=== PATIENT | male | born 1950 | race Caucasian/White ===

== ENCOUNTER 2020-06-05 14:48 | Outpatient (RCR) | payer MEDICARE, OTHER ==
[2020-06-05 15:19] LABS: BASOPHILS # (AUTO) 0.1 10^3/uL (0.0-0.1); BASOPHILS % (AUTO) 1 % (0-10); EOSINOPHILS # (AUTO) 0.2 10^3/uL (0.0-0.3); EOSINOPHILS % (AUTO) 4 % (0-10); HEMATOCRIT 46 % (40-54); HEMOGLOBIN 14.9 G/DL (13.3-17.7); LYMPHOCYTES # (AUTO) 1.1 X 10^3 (1.0-4.0); LYMPHOCYTES % (AUTO) 22 % (12-44); MEAN CORPUSCULAR HEMOGLOBIN 30 PG (25-34); MEAN CORPUSCULAR HGB CONC 33 G/DL (32-36); MEAN CORPUSCULAR VOLUME 91 FL (80-99); MEAN PLATELET VOLUME 10.6 FL (7.4-10.4); MONOCYTES # (AUTO) 0.5 X 10^3 (0.0-1.0); MONOCYTES % (AUTO) 9 % (0-12); NEUTROPHILS # (AUTO) 3.1 X 10^3 (1.8-7.8); NEUTROPHILS % (AUTO) 63 % (42-75); PLATELET COUNT 146 10^3/uL (130-400); WHITE BLOOD COUNT 4.8 10^3/uL (4.3-11.0)
[2020-06-05 15:36] LABS: ALBUMIN 4.1 GM/DL (3.2-4.5); CHLORIDE 107 MMOL/L (98-107); POTASSIUM 4.1 MMOL/L (3.6-5.0); SODIUM 142 MMOL/L (135-145)
[2020-06-05 15:37] LABS: CALCIUM 9.6 MG/DL (8.5-10.1)
[2020-06-05 15:38] LABS: GLUCOSE 104 MG/DL (70-105); TOTAL PROTEIN 7.3 GM/DL (6.4-8.2)
[2020-06-05 15:39] LABS: CARBON DIOXIDE 24 MMOL/L (21-32)
[2020-06-05 15:40] LABS: BILIRUBIN,TOTAL 0.5 MG/DL (0.1-1.0)
[2020-06-05 15:42] LABS: ALKALINE PHOSPHATASE 81 U/L (40-136); CREATININE SERUM 1.17 MG/DL (0.60-1.30); GFR ESTIMATED > 60
[2020-06-05 15:43] LABS: BUN/CREATININE RATIO 15
[2020-06-05 15:45] LABS: ALANINE AMINOTRANSFERASE 27 U/L (0-55)
[2020-06-05 15:57] LABS: PROTHROMBIN TIME PATIENT 13.4 SEC (12.2-14.7)
[2020-06-20] MEDS ORDERED: LOSA100T57 PO (14:49)
[2020-06-20] MEDS ORDERED: POTA10TA36 PO (14:49)
[2020-06-20] MEDS ORDERED: QUET50TA22 PO (14:49)
[2020-06-20] MEDS ORDERED: AMLO-251 PO (14:49)
[2020-06-23] MEDS ORDERED: ACET325T49 PO (13:00)
== END 2020-09-03 | disposition home or self-care (01) ==
LOC: LAB 14:48 → EDSTATUS 14:50
PROVIDERS: ATTEND Internal Medicine
DX: C22.0 Liver cell carcinoma (principal)
CPT/HCPCS: 36415; 80053; 82105; 85025; 85610

== ENCOUNTER 2020-06-16 19:52 | Emergency (ER) | payer MEDICARE, OTHER ==
[~2020-06-16] VITALS: Ht 182.9 cm; Wt 79.4 kg
--- NOTE | 2020-06-16 20:30 | ED Abdominal Pain ---
General Stated Complaint: ABD PAIN Source of Information: Patient Exam Limitations: No Limitations History of Present Illness Date Seen by Provider: Jun 16, 2020 Time Seen by Provider: 20:14 Initial Comments This is a chronically ill 69-year-old male who presents to the ER with complaints of constipation and abdominal pain. Reports he has been having issues with constipation since a recent surgery at on 06/11 for embolization therapy of his liver. States he has not been taking anything at home for constipation, and tonight he could not tolerate it anymore and had his son help him with a fleets enema. States he had small amount of stool but still feels very constipated. Son states he is concerned because his father has been having increasing weakness since procedure. No fever, chills, cough, shortness of breath, chest pain, nausea/vomiting. Allergies and Home Medications Allergies Coded Allergies: codeine (Verified Allergy, Unknown, ITCHING, 06/16/20) Patient Home Medication List Home Medication List Reviewed: Yes Review of Systems Review of Systems Constitutional: see HPI EENTM: No Symptoms Reported Respiratory: No Symptoms Reported Cardiovascular: No Symptoms Reported Gastrointestinal: See HPI Genitourinary: Denies Frequency, Denies Flank Pain, Denies Hematuria; Incontinence; Denies Pain Musculoskeletal: no symptoms reported Skin: no symptoms reported Psychiatric/Neurological: No Symptoms Reported Endocrine: No Symptoms Reported Hematologic/Lymphatic: No Symptoms Reported Physical Exam Vital Signs Vital Signs - First Documented 06/16/20 20:31 Temp 36.5 Pulse 75 Resp 14 B/P (MAP) 148/93 (111) Pulse Ox 99 O2 Delivery Nasal Cannula O2 Flow Rate 4.00 Capillary Refill : Height/Weight/BMI Height: '" Weight: lbs. oz. kg; BMI Method: General Appearance: WD/WN, no apparent distress HEENT: PERRL/EOMI, normal ENT inspection, pharynx normal; No scleral icterus (R), No scleral icterus (L) Neck: full range of motion, normal inspection Respiratory: lungs clear, normal breath sounds, no respiratory distress Cardiovascular: normal peripheral pulses, regular rate, rhythm, no edema Gastrointestinal: normal bowel sounds, soft, tenderness (LLQ); No mass Extremities: normal range of motion, non-tender, normal inspection, no pedal edema, normal capillary refill Back: normal inspection Neurologic/Psychiatric: no motor/sensory deficits, alert, normal mood/affect, oriented x 3 Skin: normal color, warm/dry Progress/Results/Core Measures Results/Orders Lab Results Laboratory Tests Test 06/16/20 20:00 06/16/20 20:20 Range/Units Urine Color ORANGE Urine Clarity CLEAR Urine pH 6.0 5-9 Urine Specific [place] 1.010 L 1.016-1.022 Urine Protein NEGATIVE NEGATIVE Urine Glucose (UA) NEGATIVE NEGATIVE Urine Ketones NEGATIVE NEGATIVE Urine Nitrite NEGATIVE NEGATIVE Urine Bilirubin NEGATIVE NEGATIVE Urine Urobilinogen 0.2 < = 1.0 MG/DL Urine Leukocyte Esterase NEGATIVE NEGATIVE Urine RBC (Auto) TRACE-I NEGATIVE Urine RBC 0-2 /HPF Urine WBC 0-2 /HPF Urine Squamous Epithelial Cells RARE /HPF Urine Crystals NONE /LPF Urine Bacteria NEGATIVE /HPF Urine Casts NONE /LPF Urine Mucus NEGATIVE /LPF Urine Culture Indicated NO White Blood Count 8.3 4.3-11.0 10^3/uL Red Blood Count 4.72 4.30-5.52 10^6/uL Hemoglobin 14.1 13.3-17.7 g/dL Hematocrit 42 40-54 % Mean Corpuscular Volume 89 80-99 fL Mean Corpuscular Hemoglobin 30 25-34 pg Mean Corpuscular Hemoglobin Concent 33 32-36 g/dL Red Cell Distribution Width 13.0 10.0-14.5 % Platelet Count 173 130-400 10^3/uL Mean Platelet Volume 10.8 9.0-12.2 fL Immature Granulocyte % (Auto) 1 % Neutrophils (%) (Auto) 82 H 42-75 % Lymphocytes (%) (Auto) 9 L 12-44 % Monocytes (%) (Auto) 8 0-12 % Eosinophils (%) (Auto) 1 0-10 % Basophils (%) (Auto) 0 0-10 % Neutrophils # (Auto) 6.8 1.8-7.8 10^3/uL Lymphocytes # (Auto) 0.7 L 1.0-4.0 10^3/uL Monocytes # (Auto) 0.7 0.0-1.0 10^3/uL Eosinophils # (Auto) 0.1 0.0-0.3 10^3/uL Basophils # (Auto) 0.0 0.0-0.1 10^3/uL Immature Granulocyte # (Auto) 0.1 0.0-0.1 10^3/uL Sodium Level 136 135-145 MMOL/L Potassium Level 3.6 3.6-5.0 MMOL/L Chloride Level 99 98-107 MMOL/L Carbon Dioxide Level 25 21-32 MMOL/L Anion Gap 12 5-14 MMOL/L Blood Urea Nitrogen 24 H 7-18 MG/DL Creatinine 1.03 0.60-1.30 MG/DL Estimat Glomerular Filtration Rate > 60 BUN/Creatinine Ratio 23 Glucose Level 125 H 70-105 MG/DL Calcium Level 9.3 8.5-10.1 MG/DL Corrected Calcium 9.5 8.5-10.1 MG/DL Total Bilirubin 1.2 H 0.1-1.0 MG/DL Aspartate Amino Transf (AST/SGOT) 30 5-34 U/L Alanine Aminotransferase (ALT/SGPT) 69 H 0-55 U/L Alkaline Phosphatase 102 40-136 U/L Total Protein 6.6 6.4-8.2 GM/DL Albumin 3.7 3.2-4.5 GM/DL My Orders Orders - FATMATA CORONADO LUNCH COOK Ua Culture If Indicated (06/16/20 19:55) Comprehensive Metabolic Panel (06/16/20 20:27) Ed Iv/Invasive Line Start (06/16/20 20:27) Cbc With Automated Diff (06/16/20 20:27) Ct Abdomen/Pelvis W (06/16/20 20:27) Chest 1 View, Ap/Pa Only (06/16/20 20:27) Iohexol Injection (Omnipaque 350 Mg/Ml 1 (06/16/20 20:45) Received Contrast (Hold Metformin- Contr (06/16/20 20:45) Ns (Ivpb) (Sodium Chloride 0.9% Ivpb Bag (06/16/20 20:45) Soap Suds Enema (06/16/20 21:25) Medications Given in ED Vital Signs/I&O 06/16/20 06/16/20 20:31 22:45 Temp 36.5 36.0 Pulse 75 99 Resp 14 18 B/P (MAP) 148/93 (111) 119/80 Pulse Ox 99 93 O2 Delivery Nasal Cannula Nasal Cannula O2 Flow Rate 4.00 2.00 Progress Progress Note : Progress Note Pt. examined and in no acute distress. Orders placed for basic labs, UA to check for urinary tract infection, CT abdomen pelvis due to recent embolization and complains of weakness. Patient resting comfortably in bed, denies need at this time. Labs reviewed and are unremarkable. Chest x-ray shows possible atelectasis, encouraged IS use at home. No elevation in white count. UA is negative for UTI. CT abdomen pelvis shows large amount of stool at rectum with constipation/impaction, with no other acute diagnoses. Orders placed for soapsuds enema. Was able to remove a small amount of stool after soapsuds enema, reports feeling improved. Reviewed discharge plan with patient and son and they are agreeable with plan. All questions and concerns addressed. Diagnostic Imaging Diagonstic Imaging: Xray Plain Films/CT/US/NM/MRI: chest Comments NAME: SUNITA [facility] REC#: [id number] PT STATUS: REG ER : 1950 PHYSICIAN: FATMATA CORONADO LUNCH COOK ADMIT DATE: 06/16/20/ER Draft Date of Exam:06/16/20 CHEST 1 VIEW, AP/PA ONLY HISTORY: Abdominal pain COMPARISON: None TECHNIQUE: Frontal view the chest FINDINGS: Lung volumes are low. There are left basilar airspace opacities. There is no pleural effusion or pneumothorax. The cardiac silhouette is normal in size. There is an old left clavicle deformity. IMPRESSION: 1. Low lung volumes with left basilar airspace opacities, may represent atelectasis or infection. Dictated on workstation # [id number] Dict: 06/16/202056 Trans: 06/16/202104 [facility] [phone] Interpreted by: ADEN BROTHERS MD Electronically signed by: Departure Impression Primary Impression: Constipation Disposition: HOME, SELF-CARE Condition: Improved Departure-Patient Inst. Decision time for Depature: 21:27 Referrals: NO,LOCAL PHYSICIAN (PCP/Family) Primary Care Physician Patient Instructions: Constipation in Adults Add. Discharge Instructions: Plan: 1. Drink plenty of fluids to stay hydrated. 2. Use Miralax twice a day until you have desired consistency of stools, then decrease to daily to keep stools soft. If you develop diarrhea, take every other day. 3. Follow up with your primary care provider for persistent complaints. 4. Return to ER for any new or concerning symptoms. FATMATA CORONADO LUNCH COOK Jun 16, 2020 20:30
[2020-06-16 20:44] LABS: BASOPHILS % (AUTO) 0 % (0-10); EOSINOPHILS # (AUTO) 0.1 10^3/uL (0.0-0.3); EOSINOPHILS % (AUTO) 1 % (0-10); HEMATOCRIT 42 % (40-54); HEMOGLOBIN 14.1 g/dL (13.3-17.7); LYMPHOCYTES # (AUTO) 0.7 10^3/uL (1.0-4.0); LYMPHOCYTES % (AUTO) 9 % (12-44); MEAN CORPUSCULAR HEMOGLOBIN 30 pg (25-34); MEAN CORPUSCULAR HGB CONC 33 g/dL (32-36); MEAN CORPUSCULAR VOLUME 89 fL (80-99); MEAN PLATELET VOLUME 10.8 fL (9.0-12.2); MONOCYTES # (AUTO) 0.7 10^3/uL (0.0-1.0); MONOCYTES % (AUTO) 8 % (0-12); NEUTROPHILS # (AUTO) 6.8 10^3/uL (1.8-7.8); NEUTROPHILS % (AUTO) 82 % (42-75); PLATELET COUNT 173 10^3/uL (130-400); WHITE BLOOD COUNT 8.3 10^3/uL (4.3-11.0)
[2020-06-16] MEDS ORDERED: IOHEXOL 350 MG/ML 100 ML (OMNIPAQUE 350) VIAL IV ONE (20:45)
[2020-06-16] MEDS ORDERED: HOLD METFORMIN - RECEIVED CONTRAST 20 ML VIAL IV SCH (20:45)
[2020-06-16] MEDS ORDERED: NS 100 ML (IVPB) BAG IV ONE (20:45)
[2020-06-16 21:01] LABS: ALANINE AMINOTRANSFERASE 69 U/L (0-55); ALBUMIN 3.7 GM/DL (3.2-4.5); ALKALINE PHOSPHATASE 102 U/L (40-136); BILIRUBIN,TOTAL 1.2 MG/DL (0.1-1.0); BUN/CREATININE RATIO 23; CALCIUM 9.3 MG/DL (8.5-10.1); CARBON DIOXIDE 25 MMOL/L (21-32); CHLORIDE 99 MMOL/L (98-107); CREATININE SERUM 1.03 MG/DL (0.60-1.30); GFR ESTIMATED > 60; GLUCOSE 125 MG/DL (70-105); POTASSIUM 3.6 MMOL/L (3.6-5.0); SODIUM 136 MMOL/L (135-145); TOTAL PROTEIN 6.6 GM/DL (6.4-8.2)
--- NOTE | 2020-06-16 21:05 | Diagnostic Imaging Report ---
HISTORY: Abdominal pain COMPARISON: None TECHNIQUE: Frontal view the chest FINDINGS: Lung volumes are low. There are left basilar airspace opacities. There is no pleural effusion or pneumothorax. The cardiac silhouette is normal in size. There is an old left clavicle deformity. IMPRESSION: 1. Low lung volumes with left basilar airspace opacities, may represent atelectasis or infection. Dictated by: Dictated on workstation # [id number]
--- NOTE | 2020-06-16 21:14 | Diagnostic Imaging Report ---
PROCEDURE: CT abdomen and pelvis with contrast. TECHNIQUE: Multiple contiguous axial images were obtained through the abdomen and pelvis after administration of intravenous contrast. Auto Exposure Controls were utilized during the CT exam to meet ALARA standards for radiation dose reduction. All CT scans use one or more of the following dose optimizing techniques: automated exposure control, MA and/or KvP adjustment based on patient size and exam type or iterative reconstruction. INDICATION: Embolization therapy for liver on 06/11/2020. Abdominal pain and constipation. COMPARISON: None FINDINGS: Lung bases demonstrate dependent atelectasis. There is moderate cardiomegaly. There is no pericardial effusion. There is hyperdense material seen throughout the liver, consistent with the known history of embolization. There are 2 hypodense lesions in the anterior right liver, the larger measuring up to 5 cm in diameter. No comparison exam is available. The spleen is upper normal in size. There is a nonspecific hypodensity at the anterior spleen which may be due to perfusion artifact. The pancreas demonstrates no acute abnormality. There is are hyperdensities at the head of the pancreas which may represent calcifications, and maybe from chronic pancreatitis. The adrenal glands appear normal. The kidneys demonstrate mild cortical atrophy with no hydronephrosis and no enhancing masses seen. There is moderate to marked stool in the colon, particularly at the rectum. No free fluid or free air is seen. No distended loops of small bowel are seen to indicate obstruction. The appendix is normal. There are advanced degenerative changes in the spine with no acute osseous abnormality seen. IMPRESSION: 1. Post embolization findings in the right liver, with hypodense lesions noted. No comparison is available. 2. Moderate to marked stool in the colon, particularly at the rectum, concerning for constipation/impaction. 3. Calcifications in the region of the pancreatic head, may be due to chronic pancreatitis. No findings of acute pancreatitis are seen. 4. Cardiomegaly. Dependent pulmonary opacities which likely represent atelectasis. Dictated by: Dictated on workstation # [id number]
[2020-06-16 21:23] LABS: BILIRUBIN,URINE NEGATIVE (NEGATIVE); CLARITY,URINE CLEAR; COLOR,URINE ORANGE; GLUCOSE, URINE (UA) NEGATIVE (NEGATIVE); KETONES,URINE NEGATIVE (NEGATIVE); LEUKOCYTE ESTERASE ,URINE NEGATIVE (NEGATIVE); NITRITE,URINE NEGATIVE (NEGATIVE); PROTEIN,URINE NEGATIVE (NEGATIVE)
[2020-06-16 21:32] LABS: BACTERIA,URINE NEGATIVE /HPF; RBC,URINE 0-2 /HPF; SQUAMOUS EPITHELIAL CELL,UR RARE /HPF; WBC,URINE 0-2 /HPF
[2020-06-16 22:45] VITALS: BP 119/80
== END 2020-06-16 22:45 | disposition home or self-care (01) ==
LOC: EDUNIT# 19:52 → ER 19:56
DX: K59.00 Constipation, unspecified (principal); Z88.5 Allergy status to narcotic agent
CPT/HCPCS: 36415; 71045; 74177; 80053; 81000; 85025

== ENCOUNTER 2020-06-19 22:55 | Inpatient (IN) | payer MEDICARE, OTHER ==
[~2020-06-19] VITALS: Ht 182 cm; Wt 76.4 kg
--- NOTE | 2020-06-19 23:36 | ED Trauma-Multisystem ---
General Chief Complaint: Trauma-Non Activation Stated Complaint: FALL / R ARM PAIN Nursing Triage Note: TO ED VIA [facility] FROM HOME AFTER REPORTED FALL X2 TODAY. FOUND ON FLOOR ON RIGHT SIDE WITH PROBABLE DISLOCATION PER EMS. PT ROLLED TO BACK AND POSSIBLY WENT BACK IN PLACE PER EMS. PT C/O LEFT SIDE ARM/SHOULDER PAIN ON ARRIVAL. LAC TO LEFT TAOIST. Source of Information: Patient, EMS Exam Limitations: No Limitations History of Present Illness Date Seen by Provider: Jun 19, 2020 Time Seen by Provider: 23:00 Initial Comments Patient is a 69-year-old male who presents to the emergency department by EMS this evening with a chief complaint of fall. Patient states that his walker "got away from me" and he fell onto the floor. Patient reportedly had a right shoulder dislocation on EMS arrival and when they rolled him onto his back onto the stretcher it spontaneously reduced. Patient presents to me this evening laying on his left side but when rolled over onto his back appears to have a left shoulder dislocation. Patient is complaining of pain to the left side of his face and his left shoulder. He denies chest pain, abdominal pain, nausea, vomiting. He is a poor historian and appears chronically ill. Patient suffered a laceration to the most lateral aspect of his left eyebrow with his fall this evening. He has contusion to the top of his scalp and the side of his face. He seems to be very hard of hearing. He tells me that he lives with his son and [id number] and grandchildren at home. None of these people are present on arrival for further history. Further history from son at 0016 Son states that he was present when the dad had a mechanical trip and fall while using his walker and trying to get to the bathroom. He has a history of "cerebellar ataxia". states that he did not have a loss of consciousness with his fall today.. He states that within the last week the patient has been at [facility] and had embolization and ablation of a liver tumor/liver cancer. [facility] [place] [facility] [place] [facility]. Patient had an oncology visit earlier today. He supposed to [facility] tomorrow. Past medical history includes hypertension and depression. He has had sig nificantly decreased appetite in recent days. Just seems to have declined fairly steadily. He was moved down here from [place] to live with his son after the patient's passed last year from cancer. Patient is very hard of hearing. No recent illnesses (fever, cough, congestion, nausea, vomiting or diarrhea or genitourinary complaints) that the son is aware of. He did have a visit here on 16 June with complaints of constipation. All other review of systems reviewed and negative except as stated above Occurred: Just Prior to Arrival Severity: Moderate Pain/Injury Location: Face, Head Method of Injury: Fall Modifying Factors: Movement Loss of Consciousness: Unsure Allergies and Home Medications Allergies Coded Allergies: codeine (Verified Allergy, Unknown, ITCHING, 06/16/20) Home Medications Amlodipine Besylate 10 Mg Tablet, 10 MG PO DAILY, (Reported) Losartan Potassium 100 Mg Tablet, 100 MG PO DAILY, (Reported) Potassium Chloride 10 Meq Tab.er.prt, 20 MEQ PO DAILY, (Reported) TAKES 2 (10NEQ) TABS Quetiapine Fumarate 50 Mg Tablet, 50 MG PO BID PRN for AGITATION, (Reported) Patient Home Medication List Home Medication List Reviewed: Yes Review of Systems Review of Systems Constitutional: see HPI Eyes: No Symptoms Reported Ears: No Symptoms Reported Nose: No Symptoms Reported Mouth: No Symptoms Reported Throat: No Symptoms to Report Respiratory: no symptoms reported Cardiovascular: No Symptoms Reported Gastrointestinal: no symptoms reported Musculoskeletal: joint pain (left shoulder), joint swelling, muscle pain Skin: other (abrasion/ laceration left side of face) All Other Systems Reviewed Negative Unless Noted: Yes Past Tdeohzc-Unwwgn-Vrlpbs Hx Patient Social History Alcohol Use: Denies Use 2nd Hand Smoke Exposure: No Recent Infectious Disease Expo: No Recent Hopitalizations: Yes (Surgery on 06/11) Seasonal Allergies Seasonal Allergies: No Past Medical History Surgeries: Yes ([facility] ablation/exploratory 06/11) Respiratory: No Cardiac: Yes Hypertension Neurological: Yes (cerebral ataxia) Gastrointestinal: No Musculoskeletal: No Endocrine: No HEENT: No Cancer: No Psychosocial: Yes PTSD, Depression Blood Disorders: No Physical Exam Vital Signs Vital Signs - First Documented 06/19/20 06/19/20 23:01 23:04 Temp 36.9 Pulse 104 Resp 16 B/P (MAP) 129/77 (94) O2 Delivery Nasal Cannula O2 Flow Rate 2.00 Height, Weight, BMI Height: '" Weight: lbs. oz. kg; 23.00 BMI Method: General Appearance: No Apparent Distress, Chronically ill Head: Ecchymosis, Lacerations (left lateral eye brow), Other (abrasion to top of forehead); No Omalley's Sign, No Raccoon Eyes Eyes: Bilateral Eye Normal Inspection, Bilateral Eye PERRL, Bilateral Eye EOMI Ears, Nose, Throat: No Evidence of ENT Injury, No Dental Injury, Decreased Hearing Neck: Full Range of Motion, Non Tender, Tender Lateral, Tender Midline (C5, 6, 7) Cardiovascular: Regular Rate, Rhythm Respiratory: Lungs Clear, Normal Breath Sounds Gastrointestinal: Normal Bowel Sounds, Non Tender, Soft Back: Normal Inspection Extremity: Normal Capillary Refill, Other (Left shoulder with palpable deformity/dislocation; distal neurovascularly intact) Neurologic/Psychiatric: Alert, Oriented x3, No Motor/Sensory Deficits, Normal Mood/Affect, driver guard II-XII Norm as Tested Skin: Normal Color, Warm/Dry, Other (Abrasion/ecchymosis noted to left zygoma spiritism and top of forehead on the left) [place] Coma Score Best Eye Response (Cheryl): (4) Open Spontaneously Best Verbal Response (Cheryl): (5) Oriented Best Motor Response (Cheryl): (6) Obeys Commands Cheryl Total: 15 Progress/Results/Core Measures Results/Orders Lab Results Laboratory Tests Test 06/19/20 23:00 06/20/20 00:50 Range/Units White Blood Count 14.5 H 4.3-11.0 10^3/uL Red Blood Count 4.08 L 4.30-5.52 10^6/uL Hemoglobin 12.4 L 13.3-17.7 g/dL Hematocrit 37 L 40-54 % Mean Corpuscular Volume 91 80-99 fL Mean Corpuscular Hemoglobin 30 25-34 pg Mean Corpuscular Hemoglobin Concent 33 32-36 g/dL Red Cell Distribution Width 13.2 10.0-14.5 % Platelet Count 220 130-400 10^3/uL Mean Platelet Volume 11.7 9.0-12.2 fL Immature Granulocyte % (Auto) 1 % Neutrophils (%) (Auto) 80 H 42-75 % Lymphocytes (%) (Auto) 8 L 12-44 % Monocytes (%) (Auto) 11 0-12 % Eosinophils (%) (Auto) 0 0-10 % Basophils (%) (Auto) 0 0-10 % Neutrophils # (Auto) 11.6 H 1.8-7.8 10^3/uL Lymphocytes # (Auto) 1.1 1.0-4.0 10^3/uL Monocytes # (Auto) 1.6 H 0.0-1.0 10^3/uL Eosinophils # (Auto) 0.0 0.0-0.3 10^3/uL Basophils # (Auto) 0.0 0.0-0.1 10^3/uL Immature Granulocyte # (Auto) 0.2 H 0.0-0.1 10^3/uL Sodium Level 131 L 135-145 MMOL/L Potassium Level 4.0 3.6-5.0 MMOL/L Chloride Level 96 L 98-107 MMOL/L Carbon Dioxide Level 24 21-32 MMOL/L Anion Gap 11 5-14 MMOL/L Blood Urea Nitrogen 23 H 7-18 MG/DL Creatinine 1.20 0.60-1.30 MG/DL Estimat Glomerular Filtration Rate 60 BUN/Creatinine Ratio 19 Glucose Level 137 H 70-105 MG/DL Calcium Level 9.5 8.5-10.1 MG/DL Corrected Calcium 9.9 8.5-10.1 MG/DL Total Bilirubin 1.7 H 0.1-1.0 MG/DL Aspartate Amino Transf (AST/SGOT) 148 H 5-34 U/L Alanine Aminotransferase (ALT/SGPT) 234 H 0-55 U/L Alkaline Phosphatase 144 H 40-136 U/L Total Protein 6.4 6.4-8.2 GM/DL Albumin 3.5 3.2-4.5 GM/DL Urine Color ORANGE Urine Clarity SL CLOUDY Urine pH 6.0 5-9 Urine Specific [place] 1.025 H 1.016-1.022 Urine Protein TRACE H NEGATIVE Urine Glucose (UA) NEGATIVE NEGATIVE Urine Ketones NEGATIVE NEGATIVE Urine Nitrite NEGATIVE NEGATIVE Urine Bilirubin NEGATIVE NEGATIVE Urine Urobilinogen 2.0 < = 1.0 MG/DL Urine Leukocyte Esterase NEGATIVE NEGATIVE Urine RBC (Auto) TRACE-I NEGATIVE Urine RBC RARE /HPF Urine WBC NONE /HPF Urine Squamous Epithelial Cells 2-5 /HPF Urine Crystals NONE /LPF Urine Bacteria NEGATIVE /HPF Urine Casts PRESENT /LPF Urine Hyaline Casts 5-10 H /LPF Urine Mucus LARGE H /LPF Urine Culture Indicated NO My Orders Orders - GHULAM COHEN MD O2 (06/19/20 23:02) Ct Head/Neck Wo (06/19/20 23:10) Shoulder, Left, 3 Views (06/19/20 23:10) Fentanyl Injection (Sublimaze Injection (06/20/20 00:00) Cbc With Automated Diff (06/20/20 00:15) Comprehensive Metabolic Panel (06/20/20 00:15) Ns Iv 1000 Ml (Sodium Chloride 0.9%) (06/20/20 00:19) Fentanyl Injection (Sublimaze Injection (06/20/20 00:45) Ketamine Injection (Ketalar Injection) (06/20/20 00:45) Garcia Cath (06/20/20 00:46) Ua Culture If Indicated (06/20/20 00:55) Medications Given in ED Vital Signs/I&O 06/19/20 06/19/20 06/20/20 23:01 23:04 00:40 Temp 36.9 Pulse 104 Resp 16 B/P (MAP) 129/77 (94) O2 Delivery Nasal Cannula Room Air Nasal Cannula O2 Flow Rate 2.00 2.00 2.00 Blood Pressure Mean: 94 Progress Progress Note : Time: 00:58 Progress Note Discussed with Dr. Unger, accepts the patient for admission. Will provide IV fluids pain medications ice pack to left shoulder. Will consult Dr. MORALEZ regarding shoulder dislocation for consultation. Diagnostic Imaging Diagonstic Imaging: Xray Comments Left shoulder series shows a fracture dislocation of the left shoulder Stat rad read CT brain as no acute intracranial finding and CT cervical spine no evidence of acute fracture or malalignment Departure Communication (Admissions) Time/Spoke to Admitting Phy: 00:[address] Unger, pain management and IV fluids Impression Primary Impression: Generalized weakness Additional Impressions: Fracture dislocation of left shoulder joint Qualified Codes: S42.92XA - Fracture of left shoulder girdle, part unspecified, initial encounter for closed fracture Elevated liver function tests Disposition: ADMITTED INPATIENT Condition: Stable Admissions Decision to Admit Reason: Admit from ER (General) Decision to Admit/Date: Jun 20, 2020 Time/Decision to Admit Time: 00:59 Departure-Patient Inst. Referrals: NO,LOCAL PHYSICIAN (PCP/Family) Primary Care Physician GHULAM COHEN MD Jun 19, 2020 23:36
[2020-06-20] VITALS (15 sets, daily range): BP systolic 93–146; BP diastolic 56–77
[2020-06-20] MEDS ORDERED: KETAMINE HCL 100 MG/ML 5 ML VIAL IM ONE
[2020-06-20] MEDS ORDERED: NS IV 1000 ML 1,000 ML ONE (00:19)
[2020-06-20 00:28] LABS: BASOPHILS % (AUTO) 0 % (0-10); EOSINOPHILS % (AUTO) 0 % (0-10); HEMATOCRIT 37 % (40-54); HEMOGLOBIN 12.4 g/dL (13.3-17.7); LYMPHOCYTES # (AUTO) 1.1 10^3/uL (1.0-4.0); LYMPHOCYTES % (AUTO) 8 % (12-44); MEAN CORPUSCULAR HEMOGLOBIN 30 pg (25-34); MEAN CORPUSCULAR HGB CONC 33 g/dL (32-36); MEAN CORPUSCULAR VOLUME 91 fL (80-99); MEAN PLATELET VOLUME 11.7 fL (9.0-12.2); MONOCYTES # (AUTO) 1.6 10^3/uL (0.0-1.0); MONOCYTES % (AUTO) 11 % (0-12); NEUTROPHILS # (AUTO) 11.6 10^3/uL (1.8-7.8); NEUTROPHILS % (AUTO) 80 % (42-75); PLATELET COUNT 220 10^3/uL (130-400); WHITE BLOOD COUNT 14.5 10^3/uL (4.3-11.0)
[2020-06-20 00:31] LABS: ALBUMIN 3.5 GM/DL (3.2-4.5)
[2020-06-20 00:33] LABS: CALCIUM 9.5 MG/DL (8.5-10.1)
[2020-06-20 00:36] LABS: BILIRUBIN,TOTAL 1.7 MG/DL (0.1-1.0)
[2020-06-20 00:38] LABS: CREATININE SERUM 1.2 MG/DL (0.60-1.30)
[2020-06-20] MEDS ORDERED: KETAMINE HCL 100 MG/ML 5 ML VIAL IV ONE (00:45)
[2020-06-20] MEDS ORDERED: fentaNYL INJECTION 100 MCG/2 ML AMP IVP ONE ×2 (00:45)
[2020-06-20 00:49] LABS: TOTAL PROTEIN 6.4 GM/DL (6.4-8.2)
[2020-06-20 01:03] LABS: BILIRUBIN,URINE NEGATIVE (NEGATIVE); CLARITY,URINE SL CLOUDY; COLOR,URINE ORANGE; GLUCOSE, URINE (UA) NEGATIVE (NEGATIVE); KETONES,URINE NEGATIVE (NEGATIVE); LEUKOCYTE ESTERASE ,URINE NEGATIVE (NEGATIVE); NITRITE,URINE NEGATIVE (NEGATIVE); PROTEIN,URINE TRACE (NEGATIVE)
[2020-06-20 01:19] LABS: BACTERIA,URINE NEGATIVE /HPF; RBC,URINE RARE /HPF
[2020-06-20] MEDS ORDERED: ONDANSETRON 4 MG/2 ML (SDV) Z0FRAN IV PRN ×2 (02:45→11:15)
[2020-06-20] MEDS: NS IV 1000 ML 1,000 ML IV SCH ×3 (02:58→14:53)
[2020-06-20] MEDS ORDERED: RT-ALBUTEROL SULF 2.5 MG/3 ML PRE-MIX VIAL INH PRN (03:15)
[2020-06-20] MEDS: fentaNYL INJECTION 100 MCG/2 ML AMP IV PRN ×3 (05:24→12:36)
--- NOTE | 2020-06-20 06:21 | Diagnostic Imaging Report ---
INDICATION: Shoulder injury COMPARISON: None FINDINGS: 3 views of the left shoulder demonstrate anterior inferior dislocation with humeral head fracture. The AC joint appears intact. IMPRESSION: Shoulder dislocation fracture. Dictated by: Dictated on workstation # [id number]
--- NOTE | 2020-06-20 06:39 | Diagnostic Imaging Report ---
PROCEDURE: CT head and neck without contrast. TECHNIQUE: Contiguous axial images were obtained from the skull base through the vertex. Noncontrast axial images were then obtained of the soft tissue of the neck. Auto Exposure Controls were utilized during the CT exam to meet ALARA standards for radiation dose reduction. INDICATION: Head injury COMPARISON: None. FINDINGS: CT head: Ventricles normal in size, shape and position. There is age-related cerebral volume loss and chronic microvascular changes. No focus of acute ischemia or hemorrhage is seen. There is no skull fracture. Paranasal sinuses and mastoids are clear. IMPRESSION: No acute intracranial abnormalities. CT cervical spine: Alignment is normal. There is no subluxation or fracture. Multilevel degenerative disc disease and facet joint arthropathy is seen. Soft tissues appear grossly unremarkable. IMPRESSION: No traumatic malalignment or fracture. Agree with preliminary report Dictated by: Dictated on workstation # [id number]
--- NOTE | 2020-06-20 06:58 | Progress Note ---
Standard Progress Note Progress Notes/Assess & Plan Date Seen by a Provider: Jun 20, 2020 Time Seen by a Provider: 06:57 Progress/Assessment & Plan plan to OR today for closed reduction of left shoulder dislocation SUNITA MORALEZ MD Jun 20, 2020 06:58
[2020-06-20] MEDS ORDERED: CATHETER FLUSH 10 ML SYR IV PRN (07:00)
--- NOTE | 2020-06-20 07:39 | CONSULTATION REPORT ---
DATE OF SERVICE: 06/20/2020 REASON FOR CONSULTATION: Left shoulder dislocation with greater tuberosity fracture. HISTORY OF PRESENT ILLNESS: The patient is a 69-year-old gentleman who is extremely debilitated with multiple medical problems who presented to the ER following two falls by the ER physician's report. He was found to have an anterior shoulder dislocation, which she tried to reduce this, but due to his debility, she was concerned about over sedating him. He was admitted for stability and for placement. The patient is unable to give any history. PHYSICAL EXAMINATION: He is tender over his left proximal humerus. He has pain with rotation. Radiographs reveal an anterior inferior shoulder dislocation. PLAN: Closed reduction of left shoulder dislocation. Risks, benefits, options, ramifications and recovery were discussed with the patient and son. They understand and wished to proceed. Job ID: [id number] DocumentID: [id number] Dictated Date: 06/20/2020 07:00:11 [employer] Date: 06/20/2020 07:38:42 Dictated By: SUNITA MORALEZ MD
[2020-06-20] MEDS ORDERED: MIDAZOLAM 2 MG/2 ML (VERSED) VIAL ONE (10:47)
[2020-06-20] MEDS ORDERED: fentaNYL INJECTION 100 MCG/2 ML AMP ONE (10:47)
[2020-06-20] MEDS ORDERED: SEVOFLURANE (ULTANE) 15 ML INHAL SOLN ONE (10:48)
[2020-06-20] MEDS ORDERED: PROPOFOL INJECTION 50 ML IV ONE (11:02)
--- NOTE | 2020-06-20 11:03 | History & Physical-Hospitalist ---
History of Present Illness HPI/Chief Complaint Chad Kim is a 69-year-old male with past medical history of cerebellar ataxia, liver cancer undergoing chemoembolization, hypertension, who presented to after having a fall at home. Obtaining history is difficult due to his pain. He reports left shoulder pain. He reports that he fell while using his walker at home. He says he has had several falls recently. He says he was diagnosed with cerebellar ataxia at the [place]. He also says he broke his left collarbone almost a year ago. He says this was never repaired. He denies any fevers or chills. He denies any shortness of breath or cough. He denies any palpitations or chest pain. He denies any abdominal pain, nausea, vomiting, or diarrhea. Source: patient, RN/MD Exam Limitations: clinical condition Date Seen 06/20/20 Time Seen by a Provider: 09:20 Attending Physician Annamaria Unger DO PCP No,Local Physician Referring Physician Date of Admission Jun 20, 2020 at 00:56 Home Medications & Allergies Home Medications Reviewed patient Home Medication Reconciliation performed by pharmacy medication reconciliations urgent care technician and/or nursing. Patients Allergies have been reviewed. Allergies Allergies Coded Allergies codeine (Verified Allergy, Unknown, ITCHING, 06/16/20) Past Zziobxa-Dhsztz-Ezkrup Hx Past Med/Social Hx: Reviewed Nursing Past Med/Soc Hx Patient Social History Alcohol Use: Denies Use Recreational Drug Use: No 2nd Hand Smoke Exposure: No Recent Foreign Travel: No Contact w/other who traveled: No Recent Hopitalizations: Yes (Surgery on 06/11) Recent Infectious Disease Expo: No Immunizations Up To Date Date of Influenza Vaccine: Feb 16, 2021 Seasonal Allergies Seasonal Allergies: No Past Medical History Cardiac: Hypertension Psychosocial: PTSD, Depression History of Blood Disorders: No Review of Systems Constitutional: no symptoms reported, see HPI Physical Exam Physical Exam Vital Signs Vital Signs - First Documented 06/19/20 06/19/20 06/20/20 23:01 23:04 02:13 Temp 36.9 Pulse 104 Resp 16 B/P (MAP) 129/77 (94) Pulse Ox 94 O2 Delivery Nasal Cannula O2 Flow Rate 2.00 Capillary Refill : Less Than 3 Seconds Height, Weight, BMI Height: '" Weight: lbs. oz. kg; 23.06 BMI Method: General Appearance: Chronically ill, Moderate Distress, Other (uncomfortable) HEENT: PERRL/EOMI, Pharynx Normal Neck: Normal Inspection, Supple Respiratory: Lungs Clear, Normal Breath Sounds, No Respiratory Distress Cardiovascular: Regular Rate, Rhythm, No Edema, No Murmur Gastrointestinal: Normal Bowel Sounds, Non Tender, Soft Extremity: No Pedal Edema, Other (left upper extremity immobilized) Neurologic/Psychiatric: Alert, Oriented x3, No Motor/Sensory Deficits, Normal Mood/Affect Skin: Normal Color, Warm/Dry Results Results/Procedures Labs Laboratory Tests 06/19/20 23:00 Patient resulted labs reviewed. Imaging: Reviewed Imaging Report Assessment/Plan Admission Diagnosis left humerus fracture and shoulder dislocation Admission Status: Inpatient Order (span 2 midnights) Reason for Inpatient Admission: fracture and dislocation requiring surgical repair Assessment and Plan Left humerus fracture Left shoulder dislocation Fall at ground level Cerebellar ataxia XR showed humerus dislocation and fracture Orthopedic surgery consulted Planning for surgery today Pain regimen ordered Add bowel regimen PT/OT Consult SW, will likely need placement on discharge Liver cancer Undergoing chemoembolization as outpatient Clinically significant, no acute management needs HTN Resume home meds after med rec done DVT prophylaxis: Lovenox Diagnosis/Problems Diagnosis/Problems (1) Dislocation of left shoulder joint Status: Acute (2) Fracture of head of left humerus Status: Acute (3) Liver cancer Status: Chronic (4) Cerebellar ataxia Status: Chronic (5) HTN (hypertension) Status: Chronic LUZ ELENA PORTILLO MD Jun 20, 2020 11:03
[2020-06-20] MEDS ORDERED: ANTACID SUSP 30 ML UDC (MYLANTA) PO PRN (11:15)
[2020-06-20] MEDS ORDERED: MELATONIN 3 MG TABLET PO PRN (11:15)
[2020-06-20] MEDS ORDERED: ACETAMINOPHEN 325 MG TABLET PO PRN ×2 (11:15→14:00)
[2020-06-20] MEDS ORDERED: polyethylene glycoL POWDER 17 GM (MIRALAX) PACK PO PRN (11:15)
[2020-06-20] MEDS ORDERED: ONDANSETRON 4 MG (ZOFRAN) ORAL DISSOLVE TAB PO PRN (11:15)
[2020-06-20] MEDS ORDERED: BISACODYL 10 MG SUPP (DULCOLAX) PR PRN (11:15)
--- NOTE | 2020-06-20 13:10 | Progress Note-Pre Operative ---
Pre-Operative Progress Note H&P Reviewed The H&P was reviewed, patient examined and no changes noted. Date Seen by Provider: Jun 20, 2020 Time Seen by Provider: 10:40 Date H&P Reviewed: Jun 20, 2020 Time H&P Reviewed: 06:50 Pre-Operative Diagnosis: left shoulder dislocation and greater tuberosity fracture SUNITA MORALEZ MD Jun 20, 2020 13:10
--- NOTE | 2020-06-20 13:11 | Progress Note-Post Operative ---
Post-Operative Progess Note Surgeon (s)/Exhaust And Muffler Fitter (s) Surgeon SUNITA MORALEZ MD Exhaust And Muffler Fitter: Amador Nieto Pre-Operative Diagnosis left shoulder dislocation and greater tuberosity fracture Post-Operative Diagnosis left shoulder dislocation and greater tuberosity fracture Procedure & Operative Findings Date of Procedure 06/20/20 Procedure Performed/Findings closed reduction of left shoulder Anesthesia Type GETA Estimated Blood Loss Estimated blood loss (mL): none Specimens/Packing Specimens Removed none Packing: none SUNITA MORALEZ MD Jun 20, 2020 13:11
[2020-06-20] MEDS ORDERED: LACTATED RINGERS 1,000 ML IV PRN (13:30)
[2020-06-20] MEDS ORDERED: morphine INJ 4 MG/ML 1 ML (VIAL/SYRINGE) IVP PRN (14:00)
[2020-06-20] MEDS ORDERED: ONDANSETRON 4 MG/2 ML (SDV) Z0FRAN IVP PRN (14:00)
[2020-06-20] MEDS ORDERED: POTA10TA36 PO (14:49)
[2020-06-20] MEDS ORDERED: QUET50TA22 PO (14:49)
[2020-06-20] MEDS ORDERED: LOSA100T57 PO (14:49)
[2020-06-20] MEDS ORDERED: AMLO-251 PO (14:49)
--- NOTE | 2020-06-20 15:20 | Physical Therapy Evaluation ---
PT Evaluation-General Medical Diagnosis Admission Date Jun 20, 2020 at 00:56 Medical Diagnosis: left shoulder dislocation and fracture Onset Date: Jun 19, 2020 Therapy Diagnosis Therapy Diagnosis: generalized weakness Precautions Precautions/Isolations: Fall Prevention, Standard Precautions Referral Physician: Angelica Reason for Referral: Evaluation/Treatment Medical History Pertinent Medical History: HTN Additional Medical History PTSD; cerebellar ataxia Current History EMS secondary to fall x 2 at home "walker got away from him" Reviewed History: Yes Social History Home: Single Level Current Living Status: Other Family Prior Prior Level of Function SCALE: Activities may be completed with or without assistive devices. 3-Rzuqlppnem-yfzawyq completes the activity by him/herself with no assistance from a helper. 5-Set-up or Clean-up Assistance-helper sets up or cleans up; patient completes activity. [place] assists only prior to or following the activity. 4-Supervision or Touching Assistance-helper provides verbal cues and/or touching/steadying and/or contact guard assistance as patient completes activity. Assistance may be provided throughout the activity or intermittently. 3-Partial/Moderate Assistance-helper does LESS THAN HALF the effort. [place] lifts, holds or supports trunk or limbs, but provides less than half the effort. 2-Substantial/Maximal Assistance-helper does MORE THAN HALF the effort. [place] lifts or holds trunk or limbs and provides more than half the effort. 0-Csjlmdgrf-nmtgwp does ALL the effort. Patient does none of the effort to complete the activity. Or, the assistance of 2 or more helpers is required for the patient to complete the activity. If activity was not attempted, code reason: 7-Patient Refused. 9-Not Applicable-not attempted and the patient did not perform the activity before the current illness, exacerbation or injury. 10-Not Attempted due to Environmental Limitations-(lack of equipment, weather restraints, etc.). 88-Not Attempted due to Medical Conditions or Safety Concerns. Bed Mobility: 5 Transfers (B,C,W/C): 5 Gait: 5 Indoor Mobility (Ambulation): Independent Prior Devices Use: Walker PT Evaluation-Current Subjective Patient agrees to PT. Objective Patient Orientation: Person, Time, Situation Attachments: Oxygen, Garcia Catheter, IV left UE sling ROM/Strength ROM Lower Extremities bilateral LE WFL Strength Lower Extremities 3+/5 grossly bilateral LE Integumentary/Posture Integumentary refer to nursing notes Bladder Incontinence: Garcia Cath Posture slightly kyphotic Neuromuscular (Tone, Coordination, Reflexes) diminished coordination/slight ataxia Sensory Vision: Functional Hearing: Impaired Transfers Roll Left to Right (QC): 2 Sit to Lying (QC): 2 Lying to Sitting/Side of Bed(Q: 2 Sit to Stand (QC): 2 Gait Does the Patient Walk?: No and Walking Goal IS indicated Mode of Locomotion: Walk Anticipated Mode of Locomotion: Walk Distance: 5 sidesteps Gait Assistive Device: Walker [place] Comments/Gait Description max assist with side stepping right with hemiwalker Balance Sitting Static: Fair Sitting Dynamic: Fair Standing Static: Fair Standing Dynamic: Fair Assessment/Needs 69 y.o. male, will benefit from skilled PT to address functional strength and mobility to improve current LOF. Son reports, patient will require NH placement due to inability to care for patient 08/11. Rehab Potential: Fair PT Shelter Goals Putty Mixer And Applier Goals PT Putty Mixer And Applier Goals Time Frame: Jun 28, 2020 Roll Left & Right (QC): 3 Sit to Lying (QC): 3 Lying-Sitting on Side/Bed(QC): 3 Sit to Stand (QC): 3 Chair/Awx-sy-Jpwvf Xfer(QC): 3 Toilet Transfer (QC): 3 Does the Patient Walk: Yes Walk 10 feet (QC): 3 PT Plan Problem List Problem List: Activity Tolerance, Functional Strength, Safety, Balance, Gait, Transfer, Bed Mobility Treatment/Plan Treatment Plan: Continue Plan of Care Treatment Plan: Bed Mobility, Education, Functional Activity Cain, Functional Strength, Gait, Safety, Therapeutic Exercise, Transfers Treatment Duration: Jun 28, 2020 Frequency: 6 times per week Estimated Hrs Per Day: .25 hour per day Patient and/or Family Agrees t: Yes Discharge Recommendations Therapy Discharge Recommendati: Other, See Comments (skilled nursinig facility) Time/GCodes Time In: 1445 Time Out: 1503 Total Billed Treatment Time: 18 Total Billed [facility] DAE GOMEZ PT Jun 20, 2020 15:20
--- NOTE | 2020-06-20 16:27 | Diagnostic Imaging Report ---
EXAM: FLUOROSCOPY UP TO 1 HOUR INDICATION: Left shoulder reduction. COMPARISON: Left shoulder radiographs 06/19/2020. FINDINGS/ IMPRESSION: 3 fluoroscopic images obtained during reduction of the left shoulder dislocation. Please see procedure report for further details. Fluoroscopy time 11.6 seconds. Dictated by: Dictated on workstation # [id number]
[2020-06-20] MEDS: DOCUSATE SODIUM 100 MG (COLACE) CAP PO SCH (19:53)
[2020-06-20] MEDS: SENNOSIDES 8.6 MG (SENOKOT) TAB PO SCH (19:53)
--- NOTE | 2020-06-20 20:24 | OPERATIVE REPORT ---
DATE OF SERVICE: 06/20/2020 PREOPERATIVE DIAGNOSES: 1. Left glenohumeral dislocation. 2. Displaced left greater tuberosity fracture. POSTOPERATIVE DIAGNOSES: 1. Left glenohumeral dislocation. 2. Displaced left greater tuberosity fracture. PROCEDURES: Closed reduction of the left glenohumeral joint and greater tuberosity. SURGEON: Chad Moralez MD PRINTING TABLE HAND: Amador Nieto, who assisted throughout the procedure. ANESTHESIA: Monitored anesthesia care by Ross Green. ESTIMATED BLOOD LOSS: Not applicable. DRAINS: None. COMPLICATIONS: None. POSTOPERATIVE PLAN: Sling wear for 2 weeks with a platform walker for ambulation. The patient was transferred to the recovery room awake and in stable condition. STATEMENT OF MEDICAL NECESSITY: The patient is a 69-year-old debilitated gentleman who had a fall yesterday and was presented to the emergency room late last night where he was found to have a closed neurovascularly intact glenohumeral dislocation with a displaced greater tuberosity fracture. The closed reduction was attempted by the ER physician and this was unsuccessful due to his debility and other medical problems. She elected to admit the patient with planned closed reduction today. DESCRIPTION OF PROCEDURE: After risks and benefits of procedure were discussed and questions were answered, informed consent was signed and placed on chart, the operative site was confirmed in the preoperative holding area initialed by the surgeon. The patient was then transferred to the operating room. After adequate levels of monitored anesthesia care were obtained, a timeout was called, confirming the operative site with countertraction the glenohumeral joint was reduced with gentle longitudinal traction and then external rotation. Visible reduction was noted. Fluoroscopy and hard copy x-rays were obtained, which revealed anatomic reduction of the glenohumeral joint with a well-aligned greater tuberosity fracture. The shoulder was taken through range of motion and found to be stable in all planes and a sling was applied. The patient was transferred to the recovery room awake and in stable condition. Job ID: [id number] DocumentID: [id number] Dictated Date: 06/20/2020 14:00:18 Carpet Sewing Machine Operator Date: 06/20/2020 20:23:54 Dictated By: CHAD MORALEZ MD
[2020-06-21 03:50] VITALS: BP 118/65
[2020-06-21] MEDS: NS IV 1000 ML 1,000 ML IV SCH (03:55)
[2020-06-21] MEDS ORDERED: QUEtiapine 25 MG (SEROquel) TAB IMMEDIATE RELEASE PO PRN (08:00)
[2020-06-21 08:04] LABS: BASOPHILS % (AUTO) 0 % (0-10); EOSINOPHILS # (AUTO) 0.1 10^3/uL (0.0-0.3); EOSINOPHILS % (AUTO) 1 % (0-10); HEMATOCRIT 31 % (40-54); HEMOGLOBIN 10.1 g/dL (13.3-17.7); LYMPHOCYTES # (AUTO) 0.7 10^3/uL (1.0-4.0); LYMPHOCYTES % (AUTO) 10 % (12-44); MEAN CORPUSCULAR HEMOGLOBIN 31 pg (25-34); MEAN CORPUSCULAR HGB CONC 33 g/dL (32-36); MEAN CORPUSCULAR VOLUME 92 fL (80-99); MEAN PLATELET VOLUME 10.9 fL (9.0-12.2); MONOCYTES # (AUTO) 0.8 10^3/uL (0.0-1.0); MONOCYTES % (AUTO) 10 % (0-12); NEUTROPHILS # (AUTO) 5.8 10^3/uL (1.8-7.8); NEUTROPHILS % (AUTO) 78 % (42-75); PLATELET COUNT 161 10^3/uL (130-400); WHITE BLOOD COUNT 7.4 10^3/uL (4.3-11.0)
[2020-06-21 08:08] VITALS: BP 133/62
[2020-06-21] MEDS: LOSARTAN 100 MG (COZAAR) TABLET PO SCH (08:11)
[2020-06-21] MEDS: SENNOSIDES 8.6 MG (SENOKOT) TAB PO SCH ×2 (08:12→19:21)
[2020-06-21] MEDS: HYDROcodone/APAP 5 MG/325 MG (LORTAB) TAB PO PRN ×2 (08:12→11:49)
[2020-06-21] MEDS: DOCUSATE SODIUM 100 MG (COLACE) CAP PO SCH ×2 (08:12→19:21)
[2020-06-21] MEDS: amLODIPine 10 MG (NORVASC) TAB PO SCH (08:12)
[2020-06-21 08:25] LABS: ALANINE AMINOTRANSFERASE 121 U/L (0-55); ALBUMIN 2.6 GM/DL (3.2-4.5); ALKALINE PHOSPHATASE 124 U/L (40-136); BILIRUBIN,TOTAL 0.9 MG/DL (0.1-1.0); BUN/CREATININE RATIO 16; CALCIUM 8.2 MG/DL (8.5-10.1); CARBON DIOXIDE 24 MMOL/L (21-32); CHLORIDE 104 MMOL/L (98-107); CREATININE SERUM 0.79 MG/DL (0.60-1.30); GFR ESTIMATED > 60; GLUCOSE 111 MG/DL (70-105); POTASSIUM 3.5 MMOL/L (3.6-5.0); SODIUM 135 MMOL/L (135-145); TOTAL PROTEIN 4.8 GM/DL (6.4-8.2)
--- NOTE | 2020-06-21 10:58 | Progress Note - Hospitalist ---
Subjective HPI/CC On Admission Date Seen by Provider: Jun 21, 2020 Time Seen by Provider: 09:30 Chad Kim is a 69-year-old male with past medical history of cerebellar ataxia, liver cancer undergoing chemoembolization, hypertension, who presented to after having a fall at home. Obtaining history is difficult due to his pain. He reports left shoulder pain. He reports that he fell while using his walker at home. He says he has had several falls recently. He says he was diagnosed with cerebellar ataxia at the [place]. He also says he broke his left collarbone almost a year ago. He says this was never repaired. He denies any fevers or chills. He denies any shortness of breath or cough. He denies any palpitations or chest pain. He denies any abdominal pain, nausea, vomiting, or diarrhea. Subjective/Events-last exam He is up in his bedside chair. He reports constipation. He denies any fevers. He denies any chest pain. He denies shortness of breath or cough. He denies abdominal pain, nausea, vomiting, or diarrhea. Objective Exam Vital Signs Vital Signs Date Time Temp Pulse Resp B/P (MAP) Pulse Ox O2 Delivery O2 Flow Rate FiO2 06/21/20 08:08 36.5 72 18 133/62 (85) 93 Nasal Cannula 2.00 Capillary Refill : Less Than 3 SecondsLess Than 3 Seconds General Appearance: No Apparent Distress, Chronically ill Respiratory: Lungs Clear, Normal Breath Sounds, No Respiratory Distress Cardiovascular: Regular Rate, Rhythm, No Edema, No Murmur Gastrointestinal: Normal Bowel Sounds, Non Tender, Soft Extremity: No Pedal Edema, Other (left arm in sling) Neurologic/Psychiatric: Alert, Oriented x3, Normal Mood/Affect Skin: Normal Color, Warm/Dry Results/Procedures Lab Laboratory Tests 06/21/20 07:57 Patient resulted labs reviewed. Imaging: Reviewed Imaging Report Assessment/Plan Assessment and Plan Assess & Plan/Chief Complaint Left humerus fracture Left shoulder dislocation Fall at ground level Cerebellar ataxia XR showed humerus dislocation and fracture Orthopedic surgery consulted, appreciate assistance Underwent ORIF 06/20 Continue pain regimen Continue bowel regimen Incentive spirometer PT/OT SW sent referral to [facility] for skilled placement likely Tuesday Liver cancer Elevated LFTs LFTs trending down, due to recent chemoembolization Clinically significant, no acute management needs HTN Continue home meds DVT prophylaxis: Lovenox Diagnosis/Problems Diagnosis/Problems (1) Dislocation of left shoulder joint Status: Acute (2) Fracture of head of left humerus Status: Acute (3) Liver cancer Status: Chronic (4) Cerebellar ataxia Status: Chronic (5) HTN (hypertension) Status: Chronic LUZ ELENA PORTILLO MD Jun 21, 2020 10:58
[2020-06-21] MEDS ORDERED: KCL 20 MEQ TAB (K-DUR) PO ONE (11:00)
[2020-06-21] MEDS: ENOXAPARIN 40 MG/0.4 ML (LOVENOX) SYR SC SCH (11:49)
--- NOTE | 2020-06-21 11:53 | Physical Therapy Daily Note ---
PT Daily Note-Current Subjective Pt up in chair with (L) UE in sling. Pt agreeable. Pain rated 8/10 (L) UE. Pt motivated to walk during ambulation pt states "I will make it to the door.". Mental Status Patient Orientation: Person Attachments: Oxygen, Garcia Catheter, IV O2 2L/min Transfers SCALE: Activities may be completed with or without assistive devices. 2-Srtwudmmmr-zinxowl completes the activity by him/herself with no assistance from a helper. 5-Set-up or Clean-up Assistance-helper sets up or cleans up; patient completes activity. [place] assists only prior to or following the activity. 4-Supervision or Touching Assistance-helper provides verbal cues and/or touching/steadying and/or contact guard assistance as patient completes activity. Assistance may be provided throughout the activity or intermittently. 3-Partial/Moderate Assistance-helper does LESS THAN HALF the effort. [place] lifts, holds or supports trunk or limbs, but provides less than half the effort. 2-Substantial/Maximal Assistance-helper does MORE THAN HALF the effort. [place] lifts or holds trunk or limbs and provides more than half the effort. 5-Dxcgeylqu-hxkasu does ALL the effort. Patient does none of the effort to complete the activity. Or, the assistance of 2 or more helpers is required for the patient to complete the activity. If activity was not attempted, code reason: 7-Patient Refused. 9-Not Applicable-not attempted and the patient did not perform the activity before the current illness, exacerbation or injury. 10-Not Attempted due to Environmental Limitations-(lack of equipment, weather restraints, etc.). 88-Not Attempted due to Medical Conditions or Safety Concerns. Treatments Pt required many attempts to get pt to understand. Pt slow to respond at times. Pt is also very [place]. Pt stood with mod A. Pt amb with lauren walker and min A for balance due to retropulsive at times. Pt amb x 20ft. Pt balance improved over the course of the treatment. Pt amb with slow step to and short stride gait pattern. Pt back to chair with legs elevated and positioned with pillows under (L) UE, under legs. Call light in reach. Assessment Current Status: Fair Progress Pt kaiden fait-well. Pt requires min-mod A functional mobility due to retropulsive. Pt mobility and response time slow. Pt resting with call light and all needs met. O2 insitu. PT Umbrella Cutter Goals Skilled Nursing Goals PT Umbrella Cutter Goals Time Frame: Jun 28, 2020 Roll Left & Right (QC): 3 Sit to Lying (QC): 3 Lying-Sitting on Side/Bed(QC): 3 Sit to Stand (QC): 3 Chair/Hnt-xr-Jcmys Xfer(QC): 3 Toilet Transfer (QC): 3 Does the Patient Walk: Yes Walk 10 feet (QC): 3 PT Plan Treatment/Plan Treatment Plan: Continue Plan of Care Treatment Plan: Bed Mobility, Education, Functional Activity Cain, Functional Strength, Gait, Safety, Therapeutic Exercise, Transfers Treatment Duration: Jun 28, 2020 Frequency: 6 times per week Estimated Hrs Per Day: .25 hour per day Patient and/or Family Agrees t: Yes Time/GCodes Time In: 1025 Time Out: 1045 Total Billed Treatment Time: 20 Total Billed Treatment 1, gait x 20min ARTI PEPPER CPTA Jun 21, 2020 11:53
[2020-06-21 12:02] VITALS: BP 96/54
[2020-06-21 15:58] VITALS: BP 113/58
--- NOTE | 2020-06-21 16:43 | Anesthesia-General Post-Op ---
General Patient Condition Mental Status/LOC: Same as Preop Cardiovascular: Satisfactory Nausea/Vomiting: Absent Respiratory: Satisfactory Pain: Controlled Complications: Absent Post Op Complications Complications None Follow Up Care/Instructions Patient Instructions None needed. Anesthesia/Patient Condition Patient Condition Patient is doing well, no complaints, stable vital signs, no apparent adverse anesthesia problems. No complications reported per nursing. HAYDEN GERMAN CRNA Jun 21, 2020 16:43
[2020-06-21 20:27] VITALS: BP 109/64
[2020-06-21 23:37] VITALS: BP 121/61
[2020-06-22 05:01] LABS: HEMOGLOBIN 9.9 g/dL (13.3-17.7)
[2020-06-22 05:12] LABS: CHLORIDE 105 MMOL/L (98-107); POTASSIUM 3.8 MMOL/L (3.6-5.0); SODIUM 137 MMOL/L (135-145)
[2020-06-22 05:13] LABS: CALCIUM 8.1 MG/DL (8.5-10.1); GLUCOSE 103 MG/DL (70-105)
[2020-06-22 05:15] LABS: CARBON DIOXIDE 26 MMOL/L (21-32)
[2020-06-22 05:17] LABS: CREATININE SERUM 0.73 MG/DL (0.60-1.30); GFR ESTIMATED > 60
[2020-06-22 05:18] LABS: BUN/CREATININE RATIO 16
[2020-06-22] MEDS: HYDROcodone/APAP 5 MG/325 MG (LORTAB) TAB PO PRN (07:53)
[2020-06-22] MEDS: amLODIPine 10 MG (NORVASC) TAB PO SCH (07:54)
[2020-06-22] MEDS: LOSARTAN 100 MG (COZAAR) TABLET PO SCH (07:54)
[2020-06-22] MEDS: SENNOSIDES 8.6 MG (SENOKOT) TAB PO SCH ×2 (07:54→19:43)
[2020-06-22] MEDS: DOCUSATE SODIUM 100 MG (COLACE) CAP PO SCH ×2 (07:54→19:42)
[2020-06-22 07:59] VITALS: BP 133/76
[2020-06-22] MEDS ORDERED: PSYLLIUM POWDER (METAMUCIL) 5.8 GM PACKET PO ONE (11:00)
--- NOTE | 2020-06-22 11:00 | Progress Note - Hospitalist ---
Subjective HPI/CC On Admission Date Seen by Provider: Jun 22, 2020 Time Seen by Provider: 09:25 Chad Kim is a 69-year-old male with past medical history of cerebellar ataxia, liver cancer undergoing chemoembolization, hypertension, who presented to after having a fall at home. Obtaining history is difficult due to his pain. He reports left shoulder pain. He reports that he fell while using his walker at home. He says he has had several falls recently. He says he was diagnosed with cerebellar ataxia at the [place]. He also says he broke his left collarbone almost a year ago. He says this was never repaired. He denies any fevers or chills. He denies any shortness of breath or cough. He denies any palpitations or chest pain. He denies any abdominal pain, nausea, vomiting, or diarrhea. Subjective/Events-last exam He reports constipation. He did have a bowel movement. He requests Metamucil. He has no other complaints or concerns. Objective Exam Vital Signs Vital Signs Date Time Temp Pulse Resp B/P (MAP) Pulse Ox O2 Delivery O2 Flow Rate FiO2 06/22/20 08:23 Nasal Cannula 2.00 06/22/20 07:59 36.5 71 22 133/76 (95) 93 Capillary Refill : Less Than 3 SecondsLess Than 3 Seconds General Appearance: No Apparent Distress, Chronically ill Respiratory: Lungs Clear, Normal Breath Sounds, No Respiratory Distress Cardiovascular: Regular Rate, Rhythm, No Edema, No Murmur Gastrointestinal: Normal Bowel Sounds, Non Tender, Soft Extremity: No Pedal Edema, Other (left arm in sling) Neurologic/Psychiatric: Alert, Oriented x3, Normal Mood/Affect Skin: Normal Color, Warm/Dry Results/Procedures Lab Laboratory Tests 06/22/20 04:45 Patient resulted labs reviewed. Imaging: Reviewed Imaging Report Assessment/Plan Assessment and Plan Assess & Plan/Chief Complaint Left humerus fracture Left shoulder dislocation Fall at ground level Cerebellar ataxia XR showed humerus dislocation and fracture Orthopedic surgery consulted, appreciate assistance Underwent ORIF 06/20 Continue pain regimen Continue bowel regimen Incentive spirometer PT/OT SW sent referral to [facility] for skilled placement likely Tuesday Liver cancer Elevated LFTs LFTs trending down, due to recent chemoembolization Clinically significant, no acute management needs HTN Continue home meds DVT prophylaxis: Lovenox Diagnosis/Problems Diagnosis/Problems (1) Dislocation of left shoulder joint Status: Acute (2) Fracture of head of left humerus Status: Acute (3) Liver cancer Status: Chronic (4) Cerebellar ataxia Status: Chronic (5) HTN (hypertension) Status: Chronic LUZ ELENA PORTILLO MD Jun 22, 2020 10:59
[2020-06-22] MEDS: ENOXAPARIN 40 MG/0.4 ML (LOVENOX) SYR SC SCH (11:24)
[2020-06-22 16:00] VITALS: BP 136/66
[2020-06-23] VITALS: BP 142/69
[2020-06-23] MEDS: HYDROcodone/APAP 5 MG/325 MG (LORTAB) TAB PO PRN ×2 (00:51→09:19)
[2020-06-23 08:29] VITALS: BP 126/87
[2020-06-23] MEDS: LOSARTAN 100 MG (COZAAR) TABLET PO SCH (09:18)
[2020-06-23] MEDS: amLODIPine 10 MG (NORVASC) TAB PO SCH (09:18)
[2020-06-23] MEDS: DOCUSATE SODIUM 100 MG (COLACE) CAP PO SCH (09:18)
[2020-06-23] MEDS: SENNOSIDES 8.6 MG (SENOKOT) TAB PO SCH (09:18)
[2020-06-23] MEDS: PSYLLIUM POWDER (METAMUCIL) 5.8 GM PACKET PO SCH (09:37)
--- NOTE | 2020-06-23 10:58 | Physical Therapy Daily Note ---
PT Daily Note-Current Subjective Patient agrees to PT. Mental Status Attachments: Oxygen Transfers SCALE: Activities may be completed with or without assistive devices. 1-Hxyjtqfvne-mcokohl completes the activity by him/herself with no assistance from a helper. 5-Set-up or Clean-up Assistance-helper sets up or cleans up; patient completes activity. [place] assists only prior to or following the activity. 4-Supervision or Touching Assistance-helper provides verbal cues and/or touching/steadying and/or contact guard assistance as patient completes activity. Assistance may be provided throughout the activity or intermittently. 3-Partial/Moderate Assistance-helper does LESS THAN HALF the effort. [place] lifts, holds or supports trunk or limbs, but provides less than half the effort. 2-Substantial/Maximal Assistance-helper does MORE THAN HALF the effort. [place] lifts or holds trunk or limbs and provides more than half the effort. 5-Ahuuvlmcj-lbsmjc does ALL the effort. Patient does none of the effort to complete the activity. Or, the assistance of 2 or more helpers is required for the patient to complete the activity. If activity was not attempted, code reason: 7-Patient Refused. 9-Not Applicable-not attempted and the patient did not perform the activity before the current illness, exacerbation or injury. 10-Not Attempted due to Environmental Limitations-(lack of equipment, weather restraints, etc.). 88-Not Attempted due to Medical Conditions or Safety Concerns. Sit to Stand (QC): 2 (retropulsive with sit to stand from recliner with PT correct) Gait Training Does the Patient Walk?: Yes Distance: 50' Walk 10 feet (QC): 3 Walk 50 ft with 2 Turns(QC): 3 Gait Assistive Device: Walker [place] very slow, step to gait sequence Exercises Seated Therapy Exercises: Long arc quads Seated Reps: 15 Assessment Patient tolerated minimal activity and remains up in recliner with needs met. PT Renderer Goals Longterm Goals PT Renderer Goals Time Frame: Jun 28, 2020 Roll Left & Right (QC): 3 Sit to Lying (QC): 3 Lying-Sitting on Side/Bed(QC): 3 Sit to Stand (QC): 3 Chair/Rbd-on-Fnxlk Xfer(QC): 3 Toilet Transfer (QC): 3 Does the Patient Walk: Yes Walk 10 feet (QC): 3 PT Plan Treatment/Plan Treatment Plan: Continue Plan of Care Treatment Plan: Bed Mobility, Education, Functional Activity Cain, Functional Strength, Gait, Safety, Therapeutic Exercise, Transfers Treatment Duration: Jun 28, 2020 Frequency: 6 times per week Estimated Hrs Per Day: .25 hour per day Patient and/or Family Agrees t: Yes Time/GCodes Time In: 1015 Time Out: 1032 Total Billed Treatment Time: 17 Total Billed Treatment 1 visit GT 17 min DAE GOMEZ PT Jun 23, 2020 10:58
[2020-06-23] MEDS: ENOXAPARIN 40 MG/0.4 ML (LOVENOX) SYR SC SCH (11:30)
--- NOTE | 2020-06-23 12:56 | Discharge Inst-Skilled Nursing ---
Discharge Inst-Skilled NF Chief Complaint Chad Kim is a 69-year-old male with past medical history of cerebellar ataxia, liver cancer undergoing chemoembolization, hypertension, who presented to after having a fall at home. Obtaining history is difficult due to his pain. He reports left shoulder pain. He reports that he fell while using his walker at home. He says he has had several falls recently. He says he was diagnosed with cerebellar ataxia at the [facility]. He also says he broke his left collarbone almost a year ago. He says this was never repaired. He denies any fevers or chills. He denies any shortness of breath or cough. He denies any palpitations or chest pain. He denies any abdominal pain, nausea, vomiting, or diarrhea. Consult/Follow Up/Orders Skilled NF Admit to: [facility] Certification ([facility]) I certify that SNF services are required to be given on an inpatient basis because of the above named patient's need for [facility] care on a continuing basis for the conditions(s) for which he/she was receiving inpatient hospital services prior to his/her transfer to the SNF. Senior Living Facility Order: Nursing Services, Saw Maker-Evaluate & Treat, Physical Therapy-Evaluate & Treat Oxygen Delivery Method: Nasal Cannula (3lpm) Oxygen Flow Rate L/min (Range): 3lpm Discharge Diet: No Restrictions Daily Activity as Tolerated: Yes Resuscitation Status: Do Not Resuscitate New & Resume Previous Orders Livia Yan Jun 23, 2020 12:55 LIVIA YAN MD Jun 23, 2020 12:56
[2020-06-23] MEDS ORDERED: ACET325T49 PO (13:00)
--- NOTE | 2020-06-23 13:01 | Discharge Summary ---
Diagnosis/Chief Complaint Date of Admission Jun 20, 2020 at 00:56 Date of Discharge Discharge Date: Jun 23, 2020 Admission Diagnosis left humerus fracture and shoulder dislocation Primary Care No,Local Physician Discharge Diagnosis (1) Dislocation of left shoulder joint Status: Acute (2) Fracture of head of left humerus Status: Acute (3) Liver cancer Status: Chronic (4) Cerebellar ataxia Status: Chronic (5) HTN (hypertension) Status: Chronic Discharge Summary Discharge Physical Exam Allergies: Coded Allergies: codeine (Verified Allergy, Unknown, ITCHING, 06/16/20) Vitals & I&Os Vital Signs Date Time Temp Pulse Resp B/P (MAP) Pulse Ox O2 Delivery O2 Flow Rate FiO2 06/23/20 12:56 Nasal Cannula 06/23/20 11:04 96 1.00 06/23/20 08:29 36.8 61 16 126/87 (100) Hospital Course Labs (last 24 hrs) Microbiology 06/20/20 MRSA Screen - Final, Complete MRSA not isolated Patient resulted labs reviewed. Imaging: Reviewed Imaging Report Discharge Home Medications: Active Scripts Active Acetaminophen 325 Mg Tablet 650 Mg PO Q4H PRN 30 Days Reported Quetiapine Fumarate 50 Mg Tablet 50 Mg PO BID PRN Potassium Chloride 10 Meq Tab.er.prt 20 Meq PO DAILY TAKES 2 (10NEQ) TABS Losartan Potassium 100 Mg Tablet 100 Mg PO DAILY Amlodipine Besylate 10 Mg Tablet 10 Mg PO DAILY Instructions to patient/family Please see electronic discharge instructions given to patient. Problem Qualifiers (1) HTN (hypertension): Qualified Codes: I10 - Essential (primary) hypertension LIVIA NAIR MD Jun 23, 2020 13:00
== END 2020-06-23 15:15 | DRG 493 ==
LOC: EDUNIT# 22:55 → ER 22:57 → 4TH 06-20 00:56
PROVIDERS: ADMIT Internal Medicine; ATTEND Internal Medicine
PROC: 0PSD0ZZ Reposition Left Humeral Head, Open Approach (ICD-10-PCS; principal; 2020-06-20 13:11)
DX: S42.252A Displaced fracture of greater tuberosity of left humerus, initial encounter for closed fracture (principal); G11.9 Hereditary ataxia, unspecified; C22.9 Malignant neoplasm of liver, not specified as primary or secondary; S01.81XA Laceration without foreign body of other part of head, initial encounter; I10 Essential (primary) hypertension; F32.9 Major depressive disorder, single episode, unspecified; Z20.822 Contact with and (suspected) exposure to COVID-19; K59.00 Constipation, unspecified; F43.10 Post-traumatic stress disorder, unspecified; W19.XXXA Unspecified fall, initial encounter; Y92.009 Unspecified place in unspecified non-institutional (private) residence as the place of occurrence of the external cause; Z88.6 Allergy status to analgesic agent
CPT/HCPCS: 36415; 51702; 70450; 70490; 73030; 76000; 80048; 80053; 81000; 85014; 85018; 85025; 87081; 87635; 93041; 94664; 94760

== ENCOUNTER → 2020-07-16 | Outpatient (CLI) | payer MEDICARE, OTHER ==
[~2020-07-16] MED LIST: ACET325T49 PO; AMLO-251 PO; CATHETER FLUSH 10 ML SYR IV PRN; HOLD METFORMIN - RECEIVED CONTRAST 20 ML VIAL IV SCH; IOHEXOL 350 MG/ML 100 ML (OMNIPAQUE 350) VIAL IV ONE; LOSA100T57 PO; NS 100 ML (IVPB) BAG IV ONE; POTA10TA36 PO; QUET50TA22 PO
[2020-07-16 10:56] LABS: BASOPHILS % (AUTO) 1 % (0-10); EOSINOPHILS # (AUTO) 0.1 10^3/uL (0.0-0.3); EOSINOPHILS % (AUTO) 2 % (0-10); HEMATOCRIT 46 % (40-54); HEMOGLOBIN 14.7 g/dL (13.3-17.7); LYMPHOCYTES # (AUTO) 1.3 10^3/uL (1.0-4.0); LYMPHOCYTES % (AUTO) 23 % (12-44); MEAN CORPUSCULAR HEMOGLOBIN 30 pg (25-34); MEAN CORPUSCULAR HGB CONC 32 g/dL (32-36); MEAN CORPUSCULAR VOLUME 95 fL (80-99); MEAN PLATELET VOLUME 10.8 fL (9.0-12.2); MONOCYTES # (AUTO) 0.6 10^3/uL (0.0-1.0); MONOCYTES % (AUTO) 11 % (0-12); NEUTROPHILS # (AUTO) 3.7 10^3/uL (1.8-7.8); NEUTROPHILS % (AUTO) 64 % (42-75); PLATELET COUNT 232 10^3/uL (130-400); WHITE BLOOD COUNT 5.8 10^3/uL (4.3-11.0)
[2020-07-16 11:10] LABS: PROTHROMBIN TIME PATIENT 13.8 SEC (12.2-14.7)
[2020-07-16 11:18] LABS: ALANINE AMINOTRANSFERASE 41 U/L (0-55); ALBUMIN 3.8 GM/DL (3.2-4.5); ALKALINE PHOSPHATASE 197 U/L (40-136); BILIRUBIN,TOTAL 0.7 MG/DL (0.1-1.0); BUN/CREATININE RATIO 12; CARBON DIOXIDE 24 MMOL/L (21-32); CHLORIDE 103 MMOL/L (98-107); CREATININE SERUM 1.17 MG/DL (0.60-1.30); GFR ESTIMATED > 60; GLUCOSE 94 MG/DL (70-105); SODIUM 140 MMOL/L (135-145); TOTAL PROTEIN 7.3 GM/DL (6.4-8.2)
--- NOTE | 2020-07-16 13:24 | Diagnostic Imaging Report ---
PROCEDURE: CT abdomen with and without contrast. TECHNIQUE: Multiple contiguous axial CT images of the abdomen were obtained prior to and after intravenous administration of iodinated contrast. Auto Exposure Controls were utilized during the CT exam to meet ALARA standards for radiation dose reduction. Date: July 16, 2020. Indication: 69-year-old male, history of hepatocellular carcinoma. History of embolization therapy on June 11, 2020. Comparison: CT abdomen pelvis June 16, 2020. Findings: There are mild linear opacities in the left lower lobe and minimal linear opacities in the right lower lobe consistent with mild scarring. The outer liver contours are not grossly nodular. There is branching intrinsic high attenuation in the liver in the right lobe of the liver most likely correlating with provided history of embolization procedure. There is some mild irregular appearance of the vessels in the more medial aspect of the right lobe of the liver where there is a round area of low attenuation with the round area of low-attenuation measuring currently 4.9 x 4.1 cm in axial extent compared to 5.4 x 4.5 cm in June 16, 2020. There is a wedge-shaped area of low-attenuation in this region extending to the peripheral liver margin as well. There is also a low-attenuation focus in the right lobe of the liver on axial image 18 measuring 2.1 x 1.5 cm in axial extent as well as a peripheral wedge-shaped area of low-attenuation in the right lobe of the liver on axial image 16. These areas are not seen on June 16, 2020. There is no identified lesion in the left lobe of the liver. The main, right, and left portal veins appear patent. The superior mesenteric vein is patent. The splenic vein is patent. Gallbladder is unremarkable. There is no identified intrahepatic or extrahepatic bile duct dilation. The main pancreatic duct is not abnormally dilated. There are pancreatic calcifications in the pancreatic head suggesting chronic pancreatitis. There is no evidence of acute pancreatitis. The spleen is not enlarged. There is a nonspecific low-attenuation lesion in the spleen on axial image 19 which measures 8 mm in size. The adrenal glands or unremarkable. There is a low-attenuation left renal lesion on axial image 33 which measures 10 mm in size which most likely relates to a cyst but is not able to be definitively classified. The urinary collecting systems are not distended. The imaged portions of the intestinal tract are not distended. There are atherosclerotic calcifications. There is no identified abnormally enlarged lymph node in the abdomen or pelvis meeting CT size criteria for adenopathy. There are multilevel degenerative changes of the spine. There is no identified acute bony abnormality. Impression: 1. High attenuation branching material in the right lobe of the liver consistent with history of embolization therapy. There is irregularity of the hepatic vessels at site of an abnormal round low-attenuation masslike area which currently measures smaller in size since June 16, 2020. This currently measures 4.9 x 4.1 cm in axial extent compared to 5.4 x 4.5 cm in size on June 16, 2020. This likely relates to interval at least partial response. There are additional wedge-shaped areas of low-attenuation extending to the peripheral liver margin which could relate to areas of infarct. One area is new since the comparison exam. There is also an adjacent low-attenuation area in the right lobe of the liver more posteriorly located in the above-mentioned lesion which is also new and may not necessarily relate to an infarct although this is still considered. Dictated by: Dictated on workstation # [id number]
== END ==
LOC: RAD 12:15
PROVIDERS: ATTEND Internal Medicine
DX: C22.0 Liver cell carcinoma (principal); K76.9 Liver disease, unspecified
CPT/HCPCS: 36415; 74170; 80053; 82105; 85025; 85610

== ENCOUNTER → 2020-09-18 | Outpatient (CLI) | payer MEDICARE ==
[2020-09-18 15:52] LABS: BASOPHILS % (AUTO) 1 % (0-10); EOSINOPHILS # (AUTO) 0.2 10^3/uL (0.0-0.3); EOSINOPHILS % (AUTO) 3 % (0-10); HEMATOCRIT 48 % (40-54); LYMPHOCYTES # (AUTO) 1.2 10^3/uL (1.0-4.0); LYMPHOCYTES % (AUTO) 17 % (12-44); MEAN CORPUSCULAR HEMOGLOBIN 30 pg (25-34); MEAN CORPUSCULAR HGB CONC 33 g/dL (32-36); MEAN CORPUSCULAR VOLUME 89 fL (80-99); MONOCYTES % (AUTO) 15 % (0-12); NEUTROPHILS # (AUTO) 4.5 10^3/uL (1.8-7.8); NEUTROPHILS % (AUTO) 65 % (42-75); PLATELET COUNT 166 10^3/uL (130-400); WHITE BLOOD COUNT 6.9 10^3/uL (4.3-11.0)
[2020-09-18 16:05] LABS: ALBUMIN 3.9 GM/DL (3.2-4.5); CHLORIDE 103 MMOL/L (98-107); POTASSIUM 4.1 MMOL/L (3.6-5.0); SODIUM 138 MMOL/L (135-145)
[2020-09-18 16:06] LABS: CALCIUM 10.2 MG/DL (8.5-10.1)
[2020-09-18 16:07] LABS: GLUCOSE 97 MG/DL (70-105)
[2020-09-18 16:08] LABS: CARBON DIOXIDE 23 MMOL/L (21-32)
[2020-09-18 16:09] LABS: BILIRUBIN,TOTAL 0.7 MG/DL (0.1-1.0)
[2020-09-18 16:11] LABS: ALKALINE PHOSPHATASE 251 U/L (40-136); CREATININE SERUM 1.05 MG/DL (0.60-1.30); GFR ESTIMATED > 60
[2020-09-18 16:12] LABS: BUN/CREATININE RATIO 15
[2020-09-18 16:14] LABS: ALANINE AMINOTRANSFERASE 56 U/L (0-55)
[2020-09-18 16:28] LABS: PROTHROMBIN TIME PATIENT 13.3 SEC (12.2-14.7)
--- NOTE | 2020-09-18 18:23 | Diagnostic Imaging Report ---
PROCEDURE: CT abdomen with and without contrast. TECHNIQUE: Multiple contiguous axial CT images of the abdomen were obtained prior to and after intravenous administration of iodinated contrast. Auto Exposure Controls were utilized during the CT exam to meet ALARA standards for radiation dose reduction. INDICATION: Hepatocellular carcinoma. COMPARISON: 07/16/2020 FINDINGS: The heart size is normal. There is some scarring in the left lung base. Note is again made of some hyperdense branch material within the liver compatible with previous embolization. The previously seen masslike area of decreased attenuation in the right lobe of the liver now measures 5.5 x 3.3 cm compared to previous measurement of 4.9 x 4 cm. There is no biliary ductal dilatation. Gallbladder is unremarkable. There is unchanged mild splenomegaly. There are some coarse calcifications in the pancreatic head likely reflecting chronic calcific pancreatitis. The adrenal glands are unremarkable. Aorta is nonaneurysmal. The bowel gas pattern is nonspecific. There is no free air. No ascites. There are no focal inflammatory changes. IMPRESSION: Previous hepatic embolization with relatively stable low-density mass along the medial aspect of the right lobe of the liver. Findings suspect for a chronic calcific pancreatitis. Mild splenomegaly. No other acute abnormality. Dictated by: Dictated on workstation # [id number]
== END ==
LOC: RAD 16:15
PROVIDERS: ATTEND Internal Medicine
DX: C22.0 Liver cell carcinoma (principal); R16.1 Splenomegaly, not elsewhere classified
CPT/HCPCS: 36415; 74170; 80053; 82105; 85025; 85610

== ENCOUNTER → 2020-12-29 | Outpatient (CLI) | payer MEDICARE ==
[~2020-12-29] MED LIST changes: -CATHETER FLUSH 10 ML SYR IV PRN; -HOLD METFORMIN - RECEIVED CONTRAST 20 ML VIAL IV SCH; -IOHEXOL 350 MG/ML 100 ML (OMNIPAQUE 350) VIAL IV ONE; -NS 100 ML (IVPB) BAG IV ONE
--- NOTE | 2020-12-29 15:36 | Diagnostic Imaging Report ---
MRI LT UPPER EXT JOINT W/O Technique: Multiplanar, multisequence MR imaging of the left shoulder was performed without contrast. Comparison: Left shoulder radiographs from 06/19/2020. Indication: Left shoulder pain. Findings: Rotator cuff: Mild atrophy with intramuscular edema involving the infraspinatus. The infraspinatus is intact on the fractured portion of the greater tuberosity. Supraspinatus also remains intact on the fractured fragment of the greater tuberosity. Teres minor and subscapularis are intact. Glenoid labrum: No para-labral cyst or chondral labral separation. Long head of biceps: Long head of biceps is absent and likely torn. Bones and cartilage: Avulsion fracture of the greater tuberosity has approximately 1 cm of inferior displacement from its original location. There appears to be some partial healing across the fracture with apparent humerus. Old fracture of the distal clavicle appears nonunited. The AC joint alignment is normal. No hypertrophic arthritis of the AC joint. Soft tissues: No glenohumeral joint effusion. No MRI findings to suggest adhesive capsulitis. No fluid or inflammatory like signal within the subacromial/subdeltoid space to indicate bursitis. IMPRESSION: 1. The greater tuberosity avulsion fracture has 1 cm of inferior displacement but appears partially fused with the humerus. If further assessment of the degree of healing is desired, then CT of the shoulder without contrast could be performed. 2. The supraspinatus and infraspinatus appear to remain intact but the majority of their insertional fibers are on the inferiorly displaced greater tuberosity, giving a stretched configuration of these rotator cuff insertions. 3. Mild edema and atrophy associated with the infraspinatus to suggest subacute denervation injury. However, there is no ganglion cyst or mass in the suprascapular notch. Therefore, this could be posttraumatic in nature. 4. Complete tear of the long head of the biceps. Dictated by: Dictated on workstation # [id number]
== END ==
LOC: RAD 13:02
PROVIDERS: ATTEND Family Medicine
DX: S46.112A Strain of muscle, fascia and tendon of long head of biceps, left arm, initial encounter (principal); X58.XXXA Exposure to other specified factors, initial encounter
CPT/HCPCS: 73221

== ENCOUNTER → 2020-12-29 | Outpatient (CLI) | payer MEDICARE ==
[~2020-12-29] MED LIST changes: +CATHETER FLUSH 10 ML SYR IV PRN; +HOLD METFORMIN - RECEIVED CONTRAST 20 ML VIAL IV SCH; +IOHEXOL 350 MG/ML 100 ML (OMNIPAQUE 350) VIAL IV ONE; +NS 100 ML (IVPB) BAG IV ONE
[2020-12-29 13:27] LABS: BASOPHILS % (AUTO) 1 % (0-10); EOSINOPHILS # (AUTO) 0.1 10^3/uL (0.0-0.3); EOSINOPHILS % (AUTO) 3 % (0-10); HEMATOCRIT 47 % (40-54); HEMOGLOBIN 15.6 g/dL (13.3-17.7); LYMPHOCYTES # (AUTO) 1.2 10^3/uL (1.0-4.0); LYMPHOCYTES % (AUTO) 23 % (12-44); MEAN CORPUSCULAR HEMOGLOBIN 30 pg (25-34); MEAN CORPUSCULAR HGB CONC 33 g/dL (32-36); MEAN CORPUSCULAR VOLUME 92 fL (80-99); MEAN PLATELET VOLUME 10.2 fL (9.0-12.2); MONOCYTES # (AUTO) 0.5 10^3/uL (0.0-1.0); MONOCYTES % (AUTO) 10 % (0-12); NEUTROPHILS # (AUTO) 3.3 10^3/uL (1.8-7.8); NEUTROPHILS % (AUTO) 63 % (42-75); PLATELET COUNT 155 10^3/uL (130-400); WHITE BLOOD COUNT 5.3 10^3/uL (4.3-11.0)
[2020-12-29 13:51] LABS: ALBUMIN 3.9 GM/DL (3.2-4.5); BILIRUBIN,TOTAL 0.7 MG/DL (0.1-1.0); CALCIUM 10.3 MG/DL (8.5-10.1); CREATININE SERUM 1.16 MG/DL (0.60-1.30); POTASSIUM 4.3 MMOL/L (3.6-5.0); TOTAL PROTEIN 6.9 GM/DL (6.4-8.2)
[2020-12-29 13:59] LABS: PROTHROMBIN TIME PATIENT 13.4 SEC (12.2-14.7)
--- NOTE | 2020-12-29 18:22 | Diagnostic Imaging Report ---
INDICATION: Hepatocellular carcinoma. TECHNIQUE: Precontrast acquisitions were acquired through the abdomen. Multiple contiguous axial images were obtained through the chest and abdomen after administration of intravenous contrast. Auto Exposure Controls were utilized during the CT exam to meet ALARA standards for radiation dose reduction. COMPARISON: Comparison made to prior CT abdomen of 09/18/2020. There is no previous chest CT for comparison. CT CHEST FINDINGS: There are no enlarged mediastinal or hilar nodes. There are coronary artery calcifications. There is no pleural or pericardial fluid. There are no chest wall lesions. Bony windows in the chest were unremarkable. Lung parenchymal windows demonstrate some linear scarring in the left upper lobe versus atelectasis. There is some dependent atelectatic change in the lung bases. There is no discrete consolidation or pulmonary parenchymal mass. CT ABDOMEN FINDINGS: There is a hypodense mass in the anterior portion of the right lobe of the liver measuring about 5.5 x 2.3 cm. This appears slightly smaller than the previous study of 09/18/2020. Hyperdense material is seen in a vascular distribution in the right lobe of the liver, presumably from previous embolic treatment. There are no new lesions in the hepatic parenchyma. The spleen is mildly enlarged. Adrenals and kidneys appear unremarkable except for a small benign-appearing cyst in the left kidney. The pancreas shows calcifications in the pancreatic head compatible with chronic pancreatitis. The appearance of the pancreas has not changed compared to the prior study. There is no ascites or abnormal fluid collection. IMPRESSION: CT chest shows areas of scarring or atelectasis in both lungs but no evidence of mass lesion or adenopathy or pleural fluid. CT abdomen demonstrates evidence of previous embolic treatment in the right lobe of the liver. The mass in the anteromedial portion of the right lobe of the liver, which was present on 09/18/2020, appears slightly smaller with measurements given as above. There is no new hepatic lesion. There is unchanged splenomegaly. There are unchanged calcifications in the pancreatic head compatible with chronic pancreatitis. Dictated by: Dictated on workstation # [id number]
== END ==
LOC: RAD 13:15
PROVIDERS: ATTEND Internal Medicine
DX: C22.0 Liver cell carcinoma (principal); J98.11 Atelectasis; R16.1 Splenomegaly, not elsewhere classified; K86.9 Disease of pancreas, unspecified
CPT/HCPCS: 36415; 71260; 74170; 80053; 82105; 85025; 85610

== ENCOUNTER → 2021-04-27 | Outpatient (CLI) | payer MEDICARE ==
[~2021-04-27] MED LIST changes: -POTA10TA36 PO; +POTA10TA37 PO; -QUET50TA22 PO; +QUET50TA23 PO
[2021-04-27 14:22] LABS: ALBUMIN 3.8 GM/DL (3.2-4.5); POTASSIUM 4.1 MMOL/L (3.6-5.0)
[2021-04-27 14:23] LABS: CALCIUM 9.6 MG/DL (8.5-10.1)
[2021-04-27 14:24] LABS: TOTAL PROTEIN 7.4 GM/DL (6.4-8.2)
[2021-04-27 14:26] LABS: BILIRUBIN,TOTAL 0.4 MG/DL (0.1-1.0)
[2021-04-27 14:28] LABS: CREATININE SERUM 0.97 MG/DL (0.60-1.30)
--- NOTE | 2021-04-27 16:56 | Diagnostic Imaging Report ---
PROCEDURE: CT chest and abdomen with and without contrast TECHNIQUE: Multiple axial CT images through the thorax and abdomen were obtained with and without intravenous contrast. Auto Exposure Controls were utilized during the CT exam to meet ALARA standards for radiation dose reduction. INDICATION: Hepatocellular carcinoma COMPARED: 12/29/2020 CHEST: Mild zones of bibasilar partial atelectasis and pleural-parenchymal scarring present. No features of daniel pneumonia and no lung mass or suspect pulmonary nodule. There is no thoracic adenopathy. There is no effusion or pneumothorax. ABDOMEN: Hyperdense embolic opacity in the right hepatic lobe redemonstrated. Along the anterior margin of the embolic opacity there is a vague hypodense lesion measuring 4.9 x 2.5 cm, previously 5.5 x 2.3 cm, perhaps slightly smaller. No new liver lesion. The left hepatic lobe nonfocal. No bile duct dilatation. The gallbladder contracted. Calcifications associated with the pancreas, most notably involving its head with atrophy and ductal dilatation to its body and tail, unchanged. Unobstructed kidneys nonacute. There is splenomegaly, unchanged in magnitude with unchanged hypodense lesion in the spleen anteriorly measuring 1.1 cm. There is no abdominal ascites. No omental infiltration. No abdominal lymphadenopathy. Kidneys unobstructed and stable. No acute bony abnormality. IMPRESSION: CHEST: 1. Stable chest, no findings of thoracic metastasis. ABDOMEN: 1. Embolic opacities in the right hepatic lobe redemonstrated. Intraparenchymal low-density mass effect, right lobe liver measures slightly smaller than on prior but no new liver pathology. 2. Stable splenomegaly with stable 1 cm low-density nodule of the spleen anteriorly. Dictated by: Dictated on workstation # [id number]
== END ==
LOC: RAD 14:45
PROVIDERS: ATTEND Internal Medicine
DX: C22.0 Liver cell carcinoma (principal); D73.89 Other diseases of spleen
CPT/HCPCS: 36415; 71270; 74170; 80053

== ENCOUNTER → 2021-07-27 | Outpatient (CLI) | payer MEDICARE ==
[2021-07-27 09:57] LABS: BASOPHILS % (AUTO) 1 % (0-10); EOSINOPHILS # (AUTO) 0.1 10^3/uL (0.0-0.3); EOSINOPHILS % (AUTO) 2 % (0-10); HEMATOCRIT 41 % (40-54); HEMOGLOBIN 13.8 g/dL (13.3-17.7); LYMPHOCYTES # (AUTO) 1.4 10^3/uL (1.0-4.0); LYMPHOCYTES % (AUTO) 27 % (12-44); MEAN CORPUSCULAR HEMOGLOBIN 31 pg (25-34); MEAN CORPUSCULAR HGB CONC 34 g/dL (32-36); MEAN CORPUSCULAR VOLUME 91 fL (80-99); MEAN PLATELET VOLUME 10.9 fL (9.0-12.2); MONOCYTES # (AUTO) 0.5 10^3/uL (0.0-1.0); MONOCYTES % (AUTO) 11 % (0-12); NEUTROPHILS % (AUTO) 60 % (42-75); PLATELET COUNT 148 10^3/uL (130-400)
[2021-07-27 10:11] LABS: PROTHROMBIN TIME PATIENT 13.5 SEC (12.2-14.7)
[2021-07-27 10:17] LABS: ALBUMIN 3.7 GM/DL (3.2-4.5); BILIRUBIN,TOTAL 0.6 MG/DL (0.1-1.0); CALCIUM 9.4 MG/DL (8.5-10.1); CREATININE SERUM 1.13 MG/DL (0.60-1.30); POTASSIUM 3.9 MMOL/L (3.6-5.0); TOTAL PROTEIN 6.6 GM/DL (6.4-8.2)
--- NOTE | 2021-07-27 11:05 | Diagnostic Imaging Report ---
EXAMINATION: CT chest with intravenous contrast, CT abdomen and pelvis without and with intravenous contrast. TECHNIQUE: Pre and post intravenous contrast axial imaging of the abdomen and pelvis and post contrast axial imaging of the chest were performed. All CT scans use one or more of the following dose optimizing techniques: Automated exposure control, MA and/or KvP adjustment based on patient size and exam type or iterative reconstruction. HISTORY: Hepatocellular carcinoma. COMPARISON: 04/27/2021. FINDINGS: Thyroid: The thyroid is normal. Mediastinum: Heart size is normal without significant pericardial effusion. The aorta is normal in caliber. No suspicious lymphadenopathy. Lungs and airways: Atelectasis or scarring is present within the lung bases. No consolidation, pleural effusion, or pneumothorax. There is a new right upper lobe pulmonary nodule measuring up to 0.4 cm (series 4, image 43). New 0.3 cm right middle lobe pulmonary nodule (series 4, image 81). The airways are normal. Solid organs: Post-treatment changes of the right hepatic lobe. Nodular morphology of the liver is seen. There is a 4.9 x 2.6 cm area of hypoattenuation with central hyperdensity seen within hepatic segment V is unchanged from 04/27/2021. No new suspicious hepatic lesion is seen. The gallbladder is normal. There is no biliary ductal dilation. There is atrophy of the pancreas with pancreatic ductal dilatation or irregularity. There are scattered calcifications seen throughout the pancreas. There is 1.0 cm lesion within the spleen, which is unchanged. The spleen is mildly enlarged measuring up to 14 cm. Adrenal glands are normal. The kidneys are normal without hydronephrosis. Bowel: The stomach and small bowel are normal without obstruction. There is scattered colonic diverticulosis. The appendix is normal. Peritoneum: There is no intraperitoneal free fluid or free air. No suspicious lymphadenopathy. Vasculature: Calcification of the aorta without aneurysm. Musculoskeletal: Degenerative changes of the spine without suspicious osseous lesion or compression fracture. Pelvis: The prostate gland is normal. The urinary bladder is normal. IMPRESSION: 1. Stable post-treatment changes of the right hepatic lobe without obvious findings of recurrent or new disease. 2. Cirrhosis. 3. Findings of chronic pancreatitis. Dictated by: Dictated on workstation # [id number]
== END ==
LOC: RAD 10:15
PROVIDERS: ATTEND Internal Medicine
DX: C22.0 Liver cell carcinoma (principal); K74.60 Unspecified cirrhosis of liver
CPT/HCPCS: 36415; 71260; 74178; 80053; 82105; 85025; 85610

== ENCOUNTER 2021-08-20 06:34 | Outpatient (CLI) | payer MEDICARE ==
[~2021-08-20] VITALS: Ht 183 cm; Wt 72.7 kg
[~2021-08-20 06:34] MED LIST changes: -CATHETER FLUSH 10 ML SYR IV PRN; -HOLD METFORMIN - RECEIVED CONTRAST 20 ML VIAL IV SCH; -IOHEXOL 350 MG/ML 100 ML (OMNIPAQUE 350) VIAL IV ONE; -NS 100 ML (IVPB) BAG IV ONE
[2021-08-20] MEDS ORDERED: [UNRECOGNIZED DRUG - CODE] MC (13:34)
== END 2021-08-20 14:02 | disposition home or self-care (01) ==
LOC: PREOP 06:34
PROVIDERS: ATTEND Surgery
DX: Z01.818 Encounter for other preprocedural examination (principal)

== ENCOUNTER 2021-09-01 08:46 | Day surgery (SDC) | payer BC, MEDICARE, OTHER ==
[~2021-09-01] VITALS: Ht 183 cm; Wt 72.7 kg
[~2021-09-01 08:46] MED LIST changes: +[UNRECOGNIZED DRUG - CODE] MC
[2021-09-01] MEDS ORDERED: LACTATED RINGERS 1,000 ML IV STA (09:25)
[2021-09-01 10:08] VITALS: BP 148/80
--- NOTE | 2021-09-01 10:28 | Progress Note-Pre Operative ---
Pre-Operative Progress Note H&P Reviewed The H&P was reviewed, patient examined and no changes noted. Date Seen by Provider: September 01, 2021 Time Seen by Provider: 10: Date H&P Reviewed: September 01, 2021 Time H&P Reviewed: : Pre-Operative Diagnosis: hx polyps ASTRID PADRON DO September 01, 2021 10:28
[2021-09-01] MEDS ORDERED: PROPOFOL INJECTION 50 ML IV ONE (11:28)
[2021-09-01 12:15] VITALS: BP 104/55
--- NOTE | 2021-09-01 12:19 | Progress Note-Post Operative ---
Post-Operative Progess Note Surgeon (s)/[place] Brushing Machine Operator (s) Surgeon ASTRID PADRON DO [place] Brushing Machine Operator: na Pre-Operative Diagnosis hx polyps Post-Operative Diagnosis colon polyps Procedure & Operative Findings Date of Procedure 09/01/21 Procedure Performed/Findings colonoscopy c snare polypectomy x 6 and hot bx polypectomy x 1 Anesthesia Type per [employer] Estimated Blood Loss Estimated blood loss (mL): none Specimens/Packing Specimens Removed colon polyps ASTRID PADRON DO September 01, 2021 12:18
[2021-09-01 12:20] VITALS: BP 117/58
--- NOTE | 2021-09-01 12:22 | Discharge Inst-Simple/Standard ---
Discharge Inst-Standard Patient Instructions/Follow Up Plan of Care/Instructions/FU: 2 weeks renetta Activity as Tolerated: Yes Discharge Diet: Regular Diet ASTRID PADRON DO September 01, 2021 12:22
--- NOTE | 2021-09-01 12:22 | Anesthesia-General Post-Op ---
MAC Patient Condition Mental Status/LOC: Same as Preop Cardiovascular: Satisfactory Nausea/Vomiting: Absent Respiratory: Satisfactory Pain: Controlled Complications: Absent Post Op Complications Complications None Follow Up Care/Instructions Patient Instructions None needed. Anesthesiology Discharge Order Discharge Order Patient is doing well, no complaints, stable vital signs, no apparent adverse anesthesia problems. No complications reported per nursing. VIOLETA RAMIRES CRNA September 01, 2021 12:22
[2021-09-01 12:25] VITALS: BP 121/62
[2021-09-01 12:30] VITALS: BP 121/62
[2021-09-01 12:55] VITALS: BP 120/63
--- NOTE | 2021-09-01 15:56 | OPERATIVE REPORT ---
DATE OF SERVICE: 09/01/2021 PREOPERATIVE DIAGNOSIS: History of colon polyps. POSTOPERATIVE DIAGNOSIS: Colon polyps. PROCEDURE: Colonoscopy with snare polypectomy x6 and hot biopsy polypectomy x1. SURGEON: Wei Saucedo DO ANESTHESIA: Per RHEUMATOLOGIST. ESTIMATED BLOOD LOSS: None. COMPLICATIONS: None. INDICATIONS: The patient is a 70-year-old male needing colonoscopy for history of colon polyps. He understands risks and benefits of procedure and wishes to proceed. Consent was signed in the chart. DESCRIPTION OF PROCEDURE: The patient was taken to the endoscopy suite, placed in left lateral recumbent position. Timeout was performed. Digital rectal exam was performed noting some internal hemorrhoids. No palpable polyps, masses or ulcerations. Scope was inserted in the rectum and advanced all the way to cecum with minimal difficulty. Prep was adequate with irrigation and suction. Scope was slowly retracted back in the cecum, a larger polyp was actually the appendiceal opening, which a snare polypectomy was performed. The specimen was obtained. Scope was then continuously retracted back in the ascending colon where three polyps were present, which snare polypectomies were performed. Scope was then continuously retracted back into the transverse colon where two more polyps were present, which snare polypectomies were performed. Scope was then continuously retracted back to the descending and sigmoid colon without any polyps, masses or ulcerations. In the rectum, scope was retroflexed noting no other pathology except for a very small polyp, which hot biopsy polypectomy was performed. Scope was returned to its normal position, slowly withdrawn until completely removed. In the ascending colon of note, there was 1 polyp that had to be removed in piecemeal due to the size. The patient was taken to recovery room in stable condition. RECOMMENDATIONS: The patient will need repeat colonoscopy in one year if benefits outweigh the risk. The patient will follow up in the office to discuss pathology results. If he has any issues before, next repeat colonoscopy planned, he should be seen at that time and repeat considered. I would also consider 2-day prep. CC: Karri Lopez - requested, unable to deliver. CC: Dr. Unger - tori, unable to deliver. Job ID: [id number] DocumentID: [id number] Dictated Date: 09/01/2021 12:21:20 Call Out Clerk Date: 09/01/2021 15:56:05 Dictated By: WEI SAUCEDO DO [facility]
== END 2021-09-01 13:25 | disposition home or self-care (01) ==
LOC: ENDO 08:46
PROVIDERS: ATTEND Surgery
DX: Z12.11 Encounter for screening for malignant neoplasm of colon (principal); D12.0 Benign neoplasm of cecum; D12.2 Benign neoplasm of ascending colon; D12.3 Benign neoplasm of transverse colon; K62.1 Rectal polyp; Z85.05 Personal history of malignant neoplasm of liver

== ENCOUNTER 2021-12-02 10:37 | Outpatient (RCR) | payer OTHER ==
[~2021-12-02 10:37] MED LIST changes: +POTA-177 PO; -POTA10TA37 PO
[2021-12-02 12:02] LABS: LYMPHOCYTES # (AUTO) 0.9 10^3/uL (1.0-4.0); MEAN CORPUSCULAR VOLUME 89 fL (80-99)
[2021-12-02 12:04] LABS: BASOPHILS % (AUTO) 1 % (0-10); EOSINOPHILS # (AUTO) 0.1 10^3/uL (0.0-0.3); EOSINOPHILS % (AUTO) 2 % (0-10); HEMATOCRIT 40 % (40-54); HEMOGLOBIN 13.7 g/dL (13.3-17.7); LYMPHOCYTES % (AUTO) 24 % (12-44); MEAN CORPUSCULAR HEMOGLOBIN 30 pg (25-34); MEAN CORPUSCULAR HGB CONC 34 g/dL (32-36); MEAN PLATELET VOLUME 11.7 fL (9.0-12.2); MONOCYTES # (AUTO) 0.4 10^3/uL (0.0-1.0); MONOCYTES % (AUTO) 9 % (0-12); NEUTROPHILS # (AUTO) 2.5 10^3/uL (1.8-7.8); NEUTROPHILS % (AUTO) 64 % (42-75); PLATELET COUNT 116 10^3/uL (130-400); WHITE BLOOD COUNT 3.9 10^3/uL (4.3-11.0)
[2021-12-02 12:17] LABS: ALBUMIN 3.8 GM/DL (3.2-4.5); BILIRUBIN,TOTAL 0.5 MG/DL (0.1-1.0); CALCIUM 9.3 MG/DL (8.5-10.1); CREATININE SERUM 1.16 MG/DL (0.60-1.30); POTASSIUM 3.7 MMOL/L (3.6-5.0); TOTAL PROTEIN 6.7 GM/DL (6.4-8.2)
== END 2021-12-16 | disposition home or self-care (01) ==
LOC: ONC 10:37
PROVIDERS: ATTEND Internal Medicine Hematology & Oncology
DX: C22.0 Liver cell carcinoma (principal)
CPT/HCPCS: 80053; 85025; 99204

== ENCOUNTER → 2021-12-16 | Outpatient (CLI) | payer OTHER ==
[~2021-12-16] MED LIST changes: +CATHETER FLUSH 10 ML SYR IV PRN; +HOLD METFORMIN - RECEIVED CONTRAST 20 ML VIAL IV SCH; +IOHEXOL 350 MG/ML 100 ML (OMNIPAQUE 350) VIAL IV ONE; +NS 100 ML (IVPB) BAG IV ONE; -POTA-177 PO; +POTA10TA37 PO
--- NOTE | 2021-12-16 14:22 | Diagnostic Imaging Report ---
EXAMINATION: CT chest, abdomen and pelvis with intravenous contrast. TECHNIQUE: Multiple contiguous axial images were obtained through the chest, abdomen and pelvis after the uneventful administration of intravenous contrast. All CT scans use one or more of the following dose optimizing techniques: Automated exposure control, MA and/or KvP adjustment based on patient size and exam type or iterative reconstruction. HISTORY: Hepatocellular carcinoma. COMPARISON: 07/27/2021. FINDINGS: Thyroid: The visualized thyroid gland is normal. Mediastinum: Heart size is normal without significant pericardial effusion. Calcifications of the aorta and coronary vessels. Thoracic aorta is normal in caliber. No suspicious lymphadenopathy. Lungs and airways: The lungs are clear without consolidation, pleural effusion, or pneumothorax. There is scarring within the dependent lungs. No new suspicious pulmonary lesion. The airways are normal. Solid organs: Stable post-treatment changes of the right hepatic lobe. Nodular morphology of the liver. No new suspicious hepatic lesion. There continues to be a focal hypoattenuating treatment site within hepatic segment Michele/VIII measuring up to 4.7 cm x 2.3 cm. The gallbladder is normal. There is no biliary ductal dilation. There are diffuse pancreatic calcifications with pancreatic ductal dilatation and irregularity, likely sequelae of chronic pancreatitis. Spleen is normal. Adrenal glands are normal. The kidneys are normal without hydronephrosis. Bowel: The stomach and small bowel are normal without obstruction. There is a moderate amount of stool seen throughout the colon. The appendix is normal. Peritoneum: There is no intraperitoneal free fluid or free air. No suspicious lymphadenopathy. Vasculature: Calcification of the aorta without aneurysm. Musculoskeletal: Degenerative changes of the spine without suspicious osseous lesion or compression fracture. Pelvis: The prostate gland is normal. Mild bladder wall thickening. IMPRESSION: 1. Stable post-treatment changes of the right hepatic lobe without findings of residual, recurrent, or metastatic disease. 2. Cirrhosis. 3. Stable sequelae of chronic pancreatitis. Dictated by: Dictated on workstation # [id number]
== END ==
LOC: RAD 11:11
PROVIDERS: ATTEND Internal Medicine Hematology & Oncology
DX: K74.60 Unspecified cirrhosis of liver (principal); C22.0 Liver cell carcinoma; K86.1 Other chronic pancreatitis; Z98.890 Other specified postprocedural states
CPT/HCPCS: 71260; 74177

== ENCOUNTER 2022-02-22 13:04 | Emergency (ER) | payer OTHER ==
[~2022-02-22] VITALS: Ht 182.8 cm; Wt 68.4 kg
[~2022-02-22 13:04] MED LIST changes: -CATHETER FLUSH 10 ML SYR IV PRN; -HOLD METFORMIN - RECEIVED CONTRAST 20 ML VIAL IV SCH; -IOHEXOL 350 MG/ML 100 ML (OMNIPAQUE 350) VIAL IV ONE; -NS 100 ML (IVPB) BAG IV ONE; +POTA-177 PO; -POTA10TA37 PO
--- NOTE | 2022-02-22 13:40 | ED GI ---
General Chief Complaint: Abdominal/GI Problems Stated Complaint: ABD PAIN|DIARRHEA Nursing Triage Note: pt arrived pov with son. pt stated that he has had diarrhea for 4-5 months. Source of Information: Patient, Family Exam Limitations: No Limitations (NEL PLUNKETT APRN) History of Present Illness Date Seen by Provider: Feb 22, 2022 Time Seen by Provider: 13:15 Initial Comments Patient is a 71-year-old gentleman who presents to the emergency department for evaluation of several months of diarrhea. Patient states he has seen his PCP as well as several other providers for the issues. Patient has had a colonoscopy recently which he reports was grossly normal. He denies any new symptoms but states he is just "sick of being sick". Patient is accompanied by his son who states that he is concerned the patient is at increased risk of falls as he is getting increasingly weaker. Patient denies any other complaints outside of the diarrhea. (NEL PLUNKETT APRN) Allergies and Home Medications Allergies Coded Allergies: codeine (Verified Allergy, Unknown, ITCHING, 06/16/20) Patient Home Medication List Home Medication List Reviewed: Yes (NEL PLUNKETT APRN) Amlodipine Besylate (Amlodipine Besylate) 10 Mg Tablet, 10 MG PO DAILY, (Reported) Entered as Reported by: HIPOLITO WARREN on 06/20/20 1449 Losartan Potassium (Losartan Potassium) 100 Mg Tablet, 100 MG PO DAILY, (Reported) Entered as Reported by: HIPOLITO WARREN on 06/20/20 1449 Potassium Chloride (Potassium Chloride) 10 Meq Tab.er.prt, 20 MEQ PO DAILY, (Reported) Entered as Reported by: HIPOLITO WARREN on 06/20/20 1449 Serotonin HCl (Serotonin HCl) 97 % Powder, 100 GM MC DAILY, (Reported) Entered as Reported by: ESPINOZA MO on 08/20/21 4114 Review of Systems Review of Systems Constitutional: no symptoms reported EENTM: No Symptoms Reported Respiratory: No Symptoms Reported Cardiovascular: No Symptoms Reported Gastrointestinal: See HPI Genitourinary: No Symptoms Reported (NEL PLUNKETT APRN) Past Pnhcdon-Ilwqsy-Zardft Hx Patient Social History Tobacco Use?: Yes Substance use?: No Alcohol Use?: No (NEL PLUNKETT APRN) Immunizations Up To Date Influenza Vaccine Up-to-Date: No; Not Current First/Initial COVID19 Vaccinat: 4-28-21 Second COVID19 Vaccination Marcos: 09-16-20 Third COVID19 Vaccination Date: 07-09-21 (NEL PLUNKETT APRN) Seasonal Allergies Seasonal Allergies: No (NEL PLUNKETT APRN) Past Medical History Surgeries: Yes ([facility] ablation/exploratory 06/11) Orthopedic Respiratory: No Currently Using CPAP: No Currently Using BIPAP: No Cardiac: Yes Hypertension Neurological: Yes (CEREBRAL ATAXIA) Genitourinary: No Gastrointestinal: Yes (BOWEL CHANGES) Polyps Musculoskeletal: No Endocrine: No HEENT: No Cancer: Yes Liver Did You Recieve Any Treatments: Yes What Type of Treatment Did You: Radiation Psychosocial: Yes PTSD Integumentary: No Blood Disorders: No Adverse Reaction/Blood Tranf: No (NEL PLUNKETT APRN) Physical Exam Vital Signs Vital Signs - First Documented 02/22/22 13:15 Pulse 67 B/P (MAP) 135/81 (99) Pulse Ox 97 O2 Delivery Room Air (AMBIKA EL MD) Vital Signs Capillary Refill : (NEL PLUNKETT APRN) Height/Weight/BMI Height: '" Weight: lbs. oz. kg; 20.00 BMI Method: General Appearance: WD/WN, no apparent distress Neck: non-tender, full range of motion, supple, normal inspection Respiratory: chest non-tender, lungs clear, normal breath sounds, no respiratory distress Cardiovascular: regular rate, rhythm Gastrointestinal: normal bowel sounds, non tender, soft Extremities: normal range of motion, non-tender, normal inspection Neurologic/Psychiatric: no motor/sensory deficits, alert, normal mood/affect, oriented x 3 Skin: normal color, warm/dry (NEL PLUNKETT APRN) Progress/Results/Core Measures Results/Orders Lab Results Laboratory Tests Test 02/22/22 13:30 Range/Units White Blood Count 3.6 L 4.3-11.0 10^3/uL Red Blood Count 4.44 4.30-5.52 10^6/uL Hemoglobin 13.6 13.3-17.7 g/dL Hematocrit 41 40-54 % Mean Corpuscular Volume 91 80-99 fL Mean Corpuscular Hemoglobin 31 25-34 pg Mean Corpuscular Hemoglobin Concent 34 32-36 g/dL Red Cell Distribution Width 13.7 10.0-14.5 % Platelet Count 144 130-400 10^3/uL Mean Platelet Volume 11.9 9.0-12.2 fL Immature Granulocyte % (Auto) 0 % Neutrophils (%) (Auto) 56 42-75 % Lymphocytes (%) (Auto) 29 12-44 % Monocytes (%) (Auto) 12 0-12 % Eosinophils (%) (Auto) 3 0-10 % Basophils (%) (Auto) 1 0-10 % Neutrophils # (Auto) 2.0 1.8-7.8 10^3/uL Lymphocytes # (Auto) 1.0 1.0-4.0 10^3/uL Monocytes # (Auto) 0.4 0.0-1.0 10^3/uL Eosinophils # (Auto) 0.1 0.0-0.3 10^3/uL Basophils # (Auto) 0.0 0.0-0.1 10^3/uL Immature Granulocyte # (Auto) 0.0 0.0-0.1 10^3/uL Sodium Level 144 135-145 MMOL/L Potassium Level 3.7 3.6-5.0 MMOL/L Chloride Level 108 H 98-107 MMOL/L Carbon Dioxide Level 25 21-32 MMOL/L Anion Gap 11 5-14 MMOL/L Blood Urea Nitrogen 17 7-18 MG/DL Creatinine 1.27 0.60-1.30 MG/DL Estimat Glomerular Filtration Rate 60 BUN/Creatinine Ratio 13 Glucose Level 130 H 70-105 MG/DL Calcium Level 9.5 8.5-10.1 MG/DL Corrected Calcium 9.7 8.5-10.1 MG/DL Total Bilirubin 0.6 0.1-1.0 MG/DL Aspartate Amino Transf (AST/SGOT) 32 5-34 U/L Alanine Aminotransferase (ALT/SGPT) 31 0-55 U/L Alkaline Phosphatase 182 H 40-136 U/L Total Protein 6.7 6.4-8.2 GM/DL Albumin 3.8 3.2-4.5 GM/DL (AMBIKA EL MD) Vital Signs/I&O 02/22/22 02/22/22 13:15 16:20 Pulse 67 59 B/P (MAP) 135/81 (99) 137/80 Pulse Ox 97 94 O2 Delivery Room Air Room Air (AMBIKA EL MD) Blood Pressure Mean: 99 Progress Progress Note : Progress Note Patient is nontoxic and well-hydrated on exam. Abdominal exam is benign. Vital signs are reassuring. Laboratory evaluation is unremarkable. I had a lengthy conversation with his primary care physician, Dr. Huynh, who agrees that patient does not meet criteria for inpatient admission at this time. She states she has done multiple work-ups on the patient without finding any obvious etiology of the symptoms. Patient has been referred to a top lift trimmer for further evaluation. Patient states he feels safe at home and does not want to be placed in any type of [place] health care facility at this time. Will discharge home with recommendations for supportive care and close follow-up with PCP. Return precautions for urgent symptomology discussed. Patient verbalized understanding. (NEL PLUNKETT APRN) Departure Impression Primary Impression: Chronic diarrhea Disposition: 01 HOME, SELF-CARE Condition: Stable Departure-Patient Inst. Decision time for Depature: 16:00 (NEL PLUNKETT APRN) Referrals: ROBBIE HUYNH DO (PCP/Family) Primary Care Physician Patient Instructions: Diarrhea, Adult ED ATTENDING PHYSICIAN NOTE: I was physically present as attending physician in the emergency department during the care of this patient, but I was not directly involved in the decision making or delivery of care for this patient. (AMBIKA EL MD) NEL PLUNKETT APRN Feb 22, 2022 13:40 AMBIKA EL MD Feb 22, 2022 20:21
[2022-02-22 14:40] LABS: BASOPHILS % (AUTO) 1 % (0-10); EOSINOPHILS # (AUTO) 0.1 10^3/uL (0.0-0.3); EOSINOPHILS % (AUTO) 3 % (0-10); HEMATOCRIT 41 % (40-54); HEMOGLOBIN 13.6 g/dL (13.3-17.7); LYMPHOCYTES % (AUTO) 29 % (12-44); MEAN CORPUSCULAR HEMOGLOBIN 31 pg (25-34); MEAN CORPUSCULAR HGB CONC 34 g/dL (32-36); MEAN CORPUSCULAR VOLUME 91 fL (80-99); MEAN PLATELET VOLUME 11.9 fL (9.0-12.2); MONOCYTES # (AUTO) 0.4 10^3/uL (0.0-1.0); MONOCYTES % (AUTO) 12 % (0-12); NEUTROPHILS % (AUTO) 56 % (42-75); PLATELET COUNT 144 10^3/uL (130-400); WHITE BLOOD COUNT 3.6 10^3/uL (4.3-11.0)
[2022-02-22 14:43] LABS: ALBUMIN 3.8 GM/DL (3.2-4.5); POTASSIUM 3.7 MMOL/L (3.6-5.0)
[2022-02-22 14:45] LABS: CALCIUM 9.5 MG/DL (8.5-10.1)
[2022-02-22 14:46] LABS: TOTAL PROTEIN 6.7 GM/DL (6.4-8.2)
[2022-02-22 14:48] LABS: BILIRUBIN,TOTAL 0.6 MG/DL (0.1-1.0)
[2022-02-22 14:49] LABS: CREATININE SERUM 1.27 MG/DL (0.60-1.30)
[2022-02-22 16:20] VITALS: BP 137/80
== END 2022-02-22 16:20 | disposition home or self-care (01) ==
LOC: EDUNIT# 13:04 → ER 13:06
DX: K52.9 Noninfective gastroenteritis and colitis, unspecified (principal)
CPT/HCPCS: 36415; 80053; 85025; 99281

== ENCOUNTER → 2022-04-22 | Outpatient (CLI) | payer OTHER ==
[~2022-04-22] MED LIST changes: +HOLD METFORMIN - RECEIVED CONTRAST 20 ML VIAL IV SCH; +IOHEXOL 350 MG/ML 100 ML (OMNIPAQUE 350) VIAL IV ONE; +NS 100 ML (IVPB) BAG IV ONE
--- NOTE | 2022-04-22 14:24 | Diagnostic Imaging Report ---
PROCEDURE: CT chest, abdomen, and pelvis with contrast. TECHNIQUE: Multiple contiguous axial images were obtained through the chest, abdomen, and pelvis after the administration of intravenous contrast. Auto Exposure Controls were utilized during the CT exam to meet ALARA standards for radiation dose reduction. INDICATION: Hepatocellular carcinoma, follow-up. COMPARISON: Correlation is made with prior CT from 12/16/2021. FINDINGS: CT CHEST: No axillary lymphadenopathy is detected. No mediastinal or hilar lymphadenopathy is detected. No pericardial or pleural fluid is identified. No pulmonary infiltrate, nodule, or mass is detected. There is some linear scarring or atelectasis in the left lower lobe. CT ABDOMEN AND PELVIS: A nodular contour to the liver is again noted. Post-therapeutic changes in the right lobe are again noted. The area of low attenuation in the right lobe appears to be fairly stable at 4.6 x 2.0 cm compared with 4.7 x 2.3 cm. No new liver mass is identified. Pancreatic atrophy with multiple pancreatic calcifications are again noted consistent with chronic pancreatitis. A low-density lesion in the spleen is again noted and stable. No adrenal mass is detected. Right kidney is unremarkable. Nonobstructing calculus in the upper pole of the left kidney measures 7 mm. Aorta is nonaneurysmal. No central retroperitoneal or mesenteric lymphadenopathy is seen. The bowel loops are normal in caliber. There is a moderate stool volume within the colon, particularly the descending and sigmoid colon. There is no ascites in the abdomen or pelvis. No pelvic lymphadenopathy is seen. Bladder does show some generalized wall thickening. Prostate is unremarkable. Bony structures are nonacute. IMPRESSION: 1. Overall stable CT of the chest, abdomen, and pelvis when compared with prior study from 12/16/2021. Post-therapeutic changes in the right lobe of the liver appear stable. No new or enlarging liver mass is detected. 2. No evidence of abdominal or pelvic lymphadenopathy. Dictated by: Dictated on workstation # [id number]
== END ==
LOC: RAD 12:42
PROVIDERS: ATTEND Internal Medicine Hematology & Oncology
DX: C22.0 Liver cell carcinoma (principal)
CPT/HCPCS: 71260; 74177

== ENCOUNTER 2022-04-27 14:22 | Outpatient (RCR) | payer OTHER ==
[~2022-04-27 14:22] MED LIST changes: -HOLD METFORMIN - RECEIVED CONTRAST 20 ML VIAL IV SCH; -IOHEXOL 350 MG/ML 100 ML (OMNIPAQUE 350) VIAL IV ONE; -NS 100 ML (IVPB) BAG IV ONE
[2022-04-27 14:50] LABS: BASOPHILS % (AUTO) 1 % (0-10); EOSINOPHILS # (AUTO) 0.1 10^3/uL (0.0-0.3); EOSINOPHILS % (AUTO) 2 % (0-10); HEMATOCRIT 41 % (40-54); HEMOGLOBIN 13.7 g/dL (13.3-17.7); LYMPHOCYTES # (AUTO) 1.2 X 10^3 (1.0-4.0); LYMPHOCYTES % (AUTO) 27 % (12-44); MEAN CORPUSCULAR HEMOGLOBIN 31 pg (25-34); MEAN CORPUSCULAR HGB CONC 34 g/dL (32-36); MEAN CORPUSCULAR VOLUME 90 fL (80-99); MONOCYTES # (AUTO) 0.4 X 10^3 (0.0-1.0); MONOCYTES % (AUTO) 9 % (0-12); NEUTROPHILS # (AUTO) 2.8 X 10^3 (1.8-7.8); NEUTROPHILS % (AUTO) 62 % (42-75); PLATELET COUNT 173 10^3/uL (130-400); WHITE BLOOD COUNT 4.6 10^3/uL (4.3-11.0)
[2022-04-27 15:09] LABS: ALBUMIN 3.8 GM/DL (3.2-4.5); BILIRUBIN,TOTAL 0.5 MG/DL (0.1-1.0); CALCIUM 9.4 MG/DL (8.5-10.1); CREATININE SERUM 1.21 MG/DL (0.60-1.30); POTASSIUM 4.1 MMOL/L (3.6-5.0); TOTAL PROTEIN 7.1 GM/DL (6.4-8.2)
[2022-05-08] MEDS ORDERED: SERT-414 PO (03:07)
[2022-05-08] MEDS ORDERED: QUET100T33 PO (03:07)
[2022-05-08] MEDS ORDERED: DIPH1TAB PO (03:07)
[2022-05-08] MEDS ORDERED: CHOL200074 PO (03:07)
[2022-05-08] MEDS ORDERED: ACAM333T8 PO (03:07)
[2022-05-08] MEDS ORDERED: COLE1TAB PO (03:07)
[2022-05-08] MEDS ORDERED: PANT20TA18 PO (03:07)
[2022-05-08] MEDS ORDERED: LEVO50CA4 PO (03:07)
[2022-05-10] MEDS ORDERED: LEVO50TA6 PO (14:20)
[2022-05-10] MEDS ORDERED: QUET100T33 PO (14:28)
== END 2022-05-18 | disposition home or self-care (01) ==
LOC: ONC 14:22
PROVIDERS: ATTEND Internal Medicine Hematology & Oncology
DX: C22.0 Liver cell carcinoma (principal)
CPT/HCPCS: 36415; 80053; 85025; 99213

== ENCOUNTER 2022-05-07 15:11 | Inpatient (IN) | payer OTHER, MEDICARE ==
[~2022-05-07] VITALS: Ht 183 cm; Wt 69.2 kg
[2022-05-07] MEDS ORDERED: morphine INJ 10 MG/ML 1ML (SYR OR VIAL) IVP STA ×2 (15:47→16:46)
--- NOTE | 2022-05-07 15:54 | ED Hip Pain/Injury ---
General Chief Complaint: Hip/Pelvic Problems Stated Complaint: FALL Nursing Triage Note: PT TO ROOM 02 VIA [facility] WITH C/O LEFT HIP PAIN AFTER FALLING. PT STATES HE LOST HIS BALANCE AND FELL. PT DENIES LOC. PT DENIES HEAD/NECK/BACK PAIN. Source: patient, family, EMS Exam Limitations: no limitations History of Present Illness Date Seen by Provider: May 07, 2022 Time Seen by Provider: 15:33 Initial Comments This 71-year-old gentleman presents to the emergency room via EMS after having a fall backward in his home. 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 He generally falls over backwards when he has falls. He denies any acute change in his general health status today. He has otherwise felt well. Today he fell backward onto his left hip. He denies striking his head or neck or injuring any other part of his body. He has significant pain in the left hip. Distal exam past the midline is unremarkable. He is accompanied by his plhdwyme-my-gmm who assists with history. Allergies and Home Medications Allergies Coded Allergies: codeine (Verified Allergy, Unknown, ITCHING, 06/16/20) Patient Home Medication List Amlodipine Besylate (Amlodipine Besylate) 10 Mg Tablet, 10 MG PO DAILY, (Reported) Entered as Reported by: HIPOLITO WARREN on 06/20/20 1449 Losartan Potassium (Losartan Potassium) 100 Mg Tablet, 100 MG PO DAILY, (Reported) Entered as Reported by: HIPOLITO WARREN on 06/20/20 1449 Potassium Chloride (Potassium Chloride) 10 Meq Tab.er.prt, 20 MEQ PO DAILY, (Reported) Entered as Reported by: HIPOLITO WARREN on 06/20/20 1449 Serotonin HCl (Serotonin HCl) 97 % Powder, 100 GM MC DAILY, (Reported) Entered as Reported by: ESPINOZA MO on 08/20/21 1334 Past Jetojjf-Lzrhnk-Msvrjp Hx Patient Social History Tobacco Use?: No Smoking Status: Never a Smoker Smokeless Tobacco Frequency: Never a User Use of E-Cig and/or Vaping dev: No Use of E-Cig and/or Vaping Pacheco: Never a User Substance use?: No Alcohol Use?: No Immunizations Up To Date First/Initial COVID19 Vaccinat: 08-13-20 Second COVID19 Vaccination Marcos: 09-16-20 Third COVID19 Vaccination Date: 07-09-21 Seasonal Allergies Seasonal Allergies: No Past Medical History Surgeries: Yes ([facility] ablation/exploratory 06/11) Orthopedic Respiratory: No Currently Using CPAP: No Currently Using BIPAP: No Cardiac: Yes Hypertension Neurological: Yes (CEREBRAL ATAXIA) Genitourinary: No Gastrointestinal: Yes (BOWEL CHANGES) Polyps Musculoskeletal: No Endocrine: No HEENT: No Cancer: Yes Liver Did You Recieve Any Treatments: Yes What Type of Treatment Did You: Radiation Psychosocial: Yes PTSD Integumentary: No Blood Disorders: No Adverse Reaction/Blood Tranf: No Physical Exam Vital Signs Vital Signs - First Documented Capillary Refill : Less Than 3 Seconds Height, Weight, BMI Height: '" Weight: lbs. oz. kg; 21.00 BMI Method: Progress/Results/Core Measures Results/Orders Lab Results Laboratory Tests Test 05/07/22 15:20 Range/Units White Blood Count 4.3 4.3-11.0 10^3/uL Red Blood Count 4.50 4.30-5.52 10^6/uL Hemoglobin 13.7 13.3-17.7 g/dL Hematocrit 40 40-54 % Mean Corpuscular Volume 90 80-99 fL Mean Corpuscular Hemoglobin 30 25-34 pg Mean Corpuscular Hemoglobin Concent 34 32-36 g/dL Red Cell Distribution Width 13.8 10.0-14.5 % Platelet Count 123 L 130-400 10^3/uL Mean Platelet Volume 12.2 9.0-12.2 fL Immature Granulocyte % (Auto) 1 % Neutrophils (%) (Auto) 61 42-75 % Lymphocytes (%) (Auto) 29 12-44 % Monocytes (%) (Auto) 8 0-12 % Eosinophils (%) (Auto) 1 0-10 % Basophils (%) (Auto) 1 0-10 % Neutrophils # (Auto) 2.6 1.8-7.8 10^3/uL Lymphocytes # (Auto) 1.2 1.0-4.0 10^3/uL Monocytes # (Auto) 0.4 0.0-1.0 10^3/uL Eosinophils # (Auto) 0.1 0.0-0.3 10^3/uL Basophils # (Auto) 0.0 0.0-0.1 10^3/uL Immature Granulocyte # (Auto) 0.0 0.0-0.1 10^3/uL Percent Immature Platelet Fraction 5.6 0.0-7.6 % Prothrombin Time 14.2 12.2-14.7 SEC INR Comment 1.1 0.8-1.4 Activated Partial Thromboplast Time 31 24-35 SEC Sodium Level 138 135-145 MMOL/L Potassium Level 4.1 3.6-5.0 MMOL/L Chloride Level 107 98-107 MMOL/L Carbon Dioxide Level 20 L 21-32 MMOL/L Anion Gap 11 5-14 MMOL/L Blood Urea Nitrogen 19 H 7-18 MG/DL Creatinine 1.23 0.60-1.30 MG/DL Estimat Glomerular Filtration Rate 62 BUN/Creatinine Ratio 15 Glucose Level 103 70-105 MG/DL Calcium Level 9.4 8.5-10.1 MG/DL My Orders Orders - AMBIKA EL MD Basic Metabolic Panel (05/07/22 15:47) Cbc With Automated Diff (05/07/22 15:47) Protime With Inr (05/07/22 15:47) Partial Thromboplastin Time (05/07/22 15:47) Ua Culture If Indicated (05/07/22 15:47) Morphine Injection (Morphine Injection (05/07/22 15:47) Pelvis With Left Hip 2-3 Views (05/07/22 15:47) Morphine Injection (Morphine Injection (05/07/22 16:46) Vital Signs/I&O 05/07/22 05/07/22 05/07/22 15:14 15:14 16:33 Temp 36.8 36.8 Pulse 70 70 68 Resp 16 16 20 B/P (MAP) 139/68 (91) 139/68 (91) 155/84 (107) Pulse Ox 96 91 96 O2 Delivery Nasal Cannula Room Air Nasal Cannula O2 Flow Rate 2.00 2.00 Blood Pressure Mean: 91 Progress Progress Note : Time: 15:50 Progress Note Patient was interviewed and examined. He was found to have left hip pain and proximal thigh pain. He denied any other injuries. Labs and x-ray imaging are pending. He will receive morphine 4 mg IV prior to his x-rays. Departure Communication (Admissions) Time/Spoke to Admitting Phy: 17:13 Dr. Huynh Time/Spoke to Consulting Phy: 16:42 Dr. Silver Impression Primary Impression: Closed left hip fracture Qualified Codes: S72.002A - Fracture of unspecified part of neck of left femur, initial encounter for closed fracture Additional Impression: Cerebellar ataxia Disposition: ADMITTED INPATIENT Condition: Stable Admissions Decision to Admit Reason: Admit from ER (General) Decision to Admit/Date: May 07, 2022 Time/Decision to Admit Time: 16:42 Departure-Patient Inst. Referrals: ROBBIE HUYNH DO (PCP/Family) Primary Care Physician AMBIKA EL MD May 07, 2022 15:54
[2022-05-07 15:56] LABS: HEMOGLOBIN 13.7 g/dL (13.3-17.7); MONOCYTES # (AUTO) 0.4 10^3/uL (0.0-1.0); NEUTROPHILS % (AUTO) 61 % (42-75)
[2022-05-07 15:58] LABS: BASOPHILS % (AUTO) 1 % (0-10); EOSINOPHILS # (AUTO) 0.1 10^3/uL (0.0-0.3); EOSINOPHILS % (AUTO) 1 % (0-10); HEMATOCRIT 40 % (40-54); LYMPHOCYTES # (AUTO) 1.2 10^3/uL (1.0-4.0); LYMPHOCYTES % (AUTO) 29 % (12-44); MEAN CORPUSCULAR HEMOGLOBIN 30 pg (25-34); MEAN CORPUSCULAR HGB CONC 34 g/dL (32-36); MEAN CORPUSCULAR VOLUME 90 fL (80-99); MEAN PLATELET VOLUME 12.2 fL (9.0-12.2); MONOCYTES % (AUTO) 8 % (0-12); NEUTROPHILS # (AUTO) 2.6 10^3/uL (1.8-7.8); PLATELET COUNT 123 10^3/uL (130-400); WHITE BLOOD COUNT 4.3 10^3/uL (4.3-11.0)
[2022-05-07 16:00] LABS: POTASSIUM 4.1 MMOL/L (3.6-5.0)
[2022-05-07 16:01] LABS: CALCIUM 9.4 MG/DL (8.5-10.1)
[2022-05-07 16:06] LABS: CREATININE SERUM 1.23 MG/DL (0.60-1.30); INR 1.1 (0.8-1.4); PROTHROMBIN TIME PATIENT 14.2 SEC (12.2-14.7)
--- NOTE | 2022-05-07 16:38 | Diagnostic Imaging Report ---
EXAMINATION: Pelvis and left hip radiograph EXAM DATE: 05/07/2022 4:21 PM COMPARISON: None available. HISTORY: pelvic, hip pain TECHNIQUE: Three views FINDINGS: There is an acute displaced fracture of the left femoral head at the level of the neck. There is superior and medial displacement. There is bilateral joint space narrowing. The soft tissues are normal. IMPRESSION: 1. Acute displaced fracture of the left femoral head and neck. Dictated by: Dictated on workstation # [id number]
[2022-05-07] MEDS ORDERED: BISACODYL 10 MG SUPP (DULCOLAX) PR PRN (17:45)
[2022-05-07] MEDS ORDERED: diphenhydrAMINE 50 MG/ML INJ (BENADRYL) IVP PRN (17:45)
[2022-05-07] MEDS ORDERED: diphenhydrAMINE 25 MG TAB (BENADRYL) PO PRN (17:45)
[2022-05-07] MEDS ORDERED: CALCIUM CARBONATE 500 MG (TUMS) TAB.CHEW PO PRN (17:45)
[2022-05-07] MEDS ORDERED: ANTACID SUSP 30 ML UDC (MYLANTA) PO PRN (17:45)
[2022-05-07] MEDS ORDERED: polyethylene glycoL POWDER 17 GM (MIRALAX) PACK PO PRN (17:45)
[2022-05-07] MEDS ORDERED: LACTULOSE SYRUP 10GM/15ML (ENULOSE) 30ML UDC PO PRN (17:45)
[2022-05-07] MEDS ORDERED: LIDOCAINE UROJET 2% GEL 10 ML PKG TOP ONE (17:45)
[2022-05-07] MEDS ORDERED: ALPRAZolam 0.25 MG (XANAX) TAB PO PRN (17:45)
[2022-05-07] MEDS ORDERED: MELATONIN 3 MG TABLET PO PRN (17:45)
[2022-05-07] MEDS ORDERED: ONDANSETRON 4 MG (ZOFRAN) ORAL DISSOLVE TAB PO PRN (17:45)
[2022-05-07] MEDS ORDERED: ACETAMINOPHEN 325 MG TABLET PO PRN (17:45)
[2022-05-07] MEDS ORDERED: ONDANSETRON 4 MG/2 ML (SDV) Z0FRAN IV PRN (17:45)
[2022-05-07] MEDS ORDERED: MILK OF MAGNESIA 400 MG/5 ML 30 ML UDC PO PRN (17:45)
[2022-05-07 18:12] VITALS: BP 139/68
[2022-05-07] MEDS ORDERED: RT-ALBUTEROL/IPRATROPIUM 3 ML (DUONEB) VIAL INH PRN (18:15)
[2022-05-07] MEDS: NS IV 1000 ML 1,000 ML IV SCH (18:17)
[2022-05-07] MEDS: HYDROmorphone 2 MG/ML VIAL (DILAUDID) IV PRN (18:17)
[2022-05-07 18:35] LABS: BILIRUBIN,URINE NEGATIVE (NEGATIVE); CLARITY,URINE CLEAR; COLOR,URINE YELLOW; GLUCOSE, URINE (UA) NEGATIVE (NEGATIVE); KETONES,URINE NEGATIVE (NEGATIVE); LEUKOCYTE ESTERASE ,URINE 1+ (NEGATIVE); NITRITE,URINE NEGATIVE (NEGATIVE); PROTEIN,URINE NEGATIVE (NEGATIVE)
[2022-05-07 18:45] LABS: BACTERIA,URINE TRACE /HPF; CALCIUM OXALATE CRYSTALS,UR MODERATE /LPF
[2022-05-07 18:51] VITALS: BP 169/88
[2022-05-07 19:55] VITALS: BP 139/83
[2022-05-07] MEDS ORDERED: morphine PCA 100 MG/100 ML BAG IV PRN (20:15)
--- NOTE | 2022-05-07 20:20 | History & Physical ---
History of Present Illness HPI/Chief Complaint Chief complaint: Left hip fracture HPI: This is a 71-year-old male clinic patient of mine with a past medical history of liver cancer status post cryotherapy at [facility] now in remission who sees Dr. Collier in the cancer center and chronic diarrhea status post gastroenterology consult with Dr. Velasquez with placement of Colestid 1 g twice daily with good results who presented to the ER after a fall at home with left hip pain found to have left hip fracture. He is requiring a great deal of pain medication no evidence of any respiratory depression so we will start a BOAT ENGINE MECHANIC. Dr. Silver will see him in consultation. Source: patient, family Exam Limitations: no limitations Date Seen 05/07/22 Time Seen by a Provider: 18:00 Attending Physician Annamaria Huynh DO PCP Admitting Physician: Annamaria Huynh DO Attending Physician: Annamaria Huynh DO Referring Physician Date of Admission May 07, 2022 at 17:16 Home Medications & Allergies Home Medications Reviewed patient Home Medication Reconciliation performed by pharmacy medication reconciliations restaurant maintenance technician and/or nursing. Patients Allergies have been reviewed. Allergies Allergies Coded Allergies codeine (Verified Allergy, Unknown, ITCHING, 06/16/20) Past Mkysdec-Gzxsqx-Dfjkne Hx Past Med/Social Hx: Reviewed Nursing Past Med/Soc Hx, Reviewed and Corrections made Patient Social History Marrital Status: Employed/Student: retired Alcohol Use: Denies Use Smoking Status: Never a Smoker Type Used: Smokeless Tobacco 2nd Hand Smoke Exposure: No Recent Hopitalizations: No Recent Infectious Disease Expo: No Immunizations Up To Date Date of Influenza Vaccine: May 07, 2022 Seasonal Allergies Seasonal Allergies: No Past Medical History Surgeries: Orthopedic Currently Using CPAP: No Currently Using BIPAP: No Cardiac: Hypertension Neurological: Parkinson's 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) Gastrointestinal: Polyps Cancer: Liver Did You Recieve Any Treatments: Yes What Type of Treatment Did You: Radiation Psychosocial: PTSD History of Blood Disorders: No Adverse Reaction to Blood Ibarra: No Review of Systems Constitutional: see HPI EENTM: no symptoms reported Respiratory: no symptoms reported Cardiovascular: no symptoms reported Gastrointestinal: no symptoms reported Genitourinary: no symptoms reported Musculoskeletal: joint pain (Left hip) Psychiatric/Neurological: No Symptoms Reported All Other Systems Reviewed Negative Unless Noted: Yes Physical Exam Physical Exam Vital Signs Vital Signs - First Documented 05/07/22 18:12 FiO2 28 Capillary Refill : Less Than 3 Seconds Height, Weight, BMI Height: '" Weight: lbs. oz. kg; 20.66 BMI Method: General Appearance: WD/WN, Anxious, Chronically ill, Moderate Distress, Thin Eyes: Bilateral Eye Normal Inspection, Bilateral Eye PERRL HEENT: PERRL/EOMI, Normal ENT Inspection, Pharynx Normal Neck: Full Range of Motion, Normal Inspection, Non Tender, Supple, Carotid Bruit Respiratory: Chest Non Tender, Lungs Clear, Normal Breath Sounds, No Accessory Muscle Use, No Respiratory Distress Cardiovascular: Regular Rate, Rhythm, No Edema, No Gallop, No JVD, No Murmur, Normal Peripheral Pulses Gastrointestinal: Normal Bowel Sounds, No Organomegaly, No Pulsatile Mass, Non Tender, Soft Back: Normal Inspection, No CVA Tenderness, No Vertebral Tenderness Extremity: Normal Capillary Refill, Normal Inspection, Normal Range of Motion (Except left leg), Non Tender, No Calf Tenderness, No Pedal Edema Neurologic/Psychiatric: Alert, Oriented x3, No Motor/Sensory Deficits, Normal Mood/Affect Skin: Normal Color, Warm/Dry Lymphatic: No Adenopathy Results Results/Procedures Labs Laboratory Tests 05/07/22 15:20 05/08/22 05:01 Patient resulted labs reviewed. Assessment/Plan Admission Diagnosis Assessment: Left hip fracture Fall History of humerus fracture Hypertension PTSD 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 Velasquez gastroenterology Depression Hypothyroidism Plan: Dr. Silver consult Pain control Supportive care Admission Status: Inpatient Order (span 2 midnights) Reason for Inpatient Admission: Hip fracture Clinical Quality Measures DVT/VTE Risk/Contraindication: Contraindications-Pharm: Other *list below* Other: surg ANNAMARIA HUYNH DO May 07, 2022 20:20
[2022-05-07] MEDS ORDERED: morphine PCA 100 MG/100 ML BAG IV ONE (20:24)
[2022-05-07] MEDS: DOCUSATE SODIUM 100 MG (COLACE) CAP PO SCH (21:04)
[2022-05-07] MEDS: SENNOSIDES 8.6 MG (SENOKOT) TAB PO SCH (21:05)
[2022-05-07 23:33] VITALS: BP 133/71
[2022-05-08] VITALS (12 sets, daily range): BP systolic 99–118; BP diastolic 51–76
[2022-05-08] MEDS ORDERED: LEVO50CA4 PO (03:07)
[2022-05-08] MEDS ORDERED: SERT-414 PO (03:07)
[2022-05-08] MEDS ORDERED: ACAM333T8 PO (03:07)
[2022-05-08] MEDS ORDERED: PANT20TA18 PO (03:07)
[2022-05-08] MEDS ORDERED: QUET100T33 PO (03:07)
[2022-05-08] MEDS ORDERED: CHOL200074 PO (03:07)
[2022-05-08] MEDS ORDERED: COLE1TAB PO (03:07)
[2022-05-08] MEDS ORDERED: DIPH1TAB PO (03:07)
[2022-05-08 05:40] LABS: BASOPHILS % (AUTO) 1 % (0-10); EOSINOPHILS # (AUTO) 0.1 10^3/uL (0.0-0.3); EOSINOPHILS % (AUTO) 2 % (0-10); MEAN PLATELET VOLUME 11.7 fL (9.0-12.2)
[2022-05-08 05:42] LABS: HEMATOCRIT 38 % (40-54); HEMOGLOBIN 12.8 g/dL (13.3-17.7); LYMPHOCYTES # (AUTO) 0.9 10^3/uL (1.0-4.0); LYMPHOCYTES % (AUTO) 13 % (12-44); MEAN CORPUSCULAR HEMOGLOBIN 31 pg (25-34); MEAN CORPUSCULAR HGB CONC 33 g/dL (32-36); MEAN CORPUSCULAR VOLUME 91 fL (80-99); MONOCYTES # (AUTO) 0.6 10^3/uL (0.0-1.0); MONOCYTES % (AUTO) 9 % (0-12); NEUTROPHILS # (AUTO) 5.5 10^3/uL (1.8-7.8); NEUTROPHILS % (AUTO) 76 % (42-75); PLATELET COUNT 105 10^3/uL (130-400); WHITE BLOOD COUNT 7.2 10^3/uL (4.3-11.0)
[2022-05-08 06:08] LABS: ALBUMIN 3.4 GM/DL (3.2-4.5); BILIRUBIN,TOTAL 0.7 MG/DL (0.1-1.0); CREATININE SERUM 1.19 MG/DL (0.60-1.30); TOTAL PROTEIN 6.2 GM/DL (6.4-8.2)
--- NOTE | 2022-05-08 06:43 | Progress Note ---
Subjective Date Seen by a Provider: May 08, 2022 Time Seen by a Provider: 11:00 Subjective/Events-last exam Patient underwent uncomplicated hip fracture repair Required morphine LOOP CUTTER last night Son at bedside Labs revealed stability Review of Systems General: Fatigue, Malaise Objective Exam Last Set of Vital Signs Vital Signs Date Time Temp Pulse Resp B/P (MAP) Pulse Ox O2 Delivery O2 Flow Rate FiO2 05/08/22 06:14 18 05/08/22 04:12 36.5 85 109/63 (78) 94 Nasal Cannula 3.00 05/07/22 18:12 28 Capillary Refill : Less Than 3 Seconds I&O Intake and Output 05/08/22 00:00 Intake Total 400 ml Output Total 150 ml Balance 250 ml Intake Oral 400 ml Output Urine Total 150 ml Daily Weight Change No General: Other (Sedated from anesthesia) Lungs: Clear to Auscultation Heart: Regular Rate Results Lab Laboratory Tests 05/07/22 15:20: White Blood Count 4.3, Red Blood Count 4.50, Hemoglobin 13.7, Hematocrit 40, Mean Corpuscular Volume 90, Mean Corpuscular Hemoglobin 30, Mean Corpuscular Hemoglobin Concent 34, Red Cell Distribution Width 13.8, Platelet Count 123L, Mean Platelet Volume 12.2, Immature Granulocyte % (Auto) 1, Neutrophils (%) (Auto) 61, Lymphocytes (%) (Auto) 29, Monocytes (%) (Auto) 8, Eosinophils (%) (Auto) 1, Basophils (%) (Auto) 1, Neutrophils # (Auto) 2.6, Lymphocytes # (Auto) 1.2, Monocytes # (Auto) 0.4, Eosinophils # (Auto) 0.1, Basophils # (Auto) 0.0, Immature Granulocyte # (Auto) 0.0, Percent Immature Platelet Fraction 5.6, Prothrombin Time 14.2, INR Comment 1.1, Activated Partial Thromboplast Time 31, Sodium Level 138, Potassium Level 4.1, Chloride Level 107, Carbon Dioxide Level 20L, Anion Gap 11, Blood Urea Nitrogen 19H, Creatinine 1.23, Estimat Glomerular Filtration Rate 62, BUN/Creatinine Ratio 15, Glucose Level 103, Calcium Level 9.4 05/07/22 18:25: Urine Color YELLOW, Urine Clarity CLEAR, Urine pH 6.0, Urine Specific [place] 1.025H, Urine Protein NEGATIVE, Urine Glucose (UA) NEGATIVE, Urine Ketones NEGATIVE, Urine Nitrite NEGATIVE, Urine Bilirubin NEGATIVE, Urine Urobilinogen 0.2, Urine Leukocyte Esterase 1+H, Urine RBC (Auto) NEGATIVE, Urine RBC NONE, Urine WBC 10-25H, Urine Crystals PRESENTH, Urine Calcium Oxalate Crystals MODERATEH, Urine Bacteria TRACE, Urine Casts NONE, Urine Mucus NEGATIVE, Urine Culture Indicated YES 05/08/22 05:01: White Blood Count 7.2, Red Blood Count 4.19L, Hemoglobin 12.8L, Hematocrit 38L, Mean Corpuscular Volume 91, Mean Corpuscular Hemoglobin 31, Mean Corpuscular Hemoglobin Concent 33, Red Cell Distribution Width 13.7, Platelet Count 105L, Mean Platelet Volume 11.7, Immature Granulocyte % (Auto) 0, Neutrophils (%) (Auto) 76H, Lymphocytes (%) (Auto) 13, Monocytes (%) (Auto) 9, Eosinophils (%) (Auto) 2, Basophils (%) (Auto) 1, Neutrophils # (Auto) 5.5, Lymphocytes # (Auto) 0.9L, Monocytes # (Auto) 0.6, Eosinophils # (Auto) 0.1, Basophils # (Auto) 0.0, Immature Granulocyte # (Auto) 0.0, Percent Immature Platelet Fraction 5.4, Sodium Level 140, Potassium Level 4.0, Chloride Level 111H, Carbon Dioxide Level 20L, Anion Gap 9, Blood Urea Nitrogen 21H, Creatinine 1.19, Estimat Glomerular Filtration Rate 64, BUN/Creatinine Ratio 18, Glucose Level 70, Calcium Level 9.0, Corrected Calcium 9.5, Total Bilirubin 0.7, Aspartate Amino Transf (AST/SGOT) 25, Alanine Aminotransferase (ALT/SGPT) 32, Alkaline Phosphatase 136, Total Protein 6.2L, Albumin 3.4 Assessment/Plan Assessment/Plan Assess & Plan/Chief Complaint Assessment: Left hip fracture Fall History of humerus fracture Hypertension PTSD 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 Velasquez gastroenterology Depression Hypothyroidism Cancer status post cryotherapy at Plan: Dr. Silver consult Pain control Supportive care Clinical Quality Measures DVT/VTE Risk/Contraindication: Contraindications-Pharm: Other *list below* Other: surg ROBBIE HUYNH DO May 08, 2022 06:43
[2022-05-08] MEDS ORDERED: ceFAZolin INJECTION 1,000 MG VIAL IV NR (07:30)
[2022-05-08] MEDS: LACTATED RINGERS 1,000 ML IV PRN ×2 (07:35→09:19)
[2022-05-08] MEDS ORDERED: fentaNYL INJ 100 MCG/2 ML AMP ONE (07:46)
[2022-05-08] MEDS ORDERED: LIDOCAINE PF 2% 5 ML (XYLOCAINE) VIAL ONE (07:46)
[2022-05-08] MEDS ORDERED: ONDANSETRON 4 MG/2 ML (SDV) Z0FRAN ONE (07:46)
[2022-05-08] MEDS ORDERED: proPOfol 200 MG/20 ML (DIPRIVAN) VIAL IV ONE (07:46)
[2022-05-08] MEDS ORDERED: SEVOFLURANE (ULTANE) 15 ML INHAL SOLN ONE (07:46)
[2022-05-08] MEDS ORDERED: ROCURONIUM 50 MG/5 ML (ZEMURON) VIAL IV ONE (07:46)
--- NOTE | 2022-05-08 07:47 | Consultation - Ortho ---
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 Medical, Surgical History see admit Social History see admit Family History see admit Review of Systems - Allergies: Coded Allergies: codeine (Verified Allergy, Unknown, ITCHING, 06/16/20) Home Meds Reported Medications Cholecalciferol (Vitamin D3) (Vitamin D3) 50 Mcg (2000 Unit) Capsule, 50 MCG PO DAILY, CAP 05/08/22 Quetiapine Fumarate (Quetiapine Fumarate) 100 Mg Tablet, 100 MG PO DAILY PRN, T AB 05/08/22 Colestipol HCl (Colestipol HCl) 1 Gram Tablet, 1 GM PO BID, TAB 05/08/22 Levothyroxine Sodium (Levothyroxine) 50 Mcg Capsule, 50 MCG PO DAILY, CAP 05/08/22 Diphenoxylate HCl/Atropine (Lomotil 2.5-0.025 mg Tablet) 2.5 Mg-0.025 Mg Tablet, 1 EACH PO DAILY, TAB 05/08/22 Pantoprazole Sodium (Pantoprazole Sodium) 20 Mg Tablet.dr, 20 MG PO DAILY, TAB 05/08/22 Acamprosate Calcium (Acamprosate Calcium) 333 Mg Tablet.dr, 333 MG PO TID, TAB 05/08/22 Sertraline HCl (Sertraline HCl) 100 Mg Tablet, 200 MG PO ONCE, TAB 05/08/22 Potassium Chloride (Potassium Chloride) 10 Meq Tab.er.prt, 20 MEQ PO DAILY, TAB TAKES 2 (10NEQ) TABS 06/20/20 Losartan Potassium (Losartan Potassium) 100 Mg Tablet, 100 MG PO DAILY, TAB 06/20/20 Amlodipine Besylate (Amlodipine Besylate) 10 Mg Tablet, 10 MG PO DAILY, TAB 06/20/20 Objective Exam L Leg: shortened, +DF of ankle, pulses palpable, sensation grossly intact to light touch Vital Signs Vital Signs Date Time Temp Pulse Resp B/P (MAP) Pulse Ox O2 Delivery O2 Flow Rate FiO2 05/08/22 07:16 37.1 79 16 102/51 (68) 93 Nasal Cannula 3.00 05/08/22 06:14 18 05/08/22 04:12 36.5 85 16 109/63 (78) 94 Nasal Cannula 3.00 05/07/22 23:33 36.5 86 16 133/71 (91) 95 Nasal Cannula 3.00 05/07/22 23:02 Room Air 05/07/22 21:10 36.6 26 05/07/22 20:00 Nasal Cannula 3.00 05/07/22 19:55 36.6 94 26 139/83 (101) 91 Nasal Cannula 3.00 05/07/22 18:51 Nasal Cannula 3.00 05/07/22 18:51 36.9 81 30 169/88 (115) 96 Nasal Cannula 2.00 05/07/22 18:12 36.8 70 96 28 05/07/22 17:17 72 18 148/90 97 Nasal Cannula 2.00 05/07/22 16:33 68 20 155/84 (107) 96 Nasal Cannula 2.00 05/07/22 15:14 36.8 70 16 139/68 (91) 91 Room Air 05/07/22 15:14 36.8 70 16 139/68 (91) 96 Nasal Cannula 2.00 I & O 05/08/22 07:00 Intake Total 400 ml Output Total 450 ml Balance -50 ml Lab Results Laboratory Tests 05/07/22 15:20: White Blood Count 4.3, Red Blood Count 4.50, Hemoglobin 13.7, Hematocrit 40, Mean Corpuscular Volume 90, Mean Corpuscular Hemoglobin 30, Mean Corpuscular Hemoglobin Concent 34, Red Cell Distribution Width 13.8, Platelet Count 123L, Mean Platelet Volume 12.2, Immature Granulocyte % (Auto) 1, Neutrophils (%) (Auto) 61, Lymphocytes (%) (Auto) 29, Monocytes (%) (Auto) 8, Eosinophils (%) (Auto) 1, Basophils (%) (Auto) 1, Neutrophils # (Auto) 2.6, Lymphocytes # (Auto) 1.2, Monocytes # (Auto) 0.4, Eosinophils # (Auto) 0.1, Basophils # (Auto) 0.0, Immature Granulocyte # (Auto) 0.0, Percent Immature Platelet Fraction 5.6, Prothrombin Time 14.2, INR Comment 1.1, Activated Partial Thromboplast Time 31, Sodium Level 138, Potassium Level 4.1, Chloride Level 107, Carbon Dioxide Level 20L, Anion Gap 11, Blood Urea Nitrogen 19H, Creatinine 1.23, Estimat Glomerular Filtration Rate 62, BUN/Creatinine Ratio 15, Glucose Level 103, Calcium Level 9.4 05/07/22 18:25: Urine Color YELLOW, Urine Clarity CLEAR, Urine pH 6.0, Urine Specific [place] 1.025H, Urine Protein NEGATIVE, Urine Glucose (UA) NEGATIVE, Urine Ketones NEGATIVE, Urine Nitrite NEGATIVE, Urine Bilirubin NEGATIVE, Urine Urobilinogen 0.2, Urine Leukocyte Esterase 1+H, Urine RBC (Auto) NEGATIVE, Urine RBC NONE, Urine WBC 10-25H, Urine Crystals PRESENTH, Urine Calcium Oxalate Crystals MODERATEH, Urine Bacteria TRACE, Urine Casts NONE, Urine Mucus NEGATIVE, Urine Culture Indicated YES 05/08/22 05:01: White Blood Count 7.2, Red Blood Count 4.19L, Hemoglobin 12.8L, Hematocrit 38L, Mean Corpuscular Volume 91, Mean Corpuscular Hemoglobin 31, Mean Corpuscular Hemoglobin Concent 33, Red Cell Distribution Width 13.7, Platelet Count 105L, Mean Platelet Volume 11.7, Immature Granulocyte % (Auto) 0, Neutrophils (%) (Auto) 76H, Lymphocytes (%) (Auto) 13, Monocytes (%) (Auto) 9, Eosinophils (%) (Auto) 2, Basophils (%) (Auto) 1, Neutrophils # (Auto) 5.5, Lymphocytes # (Auto) 0.9L, Monocytes # (Auto) 0.6, Eosinophils # (Auto) 0.1, Basophils # (Auto) 0.0, Immature Granulocyte # (Auto) 0.0, Percent Immature Platelet Fraction 5.4, Sodium Level 140, Potassium Level 4.0, Chloride Level 111H, Carbon Dioxide Level 20L, Anion Gap 9, Blood Urea Nitrogen 21H, Creatinine 1.19, Estimat Glomerular Filtration Rate 64, BUN/Creatinine Ratio 18, Glucose Level 70, Calcium Level 9.0, Corrected Calcium 9.5, Total Bilirubin 0.7, Aspartate Amino Transf (AST/SGOT) 25, Alanine Aminotransferase (ALT/SGPT) 32, Alkaline Phosphatase 136, Total Protein 6.2L, Albumin 3.4 Imaging 2 views of the left hip dated 05/07/22 were reviewed from PACS and demonstrated a displaced femoral neck fracture Assessment and Plan Assessment Displaced Left Femoral Neck Fracture Problem List Displaced Left Femoral Neck Fracture Plan I have recommended prosthetic replacement of the left femoral neck fracture. Nature of the procedure and the postoperative course were discussed; risks and benefits were discussed. All questions were answered. Consent to be obtained from patient's son who is his POA. Final Diagonsis Displaced Left Femoral Neck Fracture Level of the visit: Level 3 (preop) HAYDEN PIERCE MD May 08, 2022 07:47
[2022-05-08] MEDS ORDERED: BUPIVACAINE 0.25% 30 ML (SENSORCAINE) VIAL ONE (08:02)
[2022-05-08] MEDS: SENNOSIDES 8.6 MG (SENOKOT) TAB PO SCH ×2 (08:30→21:00)
[2022-05-08] MEDS: DOCUSATE SODIUM 100 MG (COLACE) CAP PO SCH ×2 (08:30→21:00)
[2022-05-08] MEDS: NS IV 1000 ML 1,000 ML IV SCH ×2 (08:30→16:29)
[2022-05-08] MEDS ORDERED: TRANEXAMIC ACID 100 MG/ML 10 ML INJECTION ONE (09:10)
[2022-05-08] MEDS ORDERED: GLYCOPYRROLATE 0.2 MG/ML (ROBINUL) 2 ML VIAL ONE (09:10)
--- NOTE | 2022-05-08 09:31 | Operative Report - Ortho ---
Operative Report Surgeon (s)/Prosthetics Assistant (s) Surgeon HAYDEN PIERCE MD Prosthetics Assistant n/a Pre-Operative Diagnosis Left Femoral Neck Fracture Post-Operative Diagnosis same Operative Report Date of Procedure: May 08, 2022 Name of Procedure Performed: Prosthetic Replacement of Left Femoral Neck Fracture Description & Findings After obtaining informed consent and marking the patient in preoperative holding, patient did receive IV antibiotics. Patient was taken to the operating room and anesthesia was induced. Patient was placed in the lateral decubitus position with the left side up. Left lower extremity was prepped and draped in the usual sterile fashion. Surgical timeout was taken. A posterolateral approach was utilized. External rotators and capsule were taken down in one layer. Fracture hematoma was evacuated. Femoral head was removed from the acetabulum and sized. The fracture site on the femoral neck was freshened with a saw. A 48 mm bipolar component was trialed and found to have good fit. Attention was turned to the femur, [employer] cutter osteotome was used to remove the remainder of the femoral neck near the greater trochanter. Canal finder was inserted followed by the lateralizing reamer. Sequential broaching was began with a 0 and broaching to a 6. The 6 had good metaphyseal fit and fill. A -4 mm head and a 48 mm bipolar component were put on a 127 neck trial. This was located. Found to have grossly equal leg lengths. Stable in position of sleep and flexion with internal rotation this was accepted. Hip was atraumatically dislocated and the trial components were removed. The femoral canal and acetabulum were irrigated with pulsatile lavage. A size 6 Accolade II stem with a 127 neck was placed and set at the same level as the broach. A -4 mm head was impacted onto the [place] taper of the stem. A 48 mm bipolar component was placed. Hip was located and once again found to be stable. Further irrigation was performed. Capsular layer was repaired with #2 Fiberwire. The fascial layer was closed with #2 Stratafix. The subcutaneous layer was closed with 2-0 vicryl and the skin was closed with rohit. Incision site was dressed with xeroform, 4x4s, ABD, and tape. Patient was placed in abduction pillow postoperatively and was transferred to hospital bed without incident. Tolerated the procedure well and was stable to recovery room. Anesthesia Type General Estimated Blood Loss 200 ml Specimen(s) collected/removed None HAYDEN PIERCE MD May 08, 2022 09:31
[2022-05-08] MEDS ORDERED: ceFAZolin INJECTION 1 MG in NS (IVPB) 50 ML IV SCH (09:45)
--- NOTE | 2022-05-08 09:46 | Anesthesia-General Post-Op ---
General Patient Condition Mental Status/LOC: Same as Preop Cardiovascular: Satisfactory Nausea/Vomiting: Absent Respiratory: Satisfactory Pain: Controlled Complications: Absent Post Op Complications Complications None Follow Up Care/Instructions Patient Instructions None needed. Anesthesia/Patient Condition Patient Condition Patient is doing well, no complaints, stable vital signs, no apparent adverse anesthesia problems. No complications reported per nursing. VIOLETA RAMIRES CRNA May 08, 2022 09:46
[2022-05-08] MEDS ORDERED: ONDANSETRON 4 MG/2 ML (SDV) Z0FRAN IVP PRN (10:00)
[2022-05-08] MEDS ORDERED: fentaNYL INJ 100 MCG/2 ML AMP IVP ONE (10:00)
[2022-05-08] MEDS ORDERED: morphine INJ 10 MG/ML 1ML (SYR OR VIAL) IVP ONE (10:00)
--- NOTE | 2022-05-08 10:00 | Occ Therapy Progress Note ---
Therapy Progress Note OT order received, chart reviewed. Pt. had surgery for left hip this a.m. Will see pt. on Tuesday. Thank you for the referral. 1000 TIFFANIE BOUCHER OT May 08, 2022 10:00
[2022-05-08] MEDS ORDERED: NEOSTIGMINE 3 MG/3 ML VIAL ONE (10:02)
--- NOTE | 2022-05-08 10:08 | Diagnostic Imaging Report ---
PELVIS 1 TO 2 VIEWS INDICATION: Immediate postop imaging after left hip arthroplasty. COMPARISON: 05/07/2022 TECHNIQUE: AP view of the pelvis. FINDINGS: Left hip bipolar hemiarthroplasty has been performed. No acute periprosthetic fracture. No abnormal alignment in the pelvis. Moderate osteoarthritis of the right hip is similar. Expected postoperative soft tissue gas around the left hip. IMPRESSION: Left hip bipolar hemiarthroplasty without complication post placement. Dictated by: Dictated on workstation # [id number]
[2022-05-08] MEDS: ceFAZolin INJECTION 1,000 MG in NS (IVPB) 50 ML IV SCH (16:42)
[2022-05-08] MEDS: HYDROmorphone 2 MG/ML VIAL (DILAUDID) IV PRN (19:02)
[2022-05-09] MEDS: ceFAZolin INJECTION 1,000 MG in NS (IVPB) 50 ML IV SCH (00:12)
[2022-05-09] MEDS: NS IV 1000 ML 1,000 ML IV SCH ×4 (00:12→20:19)
[2022-05-09] MEDS: HYDROmorphone 2 MG/ML VIAL (DILAUDID) IV PRN ×3 (01:58→20:04)
[2022-05-09 03:56] VITALS: BP 106/57
[2022-05-09 06:27] LABS: BASOPHILS % (AUTO) 0 % (0-10); HEMOGLOBIN 11.3 g/dL (13.3-17.7)
[2022-05-09 06:29] LABS: EOSINOPHILS % (AUTO) 0 % (0-10); HEMATOCRIT 34 % (40-54); LYMPHOCYTES # (AUTO) 0.5 10^3/uL (1.0-4.0); LYMPHOCYTES % (AUTO) 7 % (12-44); MEAN CORPUSCULAR HEMOGLOBIN 30 pg (25-34); MEAN CORPUSCULAR HGB CONC 33 g/dL (32-36); MEAN CORPUSCULAR VOLUME 92 fL (80-99); MEAN PLATELET VOLUME 12.5 fL (9.0-12.2); MONOCYTES # (AUTO) 0.7 10^3/uL (0.0-1.0); MONOCYTES % (AUTO) 9 % (0-12); NEUTROPHILS % (AUTO) 83 % (42-75); PLATELET COUNT 89 10^3/uL (130-400); WHITE BLOOD COUNT 7.3 10^3/uL (4.3-11.0)
[2022-05-09 06:40] LABS: ALBUMIN 3.2 GM/DL (3.2-4.5); POTASSIUM 4.6 MMOL/L (3.6-5.0)
[2022-05-09 06:41] LABS: CALCIUM 8.9 MG/DL (8.5-10.1)
[2022-05-09 06:42] LABS: TOTAL PROTEIN 5.8 GM/DL (6.4-8.2)
[2022-05-09 06:44] LABS: BILIRUBIN,TOTAL 0.3 MG/DL (0.1-1.0)
[2022-05-09 06:46] LABS: CREATININE SERUM 1.62 MG/DL (0.60-1.30)
[2022-05-09 06:54] LABS: LYMPHOCYTES % (MANUAL) 8 %; MONOCYTES % (MANUAL) 6 %; NEUTROPHILS % (MANUAL) 86 %; PLATELET CLUMPS 0 OBSERVED; RBC MORPH NORMAL
[2022-05-09 07:12] VITALS: BP 108/56
--- NOTE | 2022-05-09 07:54 | Progress Note ---
Subjective Date Seen by a Provider: May 09, 2022 Time Seen by a Provider: 11:00 Subjective/Events-last exam Patient with well with PT Overall improving Checked meds and labs No falls Pain is controlled off WIRE SPINNER Creatinine elevated so increase IV fluids and encourage p.o. intake Inpatient rehab eval will be put in Review of Systems Musculoskeletal: leg pain Objective Exam Last Set of Vital Signs Vital Signs Date Time Temp Pulse Resp B/P (MAP) Pulse Ox O2 Delivery O2 Flow Rate FiO2 05/09/22 07:17 99 Nasal Cannula 3.00 05/09/22 07:12 36.9 55 18 108/56 (73) 05/07/22 18:12 28 Capillary Refill : Less Than 3 SecondsLess Than 3 Seconds I&O Intake and Output 05/09/22 00:00 Intake Total 1210 ml Output Total 1350 ml Balance -140 ml Intake Oral 210 ml IV Total 1000 ml Output Urine Total 1150 ml Estimated Blood Loss 200 ml General: Alert, Oriented X3, Cooperative, No Acute Distress Lungs: Clear to Auscultation, Normal Air Movement Heart: Regular Rate, Normal S1, Normal S2, No Murmurs Psych/Mental Status: Mental Status NL, Mood NL Results Lab Laboratory Tests 05/09/22 05:51: White Blood Count 7.3, Red Blood Count 3.74L, Hemoglobin 11.3L, Hematocrit 34L, Mean Corpuscular Volume 92, Mean Corpuscular Hemoglobin 30, Mean Corpuscular Hemoglobin Concent 33, Red Cell Distribution Width 14.0, Platelet Count 89L, Mean Platelet Volume 12.5H, Immature Granulocyte % (Auto) 0, Neutrophils (%) (Auto) 83H, Lymphocytes (%) (Auto) 7L, Monocytes (%) (Auto) 9, Eosinophils (%) (Auto) 0, Basophils (%) (Auto) 0, Neutrophils # (Auto) 6.0, Lymphocytes # (Auto) 0.5L, Monocytes # (Auto) 0.7, Eosinophils # (Auto) 0.0, Basophils # (Auto) 0.0, Immature Granulocyte # (Auto) 0.0, Neutrophils % (Manual) 86, Lymphocytes % (Manual) 8, Monocytes % (Manual) 6, Clumped Platelets 0 OBSERVED, Percent Immature Platelet Fraction 7.7H, Blood Morphology Comment NORMAL, Sodium Level 139, Potassium Level 4.6, Chloride Level 109H, Carbon Dioxide Level 19L, Anion Gap 11, Blood Urea Nitrogen 34H, Creatinine 1.62H, Estimat Glomerular Filtration Rate 45, BUN/Creatinine Ratio 21, Glucose Level 159H, Calcium Level 8.9, Corrected Calcium 9.5, Total Bilirubin 0.3, Aspartate Amino Transf (AST/SGOT) 33, Alanine Aminotransferase (ALT/SGPT) 29, Alkaline Phosphatase 110, Total Protein 5.8L, Albumin 3.2 Microbiology 05/08/22 MRSA Screen - Preliminary, Resulted MRSA not isolated Assessment/Plan Assessment/Plan Assess & Plan/Chief Complaint Assessment: Left hip fracture Fall History of humerus fracture Hypertension PTSD 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 Velasquez gastroenterology Depression Hypothyroidism Cancer status post cryotherapy at Acute kidney injury increased IV fluids on 05/09/2022 and holding losartan Plan: Dr. Silver consult appreciated Pain control Supportive care Increase IV fluids Increase p.o. fluids Supportive care Lovenox for DVT prophylaxis if okay with Dr. Silver Clinical Quality Measures DVT/VTE Risk/Contraindication: Contraindications-Pharm: Other *list below* Other: surg ROBBIE HUYNH DO May 09, 2022 07:53
[2022-05-09] MEDS: SENNOSIDES 8.6 MG (SENOKOT) TAB PO SCH ×2 (08:24→20:46)
[2022-05-09] MEDS: DOCUSATE SODIUM 100 MG (COLACE) CAP PO SCH ×2 (08:24→20:46)
--- NOTE | 2022-05-09 10:13 | Physical Therapy Evaluation ---
PT Evaluation-General Medical Diagnosis Admission Date May 07, 2022 at 17:16 Medical Diagnosis: (L) femur fracure Onset Date: May 08, 2022 Therapy Diagnosis Therapy Diagnosis: difficulty with walking Precautions Precautions/Isolations: Fall Prevention, Standard Precautions Weight Bear Status Left Lower Extremity: Left Weight Bearing/Tolerated Referral Physician: Adrianne Reason for Referral: Evaluation/Treatment Medical History Pertinent Medical History: HTN Social History Home: Single Level Current Living Status: Children PT Steps Into Home: 3 Prior Prior Level of Function SCALE: Activities may be completed with or without assistive devices. 6-Bpxsqajptl-mkyyjvz completes the activity by him/herself with no assistance from a helper. 5-Set-up or Clean-up Assistance-helper sets up or cleans up; patient completes activity. [place] assists only prior to or following the activity. 4-Supervision or Touching Assistance-helper provides verbal cues and/or touching/steadying and/or contact guard assistance as patient completes activity. Assistance may be provided throughout the activity or intermittently. 3-Partial/Moderate Assistance-helper does LESS THAN HALF the effort. [place] lifts, holds or supports trunk or limbs, but provides less than half the effort. 2-Substantial/Maximal Assistance-helper does MORE THAN HALF the effort. [place] lifts or holds trunk or limbs and provides more than half the effort. 9-Zifejkfng-mlvigg does ALL the effort. Patient does none of the effort to complete the activity. Or, the assistance of 2 or more helpers is required for the patient to complete the activity. If activity was not attempted, code reason: 7-Patient Refused. 9-Not Applicable-not attempted and the patient did not perform the activity before the current illness, exacerbation or injury. 10-Not Attempted due to Environmental Limitations-(lack of equipment, weather restraints, etc.). 88-Not Attempted due to Medical Conditions or Safety Concerns. Bed Mobility: 6 Transfers (B,C,W/C): 6 Gait: 6 Stairs: 6 Indoor Mobility (Ambulation): Independent Stairs: Independent Prior Devices Use: Walker PT Evaluation-Current Subjective The patient states that he has ataxia and that he fell at home. Pain Numeric Pain Scale: 6 Location: Left Location Body Site: Hip Objective Patient Orientation: Person, Place, Time, Situation ROM/Strength ROM Lower Extremities 10 degrees of (L) hip flexion and hip abduction Transfers Roll Left to Right (QC): 3 Sit to Lying (QC): 3 Lying to Sitting/Side of Bed(Q: 3 Sit to Stand (QC): 4 Chair/Osx-mz-Aqdkz Xfer(QC): 88 Gait Does the Patient Walk?: Yes Mode of Locomotion: Walk Anticipated Mode of Locomotion: Walk Walk 10 feet (QC): 88 Walk 50 ft with 2 Turns(QC): 88 Walk 150 ft (QC): 88 Distance: Patient only able to slide his right leg one step Gait Assistive Device: Handheld Assist Balance Sitting Static: Fair Sitting Dynamic: Fair Standing Static: Poor Standing Dynamic: Poor Assessment/Needs 71 y.o. male s/p (L) hip ORIF secondary to fall. Rehab Potential: Good PT Short Term Goals Short Term Goals Time Frame: May 13, 2022 Roll Left & Right: 5 Sit to lyin Lying to sitting on side of be: 5 Sit to stand: 5 Chair/qxl-jz-vytln transfer: 5 Toilet transfer: 5 Car transfer: 5 Walk 10 feet: 5 Walk 50 feet with two turns: 5 Walk 150 feet: 5 1 step (curb): 5 4 steps: 5 PT Child Care Leader Goals Child Care Leader Goals PT Retirement Goals Time Frame: May 16, 2022 Roll Left & Right (QC): 6 Sit to Lying (QC): 6 Lying-Sitting on Side/Bed(QC): 6 Sit to Stand (QC): 6 Chair/Pni-fn-Dhtbt Xfer(QC): 6 Toilet Transfer (QC): 6 Car Transfer (QC): 6 Does the Patient Walk: Yes Walk 10 feet (QC): 6 Walk 50ft with 2 Turns (QC): 6 Walk 150 ft (QC): 6 1 Step (curb) (QC): 6 4 Steps (QC): 6 PT Plan Problem List Problem List: Activity Tolerance, Functional Strength, Safety, Balance, Gait, Transfer, Bed Mobility, ROM Treatment/Plan Treatment Plan: Continue Plan of Care Treatment Plan: Bed Mobility, Education, Functional Activity Cain, Functional Strength, Gait, Safety, Therapeutic Exercise, Transfers Treatment Duration: May 16, 2022 Frequency: 11 times per week Estimated Hrs Per Day: 1 hour per day Time Time In: 0935 Time Out: 1005 DATE: May 09, 2022 Total Billed Treatment Time: 30 Total Billed Treatment 1, Evaluation of low complexity x 20', FA x 10' FAYE VUONG PT May 09, 2022 10:13
[2022-05-09] MEDS ORDERED: QUEtiapine 100 MG (SEROquel) TAB IMMEDIATE RELEASE PO PRN (11:00)
[2022-05-09] MEDS ORDERED: SERTRALINE 100 MG (ZOLOFT) TAB PO SCH (11:00)
[2022-05-09 11:29] VITALS: BP 98/53
[2022-05-09] MEDS ORDERED: ENOXAPARIN 40 MG/0.4 ML (LOVENOX) SYR SC SCH (12:15)
[2022-05-09] MEDS ORDERED: ACAMPROSATE CALCIUM 333 MG PO SCH (13:00)
[2022-05-09 15:20] VITALS: BP 111/57
[2022-05-09 19:16] VITALS: BP 118/58
[2022-05-09] MEDS: COLESTIPOL 1 GM (COLESTID) TAB PO SCH (20:05)
[2022-05-09 23:49] VITALS: BP 115/63
[2022-05-10 04:03] VITALS: BP 113/59
[2022-05-10] MEDS: NS IV 1000 ML 1,000 ML IV SCH (05:23)
[2022-05-10 06:15] LABS: BASOPHILS % (AUTO) 0 % (0-10); EOSINOPHILS # (AUTO) 0.1 10^3/uL (0.0-0.3); MEAN CORPUSCULAR HGB CONC 33 g/dL (32-36); MEAN PLATELET VOLUME 12.2 fL (9.0-12.2)
[2022-05-10 06:17] LABS: EOSINOPHILS % (AUTO) 2 % (0-10); HEMATOCRIT 32 % (40-54); HEMOGLOBIN 10.5 g/dL (13.3-17.7); LYMPHOCYTES # (AUTO) 1.2 10^3/uL (1.0-4.0); LYMPHOCYTES % (AUTO) 21 % (12-44); MEAN CORPUSCULAR HEMOGLOBIN 30 pg (25-34); MEAN CORPUSCULAR VOLUME 92 fL (80-99); MONOCYTES # (AUTO) 0.6 10^3/uL (0.0-1.0); MONOCYTES % (AUTO) 10 % (0-12); NEUTROPHILS # (AUTO) 3.8 10^3/uL (1.8-7.8); NEUTROPHILS % (AUTO) 67 % (42-75); PLATELET COUNT 89 10^3/uL (130-400); WHITE BLOOD COUNT 5.7 10^3/uL (4.3-11.0)
[2022-05-10 06:21] LABS: ALBUMIN 2.9 GM/DL (3.2-4.5); BILIRUBIN,TOTAL 0.4 MG/DL (0.1-1.0); CALCIUM 8.6 MG/DL (8.5-10.1); CREATININE SERUM 1.35 MG/DL (0.60-1.30); TOTAL PROTEIN 5.5 GM/DL (6.4-8.2)
[2022-05-10] MEDS ORDERED: LEVOTHYROXINE 50 MCG (LEVOTHROID) TAB PO SCH (06:30)
[2022-05-10] MEDS ORDERED: KCL 10 MEQ TAB (MICRO K) PO SCH (07:00)
[2022-05-10 07:03] VITALS: BP 118/59
[2022-05-10] MEDS: DOCUSATE SODIUM 100 MG (COLACE) CAP PO SCH (08:22)
[2022-05-10] MEDS: SENNOSIDES 8.6 MG (SENOKOT) TAB PO SCH (08:22)
[2022-05-10] MEDS: COLESTIPOL 1 GM (COLESTID) TAB PO SCH (08:22)
--- NOTE | 2022-05-10 08:39 | Occupational Therapy Eval ---
OT Evaluation-General/PLF Medical Diagnosis Admission Date May 07, 2022 at 17:16 Medical Diagnosis: (L) femur fracure Onset Date: May 08, 2022 Therapy Diagnosis Therapy Diagnosis: Weakness, impaired balance, pain, need for assistance with personal care Precautions Precautions/Isolations: Fall Prevention, Standard Precautions Weight Bear Status Weight Bearing Restriction: Weight Bearing/Tolerated Referral Physician: Adrianne Referral Reason: Activity Tolerance, Self Care, Evaluation/Treatment, Strengthening/ROM Medical History Pertinent Medical History: HTN Additional Medical History multiple posterior falls reported by patient, h/o liver CA, PD, humerus fx, chronic diarrhea Current History s/p fall from standing height L hip fx w/ ORIF 05-07-22 Reviewed History: Yes Social History Home: Single Level Current Living Status: Children Steps Into Home: 3 ADL-Prior Level of Function SCALE: Activities may be completed with or without assistive devices. 8-Sibjgdnwvf-[place]une completes the activity by him/herself with no assistance from a helper. 5-Set-up or Clean-up Assistance-helper sets up or cleans up; patient completes activity. [place] assists only prior to or following the activity. 4-Supervision or Touching Assistance-helper provides verbal cues and/or touching/steadying and/or contact guard assistance as patient completes activity. Assistance may be provided throughout the activity or intermittently. 3-Partial/Moderate Assistance-helper does LESS THAN HALF the effort. [place] lifts, holds or supports trunk or limbs, but provides less than half the effort. 2-Substantial/Maximal Assistance-helper does MORE THAN HALF the effort. [place] lifts or holds trunk or limbs and provides more than half the effort. 6-Xqspwiqni-xyvohi does ALL the effort. Patient does none of the effort to complete the activity. Or, the assistance of 2 or more helpers is required for the patient to complete the activity. If activity was not attempted, code reason: 7-Patient Refused. 9-Not Applicable-not attempted and the patient did not perform the activity before the current illness, exacerbation or injury. 10-Not Attempted due to Environmental Limitations-(lack of equipment, weather restraints, etc.). 88-Not Attempted due to Medical Conditions or Safety Concerns. Self Care: Needed Some Help (frequent falls at home, some intermittent assistance needed w/ complex ADLS) Functional Cognition: Independent Drive Self: No OT Current Status Subjective Patient laying supine in bed with eyes open. c/o pain to L LE w/ ROM Mental Status/Objective Patient Orientation: Person, Place, Time, Situation Attachments: IV, SCD's Current Glasses/Contacts: Yes Dentures/Partials: Yes Upper Extremity ROM BUE WFL. H/O UE fx Upper Extremity Coordination BUE WFLS Upper Extremity Sensation Grossly intact Upper Extremity Strength grossly within range +4/5 ADL-Treatment ADL-Current Face and hand washing, set up for breakfast meal, socks on with SCDs Eating (QC): 6 Oral Hygiene (QC): 6 (Dentrues on tray table and patient inserted indepedently) Upper Body Dressing (QC): 4 (Declined change from hospital gown however requires minimal assitance and extra time allotment d/t pain and IV) Toileting offered however declined, Garcia in place Education OT Patient Education: Correct positioning, Energy conservation, Instructions don/doff splint/brace, Modified ADL techniques, Progress toward Goal/Update tx plan, Purpose of tx/functional activities, Reviewed precautions, Rehab process, Safety issues, Transfer techniques, Use of adapted equipment Teaching Recipient: Patient Teaching Methods: Demonstration, Discussion Response to Teaching: Verbalize Understanding, Return Demonstration, Reinforcement Needed (Abductor wedge placed on window ledge ) OT Longterm Goals Chair Lift Operator Goals Time Frame: May 21, 2022 Eating (QC): 6 Oral Hygiene (QC): 6 Toileting Hygiene (QC): 5 Shower/Bathe Self (QC): 5 Upper Body Dressing (QC): 6 Lower Body Dressing (QC): 5 On/Off Footwear (QC): 5 OT recommends hip kit 1=Demonstrate adherence to instructed precautions during ADL tasks. 2=Patient will verbalize/demonstrate understanding of assistive devices/modifications for ADL. 3=Patient will improve strength/tolerance for activity to enable patient to perform ADL's. OT Education/Plan Problem List/Assessment Assessment: Decreased Activ Tolerance, Decreased Safety Aware, Impaired Bed Mobility, Impaired Coordination, Impaired Funct Balance, Impaired I ADL's, Impaired Self-Care Skills Discharge Recommendations Plan/Recommendations: Continue POC Therapy Discharge Recommendati: 24 Hour Supervision, Post Acute OT Treatment Plan/Plan of Care Treatment,Training & Education: Yes Patient would benefit from OT for education, treatment and training to promote independence in ADL's, mobility, safety and/or upper extremity function for ADL's. Plan of Care: ADL Retraining, Functional Mobility, Group Exercise/Act as Ind, UE Funct Exercise/Act Treatment Duration: May 10, 2022 Frequency: 3 times per week (3-5 times per week) Estimated Hrs Per Day: .25 hour per day Agreement: Yes Rehab Potential: Good Patient sitting EOB w/ PT in room and FWW and gait belt on patient Time Start Time: 07:50 Stop Time: 08:12 DATE: May 10, 2022 Total Time Billed (hr/min): 22 Billed Treatment Time 1 ELM 22m LIZBETH WALLACE OT May 10, 2022 08:39
[2022-05-10] MEDS ORDERED: DIPHENOXYLATE/ATROPINE 2.5MG/0.025MG (LOMOTIL) TAB PO SCH (09:00)
[2022-05-10] MEDS ORDERED: PANTOPRAZOLE 20 MG TABLET (PROTONIX) PO SCH (09:00)
[2022-05-10] MEDS ORDERED: VITAMIN D3 25 MCG (1,000 UNITS) TABLET PO SCH (09:00)
[2022-05-10] MEDS ORDERED: LOSARTAN 100 MG (COZAAR) TABLET PO SCH (09:00)
[2022-05-10] MEDS ORDERED: amLODIPine 10 MG (NORVASC) TAB PO SCH (09:00)
--- NOTE | 2022-05-10 09:04 | Progress Note ---
Subjective Date Seen by a Provider: May 10, 2022 Time Seen by a Provider: 09:15 Objective Exam Last Set of Vital Signs Vital Signs Date Time Temp Pulse Resp B/P (MAP) Pulse Ox O2 Delivery O2 Flow Rate FiO2 05/10/22 07:03 36.7 62 20 118/59 (78) 90 Nasal Cannula 2.00 05/07/22 18:12 28 Capillary Refill : Less Than 3 SecondsLess Than 3 Seconds I&O Intake and Output 05/10/22 00:00 Intake Total 1670 ml Output Total 1025 ml Balance 645 ml Intake Oral 1670 ml Output Urine Total 1025 ml Results Lab Laboratory Tests 05/10/22 05:50: White Blood Count 5.7, Red Blood Count 3.45L, Hemoglobin 10.5L, Hematocrit 32L, Mean Corpuscular Volume 92, Mean Corpuscular Hemoglobin 30, Mean Corpuscular Hemoglobin Concent 33, Red Cell Distribution Width 14.3, Platelet Count 89L, Mean Platelet Volume 12.2, Immature Granulocyte % (Auto) 1, Neutrophils (%) (Auto) 67, Lymphocytes (%) (Auto) 21, Monocytes (%) (Auto) 10, Eosinophils (%) (Auto) 2, Basophils (%) (Auto) 0, Neutrophils # (Auto) 3.8, Lymphocytes # (Auto) 1.2, Monocytes # (Auto) 0.6, Eosinophils # (Auto) 0.1, Basophils # (Auto) 0.0, Immature Granulocyte # (Auto) 0.0, Percent Immature Platelet Fraction 7.2, Sodium Level 137, Potassium Level 4.0, Chloride Level 111H, Carbon Dioxide Level 18L, Anion Gap 8, Blood Urea Nitrogen 35H, Creatinine 1.35H, Estimat Glomerular Filtration Rate 55, BUN/Creatinine Ratio 26, Glucose Level 101, Calcium Level 8.6, Corrected Calcium 9.5, Total Bilirubin 0.4, Aspartate Amino Transf (AST/SGOT) 34, Alanine Aminotransferase (ALT/SGPT) 26, Alkaline Phosphatase 106, Total Protein 5.5L, Albumin 2.9L Microbiology 05/08/22 MRSA Screen - Final, Complete MRSA not isolated 05/07/22 Urine Culture - Final, Complete >=3 Gram Positive Isolates Assessment/Plan Assessment/Plan Assess & Plan/Chief Complaint Assessment: Left hip fracture Fall History of humerus fracture Hypertension PTSD 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 Velasquez gastroenterology Depression Hypothyroidism Cancer status post cryotherapy at Acute kidney injury increased IV fluids on 05/09/2022 and holding losartan Plan: Dr. Silver consult appreciated Pain control Supportive care Increase IV fluids Increase p.o. fluids Supportive care Lovenox for DVT prophylaxis if okay with Dr. Silver Clinical Quality Measures DVT/VTE Risk/Contraindication: Contraindications-Pharm: Other *list below* Other: surg ROBBIE HUYNH DO May 10, 2022 09:04
--- NOTE | 2022-05-10 09:51 | Physical Therapy Daily Note ---
PT Daily Note-Current Subjective Patient reluctantly agrees to PT. Pain Section J - Health Conditions 1. Rarely or not at all 2. Occasionally 3. Frequently 4. Almost constantly 8. Unable to answer Pain Effect on Sleep: 3 Pain Interference with Therapy: 3 Pain Interference w/Day-to-Day: 3 Mental Status Patient Orientation: Person, Time, Situation Attachments: Garcia Catheter, IV Transfers SCALE: Activities may be completed with or without assistive devices. 8-Waafodjnxy-sdjxoux completes the activity by him/herself with no assistance from a helper. 5-Set-up or Clean-up Assistance-helper sets up or cleans up; patient completes activity. [place] assists only prior to or following the activity. 4-Supervision or Touching Assistance-helper provides verbal cues and/or touching/steadying and/or contact guard assistance as patient completes activity. Assistance may be provided throughout the activity or intermittently. 3-Partial/Moderate Assistance-helper does LESS THAN HALF the effort. [place] lifts, holds or supports trunk or limbs, but provides less than half the effort. 2-Substantial/Maximal Assistance-helper does MORE THAN HALF the effort. [place] lifts or holds trunk or limbs and provides more than half the effort. 1-Cmhcqcbyf-sgxknp does ALL the effort. Patient does none of the effort to complete the activity. Or, the assistance of 2 or more helpers is required for the patient to complete the activity. If activity was not attempted, code reason: 7-Patient Refused. 9-Not Applicable-not attempted and the patient did not perform the activity bef ore the current illness, exacerbation or injury. 10-Not Attempted due to Environmental Limitations-(lack of equipment, weather r estraints, etc.). 88-Not Attempted due to Medical Conditions or Safety Concerns. Sit to Stand (QC): 2 Chair/Mtc-ea-Rnckc Xfer(QC): 2 severely retropulsive with sit to stand and with all mobility to recliner Weight Bearing Left Lower Extremity: Left Weight Bearing/Tolerated Gait Training Distance: 5 steps Gait Assistive Device: FWW severely retropulsive with all mobility. minimal weight bearing left LE due to pain causing difficulty with right LE advancement Exercises Seated Therapy Exercises: Ankle pumps, Long arc quads, Hip flexion Seated Reps: 12 (x 2 AAROM ) Assessment Patient up in recliner with needs met. Patient has difficulty with weight bearing left LE resulting in difficulty with right LE advancement with ambulation. PT to increase activity as tolerated by patient. PT Short Term Goals Short Term Goals Time Frame: May 13, 2022 Roll Left & Right: 5 Sit to lyin Lying to sitting on side of be: 5 Sit to stand: 5 Chair/pyv-yw-ghxwu transfer: 5 Toilet transfer: 5 Car transfer: 5 Walk 10 feet: 5 Walk 50 feet with two turns: 5 Walk 150 feet: 5 1 step (curb): 5 4 steps: 5 PT Bioinformatics Associate Goals Bioinformatics Associate Goals PT Bioinformatics Associate Goals Time Frame: May 16, 2022 Roll Left & Right (QC): 6 Sit to Lying (QC): 6 Lying-Sitting on Side/Bed(QC): 6 Sit to Stand (QC): 6 Chair/Poe-ys-Dkggc Xfer(QC): 6 Toilet Transfer (QC): 6 Car Transfer (QC): 6 Does the Patient Walk: Yes Walk 10 feet (QC): 6 Walk 50ft with 2 Turns (QC): 6 Walk 150 ft (QC): 6 1 Step (curb) (QC): 6 4 Steps (QC): 6 PT Plan Treatment/Plan Treatment Plan: Continue Plan of Care Treatment Plan: Bed Mobility, Education, Functional Activity Cain, Functional Strength, Gait, Safety, Therapeutic Exercise, Transfers Treatment Duration: May 16, 2022 Frequency: 11 times per week Estimated Hrs Per Day: 1 hour per day Time Time In: 805 Time Out: 828 DATE: May 10, 2022 Total Billed Treatment Time: 23 Total Billed Treatment 1 visit GT 15 min EX 8 min DAE GOMEZ PT May 10, 2022 09:51
--- NOTE | 2022-05-10 09:52 | Discharge Summary ---
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 Velasquez gastroenterology Depression Hypothyroidism Cancer status post cryotherapy at Acute kidney injury increased IV fluids on 05/09/2022 and holding losartan Plan: Dr. Silver consult appreciated Pain control Supportive care Increase IV fluids Increase p.o. fluids Supportive care Lovenox for DVT prophylaxis if okay with Dr. Silver Discharge Summary Discharge Physical Examination Allergies: Coded Allergies: codeine (Verified Allergy, Unknown, ITCHING, 06/16/20) Vitals & I&Os Vital Signs Date Time Temp Pulse Resp B/P (MAP) Pulse Ox O2 Delivery O2 Flow Rate FiO2 05/10/22 08:00 96 Nasal Cannula 2.00 05/10/22 07:03 36.7 62 20 118/59 (78) 05/07/22 18:12 28 General Appearance: Alert, Oriented X3, Cooperative Respiratory: Clear to Auscultation Cardiovascular: Regular Rate Psych/Mental Status: Mental Status NL Hospital Course Was the Problem List Reviewed?: Yes Uneventful hosp course after he underwent an uncomplicated hip fracture repair by Dr Silver. Labs remained stable. No events occurred during med surg course and he was deemed stable for DC to IRU. Labs (last 24 hrs) Laboratory Tests 05/07/22 15:20: White Blood Count 4.3, Red Blood Count 4.50, Hemoglobin 13.7, Hematocrit 40, Mean Corpuscular Volume 90, Mean Corpuscular Hemoglobin 30, Mean Corpuscular Hemoglobin Concent 34, Red Cell Distribution Width 13.8, Platelet Count 123L, Mean Platelet Volume 12.2, Immature Granulocyte % (Auto) 1, Neutrophils (%) (Auto) 61, Lymphocytes (%) (Auto) 29, Monocytes (%) (Auto) 8, Eosinophils (%) (Auto) 1, Basophils (%) (Auto) 1, Neutrophils # (Auto) 2.6, Lymphocytes # (Auto) 1.2, Monocytes # (Auto) 0.4, Eosinophils # (Auto) 0.1, Basophils # (Auto) 0.0, Immature Granulocyte # (Auto) 0.0, Percent Immature Platelet Fraction 5.6, Prothrombin Time 14.2, INR Comment 1.1, Activated Partial Thromboplast Time 31, Sodium Level 138, Potassium Level 4.1, Chloride Level 107, Carbon Dioxide Level 20L, Anion Gap 11, Blood Urea Nitrogen 19H, Creatinine 1.23, Estimat Glomerular Filtration Rate 62, BUN/Creatinine Ratio 15, Glucose Level 103, Calcium Level 9.4 05/07/22 18:25: Urine Color YELLOW, Urine Clarity CLEAR, Urine pH 6.0, Urine Specific [place] 1.025H, Urine Protein NEGATIVE, Urine Glucose (UA) NEGATIVE, Urine Ketones NEGATIVE, Urine Nitrite NEGATIVE, Urine Bilirubin NEGATIVE, Urine Urobilinogen 0.2, Urine Leukocyte Esterase 1+H, Urine RBC (Auto) NEGATIVE, Urine RBC NONE, Urine WBC 10-25H, Urine Crystals PRESENTH, Urine Calcium Oxalate Crystals MODERATEH, Urine Bacteria TRACE, Urine Casts NONE, Urine Mucus NEGATIVE, Urine Culture Indicated YES 05/08/22 05:01: White Blood Count 7.2, Red Blood Count 4.19L, Hemoglobin 12.8L, Hematocrit 38L, Mean Corpuscular Volume 91, Mean Corpuscular Hemoglobin 31, Mean Corpuscular Hemoglobin Concent 33, Red Cell Distribution Width 13.7, Platelet Count 105L, Mean Platelet Volume 11.7, Immature Granulocyte % (Auto) 0, Neutrophils (%) (Auto) 76H, Lymphocytes (%) (Auto) 13, Monocytes (%) (Auto) 9, Eosinophils (%) (Auto) 2, Basophils (%) (Auto) 1, Neutrophils # (Auto) 5.5, Lymphocytes # (Auto) 0.9L, Monocytes # (Auto) 0.6, Eosinophils # (Auto) 0.1, Basophils # (Auto) 0.0, Immature Granulocyte # (Auto) 0.0, Percent Immature Platelet Fraction 5.4, Sodium Level 140, Potassium Level 4.0, Chloride Level 111H, Carbon Dioxide Level 20L, Anion Gap 9, Blood Urea Nitrogen 21H, Creatinine 1.19, Estimat Glomerular Filtration Rate 64, BUN/Creatinine Ratio 18, Glucose Level 70, Calcium Level 9.0, Corrected Calcium 9.5, Total Bilirubin 0.7, Aspartate Amino Transf (AST/SGOT) 25, Alanine Aminotransferase (ALT/SGPT) 32, Alkaline Phosphatase 136, Total Protein 6.2L, Albumin 3.4 05/09/22 05:51: White Blood Count 7.3, Red Blood Count 3.74L, Hemoglobin 11.3L, Hematocrit 34L, Mean Corpuscular Volume 92, Mean Corpuscular Hemoglobin 30, Mean Corpuscular Hemoglobin Concent 33, Red Cell Distribution Width 14.0, Platelet Count 89L, Mean Platelet Volume 12.5H, Immature Granulocyte % (Auto) 0, Neutrophils (%) (Auto) 83H, Lymphocytes (%) (Auto) 7L, Monocytes (%) (Auto) 9, Eosinophils (%) (Auto) 0, Basophils (%) (Auto) 0, Neutrophils # (Auto) 6.0, Lymphocytes # (Auto) 0.5L, Monocytes # (Auto) 0.7, Eosinophils # (Auto) 0.0, Basophils # (Auto) 0.0, Immature Granulocyte # (Auto) 0.0, Percent Immature Platelet Fraction 7.7H, Sodium Level 139, Potassium Level 4.6, Chloride Level 109H, Carbon Dioxide Level 19L, Anion Gap 11, Blood Urea Nitrogen 34H, Creatinine 1.62H, Estimat Glomerular Filtration Rate 45, BUN/Creatinine Ratio 21, Glucose Level 159H, Calcium Level 8.9, Corrected Calcium 9.5, Total Bilirubin 0.3, Aspartate Amino Transf (AST/SGOT) 33, Alanine Aminotransferase (ALT/SGPT) 29, Alkaline Phosphatase 110, Total Protein 5.8L, Albumin 3.2, Neutrophils % (Manual) 86, Lymphocytes % (Manual) 8, Monocytes % (Manual) 6, Clumped Platelets 0 OBSERVED, Blood Morphology Comment NORMAL, Thyroid Stimulating Hormone (TSH) 0.59 05/10/22 05:50: White Blood Count 5.7, Red Blood Count 3.45L, Hemoglobin 10.5L, Hematocrit 32L, Mean Corpuscular Volume 92, Mean Corpuscular Hemoglobin 30, Mean Corpuscular Hemoglobin Concent 33, Red Cell Distribution Width 14.3, Platelet Count 89L, Mean Platelet Volume 12.2, Immature Granulocyte % (Auto) 1, Neutrophils (%) (Auto) 67, Lymphocytes (%) (Auto) 21, Monocytes (%) (Auto) 10, Eosinophils (%) (Auto) 2, Basophils (%) (Auto) 0, Neutrophils # (Auto) 3.8, Lymphocytes # (Auto) 1.2, Monocytes # (Auto) 0.6, Eosinophils # (Auto) 0.1, Basophils # (Auto) 0.0, Immature Granulocyte # (Auto) 0.0, Percent Immature Platelet Fraction 7.2, Sodium Level 137, Potassium Level 4.0, Chloride Level 111H, Carbon Dioxide Level 18L, Anion Gap 8, Blood Urea Nitrogen 35H, Creatinine 1.35H, Estimat Glomerular Filtration Rate 55, BUN/Creatinine Ratio 26, Glucose Level 101, Calcium Level 8.6, Corrected Calcium 9.5, Total Bilirubin 0.4, Aspartate Amino Transf (AST/SGOT) 34, Alanine Aminotransferase (ALT/SGPT) 26, Alkaline Phosphatase 106, Total Protein 5.5L, Albumin 2.9L Microbiology 05/08/22 MRSA Screen - Final, Complete MRSA not isolated 05/07/22 Urine Culture - Final, Complete >=3 Gram Positive Isolates Pending Labs Microbiology Date/Time Source Procedure Growth Status 05/08/22 02:25 Nasal MRSA Screen - Final MRSA not isolated Complete 05/07/22 18:25 Urine Clean Catch Urine Culture - Final >=3 Gram Positive Isolates Complete Laboratory Tests 05/07/22 15:20: White Blood Count 4.3, Red Blood Count 4.50, Hemoglobin 13.7, Hematocrit 40, Mean Corpuscular Volume 90, Mean Corpuscular Hemoglobin 30, Mean Corpuscular Hemoglobin Concent 34, Red Cell Distribution Width 13.8, Platelet Count 123, Mean Platelet Volume 12.2, Immature Granulocyte % (Auto) 1, Neutrophils (%) (Auto) 61, Lymphocytes (%) (Auto) 29, Monocytes (%) (Auto) 8, Eosinophils (%) (Auto) 1, Basophils (%) (Auto) 1, Neutrophils # (Auto) 2.6, Lymphocytes # (Auto) 1.2, Monocytes # (Auto) 0.4, Eosinophils # (Auto) 0.1, Basophils # (Auto) 0.0, Immature Granulocyte # (Auto) 0.0, Percent Immature Platelet Fraction 5.6, Prothrombin Time 14.2, INR Comment 1.1, Activated Partial Thromboplast Time 31, Sodium Level 138, Potassium Level 4.1, Chloride Level 107, Carbon Dioxide Level 20, Anion Gap 11, Blood Urea Nitrogen 19, Creatinine 1.23, Estimat Glomerular Filtration Rate 62, BUN/Creatinine Ratio 15, Glucose Level 103, Calcium Level 9.4 05/07/22 18:25: Urine Color YELLOW, Urine Clarity CLEAR, Urine pH 6.0, Urine Specific [place] 1.025, Urine Protein NEGATIVE, Urine Glucose (UA) NEGATIVE, Urine Ketones NEGATIVE, Urine Nitrite NEGATIVE, Urine Bilirubin NEGATIVE, Urine Urobilinogen 0.2, Urine Leukocyte Esterase 1+, Urine RBC (Auto) NEGATIVE, Urine RBC NONE, Urine WBC 10-25, Urine Crystals PRESENT, Urine Calcium Oxalate Crystals MODERATE, Urine Bacteria TRACE, Urine Casts NONE, Urine Mucus NEGATIVE, Urine Culture Indicated YES 05/08/22 05:01: White Blood Count 7.2, Red Blood Count 4.19, Hemoglobin 12.8, Hematocrit 38, Mean Corpuscular Volume 91, Mean Corpuscular Hemoglobin 31, Mean Corpuscular Hemoglobin Concent 33, Red Cell Distribution Width 13.7, Platelet Count 105, Mean Platelet Volume 11.7, Immature Granulocyte % (Auto) 0, Neutrophils (%) (Auto) 76, Lymphocytes (%) (Auto) 13, Monocytes (%) (Auto) 9, Eosinophils (%) (Auto) 2, Basophils (%) (Auto) 1, Neutrophils # (Auto) 5.5, Lymphocytes # (Auto) 0.9, Monocytes # (Auto) 0.6, Eosinophils # (Auto) 0.1, Basophils # (Auto) 0.0, Immature Granulocyte # (Auto) 0.0, Percent Immature Platelet Fraction 5.4, Sodium Level 140, Potassium Level 4.0, Chloride Level 111, Carbon Dioxide Level 20, Anion Gap 9, Blood Urea Nitrogen 21, Creatinine 1.19, Estimat Glomerular Filtration Rate 64, BUN/Creatinine Ratio 18, Glucose Level 70, Calcium Level 9.0, Corrected Calcium 9.5, Total Bilirubin 0.7, Aspartate Amino Transf ( T/SGOT) 25, Alanine Aminotransferase (ALT/SGPT) 32, Alkaline Phosphatase 136, Total Protein 6.2, Albumin 3.4 05/09/22 05:51: White Blood Count 7.3, Red Blood Count 3.74, Hemoglobin 11.3, Hematocrit 34, Mean Corpuscular Volume 92, Mean Corpuscular Hemoglobin 30, Mean Corpuscular Hemoglobin Concent 33, Red Cell Distribution Width 14.0, Platelet Count 89, Mean Platelet Volume 12.5, Immature Granulocyte % (Auto) 0, Neutrophils (%) (Auto) 83, Lymphocytes (%) (Auto) 7, Monocytes (%) (Auto) 9, Eosinophils (%) (Auto) 0, Basophils (%) (Auto) 0, Neutrophils # (Auto) 6.0, Lymphocytes # (Auto) 0.5, Monocytes # (Auto) 0.7, Eosinophils # (Auto) 0.0, Basophils # (Auto) 0.0, Immature Granulocyte # (Auto) 0.0, Percent Immature Platelet Fraction 7.7, Sodi um Level 139, Potassium Level 4.6, Chloride Level 109, Carbon Dioxide Level 19, Anion Gap 11, Blood Urea Nitrogen 34, Creatinine 1.62, Estimat Glomerular Filtration Rate 45, BUN/Creatinine Ratio 21, Glucose Level 159, Calcium Level 8.9, Corrected Calcium 9.5, Total Bilirubin 0.3, Aspartate Amino Transf (AST/SGOT) 33, Alanine Aminotransferase (ALT/SGPT) 29, Alkaline Phosphatase 110, Total Protein 5.8, Albumin 3.2, Neutrophils % (Manual) 86, Lymphocytes % (Manual) 8, Monocytes % (Manual) 6, Clumped Platelets 0 OBSERVED, Blood Morphology Comment NORMAL, Thyroid Stimulating Hormone (TSH) 0.59 05/10/22 05:50: White Blood Count 5.7, Red Blood Count 3.45, Hemoglobin 10.5, Hematocrit 32, Mean Corpuscular Volume 92, Mean Corpuscular Hemoglobin 30, Mean Corpuscular Hemoglobin Concent 33, Red Cell Distribution Width 14.3, Platelet Count 89, Mean Platelet Volume 12.2, Immature Granulocyte % (Auto) 1, Neutrophils (%) (Auto) 67, Lymphocytes (%) (Auto) 21, Monocytes (%) (Auto) 10, Eosinophils (%) (Auto) 2, Basophils (%) (Auto) 0, Neutrophils # (Auto) 3.8, Lymphocytes # (Auto) 1.2, Monocytes # (Auto) 0.6, Eosinophils # (Auto) 0.1, Basophils # (Auto) 0.0, Immature Granulocyte # (Auto) 0.0, Percent Immature Platelet Fraction 7.2, Sodium Level 137, Potassium Level 4.0, Chloride Level 111, Carbon Dioxide Level 18, Anion Gap 8, Blood Urea Nitrogen 35, Creatinine 1.35, Estimat Glomerular Filtration Rate 55, BUN/Creatinine Ratio 26, Glucose Level 101, Calcium Level 8.6, Corrected Calcium 9.5, Total Bilirubin 0.4, Aspartate Amino Transf (AST/SGOT) 34, Alanine Aminotransferase (ALT/SGPT) 26, Alkaline Phosphatase 106, Total Protein 5.5, Albumin 2.9 Discharge Home Medications: Active Scripts Active Reported Quetiapine Fumarate 100 Mg Tablet 50 Mg PO HS TAKES OF A 100MG TAB Levothyroxine Sodium 50 Mcg Tablet 50 Mcg PO DAILY Vitamin D3 (Cholecalciferol (Vitamin D3)) 50 Mcg (2000 Unit) Capsule 50 Mcg PO DAILY Colestipol HCl 1 Gram Tablet 1 Gm PO BID Lomotil 2.5-0.025 mg Tablet (Diphenoxylate HCl/Atropine) 2.5 Mg-0.025 Mg Tablet 1 Each PO DAILY Sertraline HCl 100 Mg Tablet 200 Mg PO DAILY TAKES 2 (100MG) TABS Potassium Chloride 10 Meq Tab.er.prt 10 Meq PO DAILY Losartan Potassium 100 Mg Tablet 100 Mg PO DAILY Amlodipine Besylate 10 Mg Tablet 10 Mg PO DAILY Instructions to patient/family Please see electronic discharge instructions given to patient. Clinical Quality Measures DVT/VTE Risk/Contraindication: Contraindications-Pharm: Other *list below* Other: surg ROBBIE HUYNH DO May 10, 2022 09:52
--- NOTE | 2022-05-10 11:12 | Progress Note - Ortho ---
Progress Note Subjective Date of Exam 05/10/22 Chief Complaint POD #2 s/p Prosthetic Replacement of L Femoral Neck Fx HPI/Events since last exam some difficulty with pain, slow progress with therapy Review of Systems - Allergies: Coded Allergies: codeine (Verified Allergy, Unknown, ITCHING, 06/16/20) Home Meds Reported Medications Cholecalciferol (Vitamin D3) (Vitamin D3) 50 Mcg (2000 Unit) Capsule, 50 MCG PO DAILY, CAP 05/08/22 Quetiapine Fumarate (Quetiapine Fumarate) 100 Mg Tablet, 100 MG PO DAILY PRN, TAB 05/08/22 Colestipol HCl (Colestipol HCl) 1 Gram Tablet, 1 GM PO BID, TAB 05/08/22 Levothyroxine Sodium (Levothyroxine) 50 Mcg Capsule, 50 MCG PO DAILY, CAP 05/08/22 Diphenoxylate HCl/Atropine (Lomotil 2.5-0.025 mg Tablet) 2.5 Mg-0.025 Mg Tablet, 1 EACH PO DAILY, TAB 05/08/22 Pantoprazole Sodium (Pantoprazole Sodium) 20 Mg Tablet.dr, 20 MG PO DAILY, TAB 05/08/22 Acamprosate Calcium (Acamprosate Calcium) 333 Mg Tablet.dr, 333 MG PO TID, TAB 05/08/22 Sertraline HCl (Sertraline HCl) 100 Mg Tablet, 200 MG PO ONCE, TAB 05/08/22 Potassium Chloride (Potassium Chloride) 10 Meq Tab.er.prt, 20 MEQ PO DAILY, TAB TAKES 2 (10NEQ) TABS 06/20/20 Losartan Potassium (Losartan Potassium) 100 Mg Tablet, 100 MG PO DAILY, TAB 06/20/20 Amlodipine Besylate (Amlodipine Besylate) 10 Mg Tablet, 10 MG PO DAILY, TAB 06/20/20 Objective Exam L Hip: Dressing C/D/I, +DF of ankle, no s/s of DVT Vital Signs Vital Signs Date Time Temp Pulse Resp B/P (MAP) Pulse Ox O2 Delivery O2 Flow Rate FiO2 05/10/22 08:00 96 Nasal Cannula 2.00 05/10/22 07:03 36.7 62 20 118/59 (78) 90 Nasal Cannula 2.00 05/10/22 05:24 36.6 05/10/22 04:03 36.6 62 16 113/59 (77) 94 Nasal Cannula 2.00 05/10/22 01:51 36.2 05/09/22 23:49 36.2 59 16 115/63 (80) 94 Nasal Cannula 2.00 05/09/22 20:34 37.1 05/09/22 20:04 37.1 05/09/22 20:00 Nasal Cannula 2.00 05/09/22 19:16 37.1 61 20 118/58 (78) 94 Nasal Cannula 1.50 05/09/22 15:20 36.9 64 20 111/57 (75) 91 Nasal Cannula 1.50 05/09/22 11:29 36.9 60 20 98/53 (68) 90 Nasal Cannula 2.00 I & O 05/10/22 07:00 Intake Total 1320 ml Output Total 1425 ml Balance -105 ml Lab Results Laboratory Tests 05/10/22 05:50: White Blood Count 5.7, Red Blood Count 3.45L, Hemoglobin 10.5L, Hematocrit 32L, Mean Corpuscular Volume 92, Mean Corpuscular Hemoglobin 30, Mean Corpuscular Hemoglobin Concent 33, Red Cell Distribution Width 14.3, Platelet Count 89L, Mean Platelet Volume 12.2, Immature Granulocyte % (Auto) 1, Neutrophils (%) (Auto) 67, Lymphocytes (%) (Auto) 21, Monocytes (%) (Auto) 10, Eosinophils (%) (Auto) 2, Basophils (%) (Auto) 0, Neutrophils # (Auto) 3.8, Lymphocytes # (Auto) 1.2, Monocytes # (Auto) 0.6, Eosinophils # (Auto) 0.1, Basophils # (Auto) 0.0, Immature Granulocyte # (Auto) 0.0, Percent Immature Platelet Fraction 7.2, Sodium Level 137, Potassium Level 4.0, Chloride Level 111H, Carbon Dioxide Level 18L, Anion Gap 8, Blood Urea Nitrogen 35H, Creatinine 1.35H, Estimat Glomerular Filtration Rate 55, BUN/Creatinine Ratio 26, Glucose Level 101, Calcium Level 8.6, Corrected Calcium 9.5, Total Bilirubin 0.4, Aspartate Amino Transf (AST/SGOT) 34, Alanine Aminotransferase (ALT/SGPT) 26, Alkaline Phosphatase 106, Total Protein 5.5L, Albumin 2.9L Microbiology 05/08/22 MRSA Screen - Final, Complete MRSA not isolated 05/07/22 Urine Culture - Final, Complete >=3 Gram Positive Isolates Imaging Postop AP pelvis was reviewed and demonstrated components to be in good position without complication. Assessment and Plan Assessment Left Femoral Neck Fracture s/p Prosthetic Replacement Problem List Left Femoral Neck Fracture s/p Prosthetic Replacement Plan PT DVT Prophylaxis Discussed that I am out the remainder of this week and will be available by call or text for any questions. Final Diagonsis Left Femoral Neck Fracture s/p Prosthetic Replacement Level of the visit: Level 3 (global) Clinical Quality Measures DVT/VTE Risk/Contraindication: Contraindications-Pharm: Other *list below* Other: surg HAYDEN PIERCE MD May 10, 2022 11:12
[2022-05-10] MEDS ORDERED: LEVO50TA6 PO (14:20)
[2022-05-10] MEDS ORDERED: QUET100T33 PO (14:28)
== END 2022-05-10 11:00 | DRG 522 ==
LOC: EDUNIT# 15:11 → ER 15:12 → 4TH 17:16
PROVIDERS: ADMIT Internal Medicine; ATTEND Internal Medicine
PROC: 0SRS0JA Replacement of Left Hip Joint, Femoral Surface with Synthetic Substitute, Uncemented, Open Approach (ICD-10-PCS; principal; 2022-05-08 08:01)
DX: S72.002A Fracture of unspecified part of neck of left femur, initial encounter for closed fracture (principal); G11.9 Hereditary ataxia, unspecified; N17.9 Acute kidney failure, unspecified; G20 Parkinson's disease; Z66 Do not resuscitate; I10 Essential (primary) hypertension; F43.10 Post-traumatic stress disorder, unspecified; K52.9 Noninfective gastroenteritis and colitis, unspecified; F32.A Depression, unspecified; E03.9 Hypothyroidism, unspecified; Z85.05 Personal history of malignant neoplasm of liver; Z88.5 Allergy status to narcotic agent; W19.XXXA Unspecified fall, initial encounter
CPT/HCPCS: 36415; 72170; 80048; 80053; 81000; 84443; 85007; 85025; 85027; 85610; 85730; 87081; 87088; 94760

== ENCOUNTER 2022-05-10 09:43 | Inpatient (IN) | payer OTHER, MEDICARE ==
[~2022-05-10] VITALS: Ht 182.9 cm; Wt 69.1 kg
[~2022-05-10 09:43] MED LIST changes: +ACAM333T8 PO; +CHOL200074 PO; +COLE1TAB PO; +DIPH1TAB PO; +LEVO50CA4 PO; +PANT20TA18 PO; +QUET100T33 PO; +SERT-414 PO
--- NOTE | 2022-05-10 10:23 | PM&R Post Admission Assessment ---
PM&R Date of Visit: May 10, 2022 Time of Visit: 11:00 History of Present Illness CC: Debility after left hip fracture repair HPI: This is a 71yoWM clinic patient of mine who presents to the ARU in need of strengthening following an uncomplicated repair of his left hip by Dr Silver. Patient is very AKIAK so it makes communication difficult. He does have a hx of liver cancer s/p cryotherapy managed at . He sees Rocío SHEIKH regularly. He has Parkinson's disease attributed to agent orange exposure while serving in the . He lives with his son and his DIL with 3 grandsons. He is able to ambulate with cane and walker at home PLOF. 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 NO BM yet but he has chronic diarrhea so will hold Colestid until his BM is back to normal. Past Zomhnnp-[id number]-Mrorru Hx Past Med/Social Hx: Reviewed Nursing Past Med/Soc Hx, Reviewed and Corrections made Patient Social History Marrital Status: Employed/Student: retired Alcohol Use: Denies Use Smoking Status: Former Smoker Type Used: Smokeless Tobacco 2nd Hand Smoke Exposure: No Recent Hopitalizations: No Immunizations Up To Date Date of Influenza Vaccine: May 07, 2022 Seasonal Allergies Seasonal Allergies: No Past Medical History Surgeries: Orthopedic Currently Using CPAP: No Currently Using BIPAP: No Cardiac: High Cholesterol, Hypertension Neurological: Parkinson's Disease Gastrointestinal: Polyps liver cancer Endocrine: Hypothyroidsim Cancer: Liver Did You Recieve Any Treatments: Yes What Type of Treatment Did You: Radiation Psychosocial: PTSD History of Blood Disorders: No Adverse Reaction to Blood Ibarra: No PM&R Allergy/Meds/Data Review Allergies Coded Allergies: codeine (Verified Allergy, Unknown, ITCHING, 06/16/20) Home Medications Scheduled Amlodipine Besylate (Amlodipine Besylate), 10 MG PO DAILY, (Reported) Cholecalciferol (Vitamin D3) (Vitamin D3), 50 MCG PO DAILY, (Reported) Colestipol HCl (Colestipol HCl), 1 GM PO BID, (Reported) Diphenoxylate HCl/Atropine (Lomotil 2.5-0.025 mg Tablet), 1 EACH PO DAILY, (Reported) Levothyroxine Sodium (Levothyroxine Sodium), 50 MCG PO DAILY, (Reported) Losartan Potassium (Losartan Potassium), 100 MG PO DAILY, (Reported) Potassium Chloride (Potassium Chloride), 10 MEQ PO DAILY, (Reported) Quetiapine Fumarate (Quetiapine Fumarate), 50 MG PO HS, (Reported) Sertraline HCl (Sertraline HCl), 200 MG PO DAILY, (Reported) Discontinued Medications Acamprosate Calcium (Acamprosate Calcium), 333 MG PO TID, (Reported) Discontinued Reason: No Longer Taking Levothyroxine Sodium (Levothyroxine), 50 MCG PO DAILY, (Reported) Discontinued Reason: Duplicate Order Pantoprazole Sodium (Pantoprazole Sodium), 20 MG PO DAILY, (Reported) Discontinued Reason: No Longer Taking Quetiapine Fumarate (Quetiapine Fumarate), 100 MG PO DAILY PRN, (Reported) Discontinued Reason: No Longer Taking Current Medications Current Medications Reviewed Review of Systems Constitutional: see HPI EENTM: no symptoms reported Respiratory: no symptoms reported Cardiovascular: no symptoms reported Gastrointestinal: no symptoms reported Genitourinary: no symptoms reported Musculoskeletal: joint pain Skin: no symptoms reported Psychiatric/Neurological: No Symptoms Reported All Other Systems Reviewed Negative Unless Noted: Yes Physical Exam Physical Exam Vital Signs Capillary Refill : Height, Weight, BMI Height: '" Weight: lbs. oz. kg; 20.66 BMI Method: General Appearance: No Apparent Distress, WD/WN, Chronically ill, Thin Eyes: Bilateral Eye Normal Inspection, Bilateral Eye PERRL HEENT: PERRL/EOMI, Normal ENT Inspection, Pharynx Normal Neck: Full Range of Motion, Normal Inspection, Non Tender, Supple, Carotid Bruit Respiratory: Chest Non Tender, Lungs Clear, Normal Breath Sounds, No Accessory Muscle Use, No Respiratory Distress Cardiovascular: Regular Rate, Rhythm, No Edema, No Gallop, No JVD, No Murmur, Normal Peripheral Pulses Gastrointestinal: Normal Bowel Sounds, No Organomegaly, No Pulsatile Mass, Non Tender, Soft Back: Normal Inspection, No CVA Tenderness, No Vertebral Tenderness Extremity: Normal Capillary Refill, Normal Inspection, Normal Range of Motion (except left leg), Non Tender, No Calf Tenderness, No Pedal Edema Neurologic/Psychiatric: Alert, Oriented x3, No Motor/Sensory Deficits, Normal Mood/Affect, Motor Weakness (left leg and generalized) Skin: Normal Color, Warm/Dry Lymphatic: No Adenopathy PM&R Medical Assessment & Plan REHAB/MEDICAL ASSESSMENT AND PLAN: REHAB IMPAIRMENT GROUP: Left hip fracture ETIOLOGIC DIAGNOSIS: Left hip fracture The comorbidities that impact the patients function and/or functional outcome by: advanced age, liver cancer s/p remission, AKIAK, frail status, HTN, PIA REHAB PLAN: The patient is being admitted to our comprehensive inpatient rehabilitation facility and can tolerate the intensity of service consisting of at least: 180 minutes of therapy a day, 5 out of 7 days a week Rehab treatment will consist of: PT OT will both initiate aggressive therapy with use of AD in order to build stamina and increase ADL's independence in order to regain function in order to return home to live with family The patient/family has a good understanding of our discharge process and will benefit from an interdisciplinary inpatient rehabilitation program. The patient has potential to make improvement and is in need of at least two of the following multidisciplinary therapies including but not limited to physical, occupational, speech, and prosthetics and orthotics. Additionally the patient will need services from respiratory, nutritional services, wound care, psychology, etc. (Customize this to each patient). Given the patients complex condition and risk of further medical complications, rehabilitation services cannot be safely or effectively provided at a lower level of care such as a assisted facility. BARRIERS TO DISCHARGE: Advanced age and frail status ESTIMATED LOS: 10 days DISPOSITION: Home RELEVANT CHANGES SINCE PREADMISSION SCREENING: I have compared the patients medical and functional status at the time of the preadmission screening and there are: no changes PROGNOSIS: Fair REHABILITATION GOALS: 1. PT OT will both initiate aggressive therapy with use of AD in order to build stamina and increase ADL's independence in order to regain function in order to return home to live with family All the above goals were reviewed with the patient and he/she is in agreement. By signing this document, I acknowledge that I have personally performed a full physical examination on this patient within 24 hours of admission to this [facility] rehabilitation facility and have determined the patient to be able to tolerate the above course of treatment at an intensive level for a reasonable period of time. I will be completing a detailed individualized Plan of Care for this patient by day #4 of the patients stay based upon the Preadmission Screen, the Post-Admission Evaluation, and the therapy evaluations. Admission Dx/Comorbidities: (1) Closed left hip fracture Status: Acute ICD Codes: S72.002A - Fracture of unspecified part of neck of left femur, initial encounter for closed fracture (2) Chronic diarrhea Status: Acute ICD Codes: K52.9 - Noninfective gastroenteritis and colitis, unspecified (3) HTN (hypertension) Status: Chronic ICD Codes: I10 - Essential (primary) hypertension (4) Liver cancer Status: Chronic ICD Codes: C22.9 - Malignant neoplasm of liver, not specified as primary or secondary Assessment/Plan Assessment and Plan Assess & Plan/Chief Complaint Assessment: Left hip fracture Fall History of humerus fracture Hypertension PTSD 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 Velasquez gastroenterology Depression Hypothyroidism Cancer status post cryotherapy at Acute kidney injury increased IV fluids on 05/09/2022 and holding losartan Plan: Dr. Silver consult appreciated Pain control Supportive care Increase IV fluids Increase p.o. fluids Supportive care Lovenox for DVT prophylaxis if okay with ROBBIE Brown DO May 10, 2022 10:23
[2022-05-10] MEDS ORDERED: CALCIUM CARBONATE 500 MG (TUMS) TAB.CHEW PO PRN (10:30)
[2022-05-10] MEDS ORDERED: LOPERAMIDE 2 MG (IMODIUM) TABLET PO PRN (10:30)
[2022-05-10] MEDS ORDERED: diphenhydrAMINE 25 MG TAB (BENADRYL) PO PRN ×2 (10:30→12:30)
[2022-05-10] MEDS ORDERED: ONDANSETRON 4 MG (ZOFRAN) ORAL DISSOLVE TAB PO PRN ×2 (10:30→12:30)
[2022-05-10] MEDS ORDERED: LACTULOSE SYRUP 10GM/15ML (ENULOSE) 30ML UDC PO PRN ×2 (10:30→12:30)
[2022-05-10] MEDS ORDERED: DOCUSATE SODIUM 100 MG (COLACE) CAP PO PRN (10:30)
[2022-05-10] MEDS ORDERED: FLEET ENEMA ADULT 1 EA BTL PR PRN (10:30)
[2022-05-10] MEDS ORDERED: MELATONIN 3 MG TABLET PO PRN ×2 (10:30→12:30)
[2022-05-10] MEDS ORDERED: ALPRAZolam 0.25 MG (XANAX) TAB PO PRN ×2 (10:30→12:30)
[2022-05-10] MEDS ORDERED: BISACODYL 10 MG SUPP (DULCOLAX) PR PRN ×2 (10:30→12:30)
[2022-05-10] MEDS ORDERED: guaiFENesin/CODEINE (ROBITUSSIN AC) 10ML UDC PO PRN (10:30)
[2022-05-10] MEDS ORDERED: ACETAMINOPHEN 325 MG TABLET PO PRN ×2 (10:30→12:30)
--- OUTSIDE RECORDS SUMMARY | 2022-05-10 11:12 | XMS REPORT ---
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 ALLERGIES Allergen (clinical drug ingredient) Drug/Non Drug Allergy do cumented on EMR Reaction Allergy Type Onset Date Status codeine Codeine Sulfate([facility] Code:[address]-69) Unknown Drug Al sarah Active ENCOUNTERS from 1950 to 2022-05-07 Encounter Location Date Provider Diagnosis [facility] [id number] [address] May, SPENCER DURHAM Encounter for preope rative screening laboratory testing for COVID-19 virus Z11.59 IMMUNIZATIONS No Information SOCIAL HISTORY Sex Assigned At : Social History Observation Description Sex Assigned At Unknown Alcohol Screen (Audit-C) Question Answer Notes Did you have a drink containing alcohol in the past year? No Points 0 Interpretation Negative REASON FOR REFERRAL No Information VITAL SIGNS No information MEDICATIONS Medication SIG (Take, Route, Frequency, Duration) Notes Start Da te End Date Status QUEtiapine Fumarate 100 MG 1 tablet at bedtime Orally Once a day Active amLODIPine Besylate 10 MG 1 tablet Orally Once a day Active Cholecalciferol 50 MCG (1999) 1 tablet Orally Once a day Active Potassium Chloride ER 10 MEQ 1 tablet with food Orally Twice a day Active Sertraline HCl 100 MG 1 tablet Orally Once a day Active Losartan Potassium 100 MG 1 tablet Orally Once a day Active PROCEDURES No Information RESULTS No Results REASON FOR VISIT Pre op (black [facility]) Pt is retired MEDICAL (GENERAL) HISTORY Type Description Date Medical History cerebral ataxia Surgical History bilateral hand surgeries Hospitalization History broken collar bone Goals Section No Information Health Concerns No Information MEDICAL EQUIPMENT No Information MENTAL STATUS No Information FUNCTIONAL STATUS No Information ASSESSMENTS Encounter Date Diagnosis Assessment Notes Treatment Notes Treatm ent Clinical Notes May, Encounter for preoperative s creening laboratory testing for COVID- 19 virus (ICD-10 - Z11.59) May, Other Patient was ins tructed to self-isolate at home until further instruction from clinic staff PLAN OF TREATMENT No Information Insurance Providers Payer Name Payer Address Payer Phone Insured Name Patient Relati onship to Insured Coverage Start Date Coverage End Date Subscriber Number Group Nu mber [employer] MEDICARE Part A [address] [id number] Chad Kim Self - patient is the insured [id number] [address] [address] Chad Kim Self - patient is the insured
--- OUTSIDE RECORDS SUMMARY | 2022-05-10 11:12 | XMS REPORT ---
[facility] Address Unknown Phone Unavailable Care Team Providers Care Gasoline Tester Name Role Phone CHAD Duque Unavailable PROBLEMS Type Condition ICD9-CM Code [id number] Code Onset Dates Condition S tatus W/U Status Risk SNOMED Code Notes Problem Ataxia R27.0 confirmed ALLERGIES Allergen (clinical drug ingredient) Drug/Non Drug Allergy do cumented on EMR Reaction Allergy Type Onset Date Status codeine Codeine Sulfate([facility] Code:[address]-10) Unknown Drug Al lergy Active ENCOUNTERS from 1950 to 2022-04-30 Encounter Location Date Provider Diagnosis [facility] [address] [id number] [place] [address] Apr, CHAD Duque Ataxia R27.0 IMMUNIZATIONS No Information SOCIAL HISTORY Sex Assigned At : Social History Observation Description Sex Assigned At Unknown Alcohol Screen (Audit-C) Question Answer Notes Did you have a drink containing alcohol in the past year? No Points 0 Interpretation Negative REASON FOR REFERRAL No Information VITAL SIGNS Height 72 in Apr, Height-cm 182.88 cm Apr, Weight 172 lbs Apr, Weight-kg 78.02 kg Apr, Temperature 98.2 degrees Fahrenheit Apr, Heart Rate 94 bpm Apr, Respiratory Rate 16 bpm Apr, Oximetry 92 % Apr, BMI 23.32 kg/m2 Apr, Blood pressure systolic 134 mmHg Apr, Blood pressure diastolic 72 mmHg Apr, MEDICATIONS Medication SIG (Take, Route, Frequency, Duration) [...] Information RESULTS No Results REASON FOR VISIT [facility]raeann CINTRON ma MEDICAL (GENERAL) HISTORY Type Description Date Medical History cerebral ataxia Surgical History bilateral hand surgeries Hospitalization History broken collar bone Goals Section No Information Health Concerns No Information MEDICAL EQUIPMENT No Information MENTAL STATUS No Information FUNCTIONAL STATUS No Information ASSESSMENTS Encounter Date Diagnosis Assessment Notes Treatment Notes Treatm ent Clinical Notes Apr, Ataxia (ICD-10 - R27.0) DBQ com leted and submitted PLAN OF TREATMENT Treatment Notes Assessment Notes Clinical Notes Ataxia DBQ comleted and submitted Insurance Providers Payer Name Payer Address Payer Phone Insured Name Patient Relati onship to Insured Coverage Start Date Coverage End Date Subscriber Number Group Nu mber NGS MEDICARE Part A [facility] [id number] [place] [phone] Chad Kim Self - patient is the insured [id number] [address] [address] Chad Kim Self - patient is the insured
--- OUTSIDE RECORDS SUMMARY | 2022-05-10 11:12 | XMS REPORT | Clinical Summary ---
Author Author [facility] Organization [facility] Address Unknown Phone Unavailable Care Team Providers Care Summer Camp Counselor Name Role Phone JessicaBaldomeroconcepcion Burgess DO PCP [phone] Source Comments Some departments are not documenting in the electronic medical record. If you d o not see the information that you expected, contact Release of Information in [facility] [employer] Information Management department at [phone] for further assistan ce in locating additional records.[facility] Allergies Comments Active Allergy Reactions Severity Noted Date Codeine Sulfate ITCHING Low 05/08/2020 Medications End Date Status Medication Sig Dispensed Refills Start Date Active sertraline (ZOLOFT) 100 Take 200 mg 0 mg tablet by mouth daily. Active QUEtiapine (SEROQUEL) 100 Take 100 mg 0 mg tablet by mouth at bedtime as needed. Active potassium chloride Take 20 mEq 0 (MICRO-K) 10 mEq capsule by mouth daily. Active losartan (COZAAR) 100 mg Take 100 mg 0 tablet by mouth daily. Active amLODIPine (NORVASC) 10 Take 10 mg by 0 mg tablet mouth daily. Active cholecalciferol (VITAMIN Take 2,000 0 D3) 50 mcg (2,000 unit) Units by tablet mouth daily. Active oxyCODONE (ROXICODONE) 5 Take one 30 tablet 0 0 mg tabletIndications: tablet by 1 Hepatocellular carcinoma mouth every 4 (HCC) hours as needed for Pain Active ondansetron (ZOFRAN) 4 mg Take one 30 tablet 0 tabletIndications: tablet by 1 Hepatocellular carcinoma mouth every 6 (HCC) hours as needed for Nausea or Vomiting. Active Problems Problem Noted Date Postoperative hypoxia 06/11/2020 Hepatocellular carcinoma 05/08/2020 Overview: Formatting of this note is di fferent from the original. 04/02/[address] scan upper abd omen with contrast possible 3 cm right hepatic lobe hypodense mass, cirr hotic appearing liver with severe atherosclerosis. 04/17/2020 Oncology Consult refer to Dr Lopez Silva for opinion 04/17/2020 AFP 3.2 Alpha-fetoprotein 3. 2 INR 1.0 creatinine 1.1 alkaline phosphatase 99 bilirubin 0.5 hemoglobin 15.4 platelet count 167 Liver mass biopsy April 22, 2020 showe d hepatocellular carcinoma 06/11/20 Successful chemoembolization o f the right hepatic lobe tumor as described above.+mwv 06/11/[address] -guided Microwav e Ablation of segment 5/8 hepatic mass. 08/07/20 guided Microwave Ablation of m ultiple right hepatic lobe enhancing nodules. Cirrhosis Surgical History Surgery Date Site/Laterality Comments COLONOSCOPY VASECTOMY Medical History Medical History Date Comments Hearing reduced Vision decreased Hypertension Seizure (HCC) 2003 PTSD (post-traumatic stress disorder) Depression Osteoarthritis Cerebellar ataxia (HCC) Cirrhosis (HCC) Hepatocellular carcinoma (HCC) Family History Medical History Relation Name Comments Cancer-Prostate Father Cancer Mother Relation Name Status Comments Father Mother Social History Date Tobacco Use Types Packs/Day Years Used Smoking Tobacco: Never Smokeless Tobacco: Chew Current Comments Alcohol Use Standard Drinks/Week Quit in 10/2019 ETOH Not Currently 0 (1 standard drink = 0.6 o z pure alcohol) Sex Assigned at Date Recorded Male 08/04/2021 9:22 PM CDT Obstetrics History Last Filed Vital Signs Reading Time Taken Comments Vital Sign 115/74 08/07/2020 6:00 PM CDT Blood Pressure 90 08/07/2020 6:00 PM CDT Pulse 37.1 C (98.7 F) 08/07/2020 11:00 AM CDT Temperature - - Respiratory Rate 93% 08/07/2020 6:00 PM CDT Oxygen Saturation - - Inhaled Oxygen Concentration 79.4 kg (175 lb) 06/11/2020 7:50 AM [employer]ING [employer]ER Weight 182.9 cm (6' 0.01") 06/11/2020 7:50 AM [employer]ING [employer]OKER Height 23.73 06/11/2020 7:50 AM [employer]ING BROKER Body Mass Index Plan of Treatment Health Maintenance Due Date Last Done Comments MEDICARE ANNUAL WELLNESS 1950 VISIT PNEUMOCOCCAL VACCINE ( - 1954 PCV) DTAP/TDAP VACCINES (1 - 1966 Tdap) HEPATITIS C SCREENING 1966 PHYSICAL (COMPREHENSIVE) 1966 EXAM COLORECTAL CANCER 1993 SCREENING SHINGLES RECOMBINANT 1998 VACCINE (1 of 2) COVID-19 VACCINE (3 - 11/11/2020 09/16/2020, Booster for Moderna 08/13/2020 series) INFLUENZA VACCINE (#1) 2021 04/01/2021, 04/30/2020 ADVANCED CARE PLANNING 04/18/2022 DISCUSSION AND DOCUMENTATION DEPRESSION SCREENING 04/18/2022 Medical Devices Device Identifier Shelf Expiration Date Model / Serial / L ot Implanted Type Area Manufactur er [id number] 03/17/2021 [id number] / N/A / [id number] Device Closure 70cm 6fr Angio-Seal Right: Groin TE RUMO Vip .035in Vascular - Sn/A MEDICAL Implanted: Qty: 1 on 06/11/2020 by Raymundo Mcleod DO at [facility] Results Not on filefrom Last 3 Months Insurance Type Payer Benefit Subscriber ID Effective Phone Address Plan / Dates Group Medicare MEDICARE MEDICARE [id number] 2009-P [phone] [address] [place] [address] Medicare BCBS BCBS [id number] 2018-P [phone] [address] [place] [phone] Advance Directives Date Inactivated Comments Code Status Date Activated 06/12/2020 2:09 PM Full Code 06/11/2020 5:04 PM Provider has discussed Code Status No, discussion no t w/Patient or Family? necessary based on Dx 06/11/2020 5:04 PM Full Code 06/11/2020 8:00 AM Provider has discussed Code Status Yes w/Patient or Family? Care Teams Start Date End Date Summer Camp Counselor Relationship Specialty 12/24/20 Karri Lopez, PCP - General Family Medicine [address] [place] [address]
[2022-05-10 11:22] VITALS: BP 124/67
--- NOTE | 2022-05-10 11:43 | Physical Therapy Evaluation ---
PT Evaluation-General Medical Diagnosis Admission Date May 10, 2022 at 10:28 Medical Diagnosis: Left femur fracture Onset Date: May 07, 2022 Therapy Diagnosis Therapy Diagnosis: Gait deficit, Strength deficit Precautions Precautions/Isolations: Fall Prevention, Standard Precautions, Pressure Ulcer Left Total Hip Precautions with abduction pillow between LEs while in bed Weight Bear Status Right Lower Extremity: Right Full Weight Bearing Left Lower Extremity: Left Weight Bearing/Tolerated Referral Physician: Dr. Unger Reason for Referral: Evaluation/Treatment Medical History Pertinent Medical History: HTN Reviewed History: Yes Social History Home: [facility] Current Living Status: Children Entry Into Home: Stairs With Railing PT Steps Into Home: 4 PT Steps Inside Home: 14 Prior Prior Level of Function SCALE: Activities may be completed with or without assistive devices. 6-Ocwckchapj-djactjk completes the activity by him/herself with no assistance from a helper. 5-Set-up or Clean-up Assistance-helper sets up or cleans up; patient completes activity. [place] assists only prior to or following the activity. 4-Supervision or Touching Assistance-helper provides verbal cues and/or touching/steadying and/or contact guard assistance as patient completes activity. Assistance may be provided throughout the activity or intermittently. 3-Partial/Moderate Assistance-helper does LESS THAN HALF the effort. [place] lifts, holds or supports trunk or limbs, but provides less than half the effort. 2-Substantial/Maximal Assistance-helper does MORE THAN HALF the effort. [place] lifts or holds trunk or limbs and provides more than half the effort. 6-Omrbknvgq-lsxvnn does ALL the effort. Patient does none of the effort to complete the activity. Or, the assistance of 2 or more helpers is required for the patient to complete the activity. If activity was not attempted, code reason: 7-Patient Refused. 9-Not Applicable-not attempted and the patient did not perform the activity before the current illness, exacerbation or injury. 10-Not Attempted due to Environmental Limitations-(lack of equipment, weather restraints, etc.). 88-Not Attempted due to Medical Conditions or Safety Concerns. Bed Mobility: 6 Transfers (B,C,W/C): 6 Gait: 6 Stairs: 6 Indoor Mobility (Ambulation): Independent Stairs: Independent Prior Devices Use: Walker PT Evaluation-Current Subjective Patient sitting in chair upon PT arrival, agreeable to treatment. Patient rates pain in left hip/femur at 3-4/10 currently. Pain Section J - Health Conditions 1. Rarely or not at all 2. Occasionally 3. Frequently 4. Almost constantly 8. Unable to answer Pain Effect on Sleep: 2 Pain Interference with Therapy: 3 Pain Interference w/Day-to-Day: 3 Objective Patient Orientation: Person, Place, Time, Situation Attachments: Oxygen, Garcia Catheter, IV ROM/Strength ROM Lower Extremities Right LE WFLs all planes, left LE limited all hip planes due to pain. Left femur internally rotated and slightly abducted in sitting and standing positions, less so in supine. Strength Lower Extremities Right LE 4-/5 all planes; Left hip 3-/5 via visual observation, left knee and ankle 3/5 all planes. Sensory Vision: Functional Hearing: Impaired Sensation Right Lower Extremit: Intact Sensation Left Lower Extremity: Intact Transfers Roll Left & Right (QC): 2 Sit to Lying (QC): 3 Lying to Sitting/Side of Bed(Q: 2 Sit to Stand (QC): 2 Chair/Gkv-cu-Fjlqf Xfer(QC): 2 Toilet Transfer (QC): 2 Car Transfer (QC): 2 Gait Does the Patient Walk?: Yes Mode of Locomotion: Both Anticipated Mode of Locomotion: Both Walk 10 feet (QC): 88 Walk 50 ft with 2 Turns(QC): 88 Walk 150 ft (QC): 88 Walking 10ft/uneven surface-QC: 88 Distance: 5 feet Gait Assistive Device: FWW Wheelchair Training Does the Pt Use a Wheelchair?: Yes Distance: 100 Wheel 50 ft with 2 turns (QC): 4 Wheel 150 ft (QC): 88 Type of Wheelchair: Manual Stairs #of Steps: 0 1 Step (curb) (QC): 88 4 Steps (QC): 88 12 Steps (QC): 88 Balance Sitting Static: Fair Sitting Dynamic: Poor Standing Static: Poor Standing Dynamic: Poor Picking up an Object (QC): 88 Assessment/Needs Patient tolerated treatment fair. He guards the left LE significantly and tends to hold the left femur into minimal adduction and internal rotation; special care needs to be taken regarding use of the abduction pillow and education to correct this position if patient is going to return to as normal a gait as p ossible. Patient requires mod to max A for all bed mobility and transfers. He is able to ambulate 5 feet, slowly, with max A, with frequent verbal and tactile cues on safety, procedure and performance. Patient is maximally [place] even with bilateral hearing aides. This makes communication and patient education difficult and requires frequent repeating of instructions. Patient able to propel the w/c 100 feet with SBA and verbal cues for safety and progression. He tends to use his UEs unilaterally instead of bilaterally with each wheel stroke. Patient in chair post PT treatment with OT in the room. Rehab Potential: Fair Equipment Needs Unsure at this time but may need w/c PT Short Term Goals Short Term Goals Time Frame: May 22, 2022 Roll Left & Right: 4 Sit to lyin Lying to sitting on side of be: 4 Sit to stand: 4 Chair/nsz-lz-ueihy transfer: 4 Toilet transfer: 4 Car transfer: 4 Walk 10 feet: 3 Walk 50 feet with two turns: 3 Walk 150 feet: 3 PT Penitentiary Goals Penitentiary Goals PT Penitentiary Goals Time Frame: Jun 05, 2022 Roll Left to Right (QC): 5 Sit to Lying (QC): 5 Lying-Sitting on Side/Bed(QC): 5 Sit to Stand (QC): 5 Chair/Mbk-ua-Udeiz Xfer(QC): 5 Toilet/Commode Transfer (QC): 5 Car Transfer (QC): 5 Does the Patient Walk: Yes Walk 10 feet (QC): 4 Walk 10ft-Uneven Surface(QC): 4 Walk 50ft with 2 Turns (QC): 4 Walk 150 ft (QC): 4 Does the Pt use WC or Scooter?: Yes Wheel 50 feet with 2 turns (QC: 6 Type: Manual Wheel 150 feet: 6 Type: Manual 1 Step (curb) (QC): 3 4 Steps (QC): 3 12 Steps (QC): 3 Picking up an Object (QC): 4 PT Plan Problem List Problem List: Activity Tolerance, Functional Strength, Safety, Balance, Gait, Transfer, Bed Mobility, ROM Treatment/Plan Treatment Plan: Continue Plan of Care Treatment Plan: Bed Mobility, Education, Functional Activity Cain, Functional Strength, Group Therapy, Gait, Safety, Therapeutic Exercise, Transfers Treatment Duration: Jun 12, 2022 Frequency: At least 5 of 7 days/Wk (IRF) Estimated Hrs Per Day: 1.5 hours per day Patient and/or Family Agrees t: Yes Safety Risks/Education Patient Education: Gait Training, Transfer Techniques, Reviewed Precautions, W/C Management, Safety Issues Teaching Recipient: Patient Teaching Methods: Demonstration, Discussion Response to Teaching: Reinforcement Needed Time Time In: 1028 Time Out: 1118 DATE: May 10, 2022 Total Billed Treatment Time: 40 Total Billed Treatment Visit, ALFREDO Cardozo (30) PT eval 10:28-10:38 PT treatment 10:38-10:50 OT eval 10:50-11:00 Co-treat 11:00-11:18 EMILIANA FLORES PT May 10, 2022 11:43
--- NOTE | 2022-05-10 11:44 | Occupational Therapy Eval ---
OT Evaluation-General/PLF Medical Diagnosis Admission Date May 10, 2022 at 10:28 Medical Diagnosis: L femur fracture Onset Date: May 08, 2022 Therapy Diagnosis Therapy Diagnosis: decreased ADL status Precautions Precautions/Isolations: Fall Prevention, Standard Precautions, Pressure Ulcer Comments Left Total Hip Precautions with abduction pillow between LEs while in bed Referral Physician: Ute Brown Reason: Evaluation/Treatment Medical History Pertinent Medical History: HTN Additional Medical History liver cancer, chronic diarrhea, Parkinson's, humerus fx. Current History s/p L hip THR 05/08/22 after fall Social History Home: Multilevel Current Living Status: Other Family Steps Into Home: 4 Steps Inside Home: 14 Pt reports living in a multilevel house with his son and son's family. Pt unable to answer if he lives on main level or upstairs. ADL-Prior Level of Function SCALE: Activities may be completed with or without assistive devices. 4-Fnzmjmicae-suunhgj completes the activity by him/herself with no assistance from a helper. 5-Set-up or Clean-up Assistance-helper sets up or cleans up; patient completes activity. [place] assists only prior to or following the activity. 4-Supervision or Touching Assistance-helper provides verbal cues and/or touching/steadying and/or contact guard assistance as patient completes acti vity. Assistance may be provided throughout the activity or intermittently. 3-Partial/Moderate Assistance-helper does LESS THAN HALF the effort. [place] lifts, holds or supports trunk or limbs, but provides less than half the effort. 2-Substantial/Maximal Assistance-helper does MORE THAN HALF the effort. [place] lifts or holds trunk or limbs and provides more than half the effort. 8-Ecshwllgd-xicfrq does ALL the effort. Patient does none of the effort to complete the activity. Or, the assistance of 2 or more helpers is required for the patient to complete the activity. If activity was not attempted, code reason: 7-Patient Refused. 9-Not Applicable-not attempted and the patient did not perform the activity before the current illness, exacerbation or injury. 10-Not Attempted due to Environmental Limitations-(lack of equipment, weather restraints, etc.). 88-Not Attempted due to Medical Conditions or Safety Concerns. ADL PLOF Comments Pt reports IND with ADLS and functional mobility at PLOF, using walker. He has a walk in shower with SC. Self Care: Independent Functional Cognition: Independent DME/Equipment: Bath Chair, Shower OT Current Status Subjective Pt up in recliner, agreeable to OT evaluation/tx. Pt reports 4/10 pain in L hip. Mental Status/Objective Patient Orientation: Person, Place, Time, Situation Attachments: Oxygen (2L) Current Glasses/Contacts: Yes Hearing Aids: Yes Dentures/Partials: No Hand Dominance: Right Upper Extremity ROM RUE WFL, LUE decreased shoulder flexion due to humerus fracture. Shoulder flexion to approx 30 degrees. WFL elbow/wrist/hand. Upper Extremity Coordination decreased LUE due to impaired ROM Upper Extremity Sensation WFL Upper Extremity Strength grossly 3/5 BUEs ADL-Treatment Eating (QC): 5 Oral Hygiene (QC): 4 (SBA seated) Shower/Bathe Self (QC): 1 (2 person assist in stand to wash buttocks.) Upper Body Dressing (QC): 3 (Isamar managing shirt down trunk) Lower Body Dressing (QC): 1 (2 person assist in stand for pant hike. Assist all parts.) On/Off Footwear (QC): 1 (total assist) Toileting Hygiene (QC): 1 (2 person assistance required in stand for hygiene/pant hike.) Other Treatments OT evaluation complete [id number]. OT/PT cotreat due to skill of 2 clinicians required which a rehabilitation medicine physician could not perform in order to coordinate UE/LEs, decrease fall risk, and due to pt's limitations in strength, activity tolerance, mobility/transfers, pain with movement, and difficulty following simple directions. OT focused on UE placement, ADLs, cues for sequencing and safety. PT focused on LE placement, gross overall movement, transfers/mobility. Pt completed functional mobility/transfers including w/c mobility, bed mobility, and bed to chair transfer. Pt required frequent verbal and tactile cues for UE placement and body positioning. 2 person assist required in stand to manage pant hike. OT continued tx, pt participated in BIMs, and completed dressing. Post tx, pt in recliner, call light in reach and all needs met. Mod-Max A with all bed mobility and transfers. Max A functional mobility using FWW 5'. Frequent verbal and tactile cues required for safety, procedure and performance. Pt able ot propell w/c 100' with SBA and VCs for safety and progression. He tends to use UEs unilaterally instead of bilaterally with each wheel stroke. Education OT Patient Education: Correct positioning, Energy conservation, Modified ADL techniques, Progress toward Goal/Update tx plan, Purpose of tx/functional activities, Rehab process Teaching Recipient: Patient Teaching Methods: Discussion Response to Teaching: Verbalize Understanding BIMS CAM BIMS Expression of Ideas and Wants: Without Difficulty Understanding Verbal Content: Usually Understands (very SAMISH, requires repeated instructions) IRF ISAURO BIMS: IRF ISAURO BIMS Response (Comments) Value Repitition of Three Words One 1 Recalls Socks No, Could Not Recall 0 Recalls Blue Yes, No Cue Required 2 Recalls Bed Yes, After Cueing 1 Year Correct 3 Month Accurate Within 5 Days 2 Day Correct 1 Total [address] Ass[address] Mental St.: No CAM Mental Status Change/Baseline: 0 Inattention: 0 Disorganized thinkin Altered level of consciousness: 0 OT Short Term Goals Short Term Goals Time Frame: May 28, 2022 Shower/bathe self: 3 Lower body dressin Putting on/taking off footwear: 3 OT Charging Machine Operator Goals Charging Machine Operator Goals Time Frame: Jun 04, 2022 Eating (QC): 6 Oral Hygiene (QC): 6 Toileting Hygiene (QC): 6 Shower/Bathe Self (QC): 4 Upper Body Dressing (QC): 6 Lower Body Dressing (QC): 4 On/Off Footwear (QC): 4 Additional Goals: 1-Demonstrate ADL Tasks, 2-Verbalize Understanding, 3- ImproveStrength/Cain 1=Demonstrate adherence to instructed precautions during ADL tasks. 2=Patient will verbalize/demonstrate understanding of assistive devices/m odifications for ADL. 3=Patient will improve strength/tolerance for activity to enable patient to perform ADL's. OT Education/Plan Problem List/Assessment Assessment: Decreased Activ Tolerance, Decreased Safety Aware, Decreased UE Strength, Dependent Transfers, Impaired Bed Mobility, Impaired Coordination, Impaired Funct Balance, Impaired I ADL's, Impaired Self-Care Skills, Restricted Funct UE ROM Discharge Recommendations Plan/Recommendations: Continue POC Treatment Plan/Plan of Care Patient would benefit from OT for education, treatment and training to promote independence in ADL's, mobility, safety and/or upper extremity function for ADL's. Plan of Care: ADL Retraining, Functional Mobility, Group Exercise/Act as Ind, UE Funct Exercise/Act Treatment Duration: Jun 04, 2022 Frequency: At least 5 of 7 days/Wk (IRF) Estimated Hrs Per Day: 1.5 hours per day Agreement: Yes Rehab Potential: Fair Time Start Time: 10:50 Stop Time: 11:30 DATE: May 10, 2022 Total Time Billed (hr/min): 40 Billed Treatment Time OT eval [id number] (10'), Cotreat [id number] (18'), OT tx [id number] (12') 1, EVM (10'), FA (15'), ADL (15') BRISEIDA TREVINO OT May 10, 2022 11:44
[2022-05-10] MEDS ORDERED: FLU QUAD HIGH DOSE 240 MCG/0.7 ML 2022-23 (FLUZONE) IM ONE (12:15)
[2022-05-10] MEDS ORDERED: RT-ALBUTEROL/IPRATROPIUM 3 ML (DUONEB) VIAL INH PRN (12:30)
[2022-05-10] MEDS ORDERED: SERTRALINE 100 MG (ZOLOFT) TAB PO SCH (12:30)
[2022-05-10] MEDS ORDERED: ANTACID SUSP 30 ML UDC (MYLANTA) PO PRN (12:30)
[2022-05-10] MEDS ORDERED: HYDROmorphone 2 MG/ML VIAL (DILAUDID) IV PRN (12:30)
[2022-05-10] MEDS ORDERED: ONDANSETRON 4 MG/2 ML (SDV) Z0FRAN IVP PRN (12:30)
[2022-05-10] MEDS ORDERED: QUEtiapine 100 MG (SEROquel) TAB IMMEDIATE RELEASE PO PRN (12:30)
[2022-05-10] MEDS ORDERED: MILK OF MAGNESIA 400 MG/5 ML 30 ML UDC PO PRN (12:30)
[2022-05-10] MEDS ORDERED: diphenhydrAMINE 50 MG/ML INJ (BENADRYL) IVP PRN (12:30)
[2022-05-10] MEDS ORDERED: polyethylene glycoL POWDER 17 GM (MIRALAX) PACK PO PRN (12:30)
--- NOTE | 2022-05-10 12:35 | ST Cognitive Linguistic Eval ---
Speech Evaluation-General Medical Diagnosis L Femur Fracture Onset Date: May 08, 2022 Therapy Diagnosis Therapy Diagnosis: Cognitive Impairment Precautions Precautions: Fall Precautions/Isolations: Fall Prevention, Standard Precautions Referral Referring Physician: Dr. Unger Reason for Referral: Evaluation/Treatment Medical History Pertinent Medical History: HTN Reviewed History: Yes Social History Current Living Status: Other Family Speech PLF-Current Status Prior Level of Function The patient presented with bilateral hearing aids, however, continued to display poor hearing acuity throughout the evaluation regardless of elevation of vocal intensity. The patient stated, "My short-term memory is getting shorter." The patient stated the memory impairment was noticed, "Years ago, maybe two or so." The patient stated he completes "a little bit of cooking," and completes his medication (pill) management. The patient stated he completes "most of his bills." At this time, the patient is living with his son in [place], [place]. Subjective The patient was seated upright in his recliner, awake, upon entrance to his room by the clinician. With significantly elevated volume levels, the patient was agreeable to participation in the cognitive linguistic assessment. The patient continued to return to sleep throughout the evaluation and required consistent verbal prompting for appropriate alertness levels throughout the game. Language Eval: Auditory Comprehends Simple Yes/No Ques: Functional Indent/Objects Multiple Tellez: Functional Follows 1-Step Commands: Functional Follows General Conversations: Mild (With extremely elevated volume levels and repetition.) Objective Cognitive Domain Attention: Moderate (Due to reduced alertness level and hearing ability.) Memory: Moderate Problem Solving: Mild Visuospatial Skills: WNL Composite Severity Rating: Mild (Mild to moderate.) Clock Drawing Severity Rating: Mild (The patient fell asleep following clock numbering.) Objective Formal/Standardized Tests [facility] Mental Status (UMS) Results The patient displayed a result of +14/30 on the SLUMS correlating to a score of "dementia." The patient's results appeared significantly impacted by his reduced hearing status and his ability to remain alert and awake throughout the assessment. Oral Motor/Speech Production The patient does not display dysarthria or apraxia of speech. The patient is 100% intelligible in known and unknown contexts. Impression The patient displayed a mild to moderate cognitive linguistic impairment in the areas of attention, problem solving, and memory. The patient reports to the clinician that he is currently at baseline and his memory function has been impaired "for two years or so." The patient's abilities were greatly impacted by his reduced hearing and his decreased alertness. The clinician will re-attempt the evaluation on the subsequent treatment date to assess the patient's stimulability and alertness levels. Additionally, the clinician will initiate AAC to aid additional clinicians in therapy and communication. Once AAC has been in place, ST may discharge the patient due to baseline function. Speech Short Term Goals Short Term Goals Short Term Goals 1. The patient will demonstrate use of AAC (written, white board) with 80% accuracy with mild clinician verbal cueing. 2. The patient will display 80% accuracy with memory exercises with mild clinician verbal and visual cueing. Speech Antique Clocks Repairer Goals Mcfp Goals 1. The patient will display improved cognitive linguistic skills for safe discharge to the least restrictive environment. Time Frame: One Week. Speech-Plan Treatment Plan Speech Therapy Treatment Plan: Continue Plan of Care Treatment Duration: May 17, 2022 Frequency: Modified Program (IRF) (Four to five times per week.) Estimated Hrs Per Day: .5 hour per day Rehab Potential: Guarded Barriers to Learning: Hearing Impairment Pt/Family Agrees to Plan: Yes Safety Risks/Education Teaching Recipient: Patient Teaching Methods: Discussion Response to Teaching: Reinforcement Needed Education Topics Provided: Results, Recommendations, Plan of Care Time Speech Therapy Time In: 11:30 Speech Therapy Time Out: 12:00 DATE: May 10, 2022 Total Billed Time: 30 Billed Treatment Time 1, BRITTANY MCCOLLUM [facility] May 10, 2022 12:35
[2022-05-10] MEDS ORDERED: ACAMPROSATE CALCIUM 333 MG PO SCH (13:00)
[2022-05-10] MEDS ORDERED: RT-ALBUTEROL SULF 2.5 MG/3 ML PRE-MIX VIAL INH PRN (13:30)
[2022-05-10] MEDS ORDERED: RT-IPRATROPIUM (ATROVENT) 0.5MG/2.5ML AMP IH PRN (13:30)
[2022-05-10] MEDS ORDERED: LEVO50TA6 PO (14:20)
[2022-05-10] MEDS ORDERED: QUET100T33 PO (14:28)
--- NOTE | 2022-05-10 14:50 | Occupational Ther Daily Note ---
OT Current Status-Daily Note Subjective Pt in bed, eyes closed upon OT arrival. Pt opened eyes to verbal/tactile cues, but had difficulty keeping eyes open throughout tx. Pt didn't respond to all therapist's questions/instructions, unsure if this was due to pt being [place], or if it was due to confusion. Mental Status/Objective Patient Orientation: Person, Confused ADL-Treatment Therapy Code Descriptions/Definitions Functional [place] Measure: 0=Not Assessed/NA 4=Minimal Assistance 1=Total Assistance 5=Supervision or Setup 2=Maximal Assistance 6=Modified [place] 3=Moderate Assistance 7=Complete IndependenceSCALE: Activities may be completed with or without assistive devices. 5-Fxlvciwcfg-rynkrqw completes the activity by him/herself with no assistance from a helper. 5-Set-up or Clean-up Assistance-helper sets up or cleans up; patient completes activity. [place] assists only prior to or following the activity. 4-Supervision or Touching Assistance-helper provides verbal cues and/or touching/steadying and/or contact guard assistance as patient completes activity. Assistance may be provided throughout the activity or intermittently. 3-Partial/Moderate Assistance-helper does LESS THAN HALF the effort. [place] lifts, holds or supports trunk or limbs, but provides less than half the effort. 2-Substantial/Maximal Assistance-helper does MORE THAN HALF the effort. [place] lifts or holds trunk or limbs and provides more than half the effort. 5-Twwmdpkqc-awjqdv does ALL the effort. Patient does none of the effort to complete the activity. Or, the assistance of 2 or more helpers is required for the patient to complete the activity. If activity was not attempted, code reason: 7-Patient Refused. 9-Not Applicable-not attempted and the patient did not perform the activity before the current illness, exacerbation or injury. 10-Not Attempted due to Environmental Limitations-(lack of equipment, weather restraints, etc.). 88-Not Attempted due to Medical Conditions or Safety Concerns. Other Treatment Pt in bed, agreeable to OT Tx with some encouragement. Pt states he has already done therapy this afternoon, OT educated pt on ARU expectations/process. OT performed PROM LUE shoulder flexion x5 reps, PROM ~100 degrees. OT tx focused on increasing BUE Strength and activity tolerance. Pt completed x5 LUE AROM shoulder flexion (~10-20 degrees) requiring verbal and tactile cues, as pt completed exercise, degree of movement decreased. Pt completed the following exercises using 3 lb wrist weight: x15 BUE bicep curls, x10 RUE shoulder flexion. Pt's technique decreased with increased reps requiring verbal and tactile cues. Pt required frequent rest breaks between exercises, often keeping his eyes closed. Post tx, pt in bed, call light in reach and all needs met, bed alarm activated (RN aware). Abduction wedge placed between LEs. OT Short Term Goals Short Term Goals Time Frame: May 28, 2022 Shower/bathe self: 3 Lower body dressin Putting on/taking off footwear: 3 OT Kindergarten Instructional Assistant Goals Kindergarten Instructional Assistant Goals Time Frame: Jun 04, 2022 Acute change in mental status: 0 Inattention: 0 Disorganized thinkin Altered level of consciousness: 0 Eating (QC): 6 Oral Hygiene (QC): 6 Toileting Hygiene (QC): 6 Shower/Bathe Self (QC): 4 Upper Body Dressing (QC): 6 Lower Body Dressing (QC): 4 On/Off Footwear (QC): 4 Additional Goals: 1-Demonstrate ADL Tasks, 2-Verbalize Understanding, 3- ImproveStrength/Cain 1=Demonstrate adherence to instructed precautions during ADL tasks. 2=Patient will verbalize/demonstrate understanding of assistive devices/modifications for ADL. 3=Patient will improve strength/tolerance for activity to enable patient to perform ADL's. OT Education/Plan Problem List/Assessment Assessment: Decreased Activ Tolerance, Decreased Safety Aware, Decreased UE Strength, Impaired Funct Balance, Impaired I ADL's, Impaired Self-Care Skills Discharge Recommendations Plan/Recommendations: Continue POC Treatment Plan/Plan of Care Patient would benefit from OT for education, treatment and training to promote independence in ADL's, mobility, safety and/or upper extremity function for ADL's. Plan of Care: ADL Retraining, Functional Mobility, Group Exercise/Act as Ind, UE Funct Exercise/Act Treatment Duration: Jun 04, 2022 Frequency: At least 5 of 7 days/Wk (IRF) Estimated Hrs Per Day: 1.5 hours per day Agreement: Yes Rehab Potential: Guarded Time Start Time: 14:00 Stop Time: 14:35 DATE: May 10, 2022 Total Time Billed (hr/min): 35 Billed Treatment Time 1, EX 2 BRISEIDA TREVINO OT May 10, 2022 14:50
[2022-05-10] MEDS: ENOXAPARIN 40 MG/0.4 ML (LOVENOX) SYR SC SCH (14:58)
--- NOTE | 2022-05-10 15:07 | Physical Therapy Daily Note ---
PT Daily Note-Current Subjective Pt found sitting in recliner upon entry. Reports that he does not have any pain while his LLE is still. Pt replied "no" when asked to perform sit<->stand trf but then asked to be transferred to the bed. Pain Section J - Health Conditions 1. Rarely or not at all 2. Occasionally 3. Frequently 4. Almost constantly 8. Unable to answer Pain Effect on Sleep: 2 Pain Interference with Therapy: 3 Pain Interference w/Day-to-Day: 3 Mental Status Patient Orientation: Normal For Age Attachments: Oxygen, Garcia Catheter Transfers SCALE: Activities may be completed with or without assistive devices. 9-Hdqmaavikl-xxjqgbp completes the activity by him/herself with no assistance from a helper. 5-Set-up or Clean-up Assistance-helper sets up or cleans up; patient completes activity. [place] assists only prior to or following the activity. 4-Supervision or Touching Assistance-helper provides verbal cues and/or t ouching/steadying and/or contact guard assistance as patient completes activity. Assistance may be provided throughout the activity or intermittently. 3-Partial/Moderate Assistance-helper does LESS THAN HALF the effort. [place] lifts, holds or supports trunk or limbs, but provides less than half the effort. 2-Substantial/Maximal Assistance-helper does MORE THAN HALF the effort. [place] lifts or holds trunk or limbs and provides more than half the effort. 6-Bijwbzwkv-nxbtqy does ALL the effort. Patient does none of the effort to complete the activity. Or, the assistance of 2 or more helpers is required for the patient to complete the activity. If activity was not attempted, code reason: 7-Patient Refused. 9-Not Applicable-not attempted and the patient did not perform the activity before the current illness, exacerbation or injury. 10-Not Attempted due to Environmental Limitations-(lack of equipment, weather restraints, etc.). 88-Not Attempted due to Medical Conditions or Safety Concerns. Sit to Lying (QC): 3 Sit to Stand (QC): 2 Chair/Eou-si-Kqzpd Xfer(QC): 2 Pt MAX assist /c sit<->stand trf and chair->bed trf. MOD assist /c sit->lying trf. Weight Bearing Right Lower Extremity: Right Full Weight Bearing Left Lower Extremity: Left Weight Bearing/Tolerated Gait Training Does the Patient Walk?: No and Walking Goal IS indicated Gait Assistive Device: FWW Exercises Supine Ex: Heel Slides, Straight leg raise, Hip abd/add Supine Reps: 10 Seated Therapy Exercises: Ankle pumps, Long arc quads Seated Reps: 10 Pt displays very little tolerance to exercise d/t pain. Assessment Current Status: Poor Progress Pt tolerated Tx very poorly. Pt able to stand for 2min total after completing sit<->stand trf. Pt has limited ROM, strength, and endurance. Displays signs of pain /c all L hip movements. Pt slow to complete chair->bed trf. Demonstrates difficulty to put weight through affected LE while standing. Displays retropulsion /c standing and completing trfs. Continue to progress pt as tolerated per POC to increase strength, endurance, functional ability, and decrease pain. PT Short Term Goals Short Term Goals Time Frame: May 22, 2022 Roll Left & Right: 4 Sit to lyin Lying to sitting on side of be: 4 Sit to stand: 4 Chair/wva-dl-ufjcc transfer: 4 Toilet transfer: 4 Car transfer: 4 Walk 10 feet: 3 Walk 50 feet with two turns: 3 Walk 150 feet: 3 PT Assembler Cornc[employer]ipes Goals Skilled Nursing Goals PT Skilled Nursing Goals Time Frame: Jun 05, 2022 Roll Left & Right (QC): 5 Sit to Lying (QC): 5 Lying-Sitting on Side/Bed(QC): 5 Sit to Stand (QC): 5 Chair/Svq-sh-Zpbsn Xfer(QC): 5 Toilet Transfer (QC): 5 Car Transfer (QC): 5 Does the Patient Walk: Yes Walk 10 feet (QC): 4 Walk 50ft with 2 Turns (QC): 4 Walk 150 ft (QC): 4 Walking 10ft on Uneven Surface: 4 1 Step (curb) (QC): 3 4 Steps (QC): 3 12 Steps (QC): 3 Picking up an Object (QC): 4 Does the Pt use WC or Scooter?: Yes Wheel 50 feet with 2 turns (QC: 6 Type: Manual Wheel 150 feet: 6 Type: Manual PT Plan Treatment/Plan Treatment Plan: Continue Plan of Care Treatment Plan: Bed Mobility, Education, Functional Activity [place], Functional Strength, Group Therapy, Gait, Safety, Therapeutic Exercise, Transfers Treatment Duration: Jun 12, 2022 Frequency: At least 5 of 7 days/Wk (IRF) Estimated Hrs Per Day: 1.5 hours per day Patient and/or Family Agrees t: Yes Time Time In: 1300 Time Out: 1355 DATE: May 10, 2022 Total Billed Treatment Time: 55 Total Billed Treatment 1 visit EX 1x FA 3x DRE GLASS PTA May 10, 2022 15:07
[2022-05-10] MEDS: SERTRALINE 100 MG (ZOLOFT) TAB PO SCH (16:32)
[2022-05-10 19:59] VITALS: BP 124/74
[2022-05-10] MEDS ORDERED: QUEtiapine 100 MG (SEROquel) TAB IMMEDIATE RELEASE PO SCH (21:00)
[2022-05-10] MEDS ORDERED: SENNA W/DOCUSATE (SENOKOT S) TABLET PO SCH (21:00)
[2022-05-10] MEDS ORDERED: DOCUSATE SODIUM 100 MG (COLACE) CAP PO SCH (21:00)
[2022-05-10] MEDS: DOCUSATE SODIUM 100 MG (COLACE) CAP PO SCH (21:24)
[2022-05-10] MEDS: SENNOSIDES 8.6 MG (SENOKOT) TAB PO SCH (21:24)
[2022-05-10] MEDS: polyethylene glycoL POWDER 17 GM (MIRALAX) PACK PO SCH (21:24)
[2022-05-10] MEDS: COLESTIPOL 1 GM (COLESTID) TAB PO SCH (21:59)
[2022-05-11 05:34] LABS: BASOPHILS % (AUTO) 0 % (0-10)
[2022-05-11 05:37] LABS: EOSINOPHILS # (AUTO) 0.1 10^3/uL (0.0-0.3); EOSINOPHILS % (AUTO) 2 % (0-10); HEMATOCRIT 33 % (40-54); HEMOGLOBIN 10.6 g/dL (13.3-17.7); LYMPHOCYTES # (AUTO) 0.8 10^3/uL (1.0-4.0); LYMPHOCYTES % (AUTO) 19 % (12-44); MEAN CORPUSCULAR HEMOGLOBIN 30 pg (25-34); MEAN CORPUSCULAR HGB CONC 32 g/dL (32-36); MEAN CORPUSCULAR VOLUME 93 fL (80-99); MEAN PLATELET VOLUME 12.1 fL (9.0-12.2); MONOCYTES # (AUTO) 0.4 10^3/uL (0.0-1.0); MONOCYTES % (AUTO) 10 % (0-12); NEUTROPHILS % (AUTO) 68 % (42-75); PLATELET COUNT 86 10^3/uL (130-400); WHITE BLOOD COUNT 4.3 10^3/uL (4.3-11.0)
[2022-05-11] MEDS: KCL 10 MEQ TAB (MICRO K) PO SCH (05:43)
[2022-05-11] MEDS: LEVOTHYROXINE 50 MCG (LEVOTHROID) TAB PO SCH (05:43)
[2022-05-11 06:02] LABS: ALBUMIN 2.8 GM/DL (3.2-4.5); BILIRUBIN,TOTAL 0.7 MG/DL (0.1-1.0); CALCIUM 8.7 MG/DL (8.5-10.1); CREATININE SERUM 0.99 MG/DL (0.60-1.30); POTASSIUM 3.8 MMOL/L (3.6-5.0); TOTAL PROTEIN 5.3 GM/DL (6.4-8.2)
[2022-05-11] MEDS ORDERED: KCL 10 MEQ TAB (MICRO K) PO SCH (07:00)
--- NOTE | 2022-05-11 07:02 | PM&R Progress Note ---
Subjective HPI/CC On Admission Date Seen by Provider: May 11, 2022 Time Seen by Provider: 08:30 Subjective/Events-last exam 05/11/2022: Seems to be oversedated so will hold some meds No pain reported Labs stable Voiding well with incontinence No falls Review of Systems General: Fatigue, Malaise Musculoskeletal: leg pain Neurological: Confusion Objective Exam Vital Signs Vital Signs Date Time Temp Pulse Resp B/P (MAP) Pulse Ox O2 Delivery O2 Flow Rate FiO2 05/11/22 20:59 Nasal Cannula 3.00 05/11/22 19:53 72 20 166/90 (115) 92 05/11/22 07:57 36.2 Capillary Refill : General Appearance: No Apparent Distress, WD/WN, Chronically ill, Thin HEENT: PERRL/EOMI, Normal ENT Inspection, Pharynx Normal Neck: Full Range of Motion, Normal Inspection, Non Tender, Supple, Carotid Bruit Respiratory: Chest Non Tender, Lungs Clear, Normal Breath Sounds, No Accessory Muscle Use, No Respiratory Distress Cardiovascular: Regular Rate, Rhythm, No Edema, No Gallop, No JVD, No Murmur, Normal Peripheral Pulses Gastrointestinal: Normal Bowel Sounds, No Organomegaly, No Pulsatile Mass, Non Tender, Soft Back: Normal Inspection, No CVA Tenderness, No Vertebral Tenderness Extremity: Normal Capillary Refill, Normal Inspection, Normal Range of Motion (except left leg), Non Tender, No Calf Tenderness, No Pedal Edema Neurologic/Psychiatric: Alert, Oriented x3, No Motor/Sensory Deficits, Normal Mood/Affect, Motor Weakness (left leg and generalized) Skin: Normal Color, Warm/Dry Lymphatic: No Adenopathy Results/Procedures Lab Laboratory Tests 05/11/22 05:15 Patient resulted labs reviewed. FIM Transfers Therapy Code Descriptions/Definitions Functional [place] Measure: 0=Not Assessed/NA 4=Minimal Assistance 1=Total Assistance 5=Supervision or Setup 2=Maximal Assistance 6=Modified [place] 3=Moderate Assistance 7=Complete IndependenceSCALE: Activities may be completed with or without assistive devices. 5-Bxzdkofahe-hwkfpij completes the activity by him/herself with no assistance from a helper. 5-Set-up or Clean-up Assistance-helper sets up or cleans up; patient completes activity. [place] assists only prior to or following the activity. 4-Supervision or Touching Assistance-helper provides verbal cues and/or touching/steadying and/or contact guard assistance as patient completes activity. Assistance may be provided throughout the activity or intermittently. 3-Partial/Moderate Assistance-helper does LESS THAN HALF the effort. [place] lifts, holds or supports trunk or limbs, but provides less than half the effort. 2-Substantial/Maximal Assistance-helper does MORE THAN HALF the effort. [place] lifts or holds trunk or limbs and provides more than half the effort. 1-Yhpyurclv-nqpvpz does ALL the effort. Patient does none of the effort to complete the activity. Or, the assistance of 2 or more helpers is required for the patient to complete the activity. If activity was not attempted, code reason: 7-Patient Refused. 9-Not Applicable-not attempted and the patient did not perform the activity before the current illness, exacerbation or injury. 10-Not Attempted due to Environmental Limitations-(lack of equipment, weather restraints, etc.). 88-Not Attempted due to Medical Conditions or Safety Concerns. Roll Left to Right (QC): 2 Sit to Lying (QC): 3 Sit to Stand (QC): 2 Chair/Ibg-qb-Efxnb Xfer(QC): 2 Car Transfer (QC): 2 Gait Training Does the Patient Walk?: No and Walking Goal IS indicated Walk 10 feet (QC): 88 Walk 50 ft with 2 Turns(QC): 88 Walk 150 ft (QC): 88 Walking 10ft/uneven surface-QC: 88 Gait Assistive Device: FWW Wheelchair Training Does the Pt Use a Wheelchair?: Yes Distance: 100 Wheel 50 ft with 2 turns (QC): 4 Wheel 150 ft (QC): 88 Type of Wheelchair: Manual Stair Training #of Steps: 0 1 Step (curb) (QC): 88 4 Steps (QC): 88 12 Steps (QC): 88 Balance Picking up an Object (QC): 88 ADL-Treatment Eating (QC): 5 Oral Hygiene (QC): 4 (SBA seated) Shower/Bathe Self (QC): 1 (2 person assist in stand to wash buttocks.) Upper Body Dressing (QC): 3 (Isamar managing shirt down trunk) Lower Body Dressing (QC): 1 (2 person assist in stand for pant hike. 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 Velasquez gastroenterology Depression Hypothyroidism Cancer status post cryotherapy at Acute kidney injury increased IV fluids on 05/09/2022 and holding losartan Oversedation 05/11/22 Plan: Dr. Silver consult appreciated Pain control Supportive care Increase IV fluids Increase p.o. fluids Supportive care Lovenox for DVT prophylaxis if okay with Dr. Silver 05/11/2022: Hold meds for oversedation Monitor closely (1) Closed left hip fracture Status: Acute (2) Chronic diarrhea Status: Acute (3) HTN (hypertension) Status: Chronic (4) Liver cancer Status: Chronic ROBBIE HUYNH DO May 11, 2022 07:02
--- NOTE | 2022-05-11 07:03 | Individualized Plan of Care ---
Individualized Plan of Care Rehab Nursing IPOC Order Admission Date May 10, 2022 at 10:28 Current Orders Orders Admission Order(Inpt,Obs,Sdc) (05/10/22 10:21) Vital Signs: Per Unit Policy ( 08,16,00 (05/10/22 10:21) Jakob Myers , (05/10/22 10:21) Sequential Compression Device (05/10/22 10:21) Media Intern-Inpt Rehab Con (05/10/22 10:21) Rehab Nursing Orders-Ipoc (05/10/22 10:21) Physical Therapy Rehab Orders (05/10/22 10:21) Occupational Therapy Rehab Ord (05/10/22 10:21) Speech Therapy Rehab Orders (05/10/22 10:21) Cbc With Automated Diff (05/11/22 06:00) Comprehensive Metabolic Panel (05/11/22 06:00) Precautions (Aru) (05/10/22 10:21) Weekly Weight WEEK (05/10/22 10:21) Rehab-Intensity Of Therapy (05/10/22 10:21) Initiate Admission Nursing Pro .admission (05/10/22 10:21) Alprazolam Tablet (Xanax Tablet) (05/10/22 10:30) Calcium Carbonate Chew Tablet (Antacid C (05/10/22 10:30) Diphenhydramine Tablet (Benadryl Tablet) (05/10/22 10:30) Docusate Sodium Capsule (Colace Capsule) (05/10/22 21:00) Docusate Sodium Capsule (Colace Capsule) (05/10/22 10:30) Bisacodyl Suppository (Dulcolax Supposit (05/10/22 10:30) Lactulose Oral Solution (Enulose Oral So (05/10/22 10:30) Na Phos/Na Biphos Enema (Fleet Enema Chucky (05/10/22 10:30) Guaifenesin/Codeine Syrup (Robitussin Ac (05/10/22 10:30) Loperamide Tablet (Imodium Tablet) (05/10/22 10:30) Melatonin Tablet (Melatonin Tablet) (05/10/22 10:30) Polyethylene Glycol Powder Pkt (Miralax (05/10/22 21:00) Ondansetron Oral Dissolve Tab (Zofran (05/10/22 10:30) Senna S Tablet (Senokot S Tablet) (05/10/22 21:00) Acetaminophen Tablet/Caplet (Tylenol T (05/10/22 10:30) Initiate Admission Nursing Pro .admission (05/10/22 10:21) Admission Arrival Bed Request (05/10/22 11:00) Flu High Dose Quad 4923-7405 (Fluzone Hi (05/10/22 12:15) Code/Resuscitation (05/10/22 12:23) Ice: Apply To Affected Area (05/10/22 12:23) Incentive Spirometry (Nursing) Q2H (05/10/22 12:23) Sequential Compression Device (05/10/22 12:23) Jakob Hose (05/10/22 12:23) (Nf) Acamprosate Calcium (05/10/22 13:00) Alprazolam Tablet (Xanax Tablet) (05/10/22 12:30) Albuterol/Ipra Inhalation Soln (Duoneb I (05/10/22 12:30) Diphenhydramine Injection (Benadryl Inje (05/10/22 12:30) Diphenhydramine Tablet (Benadryl Tablet) (05/10/22 12:30) Cholecalciferol Capsule/Tablet (Vitamin (05/11/22 09:00) Docusate Sodium Capsule (Colace Capsule) (05/10/22 21:00) Colestipol Tablet (Colestid Tablet) (05/10/22 21:00) Diphenoxylate/Atropine Tablet (Lomotil T (05/11/22 09:00) Bisacodyl Suppository (Dulcolax Supposit (05/10/22 12:30) Enoxaparin Injection (Lovenox Injection) (05/10/22 14:00) Lactulose Oral Solution (Enulose Oral So (05/10/22 12:30) Hydromorphone Injection (Dilaudid Inject (05/10/22 12:30) Levothyroxine Tablet (Synthroid Tablet) (05/11/22 06:30) Losartan Tablet (Cozaar Tablet) (05/11/22 09:00) Melatonin Tablet (Melatonin Tablet) (05/10/22 12:30) Magnesium Hydroxide Oral Susp (Mom Oral (05/10/22 12:30) Polyethylene Glycol Powder Pkt (Miralax (05/10/22 12:30) Antacid Suspension (Mylanta Suspension (05/10/22 12:30) Pantoprazole Tablet (Protonix Tablet) (05/11/22 09:00) Potassium Chloride (Tablet) (Klor Con Ta (05/11/22 07:00) Quetiapine Immediate Release (Seroquel I (05/10/22 12:30) Sennosides Tablet (Senokot Tablet) (05/10/22 21:00) Sertraline Tablet (Zoloft Tablet) (05/10/22 12:30) Calcium Carbonate Chew Tablet (Antacid C (05/10/22 12:30) Acetaminophen Tablet/Caplet (Tylenol T (05/10/22 12:30) Ondansetron Oral Dissolve Tab (Zofran (05/10/22 12:30) Ondansetron Injection (Zofran Injectio (05/10/22 12:30) Amlodipine Tablet (Norvasc Tablet) (05/11/22 09:00) Oxycodone Immediate Rel Tablet (Oxyir Ta (05/10/22 12:30) Consult Orthopedic Surgery (05/10/22 12:23) Mat Initiate Protocol (05/10/22 12:23) Svn Small Volume Nebulizer (05/10/22 12:23) Patient Visit (05/10/22 ) Speech Sound Lang Comp (05/10/22 ) Treat. Speech/Lang/Voice (05/10/22 ) Albuterol Pre-Mix Nebs (Rt) (Proventil (05/10/22 13:30) Ipratropium 0.02% Neb Solution (Atrovent (05/10/22 13:30) Patient Visit (05/10/22 ) Pt Eval Moderate Complexity (05/10/22 ) Functional Activities, Ea 15 (05/10/22 ) Patient Visit (05/10/22 ) Exercise Therap, Ea 15 Min (05/10/22 ) Functional Activities, Ea 15 (05/10/22 ) Catheter(Urinary) Discontinue (05/10/22 15:37) Sertraline Tablet (Zoloft Tablet) (05/10/22 16:00) Potassium Chloride (Tablet) (Klor Con Ta (05/11/22 07:00) Quetiapine Immediate Release (Seroquel I (05/10/22 21:00) General/Regular (05/10/22 Lunch) Patient Visit (05/11/22 ) Treat. Speech/Lang/Voice (05/11/22 ) Quetiapine Immediate Release (Seroquel I (05/11/22 21:00) Patient Visit (05/11/22 ) Functional Activities, Ea 15 (05/11/22 ) Rehab Nursing Orders: Ongoing Assess. of Cognitive Status, Ongoing Assess. of Function Status, Bladder Management, Bladder Scan, Bladder Training, Bowel Management, Bowel Training, Disease Management & Educaiton, DVT Prophylaxis, Fall Prevention, Fluid/Electrolyte/Nutrition Mgmt, Infection Prevention, Medication Management & Education, Management of Risks & Complications, Management of Skin Intergrity, Nutrition Management, Pain Management, Patient/Family Support, Safety Management Intensity of Therapy to be met Patient to be seen: Min.3h per day/5 of 7d PT IPOC Problem List: Activity Tolerance, Functional Strength, Safety, Balance, Gait, Transfer, Bed Mobility, ROM Treatment Plan: Continue Plan of Care Bed Mobility, Education, Functional Activity Cain, Functional Strength, Group Therapy, Gait, Safety, Therapeutic Exercise, Transfers Treatment Duration: Jun 12, 2022 Frequency: At least 5 of 7 days/Wk (IRF) Estimated Hrs Per Day: 1.5 hours per day OT IPOC Problems: Decreased Activ Tolerance, Decreased Safety Aware, Decreased UE Strength, Impaired Funct Balance, Impaired I ADL's, Impaired Self-Care Skills OT Treatment, Training and Edu: Yes Plan of Care: ADL Retraining, Functional Mobility, Group Exercise/Act as Ind, UE Funct Exercise/Act Treatment Duration: Jun 04, 2022 Frequency: At least 5 of 7 days/Wk (IRF) Estimated Hrs Per Day: 1.[address] IPOC Speech Therapy Treatment Plan: Continue Plan of Care Treatment Duration: May 17, 2022 Frequency: Modified Program (IRF) (Four to five times per week.) Estimated Hrs Per Day: .5 hour per day Media Intern/Case Mgmt Media Intern/Case Managemen: Discharge Planning Dietitian/[employer] Machine Tender Dietitian/[employer] Machine Tender to monitor nutritional status and make changes and/or recommendations as needed and work with speech pathology on dietary upgrades as the occur. Physician IPOC Medical Issues being managed closely and that require the 24 hour availability of a physician: Recent hip fracture now with oversedation from meds will require close monitori ng of vital signs and other monitoring in order to prevent decompensation Medical Issues: Bowel/Bladder Function, DVT Prophylaxis, Falls Precautions, Fluid/Electrolyte/Nutrition Balance, Infection Protection, Pain Management, Weight Bearing Precautions, Wound Care Brief Synthesis of Preadmission Screen, Post-Admission Evaluation, and Therapy Evaluations: PT OT will focus on regaining function in order to return back to independence with use of AD and help increasing stamina Medical Prognosis: Good Anticipated Length of Stay: 10 days ROBBIE HUYNH DO May 11, 2022 07:03
[2022-05-11 07:57] VITALS: BP 121/71
[2022-05-11] MEDS: DOCUSATE SODIUM 100 MG (COLACE) CAP PO SCH ×3 (08:16→20:03)
[2022-05-11] MEDS: SENNOSIDES 8.6 MG (SENOKOT) TAB PO SCH ×3 (08:16→20:03)
[2022-05-11] MEDS: VITAMIN D3 25 MCG (1,000 UNITS) TABLET PO SCH ×2 (08:16→13:57)
[2022-05-11] MEDS: polyethylene glycoL POWDER 17 GM (MIRALAX) PACK PO SCH ×3 (08:16→20:03)
[2022-05-11] MEDS: amLODIPine 10 MG (NORVASC) TAB PO SCH ×2 (08:16→13:57)
[2022-05-11] MEDS: COLESTIPOL 1 GM (COLESTID) TAB PO SCH ×2 (08:17→19:39)
[2022-05-11] MEDS: DIPHENOXYLATE/ATROPINE 2.5MG/0.025MG (LOMOTIL) TAB PO SCH (08:17)
[2022-05-11] MEDS: LOSARTAN 100 MG (COZAAR) TABLET PO SCH ×2 (08:17→13:56)
[2022-05-11] MEDS: PANTOPRAZOLE 20 MG TABLET (PROTONIX) PO SCH ×2 (08:18→13:57)
[2022-05-11] MEDS: SERTRALINE 100 MG (ZOLOFT) TAB PO SCH ×2 (08:18→13:58)
--- NOTE | 2022-05-11 08:58 | Physical Therapy Daily Note ---
PT Daily Note-Current Subjective Patient in bed pre tx, has unrated pain in left hip. Patient is very drowsy, isn't talking right now. Will be co-treating with OT for part of tx due to poor patient mobility, strength, endurance, severe debility, coordinate UE and LE with activity, safety and reduce risk of falls. Pain Section J - Health Conditions 1. Rarely or not at all 2. Occasionally 3. Frequently 4. Almost constantly 8. Unable to answer Pain Effect on Sleep: 2 Pain Interference with Therapy: 3 Pain Interference w/Day-to-Day: 3 Appearance Patient in WC at bedside post tx, with nurse call, phone, tray, set up with breakfast. Mental Status Patient Orientation: Person, Unable to Assess, [place] Attachments: Oxygen Transfers SCALE: Activities may be completed with or without assistive devices. 3-Vqavxgpxph-xjxjfet completes the activity by him/herself with no assistance from a helper. 5-Set-up or Clean-up Assistance-helper sets up or cleans up; patient completes activity. [place] assists only prior to or following the activity. 4-Supervision or Touching Assistance-helper provides verbal cues and/or touching/steadying and/or contact guard assistance as patient completes activity. Assistance may be provided throughout the activity or intermittently. 3-Partial/Moderate Assistance-helper does LESS THAN HALF the effort. [place] lifts, holds or supports trunk or limbs, but provides less than half the effort. 2-Substantial/Maximal Assistance-helper does MORE THAN HALF the effort. [place] lifts or holds trunk or limbs and provides more than half the effort. 2-Hbrzervxz-tzfnrx does ALL the effort. Patient does none of the effort to complete the activity. Or, the assistance of 2 or more helpers is required for the patient to complete the activity. If activity was not attempted, code reason: 7-Patient Refused. 9-Not Applicable-not attempted and the patient did not perform the activity before the current illness, exacerbation or injury. 10-Not Attempted due to Environmental Limitations-(lack of equipment, weather restraints, etc.). 88-Not Attempted due to Medical Conditions or Safety Concerns. Roll Left & Right (QC): 1 Lying to Sitting/Side of Bed(Q: 1 Sit to Stand (QC): 1 Chair/Szh-lk-Czjez Xfer(QC): 1 Dependent for supine to sit, partially put on pants and brief in sitting position, stands with dependence and nurse aide helps pull pants up and dependent stand pivot transfer to WC. Weight Bearing Right Lower Extremity: Right Full Weight Bearing Left Lower Extremity: Left Weight Bearing/Tolerated Wheelchair Training Wheel 50 ft with 2 turns (QC): 1 patient will not attempt to try to propel WC Exercises Patient stood in the parallel bars for about 10 min, he couldn't take an steps. The only words he said during tx was when asked if he was doing ok he said "I can stand for a bit longer". When time to sit it took 2 people to position him and help him sit, patient very stiff. Patient tried but was unable to take any steps in the parallel bars. Treatments PT performed bed mobility and transfers, dressing, standing, OT performed UE positioning and safety during activity, assist with standing. Assessment Current Status: Poor Progress Patient seemed to have a lot of pain but was unable to communicate. Dependent for most mobility. PT Short Term Goals Short Term Goals Time Frame: May 22, 2022 Roll Left & Right: 4 Sit to lyin Lying to sitting on side of be: 4 Sit to stand: 4 Chair/ifd-pg-uvcup transfer: 4 Toilet transfer: 4 Car transfer: 4 Walk 10 feet: 3 Walk 50 feet with two turns: 3 Walk 150 feet: 3 PT [employer] Ticket Checker Goals Mcfp Goals PT [employer]er Goals Time Frame: Jun 05, 2022 Roll Left & Right (QC): 5 Sit to Lying (QC): 5 Lying-Sitting on Side/Bed(QC): 5 Sit to Stand (QC): 5 Chair/Wco-qz-Fcwaf Xfer(QC): 5 Toilet Transfer (QC): 5 Car Transfer (QC): 5 Does the Patient Walk: Yes Walk 10 feet (QC): 4 Walk 50ft with 2 Turns (QC): 4 Walk 150 ft (QC): 4 Walking 10ft on Uneven Surface: 4 1 Step (curb) (QC): 3 4 Steps (QC): 3 12 Steps (QC): 3 Picking up an Object (QC): 4 Does the Pt use WC or Scooter?: Yes Wheel 50 feet with 2 turns (QC: 6 Type: Manual Wheel 150 feet: 6 Type: Manual PT Plan Problem List Problem List: Activity Tolerance, Functional Strength, Safety, Balance, Gait, Transfer, Bed Mobility, ROM Treatment/Plan Treatment Plan: Continue Plan of Care Treatment Plan: Bed Mobility, Education, Functional Activity Cain, Functional Strength, Group Therapy, Gait, Safety, Therapeutic Exercise, Transfers Treatment Duration: Jun 12, 2022 Frequency: At least 5 of 7 days/Wk (IRF) Estimated Hrs Per Day: 1.5 hours per day Patient and/or Family Agrees t: Yes Safety Risks/Education Patient Education: Transfer Techniques, Correct Positioning, Safety Issues Teaching Recipient: Patient Teaching Methods: Demonstration, Discussion Response to Teaching: Reinforcement Needed Time Time In: 799 Time Out: 899 DATE: May 11, 2022 Total Billed Treatment Time: 60 Total Billed Treatment 1 visit FA 60' co-treated with OT from [id number] JAE ADORNO PT May 11, 2022 08:58
--- NOTE | 2022-05-11 10:38 | Physical Therapy Daily Note ---
PT Daily Note-Current Subjective Patient in WC pre tx, agrees to PT, has unrated left hip pain. Will be co- treating with OT due to poor patient mobility, strength, endurance, severe debility, coordinate UE and LE during activity Pain Section J - Health Conditions 1. Rarely or not at all 2. Occasionally 3. Frequently 4. Almost constantly 8. Unable to answer Pain Effect on Sleep: 2 Pain Interference with Therapy: 3 Pain Interference w/Day-to-Day: 3 Appearance Patient in bed post tx, will continue with OT Transfers SCALE: Activities may be completed with or without assistive devices. 9-Wnuovjyfnm-bzrnzpq completes the activity by him/herself with no assistance from a helper. 5-Set-up or Clean-up Assistance-helper sets up or cleans up; patient completes activity. [place] assists only prior to or following the activity. 4-Supervision or Touching Assistance-helper provides verbal cues and/or touching/steadying and/or contact guard assistance as patient completes activity. Assistance may be provided throughout the activity or intermittently. 3-Partial/Moderate Assistance-helper does LESS THAN HALF the effort. [place] lifts, holds or supports trunk or limbs, but provides less than half the effort. 2-Substantial/Maximal Assistance-helper does MORE THAN HALF the effort. [place] lifts or holds trunk or limbs and provides more than half the effort. 9-Iznbsipol-gknmwp does ALL the effort. Patient does none of the effort to complete the activity. Or, the assistance of 2 or more helpers is required for the patient to complete the activity. If activity was not attempted, code reason: 7-Patient Refused. 9-Not Applicable-not attempted and the patient did not perform the activity before the current illness, exacerbation or injury. 10-Not Attempted due to Environmental Limitations-(lack of equipment, weather restraints, etc.). 88-Not Attempted due to Medical Conditions or Safety Concerns. Roll Left & Right (QC): 1 Sit to Lying (QC): 1 Sit to Stand (QC): 1 Chair/Fnj-xd-Wwzup Xfer(QC): 1 Patient was wheeled to restroom (max assist, patient was able to participate a little), brushed his hair at sink, transferred to bed and layed down. Weight Bearing Right Lower Extremity: Right Full Weight Bearing Left Lower Extremity: Left Weight Bearing/Tolerated Exercises Seated Therapy Exercises: Ankle pumps, Long arc quads Seated Reps: 10 (LLE) Treatments PT performed bed mobility and transfers, LE ROM, positioning during grooming, OT performed grooming, assist with transfers, UE positioning and safety during activity. Assessment Current Status: Poor Progress Patient has trouble communicating, very little participation PT Short Term Goals Short Term Goals Time Frame: May 22, 2022 Roll Left & Right: 4 Sit to lyin Lying to sitting on side of be: 4 Sit to stand: 4 Chair/kwi-qe-nlggd transfer: 4 Toilet transfer: 4 Car transfer: 4 Walk 10 feet: 3 Walk 50 feet with two turns: 3 Walk 150 feet: 3 PT Longterm Goals Longterm Goals PT Longterm Goals Time Frame: Jun 05, 2022 Roll Left & Right (QC): 5 Sit to Lying (QC): 5 Lying-Sitting on Side/Bed(QC): 5 Sit to Stand (QC): 5 Chair/Woa-uv-Ulcan Xfer(QC): 5 Toilet Transfer (QC): 5 Car Transfer (QC): 5 Does the Patient Walk: Yes Walk 10 feet (QC): 4 Walk 50ft with 2 Turns (QC): 4 Walk 150 ft (QC): 4 Walking 10ft on Uneven Surface: 4 1 Step (curb) (QC): 3 4 Steps (QC): 3 12 Steps (QC): 3 Picking up an Object (QC): 4 Does the Pt use WC or Scooter?: Yes Wheel 50 feet with 2 turns (QC: 6 Type: Manual Wheel 150 feet: 6 Type: Manual PT Plan Problem List Problem List: Activity Tolerance, Functional Strength, Safety, Balance, Gait, Transfer, Bed Mobility, ROM Treatment/Plan Treatment Plan: Continue Plan of Care Treatment Plan: Bed Mobility, Education, Functional Activity Cain, Functional Strength, Group Therapy, Gait, Safety, Therapeutic Exercise, Transfers Treatment Duration: Jun 12, 2022 Frequency: At least 5 of 7 days/Wk (IRF) Estimated Hrs Per Day: 1.5 hours per day Patient and/or Family Agrees t: Yes Safety Risks/Education Patient Education: Transfer Techniques, Correct Positioning, W/C Management, Safety Issues Teaching Recipient: Patient Teaching Methods: Demonstration, Discussion Response to Teaching: Reinforcement Needed Time Time In: 1000 Time Out: 1015 DATE: May 11, 2022 Total Billed Treatment Time: 15 Total Billed Treatment 1 visit FA JAE LOMELI PT May 11, 2022 10:38
--- NOTE | 2022-05-11 11:14 | Speech Therapy Daily Note ---
Speech Daily Progress Note Subjective Date Seen by Provider: May 11, 2022 Time Seen by Provider: 09:00 The patient was seated upright in his wheelchair, sleeping upon entrance to his room by the clinician. The patient minimally woke with maximum verbal prompting and volume. All lights were turned on in the room and the clinician continued to provide maximum verbal prompts for limited participation throughout the treatment session. Per RN, the patient's medications may be the cause of the patient's lethargy. Objective The clinician attempted verbal communication at maximum volume levels, written communication via white board, and gestures throughout the skilled treatment session. The white board was left with the patient to possibly aid with communication of other disciplines (RN, PT, OT, etc.). Regardless of maximum clinician cueing, the patient did not respond to simple yes and no questions or simple orientation questions via yes or no format or field of two. The patient does acknowledge he is able to hear the clinician, as he wakes to his name and nods his head when the clinician writes, "Are you able to hear me?" on the patient's white board. Poor participation ability noted on this date due to fatigue. The patient's breakfast tray was removed as his lethargy places him at a high risk for asp iration. The information was shared with the RN at the completion of the session. Assessment Assessment Current Status: Poor Progress Treatment Plan Continue Plan of Care Speech Short Term Goals Short Term Goals Short Term Goals 1. The patient will demonstrate use of AAC (written, white board) with 80% accuracy with mild clinician verbal cueing. 2. The patient will display 80% accuracy with memory exercises with mild clinician verbal and visual cueing. Speech Grooming Assistant Goals [facility] Goals 1. The patient will display improved cognitive linguistic skills for safe discharge to the least restrictive environment. Time Frame: One Week. Speech-Plan Treatment Plan Speech Therapy Treatment Plan: Continue Plan of Care Treatment Duration: May 17, 2022 Frequency: Modified Program (IRF) (Four to five times per week.) Estimated Hrs Per Day: .5 hour per day Rehab Potential: Guarded Safety Risks/Education Teaching Recipient: Patient Teaching Methods: Discussion Response to Teaching: Reinforcement Needed Education Topics Provided: Plan of Care, Orientation Strategies Time Speech Therapy Time In: 09:00 Speech Therapy Time Out: 09:30 DATE: May 11, 2022 Total Billed Time: 30 Billed Treatment Time 1, SPSNDCOMP, SAWYER DING May 11, 2022 11:14
--- NOTE | 2022-05-11 12:41 | Occupational Ther Daily Note ---
OT Current Status-Daily Note Subjective Pt fatigued, difficult for pt to keep eyes open. OT/PT co-treat (), skills of 2 clinicians required due to poor patient mobility, strength, endurance, severe debility, coordinate UE and LE with activity, safety and reduce risk of falls. PT focusing on ambulation and transfers, OT focusing on hand placement during mobility and functional tasks. Mental Status/Objective Patient Orientation: Person, Unable to Assess Attachments: IV, Oxygen (2L) ADL-Treatment Therapy Code Descriptions/Definitions Functional [place] Measure: 0=Not Assessed/NA 4=Minimal Assistance 1=Total Assistance 5=Supervision or Setup 2=Maximal Assistance 6=Modified [place] 3=Moderate Assistance 7=Complete IndependenceSCALE: Activities may be completed with or without assistive devices. 6-Nitdyibexm-fjjyhys completes the activity by him/herself with no assistance from a helper. 5-Set-up or Clean-up Assistance-helper sets up or cleans up; patient completes activity. [place] assists only prior to or following the activity. 4-Supervision or Touching Assistance-helper provides verbal cues and/or touching/steadying and/or contact guard assistance as patient completes activity. Assistance may be provided throughout the activity or intermittently. 3-Partial/Moderate Assistance-helper does LESS THAN HALF the effort. [place] lifts, holds or supports trunk or limbs, but provides less than half the effort. 2-Substantial/Maximal Assistance-helper does MORE THAN HALF the effort. [place] lifts or holds trunk or limbs and provides more than half the effort. 4-Ugpzvauhf-tkodqg does ALL the effort. Patient does none of the effort to complete the activity. Or, the assistance of 2 or more helpers is required for the patient to complete the activity. If activity was not attempted, code reason: 7-Patient Refused. 9-Not Applicable-not attempted and the patient did not perform the activity before the current illness, exacerbation or injury. 10-Not Attempted due to Environmental Limitations-(lack of equipment, weather restraints, etc.). 88-Not Attempted due to Medical Conditions or Safety Concerns. Other Treatment Pt required hand over hand to complete any B UE tasks or placement for mobility. See PT notes for standing, transfers and mobility progress. Pt requires assistance to grasp items or bring items to designated area. After session, pt sitting in w/c with call light/phone in reach. All needs met in room. OT Short Term Goals Short Term Goals Time Frame: May 28, 2022 Shower/bathe self: 3 Lower body dressin Putting on/taking off footwear: 3 OT Jail Goals Jail Goals Time Frame: Jun 04, 2022 Acute change in mental status: 0 Inattention: 0 Disorganized thinkin Altered level of consciousness: 0 Eating (QC): 6 Oral Hygiene (QC): 6 Toileting Hygiene (QC): 6 Shower/Bathe Self (QC): 4 Upper Body Dressing (QC): 6 Lower Body Dressing (QC): 4 On/Off Footwear (QC): 4 Additional Goals: 1-Demonstrate ADL Tasks, 2-Verbalize Understanding, 3- ImproveStrength/Cain 1=Demonstrate adherence to instructed precautions during ADL tasks. 2=Patient will verbalize/demonstrate understanding of assistive devices/modifications for ADL. 3=Patient will improve strength/tolerance for activity to enable patient to perform ADL's. OT Education/Plan Problem List/Assessment Assessment: Decreased Activ Tolerance, Decreased Safety Aware, Decreased UE Strength, Impaired Bed Mobility, Impaired Cognition, Impaired Coordination, Impaired Self-Care Skills Discharge Recommendations Plan/Recommendations: Continue POC Treatment Plan/Plan of Care Patient would benefit from OT for education, treatment and training to promote independence in ADL's, mobility, safety and/or upper extremity function for ADL's. Plan of Care: ADL Retraining, Functional Mobility, Group Exercise/Act as Ind, UE Funct Exercise/Act Treatment Duration: Jun 04, 2022 Frequency: At least 5 of 7 days/Wk (IRF) Estimated Hrs Per Day: 1.5 hours per day Agreement: Yes Rehab Potential: Guarded Time Start Time: 08:15 Stop Time: 09:00 DATE: May 11, 2022 Total Time Billed (hr/min): 45 Billed Treatment Time 1 visit-FA 3 (45 min) co-treat with PT 45 min JOSELINE GROVE May 11, 2022 12:41
--- NOTE | 2022-05-11 12:46 | Occupational Ther Daily Note ---
OT Current Status-Daily Note Subjective Pt fatigued, requires cues to keep eyes open during tasks. OT/PT co-treat (1000- 1015) due to poor patient mobility, strength, endurance, severe debility, coordinate UE and LE during activity. PT focusing on transfers, w/c mobility and bed mobility while OT focusing on ADLs and functional mobility. Mental Status/Objective Patient Orientation: Person, Confused Attachments: IV, Oxygen (2L) ADL-Treatment Placement of brush in hand to brush hair, REYNOSO had to hand over hand guide pt's hand to designated area then pt attempted to brush. Dependent with oral care sitting at sink. Assist x2 for bed mobility and positioning. After therapy, pt lying in bed with call light/phone in reach. Pt fell asleep quickly. Therapy Code Descriptions/Definitions Functional [place] Measure: 0=Not Assessed/NA 4=Minimal Assistance 1=Total Assistance 5=Supervision or Setup 2=Maximal Assistance 6=Modified [place] 3=Moderate Assistance 7=Complete IndependenceSCALE: Activities may be completed with or without assistive devices. 1-Odiyplvbtp-elsbwzd completes the activity by him/herself with no assistance from a helper. 5-Set-up or Clean-up Assistance-helper sets up or cleans up; patient completes activity. [place] assists only prior to or following the activity. 4-Supervision or Touching Assistance-helper provides verbal cues and/or touching/steadying and/or contact guard assistance as patient completes activity. Assistance may be provided throughout the activity or intermittently. 3-Partial/Moderate Assistance-helper does LESS THAN HALF the effort. [place] lifts, holds or supports trunk or limbs, but provides less than half the effort. 2-Substantial/Maximal Assistance-helper does MORE THAN HALF the effort. [place] lifts or holds trunk or limbs and provides more than half the effort. 7-Fxfnvfhee-sclmvx does ALL the effort. Patient does none of the effort to complete the activity. Or, the assistance of 2 or more helpers is required for the patient to complete the activity. If activity was not attempted, code reason: 7-Patient Refused. 9-Not Applicable-not attempted and the patient did not perform the activity before the current illness, exacerbation or injury. 10-Not Attempted due to Environmental Limitations-(lack of equipment, weather restraints, etc.). 88-Not Attempted due to Medical Conditions or Safety Concerns. Eating (QC): 1 Oral Hygiene (QC): 1 OT Short Term Goals Short Term Goals Time Frame: May 28, 2022 Shower/bathe self: 3 Lower body dressin Putting on/taking off footwear: 3 OT Optician Goals Correction Goals Time Frame: Jun 04, 2022 Acute change in mental status: 0 Inattention: 0 Disorganized thinkin Altered level of consciousness: 0 Eating (QC): 6 Oral Hygiene (QC): 6 Toileting Hygiene (QC): 6 Shower/Bathe Self (QC): 4 Upper Body Dressing (QC): 6 Lower Body Dressing (QC): 4 On/Off Footwear (QC): 4 Additional Goals: 1-Demonstrate ADL Tasks, 2-Verbalize Understanding, 3- ImproveStrength/Cain 1=Demonstrate adherence to instructed precautions during ADL tasks. 2=Patient will verbalize/demonstrate understanding of assistive devices/modifications for ADL. 3=Patient will improve strength/tolerance for activity to enable patient to perform ADL's. OT Education/Plan Problem List/Assessment Assessment: Decreased Activ Tolerance, Decreased Safety Aware, Decreased UE Strength, Impaired Bed Mobility, Impaired Cognition, Impaired Self-Care Skills Discharge Recommendations Plan/Recommendations: Continue POC Treatment Plan/Plan of Care Patient would benefit from OT for education, treatment and training to promote independence in ADL's, mobility, safety and/or upper extremity function for ADL's. Plan of Care: ADL Retraining, Functional Mobility, Group Exercise/Act as Ind, UE Funct Exercise/Act Treatment Duration: Jun 04, 2022 Frequency: At least 5 of 7 days/Wk (IRF) Estimated Hrs Per Day: 1.5 hours per day Agreement: Yes Rehab Potential: Guarded Time Start Time: 10:00 Stop Time: 10:30 DATE: May 11, 2022 Total Time Billed (hr/min): 30 Billed Treatment Time 1 visit-ADL 2 (30 min) co-treat with PT [id number], individual [id number] JOSELINE GROVE May 11, 2022 12:46
[2022-05-11] MEDS: ENOXAPARIN 40 MG/0.4 ML (LOVENOX) SYR SC SCH (15:35)
[2022-05-11 19:53] VITALS: BP 166/90
[2022-05-11] MEDS ORDERED: QUEtiapine 25 MG (SEROquel) TAB IMMEDIATE RELEASE PO SCH (21:00)
[2022-05-12] MEDS: KCL 10 MEQ TAB (MICRO K) PO SCH (05:50)
[2022-05-12] MEDS: LEVOTHYROXINE 50 MCG (LEVOTHROID) TAB PO SCH (05:50)
--- NOTE | 2022-05-12 06:30 | PM&R Progress Note ---
Subjective HPI/CC On Admission Date Seen by Provider: May 12, 2022 Time Seen by Provider: 08:30 Subjective/Events-last exam 05/12/2022: Less lethargic today Overmedication from pain meds upstairs likely the cause Will decrease any pain meds and sedatives in the meantime Confusion less 05/11/2022: Seems to be oversedated so will hold some meds No pain reported Labs stable Voiding well with incontinence No falls Review of Systems General: Fatigue, Malaise Objective Exam Vital Signs Vital Signs Date Time Temp Pulse Resp B/P (MAP) Pulse Ox O2 Delivery O2 Flow Rate FiO2 05/12/22 09:00 Nasal Cannula 3.00 05/12/22 07:40 37.1 77 18 152/106 (121) 90 Capillary Refill : General Appearance: No Apparent Distress, WD/WN, Chronically ill, Thin HEENT: PERRL/EOMI, Normal ENT Inspection, Pharynx Normal Neck: Full Range of Motion, Normal Inspection, Non Tender, Supple, Carotid Bruit Respiratory: Chest Non Tender, Lungs Clear, Normal Breath Sounds, No Accessory Muscle Use, No Respiratory Distress Cardiovascular: Regular Rate, Rhythm, No Edema, No Gallop, No JVD, No Murmur, Normal Peripheral Pulses Gastrointestinal: Normal Bowel Sounds, No Organomegaly, No Pulsatile Mass, Non Tender, Soft Back: Normal Inspection, No CVA Tenderness, No Vertebral Tenderness Extremity: Normal Capillary Refill, Normal Inspection, Normal Range of Motion (except left leg), Non Tender, No Calf Tenderness, No Pedal Edema Neurologic/Psychiatric: Alert, Oriented x3, No Motor/Sensory Deficits, Normal Mood/Affect, Motor Weakness (left leg and generalized) Skin: Normal Color, Warm/Dry Lymphatic: No Adenopathy Results/Procedures Lab Patient resulted labs reviewed. FIM Transfers Therapy Code Descriptions/Definitions Functional [place] Measure: 0=Not Assessed/NA 4=Minimal Assistance 1=Total Assistance 5=Supervision or Setup 2=Maximal Assistance 6=Modified [place] 3=Moderate Assistance 7=Complete IndependenceSCALE: Activities may be completed with or without assistive devices. 4-Grusxnxvtg-kflbhnb completes the activity by him/herself with no assistance from a helper. 5-Set-up or Clean-up Assistance-helper sets up or cleans up; patient completes activity. [place] assists only prior to or following the activity. 4-Supervision or Touching Assistance-helper provides verbal cues and/or touching/steadying and/or contact guard assistance as patient completes activity. Assistance may be provided throughout the activity or intermittently. 3-Partial/Moderate Assistance-helper does LESS THAN HALF the effort. [place] lifts, holds or supports trunk or limbs, but provides less than half the effort. 2-Substantial/Maximal Assistance-helper does MORE THAN HALF the effort. [place] lifts or holds trunk or limbs and provides more than half the effort. 9-Ajgmvmvtx-xdjeja does ALL the effort. Patient does none of the effort to complete the activity. Or, the assistance of 2 or more helpers is required for the patient to complete the activity. If activity was not attempted, code reason: 7-Patient Refused. 9-Not Applicable-not attempted and the patient did not perform the activity before the current illness, exacerbation or injury. 10-Not Attempted due to Environmental Limitations-(lack of equipment, weather restraints, etc.). 88-Not Attempted due to Medical Conditions or Safety Concerns. Roll Left to Right (QC): 1 Sit to Lying (QC): 1 Sit to Stand (QC): 1 Chair/Gdb-ph-Fwhdz Xfer(QC): 1 Car Transfer (QC): 2 Gait Training Does the Patient Walk?: No and Walking Goal IS indicated Walk 10 feet (QC): 88 Walk 50 ft with 2 Turns(QC): 88 Walk 150 ft (QC): 88 Walking 10ft/uneven surface-QC: 88 Gait Assistive Device: FWW Wheelchair Training Does the Pt Use a Wheelchair?: Yes Distance: 100 Wheel 50 ft with 2 turns (QC): 1 Wheel 150 ft (QC): 88 Type of Wheelchair: Manual Stair Training #of Steps: 0 1 Step (curb) (QC): 88 4 Steps (QC): 88 12 Steps (QC): 88 Balance Picking up an Object (QC): 88 ADL-Treatment Eating (QC): 1 Oral Hygiene (QC): 1 Shower/Bathe Self (QC): 1 (2 person assist in stand to wash buttocks.) Upper Body Dressing (QC): 3 ([place] managing shirt down trunk) Lower Body Dressing (QC): 1 (2 person assist in stand for pant hike. 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 Velasquez gastroenterology Depression Hypothyroidism Cancer status post cryotherapy at Acute kidney injury increased IV fluids on 05/09/2022 and holding losartan Oversedation 05/11/22 Plan: Dr. Silver consult appreciated Pain control Supportive care Increase IV fluids Increase p.o. fluids Supportive care Lovenox for DVT prophylaxis if okay with Dr. Silver 05/11/2022: Hold meds for oversedation Monitor closely 05/12/2022: Supportive care Minimize sedatives (1) Closed left hip fracture Status: Acute (2) Chronic diarrhea Status: Acute (3) HTN (hypertension) Status: Chronic (4) Liver cancer Status: Chronic ROBBIE HUYNH DO May 12, 2022 06:30
[2022-05-12 07:40] VITALS: BP 152/106
[2022-05-12] MEDS: LOSARTAN 100 MG (COZAAR) TABLET PO SCH (07:58)
[2022-05-12] MEDS: VITAMIN D3 25 MCG (1,000 UNITS) TABLET PO SCH (07:58)
[2022-05-12] MEDS: PANTOPRAZOLE 20 MG TABLET (PROTONIX) PO SCH (07:59)
[2022-05-12] MEDS: SERTRALINE 100 MG (ZOLOFT) TAB PO SCH (07:59)
[2022-05-12] MEDS: SENNOSIDES 8.6 MG (SENOKOT) TAB PO SCH ×2 (07:59→21:00)
[2022-05-12] MEDS: DIPHENOXYLATE/ATROPINE 2.5MG/0.025MG (LOMOTIL) TAB PO SCH (08:00)
[2022-05-12] MEDS: amLODIPine 10 MG (NORVASC) TAB PO SCH (08:00)
[2022-05-12] MEDS: COLESTIPOL 1 GM (COLESTID) TAB PO SCH ×2 (08:01→21:00)
[2022-05-12] MEDS ORDERED: LOSARTAN 100 MG (COZAAR) TABLET PO SCH (09:00)
--- NOTE | 2022-05-12 09:28 | ST Dysphagia Evaluation ---
Speech Evaluation-General Medical Diagnosis L Femur Fracture Onset Date: May 08, 2022 Therapy Diagnosis Therapy Diagnosis: Suspected Oropharyngeal Dysphagia Precautions Precautions: Fall, Aspiration Precautions/Isolations: Aspiration, Fall Prevention Referral Referring Physician: Dr. Unger Reason for Referral: Evaluation/Treatment Medical History Pertinent Medical History: HTN Reviewed History: Yes Social History Current Living Status: Other Family Speech PLF/Current-Dysphagia Prior Level of Function The patient stated he consumes a regular consistency diet with thin liquids at home. The patient does report a globus sensation which he localizes to the mid- esophageal region. Per patient, all consistencies can become lodged in this region. Subjective The patient was seated upright in bed, eyes closed upon entrance to his room by the clinician. The patient woke with maximum clinician verbal cueing and required maximum cueing for safe participation throughout the study. The patient agreed to participation in the clinical bedside swallowing evaluation. The patient is currently receiving 3L supplemental oxygen via nasal cannula. Cognitive Status Patient Orientation: Confused Oral Motor Skills Dentition: Natural Current Food Consistancy: Regular, Thin Liquids Ability to Follow Directions: Fair Oral Expression Ability: Moderate Impairment Voice Voice Phonatory-Based Quality: Weak Voice Pitch: Normal Voice Loudness: Moderately Soft/Quiet Face Facial Symmetry: Symmetrical Oral-Facial Assessment Oral-Facial Dentition: Normal Labial Seal Description: Normal Smile: Normal Puff Cheeks: Normal Lingual Protrusion: Normal Lingual ROM: Normal Lingual Strength: Normal Volitional Dry Swallow: Yes Voluntary Cough: No Can Clear Throat Volitionally: Yes Productive Cough: Yes Productive Throat Clear: Yes Dysphagia Evaluation Consistencies Presented: Regular, Thin Liquid, Mechanical Soft, [place] Thick Li quid, Pureed Oral Phase: Anterior Spillage (Solid.), Oral Residue (Solid.), Unable to Form Bolus (Solid.), Reduced Oral Transit The patient displayed great difficulty with mastication of the solid consistency and bolus formation. To achieve these tasks, pureed consistency was added to soften the solid item. Following the addition of the puree consistency, a bolus was formed and posterior transfer was achieved. Pharyngeal Phase: Multiple Swallow Attempts, Clears Throat, Delayed Swallow Funct. Velo/Pharyngeal Symptom: Clears Throat, Cough After Swallow, Wet Voice The patient displayed a consistent throat clear and rigorous cough following the swallow with thin liquids. No s/s of suspected aspiration were demonstrated with mildly thick liquids, puree or soft solids. Following completion of the study and after leaving the patient's room to discuss the findings with the RN, the patient displayed wet belching. The patient denied emesis, however, the episode presented similar to retrograde flow. As the patient reports a globus sensation with all consistencies which he localizes to the mid-esophageal region, additional evaluation of the esophageal phase via direct visualization would be appropriate. Dietary Recommendations: MM5 Liquid Recommendations: [place] Consistancy (Mildly thick liquids) Recommendations: - Minced and moist (MM5) with mildly thick liquids (nectar-thick), as tolerated. - Fully upright and alert for P.O. intake. - Small, single bites and sips only. - Crush medication (as necessary) and place in puree for administration. - Monitor for s/s of suspected aspiration with P.O. intake. If demonstrated, please place the patient N.P.O. and contact speech pathology. - Speech pathology to complete a modified barium swallow to assess for the safest P.O. consistency once increased alertness is displayed. At this time, the modified barium swallow is scheduled for 1045 on . The results and recommendations were shared with the patient and the patient's RN immediately following completion of the evaluation. Speech Short Term Goals Short Term Goals Short Term Goals 1. The patient will demonstrate use of AAC (written, white board) with 80% accuracy with mild clinician verbal cueing. 2. The patient will display 80% accuracy with memory exercises with mild clinician verbal and visual cueing. 3. The patient will display safe swallowing precautions with 80% accuracy and mild clinician cueing. Time Frame-STG: One Week. Speech [facility] Goals [facility] Goals 1. The patient will display improved cognitive linguistic skills for safe discharge to the least restrictive environment. 2. The patient will tolerate the least restrictive diet consistency without s/s of suspected aspiration. Time Frame: Ten Days. Speech-Plan Treatment Plan Speech Therapy Treatment Plan: Continue Plan of Care Treatment Duration: May 17, 2022 Frequency: Modified Program (IRF) (Four to five times per week.) Estimated Hrs Per Day: .5 hour per day Rehab Potential: Guarded Safety Risks/Education Teaching Recipient: Patient Teaching Methods: Demonstration, Discussion Response to Teaching: Reinforcement Needed Education Topics Provided: Results, Recommendations, Safe Swallowing Precautions Time Speech Therapy Time In: 08:40 Speech Therapy Time Out: 09:10 DATE: May 12, 2022 Total Billed Time: 30 Billed Treatment Time 1, RACIEL CABRAL [facility] ST May 12, 2022 09:28
--- NOTE | 2022-05-12 09:28 | Speech Therapy Daily Note ---
Speech Daily Progress Note Subjective Date Seen by Provider: May 12, 2022 Time Seen by Provider: 08:20 The patient was seated upright in bed, eyes closed upon entrance to his room by the clinician. With maximum clinician verbal prompting, the patient woke and verbally greeted the clinician appropriately. The patient was agreeable to participation in the cognitive linguistic treatment session. The patient's bilateral hearing aids were placed by the clinician prior to the onset of the treatment session. Objective A majority of the treatment session was completed via written instructions and questions on the in-room white board. Regardless of the written communication, the patient required consistent verbal prompting for alertness levels. The patient displays delayed response time to each simple yes and no question provided by the clinician, however, responds with 100% accuracy. Per patient, his hearing aids are not helpful to improved hearing ability. The patient was oriented to month, only. The patient stated the year was "2020." The patient stated he "doesn't know" the day of the week. Orientation information and strategies were shared with the patient, however, he cont inuously closed his eyes throughout the session. At this time, limited progress is suspected with cognition if lethargy does not improve. Assessment Assessment Current Status: Poor Progress Treatment Plan Continue Plan of Care Speech Short Term Goals Short Term Goals Short Term Goals 1. The patient will demonstrate use of AAC (written, white board) with 80% accuracy with mild clinician verbal cueing. 2. The patient will display 80% accuracy with memory exercises with mild clinician verbal and visual cueing. Speech Optical Advisor Goals Optical Advisor Goals 1. The patient will display improved cognitive linguistic skills for safe discha rge to the least restrictive environment. Time Frame: One Week. Speech-Plan Treatment Plan Speech Therapy Treatment Plan: Continue Plan of Care Treatment Duration: May 17, 2022 Frequency: Modified Program (IRF) (Four to five times per week.) Estimated Hrs Per Day: .5 hour per day Rehab Potential: Guarded Pt/Family Agrees to Plan: Yes Safety Risks/Education Teaching Recipient: Patient Teaching Methods: Discussion Response to Teaching: Reinforcement Needed Education Topics Provided: Orientation Strategies Time Speech Therapy Time In: 08:20 Speech Therapy Time Out: 08:40 DATE: May 12, 2022 Total Billed Time: 20 Billed Treatment Time 1, SAWYER DING May 12, 2022 09:28
[2022-05-12] MEDS: polyethylene glycoL POWDER 17 GM (MIRALAX) PACK PO SCH ×2 (09:39→21:00)
[2022-05-12] MEDS: DOCUSATE SODIUM 100 MG (COLACE) CAP PO SCH ×2 (09:39→21:00)
--- NOTE | 2022-05-12 11:58 | Physical Therapy Daily Note ---
PT Daily Note-Current Subjective Pt. in supine with eyes closed most of the time. Pt. seen for co Rx with PT OT secondary to extreme debility, advanced rigidity and max difficulty and dependence with all movement and function. Pt was not verbal at any time during this Rx, pt. did not make eye contact with this [employer] SALES SUPERVISOR when his eyes were open. When pts eyes were open it was noted that his gaze floated upward until he closed his eyes then this pattern started again. Pt. did wince and open mouth wide with furrowed brow with any movement of LLE as well as rolling. Pts. pain rated per his behaviour by this [employer] SALES SUPERVISOR to be 7-8/10. Nurse Hao Mack called and present for assessment of pt. and to assist with change of left hip dressing while pt. was in opportune position for this. Pain Numeric Pain Scale: 8 Location: Left Location Body Site: Hip Pain Description: Stabbing Comment: per pt behaviour as he never spoke or uttered vocally during this Rx that t Section J - Health Conditions 1. Rarely or not at all 2. Occasionally 3. Frequently 4. Almost constantly 8. Unable to answer Pain Effect on Sleep: 8 Pain Interference with Therapy: 8 Pain Interference w/Day-to-Day: 8 Appearance pt. appears nearly locked in , hearing aides were in, no responses except very pained look on face with movement, see above Mental Status Patient Orientation: Non-Verbal/Aphasic Transfers SCALE: Activities may be completed with or without assistive devices. 2-Dqdbaoocwb-bcnjdoj completes the activity by him/herself with no assistance from a helper. 5-Set-up or Clean-up Assistance-helper sets up or cleans up; patient completes activity. [place] assists only prior to or following the activity. 4-Supervision or Touching Assistance-helper provides verbal cues and/or touching/steadying and/or contact guard assistance as patient completes activity. Assistance may be provided throughout the activity or intermittently. 3-Partial/Moderate Assistance-helper does LESS THAN HALF the effort. [place] lifts, holds or supports trunk or limbs, but provides less than half the effort. 2-Substantial/Maximal Assistance-helper does MORE THAN HALF the effort. [place] lifts or holds trunk or limbs and provides more than half the effort. 7-Gauwaateb-euatzh does ALL the effort. Patient does none of the effort to complete the activity. Or, the assistance of 2 or more helpers is required for the patient to complete the activity. If activity was not attempted, code reason: 7-Patient Refused. 9-Not Applicable-not attempted and the patient did not perform the activity before the current illness, exacerbation or injury. 10-Not Attempted due to Environmental Limitations-(lack of equipment, weather restraints, etc.). 88-Not Attempted due to Medical Conditions or Safety Concerns. Roll Left & Right (QC): 1 rolled left and right each rx with support of 2 pillows between LEs to regard hip precautions as well as pillows to pts back for support when left in right side lying after morning Rx. At afternoon Rx pt. was rolled back on his back with heels left floating and hip abduction pillow insitu. all rolling and scooting up in bed 2 max assist, pt. again very rigid all extremities and facial grimaces and moans in PM Weight Bearing Right Lower Extremity: Right Full Weight Bearing Left Lower Extremity: Left Weight Bearing/Tolerated Exercises Supine Ex: Ankle pumps, Rolling, Heel Slides, Hip abd/add Supine Reps: 12 all PROM , pt did not participate actively in exercise or rolling or bathing etc. PROM done x12 AM and PM Rx Treatments co Rx PT OT secondary to marked debility and dependence for all movement and function. rolling, partial bathing secondary to incont of BM and urine to great degree in brief and on gown . hand washing and shampoo cap, upper body bed bath as well as feet and partial LE bed bath. LE PROM, very rigid, positioning, nurse called and present for assessment. hip incision dressing change per nurse. in PM pt. left in supine with ABD pillow and heels free, call bradley at hand, pt. then answering some questions with single syllable etc, Pain again indicate by pts facial expression, nursing indicating they feel pt. cannot tolerate more pain meds at this time Assessment Current Status: Poor Progress unable to participate in Rx . Max assist for all above Rx, pt. appears to be in intense pain with all movement, even passive ankle pumps PT Short Term Goals Short Term Goals Time Frame: May 22, 2022 Roll Left & Right: 4 Sit to lyin Lying to sitting on side of be: 4 Sit to stand: 4 Chair/omt-fu-fnqof transfer: 4 Toilet transfer: 4 Car transfer: 4 Walk 10 feet: 3 Walk 50 feet with two turns: 3 Walk 150 feet: 3 PT Nursing Home Goals Nursing Home Goals PT Parking Assistant Goals Time Frame: Jun 05, 2022 Roll Left & Right (QC): 5 Sit to Lying (QC): 5 Lying-Sitting on Side/Bed(QC): 5 Sit to Stand (QC): 5 Chair/Efw-ir-Qdvri Xfer(QC): 5 Toilet Transfer (QC): 5 Car Transfer (QC): 5 Does the Patient Walk: Yes Walk 10 feet (QC): 4 Walk 50ft with 2 Turns (QC): 4 Walk 150 ft (QC): 4 Walking 10ft on Uneven Surface: 4 1 Step (curb) (QC): 3 4 Steps (QC): 3 12 Steps (QC): 3 Picking up an Object (QC): 4 Does the Pt use WC or Scooter?: Yes Wheel 50 feet with 2 turns (QC: 6 Type: Manual Wheel 150 feet: 6 Type: Manual PT Plan Treatment/Plan Treatment Plan: Continue Plan of Care Treatment Plan: Bed Mobility, Education, Functional Activity [place], Functional Strength, Group Therapy, Gait, Safety, Therapeutic Exercise, Transfers Treatment Duration: Jun 12, 2022 Frequency: At least 5 of 7 days/Wk (IRF) Estimated Hrs Per Day: 1.5 hours per day Patient and/or Family Agrees t: Yes Safety Risks/Education Patient Education: Transfer Techniques, Correct Positioning Time Time In: 1255 Time Out: 1315 DATE: May 12, 2022 Total Billed Treatment Time: 20 Total Billed Treatment 1x2, AM : co RX with OT 45 min, EX15m,FA30m, PM Rx co Rx OT : FA20m co Rx total 65m HOLLEY NIEVES [employer] SALES SUPERVISOR May 12, 2022 11:58
--- NOTE | 2022-05-12 12:42 | Occupational Ther Daily Note ---
OT Current Status-Daily Note Subjective Pt supine, eyes closed most of the time though will open with touch or name spoken loudly. Co-treat with PT OT due to extreme debility, advanced rigidity and max difficulty and dependence with all movement and function. PT focusing on bed mobility, position/PROM of B LE's while OT focusing on B UE placement/p ositioning and ADLs. Pt was not verbal at any time during treatment. Pt winces and opens mouth wide with furrowed brow with any movement of LLE as well as rolling. Pts. pain rated per his behaviour reported by SUPERVISOR MIXING to be 7-8/10. Nurse Hao Mack called and present for assessment of pt. and to assist with change of left hip dressing while pt. was in opportune position for this. Mental Status/Objective Patient Orientation: Person, Unable to Assess Attachments: IV, Oxygen ADL-Treatment Pt dependent for all ADLs and bed mobility. Pt incontinent of urine and bowel. Pt was given bed bath and change of brief and hospital gown. Pt positioned on R side with pillows propped to maintain hip precautions. After session, pt appears comfortable. Call light/phone in reach. All needs met in room. Therapy Code Descriptions/Definitions Functional [place] Measure: 0=Not Assessed/NA 4=Minimal Assistance 1=Total Assistance 5=Supervision or Setup 2=Maximal Assistance 6=Modified [place] 3=Moderate Assistance 7=Complete IndependenceSCALE: Activities may be completed with or without assistive devices. 1-Uncdzimbuq-yedcuvt completes the activity by him/herself with no assistance from a helper. 5-Set-up or Clean-up Assistance-helper sets up or cleans up; patient completes activity. [place] assists only prior to or following the activity. 4-Supervision or Touching Assistance-helper provides verbal cues and/or touching/steadying and/or contact guard assistance as patient completes activity. Assistance may be provided throughout the activity or intermittently. 3-Partial/Moderate Assistance-helper does LESS THAN HALF the effort. [place] lifts, holds or supports trunk or limbs, but provides less than half the effort. 2-Substantial/Maximal Assistance-helper does MORE THAN HALF the effort. [place] lifts or holds trunk or limbs and provides more than half the effort. 6-Cnlqnuhim-rzncov does ALL the effort. Patient does none of the effort to complete the activity. Or, the assistance of 2 or more helpers is required for the patient to complete the activity. If activity was not attempted, code reason: 7-Patient Refused. 9-Not Applicable-not attempted and the patient did not perform the activity before the current illness, exacerbation or injury. 10-Not Attempted due to Environmental Limitations-(lack of equipment, weather restraints, etc.). 88-Not Attempted due to Medical Conditions or Safety Concerns. Shower/Bathe Self (QC): 1 Toileting Hygiene (QC): 1 OT Short Term Goals Short Term Goals Time Frame: May 28, 2022 Shower/bathe self: 3 Lower body dressin Putting on/taking off footwear: 3 OT Route Delivery Clerk Goals Route Delivery Clerk Goals Time Frame: Jun 04, 2022 Acute change in mental status: 0 Inattention: 0 Disorganized thinkin Altered level of consciousness: 0 Eating (QC): 6 Oral Hygiene (QC): 6 Toileting Hygiene (QC): 6 Shower/Bathe Self (QC): 4 Upper Body Dressing (QC): 6 Lower Body Dressing (QC): 4 On/Off Footwear (QC): 4 Additional Goals: 1-Demonstrate ADL Tasks, 2-Verbalize Understanding, 3- ImproveStrength/Cain 1=Demonstrate adherence to instructed precautions during ADL tasks. 2=Patient will verbalize/demonstrate understanding of assistive device s/modifications for ADL. 3=Patient will improve strength/tolerance for activity to enable patient to perform ADL's. OT Education/Plan Problem List/Assessment Assessment: Decreased Activ Tolerance, Decreased Safety Aware, Decreased UE Strength, Dependent Transfers, Impaired Bed Mobility, Impaired Self-Care Skills, Restricted Funct UE ROM Discharge Recommendations Plan/Recommendations: Continue POC Treatment Plan/Plan of Care Patient would benefit from OT for education, treatment and training to promote independence in ADL's, mobility, safety and/or upper extremity function for ADL's. Plan of Care: ADL Retraining, Functional Mobility, Group Exercise/Act as Ind, UE Funct Exercise/Act Treatment Duration: Jun 04, 2022 Frequency: At least 5 of 7 days/Wk (IRF) Estimated Hrs Per Day: 1.5 hours per day Agreement: Yes Rehab Potential: Guarded Time Start Time: 11:00 Stop Time: 11:45 DATE: May 12, 2022 Total Time Billed (hr/min): 45 Billed Treatment Time 1 visit-ADL 3 (45 min) co-treat with PT 45 min JOSELINE GROVE May 12, 2022 12:42
[2022-05-12] MEDS: ENOXAPARIN 40 MG/0.4 ML (LOVENOX) SYR SC SCH (13:43)
--- NOTE | 2022-05-12 13:55 | Occupational Ther Daily Note ---
OT Current Status-Daily Note Subjective Pt lying in bed. Opened eyes to name and when pt's hand was squeezed. Pt had eyes closed and only responded to pain stimuli by opening mouth wide and stiffing of B UE/LE. PT/OT co-treat([id number]), skills of 2 clinicians required to decrease pain with movement, position to decrease pain and maintain hip pre cautions. Mental Status/Objective Patient Orientation: Person, Unable to Assess Attachments: IV, Oxygen ADL-Treatment Therapy Code Descriptions/Definitions Functional [place] Measure: 0=Not Assessed/NA 4=Minimal Assistance 1=Total Assistance 5=Supervision or Setup 2=Maximal Assistance 6=Modified [place] 3=Moderate Assistance 7=Complete IndependenceSCALE: Activities may be completed with or without assistive devices. 2-Ldoazrmuxh-jvmnuss completes the activity by him/herself with no assistance from a helper. 5-Set-up or Clean-up Assistance-helper sets up or cleans up; patient completes activity. [place] assists only prior to or following the activity. 4-Supervision or Touching Assistance-helper provides verbal cues and/or touching/steadying and/or contact guard assistance as patient completes activity. Assistance may be provided throughout the activity or intermittently. 3-Partial/Moderate Assistance-helper does LESS THAN HALF the effort. [place] lif ts, holds or supports trunk or limbs, but provides less than half the effort. 2-Substantial/Maximal Assistance-helper does MORE THAN HALF the effort. [place] lifts or holds trunk or limbs and provides more than half the effort. 8-Kroenbxeg-gddouy does ALL the effort. Patient does none of the effort to complete the activity. Or, the assistance of 2 or more helpers is required for the patient to complete the activity. If activity was not attempted, code reason: 7-Patient Refused. 9-Not Applicable-not attempted and the patient did not perform the activity before the current illness, exacerbation or injury. 10-Not Attempted due to Environmental Limitations-(lack of equipment, weather restraints, etc.). 88-Not Attempted due to Medical Conditions or Safety Concerns. Other Treatment Pt lying on R side when OT/PT entered room. Pt required assist x2 to roll onto back with heels left floating and hip abduction pillow placed. All bed mobility requires 2 person max assist, pt. again very rigid all extremities and facial grimaces and moans in PM After session, pt lying in bed on back with call light/phone in reach. All needs met in room. OT Short Term Goals Short Term Goals Time Frame: May 28, 2022 Shower/bathe self: 3 Lower body dressin Putting on/taking off footwear: 3 OT Finishing Room Supervisor Goals Finishing Room Supervisor Goals Time Frame: Jun 04, 2022 Acute change in mental status: 0 Inattention: 0 Disorganized thinkin Altered level of consciousness: 0 Eating (QC): 6 Oral Hygiene (QC): 6 Toileting Hygiene (QC): 6 Shower/Bathe Self (QC): 4 Upper Body Dressing (QC): 6 Lower Body Dressing (QC): 4 On/Off Footwear (QC): 4 Additional Goals: 1-Demonstrate ADL Tasks, 2-Verbalize Understanding, 3- ImproveStrength/Cain 1=Demonstrate adherence to instructed precautions during ADL tasks. 2=Patient will verbalize/demonstrate understanding of assistive devices/ modifications for ADL. 3=Patient will improve strength/tolerance for activity to enable patient to perform ADL's. OT Education/Plan Problem List/Assessment Assessment: Decreased Activ Tolerance, Decreased Safety Aware, Decreased UE Strength, Dependent Transfers, Impaired Bed Mobility, Impaired Cognition, Impaired Coordination, Impaired Funct Balance, Impaired I ADL's, Impaired Self- Care Skills, Restricted Funct UE ROM Discharge Recommendations Plan/Recommendations: Continue POC Treatment Plan/Plan of Care Patient would benefit from OT for education, treatment and training to promote independence in ADL's, mobility, safety and/or upper extremity function for ADL's. Plan of Care: ADL Retraining, Functional Mobility, Group Exercise/Act as Ind, UE Funct Exercise/Act Treatment Duration: Jun 04, 2022 Frequency: At least 5 of 7 days/Wk (IRF) Estimated Hrs Per Day: 1.5 hours per day Agreement: Yes Rehab Potential: Guarded Time Start Time: 12:55 Stop Time: 13:15 DATE: May 12, 2022 Total Time Billed (hr/min): 20 Billed Treatment Time 1 visit-FA 1 (20 min) co-treat with PT 20 min JOSELINE GROVE May 12, 2022 13:55
[2022-05-12] MEDS ORDERED: NS (IVPB) 250 ML IV ONE (16:30)
[2022-05-12] MEDS: NS IV 1000 ML 1,000 ML IV SCH (16:39)
[2022-05-12 16:52] LABS: HEMATOCRIT 33 % (40-54); LYMPHOCYTES % (AUTO) 16 % (12-44); MEAN PLATELET VOLUME 11.9 fL (9.0-12.2)
[2022-05-12 16:54] LABS: BASOPHILS % (AUTO) 0 % (0-10); EOSINOPHILS # (AUTO) 0.1 10^3/uL (0.0-0.3); EOSINOPHILS % (AUTO) 1 % (0-10); HEMOGLOBIN 11.1 g/dL (13.3-17.7); LYMPHOCYTES # (AUTO) 0.8 10^3/uL (1.0-4.0); MEAN CORPUSCULAR HEMOGLOBIN 30 pg (25-34); MEAN CORPUSCULAR HGB CONC 33 g/dL (32-36); MEAN CORPUSCULAR VOLUME 90 fL (80-99); MONOCYTES # (AUTO) 0.6 10^3/uL (0.0-1.0); MONOCYTES % (AUTO) 12 % (0-12); NEUTROPHILS # (AUTO) 3.6 10^3/uL (1.8-7.8); NEUTROPHILS % (AUTO) 71 % (42-75)
[2022-05-12 16:55] LABS: PLATELET COUNT 106 10^3/uL (130-400)
[2022-05-12 16:58] LABS: ALBUMIN 2.9 GM/DL (3.2-4.5); POTASSIUM 3.8 MMOL/L (3.6-5.0)
[2022-05-12 16:59] LABS: CALCIUM 8.7 MG/DL (8.5-10.1)
[2022-05-12 17:01] LABS: TOTAL PROTEIN 5.4 GM/DL (6.4-8.2)
[2022-05-12 17:04] LABS: CREATININE SERUM 0.94 MG/DL (0.60-1.30)
[2022-05-12 20:04] LABS: BILIRUBIN,URINE NEGATIVE (NEGATIVE); CLARITY,URINE CLEAR; COLOR,URINE YELLOW; GLUCOSE, URINE (UA) NEGATIVE (NEGATIVE); KETONES,URINE NEGATIVE (NEGATIVE); LEUKOCYTE ESTERASE ,URINE NEGATIVE (NEGATIVE); NITRITE,URINE NEGATIVE (NEGATIVE); PROTEIN,URINE NEGATIVE (NEGATIVE)
[2022-05-12 20:35] VITALS: BP 129/69
[2022-05-12 20:36] LABS: BACTERIA,URINE TRACE /HPF; WBC,URINE 0-2 /HPF
[2022-05-13] MEDS: NS IV 1000 ML 1,000 ML IV SCH (03:04)
--- NOTE | 2022-05-13 06:16 | PM&R Progress Note ---
Subjective HPI/CC On Admission Date Seen by Provider: May 13, 2022 Time Seen by Provider: 11:00 Subjective/Events-last exam 05/13/2022: Much improved status since IVF given Slow recovery but improved overall Pain controlled 05/12/2022: Less lethargic today Overmedication from pain meds upstairs likely the cause Will decrease any pain meds and sedatives in the meantime Confusion less 05/11/2022: Seems to be oversedated so will hold some meds No pain reported Labs stable Voiding well with incontinence No falls Review of Systems General: Fatigue, Malaise Musculoskeletal: leg pain Objective Exam Vital Signs Vital Signs Date Time Temp Pulse Resp B/P (MAP) Pulse Ox O2 Delivery O2 Flow Rate FiO2 05/13/22 20:19 Nasal Cannula 3.00 05/13/22 19:37 36.2 58 20 158/72 (100) 96 Capillary Refill : General Appearance: No Apparent Distress, WD/WN, Chronically ill, Thin HEENT: PERRL/EOMI, Normal ENT Inspection, Pharynx Normal Neck: Full Range of Motion, Normal Inspection, Non Tender, Supple, Carotid Bruit Respiratory: Chest Non Tender, Lungs Clear, Normal Breath Sounds, No Accessory Muscle Use, No Respiratory Distress Cardiovascular: Regular Rate, Rhythm, No Edema, No Gallop, No JVD, No Murmur, Normal Peripheral Pulses Gastrointestinal: Normal Bowel Sounds, No Organomegaly, No Pulsatile Mass, Non Tender, Soft Back: Normal Inspection, No CVA Tenderness, No Vertebral Tenderness Extremity: Normal Capillary Refill, Normal Inspection, Normal Range of Motion (except left leg), Non Tender, No Calf Tenderness, No Pedal Edema Neurologic/Psychiatric: Alert, Oriented x3, No Motor/Sensory Deficits, Normal Mood/Affect, Motor Weakness (left leg and generalized) Skin: Normal Color, Warm/Dry Lymphatic: No Adenopathy Results/Procedures Lab Patient resulted labs reviewed. FIM Transfers Therapy Code Descriptions/Definitions Functional [place] Measure: 0=Not Assessed/NA 4=Minimal Assistance 1=Total Assistance 5=Supervision or Setup 2=Maximal Assistance 6=Modified [place] 3=Moderate Assistance 7=Complete IndependenceSCALE: Activities may be completed with or without assistive devices. 9-Jecicljuns-obqtxuk completes the activity by him/herself with no assistance from a helper. 5-Set-up or Clean-up Assistance-helper sets up or cleans up; patient completes activity. [place] assists only prior to or following the activity. 4-Supervision or Touching Assistance-helper provides verbal cues and/or touching/steadying and/or contact guard assistance as patient completes activity. Assistance may be provided throughout the activity or intermittently. 3-Partial/Moderate Assistance-helper does LESS THAN HALF the effort. [place] lifts, holds or supports trunk or limbs, but provides less than half the effort. 2-Substantial/Maximal Assistance-helper does MORE THAN HALF the effort. [place] lifts or holds trunk or limbs and provides more than half the effort. 3-Uoiivnqpz-xffrkh does ALL the effort. Patient does none of the effort to complete the activity. Or, the assistance of 2 or more helpers is required for the patient to complete the activity. If activity was not attempted, code reason: 7-Patient Refused. 9-Not Applicable-not attempted and the patient did not perform the activity before the current illness, exacerbation or injury. 10-Not Attempted due to Environmental Limitations-(lack of equipment, weather restraints, etc.). 88-Not Attempted due to Medical Conditions or Safety Concerns. Roll Left to Right (QC): 1 Sit to Lying (QC): 1 Sit to Stand (QC): 1 Chair/Emy-dd-Tmpme Xfer(QC): 1 Car Transfer (QC): 2 Gait Training Does the Patient Walk?: No and Walking Goal IS indicated Walk 10 feet (QC): 88 Walk 50 ft with 2 Turns(QC): 88 Walk 150 ft (QC): 88 Walking 10ft/uneven surface-QC: 88 Gait Assistive Device: FWW Wheelchair Training Does the Pt Use a Wheelchair?: Yes Distance: 100 Wheel 50 ft with 2 turns (QC): 1 Wheel 150 ft (QC): 88 Type of Wheelchair: Manual Stair Training #of Steps: 0 1 Step (curb) (QC): 88 4 Steps (QC): 88 12 Steps (QC): 88 Balance Picking up an Object (QC): 88 ADL-Treatment Eating (QC): 1 Oral Hygiene (QC): 1 Shower/Bathe Self (QC): 1 Upper Body Dressing (QC): 3 ([place]amar managing shirt down trunk) Lower Body Dressing (QC): 1 (2 person assist in stand for pant hike. 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 Velasquez gastroenterology Depression Hypothyroidism Cancer status post cryotherapy at Acute kidney injury increased IV fluids on 05/09/2022 and holding losartan Oversedation 05/11/22 resolved with IVF Plan: Dr. Silver consult appreciated Pain control Supportive care Increase IV fluids Increase p.o. fluids Supportive care Lovenox for DVT prophylaxis if okay with Dr. Silver 05/11/2022: Hold meds for oversedation Monitor closely 05/12/2022: Supportive care Minimize sedatives 05/13/2022: Monitor closely DC IVF (1) Closed left hip fracture Status: Acute (2) Chronic diarrhea Status: Acute (3) HTN (hypertension) Status: Chronic (4) Liver cancer Status: Chronic ROBBIE HUYNH DO May 13, 2022 06:16
[2022-05-13] MEDS: KCL 10 MEQ TAB (MICRO K) PO SCH (06:56)
[2022-05-13] MEDS: LEVOTHYROXINE 50 MCG (LEVOTHROID) TAB PO SCH (06:56)
--- NOTE | 2022-05-13 07:29 | Occupational Ther Daily Note ---
OT Current Status-Daily Note Subjective Pt alert, sitting up in bed. Pt talking, answering questions and asking questions. Co-treat with PT ([id number]), skills of 2 clinicians required to decrease fall risk, increase mobility, decrease L hip pain and maintain precautions with all movement. PT focusing on all mobility and OT focusing on ADLs and functional mobility. Pt states that he has more pain in abdomen when having a BM. Mental Status/Objective Patient Orientation: Person, Unable to Assess, Situation Attachments: IV ADL-Treatment Pt able to complete own meal set up and use regular utensils to eat. Pt able to clean and place hearing aides when supplies are gathered. Pt declines any attempt to assist with movement. Pt rolled toward L side to have REYNOSO cleanse after incontinence and complete lower body bathing/dressing, assist x2. SBA with supine to EOB using bed rails and HOB elevated. Using high surface, pt requires CGA and assist to stabilize FWW to stand. CGA for SPT using FWW, declines any assist to attempt to move L LE, pt moves by self. Pt transfers from EOB to BSC using FWW with CGA and increased time. Assist x2 for toileting, 3x's during session. Set up for upper body dressing. Pt takes increased time to complete all tasks due to slow methodical movements and pt declining any assist to complete. After session, pt sitting in recliner with call light/phone in reach. Safety measures in place. Therapy Code Descriptions/Definitions Functional [place] Measure: 0=Not Assessed/NA 4=Minimal Assistance 1=Total Assistance 5=Supervision or Setup 2=Maximal Assistance 6=Modified [place] 3=Moderate Assistance 7=Complete IndependenceSCALE: Activities may be completed with or without assistive devices. 8-Zbtzacxgbn-buknvqt completes the activity by him/herself with no assistance from a helper. 5-Set-up or Clean-up Assistance-helper sets up or cleans up; patient completes activity. [place] assists only prior to or following the activity. 4-Supervision or Touching Assistance-helper provides verbal cues and/or touching/steadying and/or contact guard assistance as patient completes activity. Assistance may be provided throughout the activity or intermittently. 3-Partial/Moderate Assistance-helper does LESS THAN HALF the effort. [place] lifts, holds or supports trunk or limbs, but provides less than half the effort. 2-Substantial/Maximal Assistance-helper does MORE THAN HALF the effort. [place] lifts or holds trunk or limbs and provides more than half the effort. 8-Cskahvjxt-nxgtaq does ALL the effort. Patient does none of the effort to complete the activity. Or, the assistance of 2 or more helpers is required for the patient to complete the activity. If activity was not attempted, code reason: 7-Patient Refused. 9-Not Applicable-not attempted and the patient did not perform the activity before the current illness, exacerbation or injury. 10-Not Attempted due to Environmental Limitations-(lack of equipment, weather restraints, etc.). 88-Not Attempted due to Medical Conditions or Safety Concerns. Eating (QC): 6 Upper Body Dressing (QC): 5 Lower Body Dressing (QC): 1 On/Off Footwear: 1 Toileting Hygiene (QC): 1 Toilet Transfer (QC): 2 (Mod A) OT Short Term Goals Short Term Goals Time Frame: May 28, 2022 Shower/bathe self: 3 Lower body dressin Putting on/taking off footwear: 3 OT Retirement Goals General Operator Goals Time Frame: Jun 04, 2022 Acute change in mental status: 0 Inattention: 0 Disorganized thinkin Altered level of consciousness: 0 Eating (QC): 6 Oral Hygiene (QC): 6 Toileting Hygiene (QC): 6 Shower/Bathe Self (QC): 4 Upper Body Dressing (QC): 6 Lower Body Dressing (QC): 4 On/Off Footwear (QC): 4 Additional Goals: 1-Demonstrate ADL Tasks, 2-Verbalize Understanding, 3- ImproveStrength/Cain 1=Demonstrate adherence to instructed precautions during ADL tasks. 2=Patient will verbalize/demonstrate understanding of assistive devices/modifications for ADL. 3=Patient will improve strength/tolerance for activity to enable patient to perform ADL's. OT Education/Plan Problem List/Assessment Assessment: Decreased Activ Tolerance, Impaired Bed Mobility, Impaired Coordination, Impaired Self-Care Skills Discharge Recommendations Plan/Recommendations: Continue POC Treatment Plan/Plan of Care Patient would benefit from OT for education, treatment and training to promote independence in ADL's, mobility, safety and/or upper extremity function for ADL's. Plan of Care: ADL Retraining, Functional Mobility, Group Exercise/Act as Ind, UE Funct Exercise/Act Treatment Duration: Jun 04, 2022 Frequency: At least 5 of 7 days/Wk (IRF) Estimated Hrs Per Day: 1.5 hours per day Agreement: Yes Rehab Potential: Guarded Time Start Time: 07:15 Stop Time: 09:00 DATE: May 13, 2022 Total Time Billed (hr/min): 105 Billed Treatment Time 1 visit-ADL 7 (105 min) Co-treat with PT [id number], individual [id number] JOSELINE GROVE May 13, 2022 07:29
[2022-05-13 08:00] VITALS: BP 152/86
[2022-05-13] MEDS: COLESTIPOL 1 GM (COLESTID) TAB PO SCH ×2 (08:21→19:36)
[2022-05-13] MEDS: DIPHENOXYLATE/ATROPINE 2.5MG/0.025MG (LOMOTIL) TAB PO SCH (08:21)
[2022-05-13] MEDS: amLODIPine 10 MG (NORVASC) TAB PO SCH (08:22)
[2022-05-13] MEDS: LOSARTAN 100 MG (COZAAR) TABLET PO SCH (08:23)
[2022-05-13] MEDS: SERTRALINE 100 MG (ZOLOFT) TAB PO SCH (08:23)
[2022-05-13] MEDS: polyethylene glycoL POWDER 17 GM (MIRALAX) PACK PO SCH ×2 (08:23→19:20)
[2022-05-13] MEDS: VITAMIN D3 25 MCG (1,000 UNITS) TABLET PO SCH (08:23)
[2022-05-13] MEDS: SENNOSIDES 8.6 MG (SENOKOT) TAB PO SCH ×2 (08:24→19:20)
[2022-05-13] MEDS: PANTOPRAZOLE 20 MG TABLET (PROTONIX) PO SCH (08:24)
[2022-05-13] MEDS: DOCUSATE SODIUM 100 MG (COLACE) CAP PO SCH ×2 (08:29→19:20)
--- NOTE | 2022-05-13 09:51 | Physical Therapy Daily Note ---
PT Daily Note-Current Subjective Patient in bed pre tx, doesn't communicate very much, will talk some but still seems confused. Will be co-treating with OT for part of tx due to poor patient mobility, strength, endurance, severe debility and pain with activity, coordinate UE and LE with activity, decrease risk of falls. Pain Section J - Health Conditions 1. Rarely or not at all 2. Occasionally 3. Frequently 4. Almost constantly 8. Unable to answer Pain Effect on Sleep: 8 Pain Interference with Therapy: 8 Pain Interference w/Day-to-Day: 8 Appearance Patient in recliner post tx with nurse call, phone, tray, chair alarm on. Mental Status Patient Orientation: Person, Confused Transfers SCALE: Activities may be completed with or without assistive devices. 5-Zpciqwnqdc-lpsjfws completes the activity by him/herself with no assistance from a helper. 5-Set-up or Clean-up Assistance-helper sets up or cleans up; patient completes activity. [place] assists only prior to or following the activity. 4-Supervision or Touching Assistance-helper provides verbal cues and/or touching/steadying and/or contact guard assistance as patient completes activity. Assistance may be provided throughout the activity or intermittently. 3-Partial/Moderate Assistance-helper does LESS THAN HALF the effort. [place] lifts, holds or supports trunk or limbs, but provides less than half the effort. 2-Substantial/Maximal Assistance-helper does MORE THAN HALF the effort. [place] lifts or holds trunk or limbs and provides more than half the effort. 4-Elfzuylwn-wpypsr does ALL the effort. Patient does none of the effort to complete the activity. Or, the assistance of 2 or more helpers is required for the patient to complete the activity. If activity was not attempted, code reason: 7-Patient Refused. 9-Not Applicable-not attempted and the patient did not perform the activity before the current illness, exacerbation or injury. 10-Not Attempted due to Environmental Limitations-(lack of equipment, weather restraints, etc.). 88-Not Attempted due to Medical Conditions or Safety Concerns. Roll Left & Right (QC): 3 Lying to Sitting/Side of Bed(Q: 3 Sit to Stand (QC): 3 Chair/Grf-at-Qgiyp Xfer(QC): 3 Toilet Transfer (QC): 3 Patient has had a BM in bed, rolls from side to side with min assist to clean and change brief and get pants on, supine to sit with min assist, sit to stand min assist, after standing patient has to have a BM again, transfers to commode and brief changed again. When done he takes a few steps to the recliner and announces that he has had another BM, patient is cleaned and brief changed in standing and then he sits. Weight Bearing Right Lower Extremity: Right Full Weight Bearing Left Lower Extremity: Left Weight Bearing/Tolerated Treatments PT performed bed mobility and transfers, toileting, standing and safety during cleaning and changing brief, OT performed toileting, cleaning, changing, UE positioning and safety during activity. Assessment Current Status: Poor Progress Patient moves extremely slow, took 30 min to get patient cleaned up and sitting at the side of the bed. Patient was having a lot of left hip and abdominal pain but was unrated. PT Short Term Goals Short Term Goals Time Frame: May 22, 2022 Roll Left & Right: 4 Sit to lyin Lying to sitting on side of be: 4 Sit to stand: 4 Chair/kwr-vv-gnxyd transfer: 4 Toilet transfer: 4 Car transfer: 4 Walk 10 feet: 3 Walk 50 feet with two turns: 3 Walk 150 feet: 3 PT Regulatory Internship Goals Fdc Goals PT Fdc Goals Time Frame: Jun 05, 2022 Roll Left & Right (QC): 5 Sit to Lying (QC): 5 Lying-Sitting on Side/Bed(QC): 5 Sit to Stand (QC): 5 Chair/Rkp-up-Ohpmv Xfer(QC): 5 Toilet Transfer (QC): 5 Car Transfer (QC): 5 Does the Patient Walk: Yes Walk 10 feet (QC): 4 Walk 50ft with 2 Turns (QC): 4 Walk 150 ft (QC): 4 Walking 10ft on Uneven Surface: 4 1 Step (curb) (QC): 3 4 Steps (QC): 3 12 Steps (QC): 3 Picking up an Object (QC): 4 Does the Pt use WC or Scooter?: Yes Wheel 50 feet with 2 turns (QC: 6 Type: Manual Wheel 150 feet: 6 Type: Manual PT Plan Problem List Problem List: Activity Tolerance, Functional Strength, Safety, Balance, Gait, Transfer, Bed Mobility, ROM Treatment/Plan Treatment Plan: Continue Plan of Care Treatment Plan: Bed Mobility, Education, Functional Activity [place], Functional Strength, Group Therapy, Gait, Safety, Therapeutic Exercise, Transfers Treatment Duration: Jun 12, 2022 Frequency: At least 5 of 7 days/Wk (IRF) Estimated Hrs Per Day: 1.5 hours per day Patient and/or Family Agrees t: Yes Safety Risks/Education Patient Education: Transfer Techniques, Correct Positioning, Safety Issues Teaching Recipient: Patient Teaching Methods: Demonstration, Discussion Response to Teaching: Reinforcement Needed Time Time In: 08 Time Out: 899 DATE: May 13, 2022 Total Billed Treatment Time: 60 Total Billed Treatment 1 visit FA 60' co-treated from [id number] JAE ADORNO PT May 13, 2022 09:51
[2022-05-13 09:56] VITALS: BP 152/86
--- NOTE | 2022-05-13 10:29 | Speech Therapy Daily Note ---
Speech Daily Progress Note Subjective Date Seen by Provider: May 13, 2022 Time Seen by Provider: 09:30 The patient was seated upright in his recliner, awake and alert, upon entrance to the patient's room by the clinician. The patient greeted the clinician appropriately and was agreeable to participation in the dysphagia and cognitive treatment session. The patient displays a great improvement in alertness and participation on this date. Objective Per patient, he has experienced swallowing difficulties for approximately three months. The patient reported, "Things can just get down the wrong pipe, the wrong way." The patient was unable to state which specific consistencies cause the difficulty but was able to identify "the stuff happens with water sometimes." The patient's oropharyngeal swallowing function was re-assessed on this date due to improving alertness. The patient was provided thin liquid via teaspoon and straw drink, nectar-thick liquid via straw drink, puree, and solid. The patient displayed a consistent throat clear following trials of thin liquid. No additional s/s of suspected aspiration were present with nectar thick liquid, puree or solid. Prolonged mastication time and poor bolus formation was present with the solid consistency. The patient displayed increased alertness and participation on this date. While the patient continues to demonstrate a poor hearing status, the patient was able to respond appropriately to simple yes and no questions, as well as, orientation questions with extended response time provided. Recommendations: - SB6 with mildly thick liquids, as tolerated. - Continue to prior safe swallowing precautions and plan of care. Assessment Assessment Current Status: Fair Progress Treatment Plan Continue Plan of Care Speech Short Term Goals Short Term Goals Short Term Goals 1. The patient will demonstrate use of AAC (written, white board) with 80% accuracy with mild clinician verbal cueing. 2. The patient will display 80% accuracy with memory exercises with mild clinician verbal and visual cueing. 3. The patient will display safe swallowing precautions with 80% accuracy and mild clinician cueing. Time Frame-STG: One Week. Speech Half-Way Goals Half-Way Goals 1. The patient will display improved cognitive linguistic skills for safe discharge to the least restrictive environment. 2. The patient will tolerate the least restrictive diet consistency without s/s of suspected aspiration. Time Frame: Ten Days. Speech-Plan Treatment Plan Speech Therapy Treatment Plan: Continue Plan of Care Treatment Duration: May 17, 2022 Frequency: Modified Program (IRF) (Four to five times per week.) Estimated Hrs Per Day: .5 hour per day Rehab Potential: Guarded Safety Risks/Education Teaching Recipient: Patient Teaching Methods: Discussion Response to Teaching: Reinforcement Needed Education Topics Provided: Safe Swallowing Precautions Time Speech Therapy Time In: 09:30 Speech Therapy Time Out: 10:00 DATE: May 13, 2022 Total Billed Time: 30 Billed Treatment Time 1, RACIEL SOTO [facility] May 13, 2022 10:29
[2022-05-13] MEDS: ENOXAPARIN 40 MG/0.4 ML (LOVENOX) SYR SC SCH (11:10)
[2022-05-13 19:37] VITALS: BP 158/72
[2022-05-14] MEDS: LEVOTHYROXINE 50 MCG (LEVOTHROID) TAB PO SCH (06:26)
--- NOTE | 2022-05-14 06:26 | PM&R Progress Note ---
Subjective HPI/CC On Admission Date Seen by Provider: May 14, 2022 Time Seen by Provider: 12:00 Subjective/Events-last exam 05/14/2022: Improved status Pain controlled Slow moving No nausea BM+ 05/13/2022: Much improved status since IVF given Slow recovery but improved overall Pain controlled 05/12/2022: Less lethargic today Overmedication from pain meds upstairs likely the cause Will decrease any pain meds and sedatives in the meantime Confusion less 05/11/2022: Seems to be oversedated so will hold some meds No pain reported Labs stable Voiding well with incontinence No falls Review of Systems General: Fatigue, Malaise Musculoskeletal: leg pain Objective Exam Vital Signs Vital Signs Date Time Temp Pulse Resp B/P (MAP) Pulse Ox O2 Delivery O2 Flow Rate FiO2 05/14/22 20:22 94 Room Air 05/14/22 20:12 36.1 61 18 158/72 (100) 05/14/22 07:35 3.00 Capillary Refill : General Appearance: No Apparent Distress, WD/WN, Chronically ill, Thin HEENT: PERRL/EOMI, Normal ENT Inspection, Pharynx Normal Neck: Full Range of Motion, Normal Inspection, Non Tender, Supple, Carotid Bruit Respiratory: Chest Non Tender, Lungs Clear, Normal Breath Sounds, No Accessory Muscle Use, No Respiratory Distress Cardiovascular: Regular Rate, Rhythm, No Edema, No Gallop, No JVD, No Murmur, Normal Peripheral Pulses Gastrointestinal: Normal Bowel Sounds, No Organomegaly, No Pulsatile Mass, Non Tender, Soft Back: Normal Inspection, No CVA Tenderness, No Vertebral Tenderness Extremity: Normal Capillary Refill, Normal Inspection, Normal Range of Motion (except left leg), Non Tender, No Calf Tenderness, No Pedal Edema Neurologic/Psychiatric: Alert, Oriented x3, No Motor/Sensory Deficits, Normal Mood/Affect, Motor Weakness (left leg and generalized) Skin: Normal Color, Warm/Dry Lymphatic: No Adenopathy Results/Procedures Lab Patient resulted labs reviewed. FIM Transfers Therapy Code Descriptions/Definitions Functional [place] Measure: 0=Not Assessed/NA 4=Minimal Assistance 1=Total Assistance 5=Supervision or Setup 2=Maximal Assistance 6=Modified [place] 3=Moderate Assistance 7=Complete IndependenceSCALE: Activities may be completed with or without assistive devices. 0-Rtyxbwuqaa-xxvhdtk completes the activity by him/herself with no assistance from a helper. 5-Set-up or Clean-up Assistance-helper sets up or cleans up; patient completes activity. [place] assists only prior to or following the activity. 4-Supervision or Touching Assistance-helper provides verbal cues and/or touching/steadying and/or contact guard assistance as patient completes activity. Assistance may be provided throughout the activity or intermittently. 3-Partial/Moderate Assistance-helper does LESS THAN HALF the effort. [place] lifts, holds or supports trunk or limbs, but provides less than half the effort. 2-Substantial/Maximal Assistance-helper does MORE THAN HALF the effort. [place] lifts or holds trunk or limbs and provides more than half the effort. 6-Zpmwwuaoa-fjbsul does ALL the effort. Patient does none of the effort to complete the activity. Or, the assistance of 2 or more helpers is required for the patient to complete the activity. If activity was not attempted, code reason: 7-Patient Refused. 9-Not Applicable-not attempted and the patient did not perform the activity before the current illness, exacerbation or injury. 10-Not Attempted due to Environmental Limitations-(lack of equipment, weather restraints, etc.). 88-Not Attempted due to Medical Conditions or Safety Concerns. Roll Left to Right (QC): 3 Sit to Lying (QC): 1 Sit to Stand (QC): 3 Chair/Tvl-ma-Iyjlg Xfer(QC): 3 Car Transfer (QC): 2 Gait Training Does the Patient Walk?: No and Walking Goal IS indicated Walk 10 feet (QC): 88 Walk 50 ft with 2 Turns(QC): 88 Walk 150 ft (QC): 88 Walking 10ft/uneven surface-QC: 88 Gait Assistive Device: FWW Wheelchair Training Does the Pt Use a Wheelchair?: Yes Distance: 100 Wheel 50 ft with 2 turns (QC): 1 Wheel 150 ft (QC): 88 Type of Wheelchair: Manual Stair Training #of Steps: 0 1 Step (curb) (QC): 88 4 Steps (QC): 88 12 Steps (QC): 88 Balance Picking up an Object (QC): 88 ADL-Treatment Eating (QC): 6 Oral Hygiene (QC): 1 Shower/Bathe Self (QC): 1 Upper Body Dressing (QC): 5 Lower Body Dressing (QC): 1 On/Off Footwear (QC): 1 Toileting Hygiene (QC): 1 Toilet Transfer (QC): 2 (Mod A) Assessment/Plan Assessment and Plan Assess & Plan/Chief Complaint Assessment: Left hip fracture Fall History of humerus fracture Hypertension PTSD 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 Velasquez gastroenterology Depression Hypothyroidism Cancer status post cryotherapy at Acute kidney injury increased IV fluids on 05/09/2022 and holding losartan Oversedation 05/11/22 resolved with IVF Plan: Dr. Silver consult appreciated Pain control Supportive care Increase IV fluids Increase p.o. fluids Supportive care Lovenox for DVT prophylaxis if okay with Dr. Silver 05/11/2022: Hold meds for oversedation Monitor closely 05/12/2022: Supportive care Minimize sedatives 05/13/2022: Monitor closely DC IVF 05/14/2022: Pain control (1) Closed left hip fracture Status: Acute (2) Chronic diarrhea Status: Acute (3) HTN (hypertension) Status: Chronic (4) Liver cancer Status: Chronic ROBBIE HUYNH DO May 14, 2022 06:26
[2022-05-14] MEDS: KCL 10 MEQ TAB (MICRO K) PO SCH (06:27)
--- NOTE | 2022-05-14 07:29 | Occupational Ther Daily Note ---
OT Current Status-Daily Note Subjective Pt alert, sitting in recliner. Pt HUSLIA and slow to respond to questions. OT/PT cotreat([id number]), skills of 2 clinicians required due to poor patient mobility, strength, endurance, severe debility and pain with activity, coordinate UE and LE with activity, decrease risk of falls. OT focusing on ADLs and functional mobility while PT focusing on mobility. Mental Status/Objective Patient Orientation: Person, Place, Situation Attachments: IV ADL-Treatment Pt able to set up own meal though is slow with movements takes increased time. Pt incontinent of bowel and urine, though pt will stated that he is going or has went instead of requesting to use toilet/BSC or urinal. Set up for upper body bathing and assist for lower body bathing due to time constraints. Pt able to hold urinal when voiding when placed in reach, assist to empty. Dependent for cleansing after BM. Dependent for lower body dressing and footwear. Pt requires assist for sit to stand then CGA for safety when standing. Left in care of PT. All needs met. Therapy Code Descriptions/Definitions Functional [place] Measure: 0=Not Assessed/NA 4=Minimal Assistance 1=Total Assistance 5=Supervision or Setup 2=Maximal Assistance 6=Modified [place] 3=Moderate Assistance 7=Complete IndependenceSCALE: Activities may be completed with or without assistive devices. 9-Hkigpkljhp-cjiapem completes the activity by him/herself with no assistance from a helper. 5-Set-up or Clean-up Assistance-helper sets up or cleans up; patient completes activity. [place] assists only prior to or following the activity. 4-Supervision or Touching Assistance-helper provides verbal cues and/or touching /steadying and/or contact guard assistance as patient completes activity. Assistance may be provided throughout the activity or intermittently. 3-Partial/Moderate Assistance-helper does LESS THAN HALF the effort. [place] lifts, holds or supports trunk or limbs, but provides less than half the effort. 2-Substantial/Maximal Assistance-helper does MORE THAN HALF the effort. [place] lifts or holds trunk or limbs and provides more than half the effort. 5-Jgfnpihde-jrhyvt does ALL the effort. Patient does none of the effort to complete the activity. Or, the assistance of 2 or more helpers is required for the patient to complete the activity. If activity was not attempted, code reason: 7-Patient Refused. 9-Not Applicable-not attempted and the patient did not perform the activity before the current illness, exacerbation or injury. 10-Not Attempted due to Environmental Limitations-(lack of equipment, weather restraints, etc.). 88-Not Attempted due to Medical Conditions or Safety Concerns. Eating (QC): 5 Shower/Bathe Self (QC): 2 Upper Body Dressing (QC): 5 Lower Body Dressing (QC): 1 On/Off Footwear: 1 Toileting Hygiene (QC): 1 Toilet Transfer (QC): 2 OT Short Term Goals Short Term Goals Time Frame: May 28, 2022 Shower/bathe self: 3 Lower body dressin Putting on/taking off footwear: 3 OT [employer] Goals Senior Living Goals Time Frame: Jun 04, 2022 Acute change in mental status: 0 Inattention: 0 Disorganized thinkin Altered level of consciousness: 0 Eating (QC): 6 Oral Hygiene (QC): 6 Toileting Hygiene (QC): 6 Shower/Bathe Self (QC): 4 Upper Body Dressing (QC): 6 Lower Body Dressing (QC): 4 On/Off Footwear (QC): 4 Additional Goals: 1-Demonstrate ADL Tasks, 2-Verbalize Understanding, 3-ImproveStrength/Cain 1=Demonstrate adherence to instructed precautions during ADL tasks. 2=Patient will verbalize/demonstrate understanding of assistive devices/modifications for ADL. 3=Patient will improve strength/tolerance for activity to enable patient to perf orm ADL's. OT Education/Plan Problem List/Assessment Assessment: Decreased Activ Tolerance, Impaired Self-Care Skills Discharge Recommendations Plan/Recommendations: Continue POC Treatment Plan/Plan of Care Patient would benefit from OT for education, treatment and training to promote independence in ADL's, mobility, safety and/or upper extremity function for ADL's. Plan of Care: ADL Retraining, Functional Mobility, Group Exercise/Act as Ind, UE Funct Exercise/Act Treatment Duration: Jun 04, 2022 Frequency: At least 5 of 7 days/Wk (IRF) Estimated Hrs Per Day: 1.5 hours per day Agreement: Yes Rehab Potential: Guarded Time Start Time: 07:30 Stop Time: 08:45 DATE: May 14, 2022 Total Time Billed (hr/min): 75 Billed Treatment Time 1 visit-ADL 5 (75 min) JOSELINE GROVE May 14, 2022 07:29
[2022-05-14 07:35] VITALS: BP 165/84
[2022-05-14] MEDS: amLODIPine 10 MG (NORVASC) TAB PO SCH (07:43)
[2022-05-14] MEDS: SERTRALINE 100 MG (ZOLOFT) TAB PO SCH (07:43)
[2022-05-14] MEDS: VITAMIN D3 25 MCG (1,000 UNITS) TABLET PO SCH (07:45)
[2022-05-14] MEDS: COLESTIPOL 1 GM (COLESTID) TAB PO SCH ×2 (07:46→20:03)
[2022-05-14] MEDS: LOSARTAN 100 MG (COZAAR) TABLET PO SCH (07:46)
[2022-05-14] MEDS: DIPHENOXYLATE/ATROPINE 2.5MG/0.025MG (LOMOTIL) TAB PO SCH (07:46)
[2022-05-14] MEDS: PANTOPRAZOLE 20 MG TABLET (PROTONIX) PO SCH (07:47)
[2022-05-14] MEDS: DOCUSATE SODIUM 100 MG (COLACE) CAP PO SCH ×2 (08:34→20:06)
[2022-05-14] MEDS: SENNOSIDES 8.6 MG (SENOKOT) TAB PO SCH ×2 (08:35→20:06)
[2022-05-14] MEDS: polyethylene glycoL POWDER 17 GM (MIRALAX) PACK PO SCH ×2 (08:35→20:06)
--- NOTE | 2022-05-14 09:11 | Physical Therapy Daily Note ---
PT Daily Note-Current Subjective Patient in recliner pre tx, agrees to PT, has unrated pain in left hip. Will be co-treating with OT for part of tx due to poor patient mobility, strength, endurance, severe debility and pain with activity, coordinate UE and LE with activity, safety and reduce risk of falls. Pain Section J - Health Conditions 1. Rarely or not at all 2. Occasionally 3. Frequently 4. Almost constantly 8. Unable to answer Pain Effect on Sleep: 8 Pain Interference with Therapy: 8 Pain Interference w/Day-to-Day: 8 Appearance Patient in recliner post tx with nurse call, phone, tray, chair alarm on, all needs met. Mental Status Patient Orientation: Person, [place] Transfers SCALE: Activities may be completed with or without assistive devices. 6-Tfwluovubq-ylpbmro completes the activity by him/herself with no assistance from a helper. 5-Set-up or Clean-up Assistance-helper sets up or cleans up; patient completes activity. [place] assists only prior to or following the activity. 4-Supervision or Touching Assistance-helper provides verbal cues and/or touching/steadying and/or contact guard assistance as patient completes activity. Assistance may be provided throughout the activity or intermittently. 3-Partial/Moderate Assistance-helper does LESS THAN HALF the effort. [place] lifts, holds or supports trunk or limbs, but provides less than half the effort. 2-Substantial/Maximal Assistance-helper does MORE THAN HALF the effort. [place] lifts or holds trunk or limbs and provides more than half the effort. 8-Dqlxvrcxs-xilpgs does ALL the effort. Patient does none of the effort to complete the activity. Or, the assistance of 2 or more helpers is required for the patient to complete the activity. If activity was not attempted, code reason: 7-Patient Refused. 9-Not Applicable-not attempted and the patient did not perform the activity before the current illness, exacerbation or injury. 10-Not Attempted due to Environmental Limitations-(lack of equipment, weather restraints, etc.). 88-Not Attempted due to Medical Conditions or Safety Concerns. Sit to Stand (QC): 3 Chair/Gzx-du-Fvmxw Xfer(QC): 4 Toilet Transfer (QC): 4 Mod assist for sit to stand, CGA for transfers. Patient initially performs bathing in recliner and then states he needs to have a BM. [facility] but has a BM before he gets there, patient is cleaned up and new brief donned. Patient states he is having another BM and he is cleaned and changed again and then transferred to commode. When done his brief is changed for a third time and he is transferred to a WC. Weight Bearing Right Lower Extremity: Right Full Weight Bearing Left Lower Extremity: Left Weight Bearing/Tolerated Gait Training Distance: 20' Gait Assistive Device: FWW very slow ambulation, takes about 10 min to ambulate 20' Treatments PT performed transfers, ambulation, standing and positioning and safety during bathing and cleaning, OT performed bathing, dressing, cleaning, UE positioning and safety during activity Assessment Current Status: Poor Progress Patient moves extremely slow. Spent the majority of the time with toileting. PT Short Term Goals Short Term Goals Time Frame: May 22, 2022 Roll Left & Right: 4 Sit to lyin Lying to sitting on side of be: 4 Sit to stand: 4 Chair/rtg-rr-uhxzt transfer: 4 Toilet transfer: 4 Car transfer: 4 Walk 10 feet: 3 Walk 50 feet with two turns: 3 Walk 150 feet: 3 PT Tractor Trailer Moving Van Driver Goals Correction Goals PT Tractor Trailer Moving Van Driver Goals Time Frame: Jun 05, 2022 Roll Left & Right (QC): 5 Sit to Lying (QC): 5 Lying-Sitting on Side/Bed(QC): 5 Sit to Stand (QC): 5 Chair/Opj-uo-Uxvrt Xfer(QC): 5 Toilet Transfer (QC): 5 Car Transfer (QC): 5 Does the Patient Walk: Yes Walk 10 feet (QC): 4 Walk 50ft with 2 Turns (QC): 4 Walk 150 ft (QC): 4 Walking 10ft on Uneven Surface: 4 1 Step (curb) (QC): 3 4 Steps (QC): 3 12 Steps (QC): 3 Picking up an Object (QC): 4 Does the Pt use WC or Scooter?: Yes Wheel 50 feet with 2 turns (QC: 6 Type: Manual Wheel 150 feet: 6 Type: Manual PT Plan Problem List Problem List: Activity Tolerance, Functional Strength, Safety, Balance, Gait, Transfer, Bed Mobility, ROM Treatment/Plan Treatment Plan: Continue Plan of Care Treatment Plan: Bed Mobility, Education, Functional Activity [place], Functional Strength, Group Therapy, Gait, Safety, Therapeutic Exercise, Transfers Treatment Duration: Jun 12, 2022 Frequency: At least 5 of 7 days/Wk (IRF) Estimated Hrs Per Day: 1.5 hours per day Patient and/or Family Agrees t: Yes Safety Risks/Education Patient Education: Gait Training, Transfer Techniques, Correct Positioning, Safety Issues Teaching Recipient: Patient Teaching Methods: Demonstration, Discussion Response to Teaching: Reinforcement Needed Time Time In: 0800 Time Out: 914 DATE: May 14, 2022 Total Billed Treatment Time: 75 Total Billed Treatment 1 visit FA 75' co-treated from [id number] JAE ADORNO PT May 14, 2022 09:11
--- NOTE | 2022-05-14 11:08 | ST Mod Barium Swallow ---
Speech Evaluation-General Medical Diagnosis L Femur Fracture Onset Date: May 08, 2022 Therapy Diagnosis Therapy Diagnosis: Mild Oropharyngeal Dysphagia Precautions Precautions: Fall, Pressure Ulcer, Aspiration Precautions/Isolations: Aspiration, Fall Prevention, Standard Precautions, Pressure Ulcer Referral Referring Physician: Dr. Unger Reason for Referral: Evaluation/Treatment Medical History Pertinent Medical History: HTN Reviewed History: Yes Social History Current Living Status: Other Family Speech Mod Barium Swallow Prior Level of Function Please review the patient's medical chart for prior medical and P.O. intake history. Oral Motor Skills Dentition Natural Dentures: Partial Upper Dentition Comments: Full, lower. Lingual Protrusion: Normal Lingual ROM: Normal Lingual Strength: Normal Volitional Dry Swallow: Yes Voluntary Cough: Yes Can Clear Throat Volitionally: Yes Textures-Lateral View Lateral View Food Presentation: Thin Liquid via Straw, Pureed Solids, Regular Solids Oral Phase Labial Closure: No Impairment (WFL) Bolus Formation Pooling L/R: Mild Impairment (Solid) Bolus Formation Placement: No Impairment (WFL) Mastication Rotary Chew: Mild Impairment (Solid.) A/P Lingual Propulsion: No Impairment (WFL) Lingual Movement: No Impairment (WFL) Oral Phase Residue: Mild Impairment The patient demonstrated prolonged mastication with solid consistencies which was aided with a subsequent thin liquid wash. Premature spillage of thin liquids to the level of the vallecular space was visualized. Pharyngeal Phase Swallow Response: Mild Impairment Base of Tongue: Mild Impairment Epiglottic Movement: No Impairment (WFL) Laryngeal Elevation: No Impairment (WFL) Vallecular Residue: Mild Pharyngeal Wall Residue: No Impairment (WFL) Piriform Sinus Residue: No Impairment (WFL) Laryngeal Penetration: Mild Aspiration Observations: None The patient demonstrated a mildly delayed pharyngeal swallow onset, with the head of the bolus reaching the laryngeal surface of the epiglottis prior to the swallow trigger. Mild transient laryngeal penetration was present with thin liquids during the swallow. No aspiration was present with any consistency tested. Mildly decreased base of tongue retraction was present which resulted in mild vallecular residue following the swallow. Summary/Impressions The patient demonstrated a mild oropharyngeal swallow deficit characterized by decreased lingual coordination, a mildly delayed onset of the pharyngeal swallow, and mildly reduced base of tongue retraction. No aspiration occurred with any consistency tested. Recommendations: - Regular consistency diet with thin liquids, as tolerated. - Fully upright and alert for P.O. intake. - Small, single bites and sips. - Monitor for s/s of suspected aspiration with P.O. intake. If demonstrated, contact speech pathology. The results and recommendations were shared with the patient and the patient's RN immediately following completion of the study. Speech Short Term Goals Short Term Goals Short Term Goals 1. The patient will demonstrate use of AAC (written, white board) with 80% accuracy with mild clinician verbal cueing. 2. The patient will display 80% accuracy with memory exercises with mild clinician verbal and visual cueing. 3. The patient will display safe swallowing precautions with 80% accuracy and mild clinician cueing. Time Frame-STG: One Week. Speech Manhole Builder Goals Manhole Builder Goals 1. The patient will display improved cognitive linguistic skills for safe discharge to the least restrictive environment. 2. The patient will tolerate the least restrictive diet consistency without s/s of suspected aspiration. Time Frame: Ten Days. Speech-Plan Treatment Plan Speech Therapy Treatment Plan: Continue Plan of Care Treatment Duration: May 17, 2022 Frequency: Modified Program (IRF) (Four to five times per week.) Estimated Hrs Per Day: .5 hour per day Rehab Potential: Guarded Safety Risks/Education Teaching Recipient: Patient Teaching Methods: Discussion Response to Teaching: Reinforcement Needed Education Topics Provided: Results, Recommendations, Plan of Care, Safe Swallowing Precautions Time Speech Therapy Time In: 10:40 Speech Therapy Time Out: 11:00 DATE: May 14, 2022 Total Billed Time: 20 Billed Treatment Time 1, MOD, SAWYER GALINDO May 14, 2022 11:08
--- NOTE | 2022-05-14 11:09 | Speech Therapy Daily Note ---
Speech Daily Progress Note Subjective Date Seen by Provider: May 14, 2022 Time Seen by Provider: 11:00 The patient was seated upright, awake and alert, upon entrance to his room by the clinician. The patient greeted the clinician appropriately and was agreeable to participation in the treatment session. The patient continues to display increased alertness and participation on this date. Objective The patient was oriented to month and year independently. The patient stated he was in [place] and the clinician provided the patient the day of the week. Prior to the clinician's verbal cue for location, the patient self-corrected and stated he was in [place]. The patient participated and attended to the treatment session without verbal redirection and remained on task, asking appropriate questions of the clinician. The patient and clinician discussed the recent video swallow results and safe swallowing precautions to keep in place. Assessment Assessment Current Status: Fair Progress Treatment Plan Continue Plan of Care Speech Short Term Goals Short Term Goals Short Term Goals 1. The patient will demonstrate use of AAC (written, white board) with 80% accuracy with mild clinician verbal cueing. 2. The patient will display 80% accuracy with memory exercises with mild clinician verbal and visual cueing. 3. The patient will display safe swallowing precautions with 80% accuracy and mild clinician cueing. Time Frame-STG: One Week. Speech Custodial Goals Custodial Goals 1. The patient will display improved cognitive linguistic skills for safe discharge to the least restrictive environment. 2. The patient will tolerate the least restrictive diet consistency without s/s of suspected aspiration. Time Frame: Ten Days. Speech-Plan Treatment Plan Speech Therapy Treatment Plan: Continue Plan of Care Treatment Duration: May 17, 2022 Frequency: Modified Program (IRF) (Four to five times per week.) Estimated Hrs Per Day: .5 hour per day Rehab Potential: Guarded Safety Risks/Education Teaching Recipient: Patient Teaching Methods: Discussion Response to Teaching: Reinforcement Needed Education Topics Provided: Orientation Strategies, Safe Swallowing Precautions Time Speech Therapy Time In: 11:00 Speech Therapy Time Out: 11:10 DATE: May 14, 2022 Total Billed Time: 10 Billed Treatment Time BRITTANY Lee ELIZABETH May 14, 2022 11:09
[2022-05-14] MEDS: ENOXAPARIN 40 MG/0.4 ML (LOVENOX) SYR SC SCH (11:28)
--- NOTE | 2022-05-14 12:25 | Diagnostic Imaging Report ---
INDICATION: Dysphagia. TECHNIQUE: Procedure was performed in conjunction with Speech Pathology. Video fluoroscopy was performed during the swallowing of barium in multiple consistencies. A total of 1 minute of fluoroscopic time was utilized. Patient ingested thin barium as well as applesauce and solid consistency. FINDINGS: There were two episodes of flash laryngeal penetration during the swallowing of thin barium. All other consistencies were unremarkable. There was normal epiglottic tilt and laryngeal elevation. No aspiration was observed. No significant residue was identified. IMPRESSION: Essentially unremarkable modified barium swallow apart from two episodes of flash laryngeal penetration during the swallowing of thin barium. Dictated by: Dictated on workstation # [id number]
[2022-05-14 20:12] VITALS: BP 158/72
[2022-05-15] MEDS: KCL 10 MEQ TAB (MICRO K) PO SCH (06:12)
[2022-05-15] MEDS: LEVOTHYROXINE 50 MCG (LEVOTHROID) TAB PO SCH (06:12)
--- NOTE | 2022-05-15 06:49 | PM&R Progress Note ---
Subjective HPI/CC On Admission Date Seen by Provider: May 15, 2022 Time Seen by Provider: 12:00 Subjective/Events-last exam 05/15/2022: No major changes Slow recovery Pain controlled Very sedentary at home 05/14/2022: Improved status Pain controlled Slow moving No nausea BM+ 05/13/2022: Much improved status since IVF given Slow recovery but improved overall Pain controlled 05/12/2022: Less lethargic today Overmedication from pain meds upstairs likely the cause Will decrease any pain meds and sedatives in the meantime Confusion less 05/11/2022: Seems to be oversedated so will hold some meds No pain reported Labs stable Voiding well with incontinence No falls Review of Systems General: Fatigue, Malaise Objective Exam Vital Signs Vital Signs Date Time Temp Pulse Resp B/P (MAP) Pulse Ox O2 Delivery O2 Flow Rate FiO2 05/15/22 09:26 Room Air 05/15/22 07:53 36.4 65 20 153/76 (101) 62 05/14/22 21:30 0.00 Capillary Refill : General Appearance: No Apparent Distress, WD/WN, Chronically ill, Thin HEENT: PERRL/EOMI, Normal ENT Inspection, Pharynx Normal Neck: Full Range of Motion, Normal Inspection, Non Tender, Supple, Carotid B ruit Respiratory: Chest Non Tender, Lungs Clear, Normal Breath Sounds, No Accessory Muscle Use, No Respiratory Distress Cardiovascular: Regular Rate, Rhythm, No Edema, No Gallop, No JVD, No Murmur, Normal Peripheral Pulses Gastrointestinal: Normal Bowel Sounds, No Organomegaly, No Pulsatile Mass, Non Tender, Soft Back: Normal Inspection, No CVA Tenderness, No Vertebral Tenderness Extremity: Normal Capillary Refill, Normal Inspection, Normal Range of Motion (except left leg), Non Tender, No Calf Tenderness, No Pedal Edema Neurologic/Psychiatric: Alert, Oriented x3, No Motor/Sensory Deficits, Normal Mood/Affect, Motor Weakness (left leg and generalized) Skin: Normal Color, Warm/Dry Lymphatic: No Adenopathy Results/Procedures Lab Patient resulted labs reviewed. FIM Transfers Therapy Code Descriptions/Definitions Functional [place] Measure: 0=Not Assessed/NA 4=Minimal Assistance 1=Total Assistance 5=Supervision or Setup 2=Maximal Assistance 6=Modified [place] 3=Moderate Assistance 7=Complete IndependenceSCALE: Activities may be completed with or without assistive devices. 0-Omidhmnvce-nupwnhg completes the activity by him/herself with no assistance from a helper. 5-Set-up or Clean-up Assistance-helper sets up or cleans up; patient completes activity. [place] assists only prior to or following the activity. 4-Supervision or Touching Assistance-helper provides verbal cues and/or touching/steadying and/or contact guard assistance as patient completes activity. Assistance may be provided throughout the activity or intermittently. 3-Partial/Moderate Assistance-helper does LESS THAN HALF the effort. [place] lifts, holds or supports trunk or limbs, but provides less than half the effort. 2-Substantial/Maximal Assistance-helper does MORE THAN HALF the effort. [place] lifts or holds trunk or limbs and provides more than half the effort. 9-Rosfhxcgi-pazavj does ALL the effort. Patient does none of the effort to complete the activity. Or, the assistance of 2 or more helpers is required for the patient to complete the activity. If activity was not attempted, code reason: 7-Patient Refused. 9-Not Applicable-not attempted and the patient did not perform the activity before the current illness, exacerbation or injury. 10-Not Attempted due to Environmental Limitations-(lack of equipment, weather restraints, etc.). 88-Not Attempted due to Medical Conditions or Safety Concerns. Roll Left to Right (QC): 3 Sit to Lying (QC): 1 Sit to Stand (QC): 3 Chair/Ooo-ty-Xgrof Xfer(QC): 4 Car Transfer (QC): 2 Gait Training Does the Patient Walk?: No and Walking Goal IS indicated Distance: 20' Walk 10 feet (QC): 88 Walk 50 ft with 2 Turns(QC): 88 Walk 150 ft (QC): 88 Walking 10ft/uneven surface-QC: 88 Gait Assistive Device: FWW Wheelchair Training Does the Pt Use a Wheelchair?: Yes Distance: 100 Wheel 50 ft with 2 turns (QC): 1 Wheel 150 ft (QC): 88 Type of Wheelchair: Manual Stair Training #of Steps: 0 1 Step (curb) (QC): 88 4 Steps (QC): 88 12 Steps (QC): 88 Balance Picking up an Object (QC): 88 ADL-Treatment Eating (QC): 5 Oral Hygiene (QC): 1 Shower/Bathe Self (QC): 2 Upper Body Dressing (QC): 5 Lower Body Dressing (QC): 1 On/Off Footwear (QC): 1 Toileting Hygiene (QC): 1 Toilet Transfer (QC): 2 Assessment/Plan Assessment and Plan Assess & Plan/Chief Complaint Assessment: Left hip fracture Fall History of humerus fracture Hypertension PTSD 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 Velasquez gastroenterology Depression Hypothyroidism Cancer status post cryotherapy at Acute kidney injury increased IV fluids on 05/09/2022 and holding losartan Oversedation 05/11/22 resolved with IVF Plan: Dr. Silver consult appreciated Pain control Supportive care Increase IV fluids Increase p.o. fluids Supportive care Lovenox for DVT prophylaxis if okay with Dr. Silver 05/11/2022: Hold meds for oversedation Monitor closely 05/12/2022: Supportive care Minimize sedatives 05/13/2022: Monitor closely DC IVF 05/14/2022: Pain control 05/15/2022: Monitor pain (1) Closed left hip fracture Status: Acute (2) Chronic diarrhea Status: Acute (3) HTN (hypertension) Status: Chronic (4) Liver cancer Status: Chronic ROBBIE HUYNH DO May 15, 2022 06:49
[2022-05-15 07:53] VITALS: BP 153/76
[2022-05-15] MEDS: SERTRALINE 100 MG (ZOLOFT) TAB PO SCH (08:11)
[2022-05-15] MEDS: amLODIPine 10 MG (NORVASC) TAB PO SCH (08:11)
[2022-05-15] MEDS: VITAMIN D3 25 MCG (1,000 UNITS) TABLET PO SCH (08:11)
[2022-05-15] MEDS: DIPHENOXYLATE/ATROPINE 2.5MG/0.025MG (LOMOTIL) TAB PO SCH (08:12)
[2022-05-15] MEDS: DOCUSATE SODIUM 100 MG (COLACE) CAP PO SCH ×2 (08:12→19:22)
[2022-05-15] MEDS: polyethylene glycoL POWDER 17 GM (MIRALAX) PACK PO SCH ×2 (08:12→19:22)
[2022-05-15] MEDS: LOSARTAN 100 MG (COZAAR) TABLET PO SCH (08:12)
[2022-05-15] MEDS: PANTOPRAZOLE 20 MG TABLET (PROTONIX) PO SCH (08:12)
[2022-05-15] MEDS: COLESTIPOL 1 GM (COLESTID) TAB PO SCH ×2 (08:13→19:39)
[2022-05-15] MEDS: SENNOSIDES 8.6 MG (SENOKOT) TAB PO SCH ×2 (08:13→19:22)
[2022-05-15] MEDS: ENOXAPARIN 40 MG/0.4 ML (LOVENOX) SYR SC SCH (10:52)
[2022-05-15] MEDS ORDERED: ARTIFICAL TEARS 0.4 ML UNIT DOSE (REFRESH PLUS) OU PRN (11:00)
--- NOTE | 2022-05-15 12:21 | Physical Therapy Progress Note ---
Therapy Progress Note Pt is attempted first time and pt is eating lunch and scrolling on cell phone. ANIMAL TRAINER SUPERVISOR checks back on pt 15-20 mins. later and pt has made little progress towards eating and stated "It's going to be a little bit before I'm done". Pt demonstrates little concern with completing therapy today. No tx is rendered. MARIBEL RAMOS ANIMAL TRAINER SUPERVISOR May 15, 2022 12:21
[2022-05-15 19:50] VITALS: BP 147/76
[2022-05-16] MEDS: KCL 10 MEQ TAB (MICRO K) PO SCH (06:06)
[2022-05-16] MEDS: LEVOTHYROXINE 50 MCG (LEVOTHROID) TAB PO SCH (06:06)
[2022-05-16 07:30] VITALS: BP 134/72
[2022-05-16] MEDS: LOSARTAN 100 MG (COZAAR) TABLET PO SCH (08:12)
[2022-05-16] MEDS: SERTRALINE 100 MG (ZOLOFT) TAB PO SCH (08:12)
[2022-05-16] MEDS: amLODIPine 10 MG (NORVASC) TAB PO SCH (08:12)
[2022-05-16] MEDS: PANTOPRAZOLE 20 MG TABLET (PROTONIX) PO SCH (08:12)
--- NOTE | 2022-05-16 08:12 | PM&R Progress Note ---
Subjective HPI/CC On Admission Date Seen by Provider: May 16, 2022 Time Seen by Provider: 12:00 Subjective/Events-last exam 05/16/2022: Patient sleeping soundly No concerns from nurse Slow recovery Doing well 05/15/2022: No major changes Slow recovery Pain controlled Very sedentary at home 05/14/2022: Improved status Pain controlled Slow moving No nausea BM+ 05/13/2022: Much improved status since IVF given Slow recovery but improved overall Pain controlled 05/12/2022: Less lethargic today Overmedication from pain meds upstairs likely the cause Will decrease any pain meds and sedatives in the meantime Confusion less 05/11/2022: Seems to be oversedated so will hold some meds No pain reported Labs stable Voiding well with incontinence No falls Review of Systems General: Fatigue, Malaise Objective Exam Vital Signs Vital Signs Date Time Temp Pulse Resp B/P (MAP) Pulse Ox O2 Delivery O2 Flow Rate FiO2 05/16/22 09:20 Room Air 05/16/22 07:30 36.5 65 18 134/72 (92) 92 05/14/22 21:30 0.00 Capillary Refill : General Appearance: No Apparent Distress, WD/WN, Chronically ill, Thin HEENT: PERRL/EOMI, Normal ENT Inspection, Pharynx Normal Neck: Full Range of Motion, Normal Inspection, Non Tender, Supple, Carotid Bruit Respiratory: Chest Non Tender, Lungs Clear, Normal Breath Sounds, No Accessory Muscle Use, No Respiratory Distress Cardiovascular: Regular Rate, Rhythm, No Edema, No Gallop, No JVD, No Murmur, Normal Peripheral Pulses Gastrointestinal: Normal Bowel Sounds, No Organomegaly, No Pulsatile Mass, Non Tender, Soft Back: Normal Inspection, No CVA Tenderness, No Vertebral Tenderness Extremity: Normal Capillary Refill, Normal Inspection, Normal Range of Motion (except left leg), Non Tender, No Calf Tenderness, No Pedal Edema Neurologic/Psychiatric: Alert, Oriented x3, No Motor/Sensory Deficits, Normal Mood/Affect, Motor Weakness (left leg and generalized) Skin: Normal Color, Warm/Dry Lymphatic: No Adenopathy Results/Procedures Lab Patient resulted labs reviewed. FIM Transfers Therapy Code Descriptions/Definitions Functional [place] Measure: 0=Not Assessed/NA 4=Minimal Assistance 1=Total Assistance 5=Supervision or Setup 2=Maximal Assistance 6=Modified [place] 3=Moderate Assistance 7=Complete IndependenceSCALE: Activities may be completed with or without assistive devices. 6-Errzghnayc-dzditme completes the activity by him/herself with no assistance from a helper. 5-Set-up or Clean-up Assistance-helper sets up or cleans up; patient completes activity. [place] assists only prior to or following the activity. 4-Supervision or Touching Assistance-helper provides verbal cues and/or touching/steadying and/or contact guard assistance as patient completes activity. Assistance may be provided throughout the activity or intermittently. 3-Partial/Moderate Assistance-helper does LESS THAN HALF the effort. [place] lifts, holds or supports trunk or limbs, but provides less than half the effort. 2-Substantial/Maximal Assistance-helper does MORE THAN HALF the effort. [place] lifts or holds trunk or limbs and provides more than half the effort. 5-Lqzsunots-lljwfj does ALL the effort. Patient does none of the effort to complete the activity. Or, the assistance of 2 or more helpers is required for the patient to complete the activity. If activity was not attempted, code reason: 7-Patient Refused. 9-Not Applicable-not attempted and the patient did not perform the activity before the current illness, exacerbation or injury. 10-Not Attempted due to Environmental Limitations-(lack of equipment, weather restraints, etc.). 88-Not Attempted due to Medical Conditions or Safety Concerns. Roll Left to Right (QC): 3 Sit to Lying (QC): 1 Sit to Stand (QC): 3 Chair/Swx-cd-Oegbx Xfer(QC): 4 Car Transfer (QC): 2 Gait Training Does the Patient Walk?: No and Walking Goal IS indicated Distance: 20' Walk 10 feet (QC): 88 Walk 50 ft with 2 Turns(QC): 88 Walk 150 ft (QC): 88 Walking 10ft/uneven surface-QC: 88 Gait Assistive Device: FWW Wheelchair Training Does the Pt Use a Wheelchair?: Yes Distance: 100 Wheel 50 ft with 2 turns (QC): 1 Wheel 150 ft (QC): 88 Type of Wheelchair: Manual Stair Training #of Steps: 0 1 Step (curb) (QC): 88 4 Steps (QC): 88 12 Steps (QC): 88 Balance Picking up an Object (QC): 88 ADL-Treatment Eating (QC): 5 Oral Hygiene (QC): 1 Shower/Bathe Self (QC): 2 Upper Body Dressing (QC): 5 Lower Body Dressing (QC): 1 On/Off Footwear (QC): 1 Toileting Hygiene (QC): 1 Toilet Transfer (QC): 2 Assessment/Plan Assessment and Plan Assess & Plan/Chief Complaint Assessment: Left hip fracture Fall History of humerus fracture Hypertension PTSD 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 Velasquez gastroenterology Depression Hypothyroidism Cancer status post cryotherapy at Acute kidney injury increased IV fluids on 05/09/2022 and holding losartan Oversedation 05/11/22 resolved with IVF Plan: Dr. Silver consult appreciated Pain control Supportive care Increase IV fluids Increase p.o. fluids Supportive care Lovenox for DVT prophylaxis if okay with Dr. Silver 05/11/2022: Hold meds for oversedation Monitor closely 05/12/2022: Supportive care Minimize sedatives 05/13/2022: Monitor closely DC IVF 05/14/2022: Pain control 05/15/2022: Monitor pain 05/16/2022: Supportive care will continue (1) Closed left hip fracture Status: Acute (2) Chronic diarrhea Status: Acute (3) HTN (hypertension) Status: Chronic (4) Liver cancer Status: Chronic ROBBIE HUYNH DO May 16, 2022 08:12
[2022-05-16] MEDS: VITAMIN D3 25 MCG (1,000 UNITS) TABLET PO SCH (08:13)
[2022-05-16] MEDS: COLESTIPOL 1 GM (COLESTID) TAB PO SCH ×2 (08:13→20:06)
[2022-05-16] MEDS: DIPHENOXYLATE/ATROPINE 2.5MG/0.025MG (LOMOTIL) TAB PO SCH (08:13)
[2022-05-16] MEDS: polyethylene glycoL POWDER 17 GM (MIRALAX) PACK PO SCH ×2 (08:14→19:40)
[2022-05-16] MEDS: DOCUSATE SODIUM 100 MG (COLACE) CAP PO SCH ×2 (08:14→19:40)
[2022-05-16] MEDS: SENNOSIDES 8.6 MG (SENOKOT) TAB PO SCH ×2 (08:14→19:40)
[2022-05-16] MEDS: ENOXAPARIN 40 MG/0.4 ML (LOVENOX) SYR SC SCH (11:30)
[2022-05-16 19:03] VITALS: BP 137/68
--- NOTE | 2022-05-17 05:22 | PM&R Progress Note ---
Subjective HPI/CC On Admission Date Seen by Provider: May 17, 2022 Time Seen by Provider: 08:30 Subjective/Events-last exam 05/17/2022: Not wanting to work with therapy May need to go to [facility] if this persists SW spoke to Josh and he is requesting I speak to him about NHP No other issues 05/16/2022: Patient sleeping soundly No concerns from nurse Slow recovery Doing well 05/15/2022: No major changes Slow recovery Pain controlled Very sedentary at home 05/14/2022: Improved status Pain controlled Slow moving No nausea BM+ 05/13/2022: Much improved status since IVF given Slow recovery but improved overall Pain controlled 05/12/2022: Less lethargic today Overmedication from pain meds upstairs likely the cause Will decrease any pain meds and sedatives in the meantime Confusion less 05/11/2022: Seems to be oversedated so will hold some meds No pain reported Labs stable Voiding well with incontinence No falls Review of Systems General: Fatigue, Malaise Objective Exam Vital Signs Vital Signs Date Time Temp Pulse Resp B/P (MAP) Pulse Ox O2 Delivery O2 Flow Rate FiO2 05/17/22 21:50 94 Room Air 05/17/22 20:15 36.7 61 24 131/71 (91) 05/14/22 21:30 0.00 Capillary Refill : General Appearance: No Apparent Distress, WD/WN, Chronically ill, Thin HEENT: PERRL/EOMI, Normal ENT Inspection, Pharynx Normal Neck: Full Range of Motion, Normal Inspection, Non Tender, Supple, Carotid Bruit Respiratory: Chest Non Tender, Lungs Clear, Normal Breath Sounds, No Accessory Muscle Use, No Respiratory Distress Cardiovascular: Regular Rate, Rhythm, No Edema, No Gallop, No JVD, No Murmur, Normal Peripheral Pulses Gastrointestinal: Normal Bowel Sounds, No Organomegaly, No Pulsatile Mass, Non Tender, Soft Back: Normal Inspection, No CVA Tenderness, No Vertebral Tenderness Extremity: Normal Capillary Refill, Normal Inspection, Normal Range of Motion (except left leg), Non Tender, No Calf Tenderness, No Pedal Edema Neurologic/Psychiatric: Alert, Oriented x3, No Motor/Sensory Deficits, Normal Mood/Affect, Motor Weakness (left leg and generalized) Skin: Normal Color, Warm/Dry Lymphatic: No Adenopathy Results/Procedures Lab Patient resulted labs reviewed. FIM Transfers Therapy Code Descriptions/Definitions Functional [place] Measure: 0=Not Assessed/NA 4=Minimal Assistance 1=Total Assistance 5=Supervision or Setup 2=Maximal Assistance 6=Modified [place] 3=Moderate Assistance 7=Complete IndependenceSCALE: Activities may be completed with or without assistive devices. 9-Xsmkjpoalq-nbxfqjt completes the activity by him/herself with no assistance from a helper. 5-Set-up or Clean-up Assistance-helper sets up or cleans up; patient completes activity. [place] assists only prior to or following the activity. 4-Supervision or Touching Assistance-helper provides verbal cues and/or touching/steadying and/or contact guard assistance as patient completes activity. Assistance may be provided throughout the activity or intermittently. 3-Partial/Moderate Assistance-helper does LESS THAN HALF the effort. [place] lifts, holds or supports trunk or limbs, but provides less than half the effort. 2-Substantial/Maximal Assistance-helper does MORE THAN HALF the effort. [place] lifts or holds trunk or limbs and provides more than half the effort. 4-Uizlxeilm-ldaqvm does ALL the effort. Patient does none of the effort to complete the activity. Or, the assistance of 2 or more helpers is required for the patient to complete the activity. If activity was not attempted, code reason: 7-Patient Refused. 9-Not Applicable-not attempted and the patient did not perform the activity before the current illness, exacerbation or injury. 10-Not Attempted due to Environmental Limitations-(lack of equipment, weather restraints, etc.). 88-Not Attempted due to Medical Conditions or Safety Concerns. Roll Left to Right (QC): 3 Sit to Lying (QC): 1 Sit to Stand (QC): 3 Chair/Ock-bg-Qivzc Xfer(QC): 4 Car Transfer (QC): 2 Gait Training Does the Patient Walk?: No and Walking Goal IS indicated Distance: 20' Walk 10 feet (QC): 88 Walk 50 ft with 2 Turns(QC): 88 Walk 150 ft (QC): 88 Walking 10ft/uneven surface-QC: 88 Gait Assistive Device: FWW Wheelchair Training Does the Pt Use a Wheelchair?: Yes Distance: 100 Wheel 50 ft with 2 turns (QC): 1 Wheel 150 ft (QC): 88 Type of Wheelchair: Manual Stair Training #of Steps: 0 1 Step (curb) (QC): 88 4 Steps (QC): 88 12 Steps (QC): 88 Balance Picking up an Object (QC): 88 ADL-Treatment Eating (QC): 5 Oral Hygiene (QC): 1 Shower/Bathe Self (QC): 2 Upper Body Dressing (QC): 5 Lower Body Dressing (QC): 1 On/Off Footwear (QC): 1 Toileting Hygiene (QC): 1 Toilet Transfer (QC): 2 Assessment/Plan Assessment and Plan Assess & Plan/Chief Complaint Assessment: Left hip fracture Fall History of humerus fracture Hypertension PTSD 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 Velasquez gastroenterology Depression Hypothyroidism Cancer status post cryotherapy at Acute kidney injury increased IV fluids on 05/09/2022 and holding losartan Oversedation 05/11/22 resolved with IVF Plan: Dr. Silver consult appreciated Pain control Supportive care Increase IV fluids Increase p.o. fluids Supportive care Lovenox for DVT prophylaxis if okay with Dr. Silver 05/11/2022: Hold meds for oversedation Monitor closely 05/12/2022: Supportive care Minimize sedatives 05/13/2022: Monitor closely DC IVF 05/14/2022: Pain control 05/15/2022: Monitor pain 05/16/2022: Supportive care will continue 05/17/2022: Participation with therapy has declined (1) Closed left hip fracture Status: Acute (2) Chronic diarrhea Status: Acute (3) HTN (hypertension) Status: Chronic (4) Liver cancer Status: Chronic ROBBEI HUYNH DO May 17, 2022 05:22
[2022-05-17 05:48] LABS: BASOPHILS % (AUTO) 0 % (0-10); EOSINOPHILS # (AUTO) 0.1 10^3/uL (0.0-0.3); EOSINOPHILS % (AUTO) 2 % (0-10); HEMATOCRIT 33 % (40-54); HEMOGLOBIN 11.2 g/dL (13.3-17.7); LYMPHOCYTES # (AUTO) 1.4 10^3/uL (1.0-4.0); LYMPHOCYTES % (AUTO) 32 % (12-44); MEAN CORPUSCULAR HEMOGLOBIN 30 pg (25-34); MEAN CORPUSCULAR HGB CONC 34 g/dL (32-36); MEAN CORPUSCULAR VOLUME 89 fL (80-99); MEAN PLATELET VOLUME 12.3 fL (9.0-12.2); MONOCYTES # (AUTO) 0.5 10^3/uL (0.0-1.0); MONOCYTES % (AUTO) 12 % (0-12); NEUTROPHILS # (AUTO) 2.2 10^3/uL (1.8-7.8); NEUTROPHILS % (AUTO) 52 % (42-75); PLATELET COUNT 133 10^3/uL (130-400); WHITE BLOOD COUNT 4.2 10^3/uL (4.3-11.0)
[2022-05-17 05:56] LABS: ALBUMIN 2.8 GM/DL (3.2-4.5); POTASSIUM 3.3 MMOL/L (3.6-5.0)
[2022-05-17 05:58] LABS: CALCIUM 8.4 MG/DL (8.5-10.1)
[2022-05-17 05:59] LABS: TOTAL PROTEIN 5.2 GM/DL (6.4-8.2)
[2022-05-17 06:01] LABS: BILIRUBIN,TOTAL 0.5 MG/DL (0.1-1.0)
[2022-05-17 06:02] LABS: CREATININE SERUM 0.87 MG/DL (0.60-1.30)
[2022-05-17] MEDS: LEVOTHYROXINE 50 MCG (LEVOTHROID) TAB PO SCH (06:11)
[2022-05-17] MEDS: KCL 10 MEQ TAB (MICRO K) PO SCH ×4 (06:11→18:27)
[2022-05-17 07:20] VITALS: BP 169/96
[2022-05-17] MEDS: COLESTIPOL 1 GM (COLESTID) TAB PO SCH ×2 (07:31→21:58)
[2022-05-17] MEDS: VITAMIN D3 25 MCG (1,000 UNITS) TABLET PO SCH (07:32)
[2022-05-17] MEDS: DIPHENOXYLATE/ATROPINE 2.5MG/0.025MG (LOMOTIL) TAB PO SCH (07:33)
[2022-05-17] MEDS: PANTOPRAZOLE 20 MG TABLET (PROTONIX) PO SCH (07:33)
[2022-05-17] MEDS: SERTRALINE 100 MG (ZOLOFT) TAB PO SCH (07:33)
[2022-05-17] MEDS: LOSARTAN 100 MG (COZAAR) TABLET PO SCH (07:33)
[2022-05-17] MEDS: amLODIPine 10 MG (NORVASC) TAB PO SCH (07:33)
--- NOTE | 2022-05-17 08:13 | Physical Therapy Daily Note ---
PT Daily Note-Current Subjective Patient in bed pre tx, eating breakfast still, doesn't voice any complaints of pain. Pain Section J - Health Conditions 1. Rarely or not at all 2. Occasionally 3. Frequently 4. Almost constantly 8. Unable to answer Pain Effect on Sleep: 8 Pain Interference with Therapy: 8 Pain Interference w/Day-to-Day: 8 Appearance Patient in bed post tx with nurse call ,phone, tray, all needs met. Mental Status Patient Orientation: Person Transfers SCALE: Activities may be completed with or without assistive devices. 5-Msmqvqouzn-wbcwomr completes the activity by him/herself with no assistance from a helper. 5-Set-up or Clean-up Assistance-helper sets up or cleans up; patient completes activity. [place] assists only prior to or following the activity. 4-Supervision or Touching Assistance-helper provides verbal cues and/or touching/steadying and/or contact guard assistance as patient completes activity. Assistance may be provided throughout the activity or intermittently. 3-Partial/Moderate Assistance-helper does LESS THAN HALF the effort. [place] lifts, holds or supports trunk or limbs, but provides less than half the effort. 2-Substantial/Maximal Assistance-helper does MORE THAN HALF the effort. [place] lifts or holds trunk or limbs and provides more than half the effort. 6-Wjvqhsqkj-rfhjmc does ALL the effort. Patient does none of the effort to complete the activity. Or, the assistance of 2 or more helpers is required for the patient to complete the activity. If activity was not attempted, code reason: 7-Patient Refused. 9-Not Applicable-not attempted and the patient did not perform the activity before the current illness, exacerbation or injury. 10-Not Attempted due to Environmental Limitations-(lack of equipment, weather restraints, etc.). 88-Not Attempted due to Medical Conditions or Safety Concerns. Weight Bearing Right Lower Extremity: Right Full Weight Bearing Left Lower Extremity: Left Weight Bearing/Tolerated Exercises Supine Ex: Ankle pumps, Heel Slides Supine Reps: 20 Treatments LE ROM Assessment Current Status: Poor Progress Patient is still eating breakfast, refuses to get into recliner so he can be in a better position for eating. Patient performs a couple of LE exercises, minimal participation because he is focused on eating. Patient ignores therapist most of the time, seems uninterested in therapy. PT Short Term Goals Short Term Goals Time Frame: May 22, 2022 Roll Left & Right: 4 Sit to lyin Lying to sitting on side of be: 4 Sit to stand: 4 Chair/zsp-mr-fvjkw transfer: 4 Toilet transfer: 4 Car transfer: 4 Walk 10 feet: 3 Walk 50 feet with two turns: 3 Walk 150 feet: 3 PT Traffic Checker Goals Traffic Checker Goals PT Assisted Goals Time Frame: Jun 05, 2022 Roll Left & Right (QC): 5 Sit to Lying (QC): 5 Lying-Sitting on Side/Bed(QC): 5 Sit to Stand (QC): 5 Chair/Nqp-xp-Pecfz Xfer(QC): 5 Toilet Transfer (QC): 5 Car Transfer (QC): 5 Does the Patient Walk: Yes Walk 10 feet (QC): 4 Walk 50ft with 2 Turns (QC): 4 Walk 150 ft (QC): 4 Walking 10ft on Uneven Surface: 4 1 Step (curb) (QC): 3 4 Steps (QC): 3 12 Steps (QC): 3 Picking up an Object (QC): 4 Does the Pt use WC or Scooter?: Yes Wheel 50 feet with 2 turns (QC: 6 Type: Manual Wheel 150 feet: 6 Type: Manual PT Plan Problem List Problem List: Activity Tolerance, Functional Strength, Safety, Balance, Gait, Transfer, Bed Mobility, ROM Treatment/Plan Treatment Plan: Continue Plan of Care Treatment Plan: Bed Mobility, Education, Functional Activity [place], Functional Strength, Group Therapy, Gait, Safety, Therapeutic Exercise, Transfers Treatment Duration: Jun 12, 2022 Frequency: At least 5 of 7 days/Wk (IRF) Estimated Hrs Per Day: 1.5 hours per day Patient and/or Family Agrees t: Yes Safety Risks/Education Patient Education: Correct Positioning, Safety Issues Teaching Recipient: Patient Teaching Methods: Demonstration, Discussion Response to Teaching: Reinforcement Needed Time Time In: 0755 Time Out: 810 DATE: May 17, 2022 Total Billed Treatment Time: 15 Total Billed Treatment 1 visit EX 15' JAE ADORNO PT May 17, 2022 08:13
[2022-05-17] MEDS: SENNOSIDES 8.6 MG (SENOKOT) TAB PO SCH ×2 (08:29→22:02)
[2022-05-17] MEDS: DOCUSATE SODIUM 100 MG (COLACE) CAP PO SCH ×2 (08:29→22:01)
[2022-05-17] MEDS: polyethylene glycoL POWDER 17 GM (MIRALAX) PACK PO SCH ×2 (08:29→22:02)
--- NOTE | 2022-05-17 10:49 | Speech Therapy Daily Note ---
Speech Daily Progress Note Subjective Date Seen by Provider: May 17, 2022 Time Seen by Provider: 09:00 The patient was seated upright in bed, awake and alert, upon entrance to his room by the clinician. The patient greeted the clinician appropriately and was agreeable to participation in the cognitive linguistic and dysphagia treatment session. Objective The patient denied the presence of s/s of suspected aspiration with P.O. intake. The clinician and patient reviewed and discussed the safe swallowing precautions recommended. The patient sipped on thin liquid intermittently throughout the treatment session and did not display s/s of suspected aspiration. Due to an increase in alertness, the SLUMS was provided on this date. The patient displayed a result of +28/30 on the SLUMS which correlates to cognitive linguistic skills within normal limits. Upon admission, the patient was administered the SLUMS and displayed a score of +14/30. The patient has displayed great improvement in cognitive function throughout his stay. Assessment Assessment Current Status: Good Progress Treatment Plan Continue Plan of Care Speech Short Term Goals Short Term Goals Short Term Goals 1. The patient will demonstrate use of AAC (written, white board) with 80% accuracy with mild clinician verbal cueing. 2. The patient will display 80% accuracy with memory exercises with mild clinician verbal and visual cueing. 3. The patient will display safe swallowing precautions with 80% accuracy and mild clinician cueing. Time Frame-STG: One Week. Speech Tableau Report Developer Goals Tableau Report Developer Goals 1. The patient will display improved cognitive linguistic skills for safe discharge to the least restrictive environment. 2. The patient will tolerate the least restrictive diet consistency without s/s of suspected aspiration. Time Frame: Ten Days. Speech-Plan Treatment Plan Speech Therapy Treatment Plan: Continue Plan of Care Treatment Duration: May 17, 2022 Frequency: Modified Program (IRF) (Four to five times per week.) Estimated Hrs Per Day: .5 hour per day Rehab Potential: Guarded Safety Risks/Education Teaching Recipient: Patient Teaching Methods: Discussion Response to Teaching: Verbalize Understanding Education Topics Provided: Safe Swallowing Strategies Time Speech Therapy Time In: 09:00 Speech Therapy Time Out: 09:30 DATE: May 17, 2022 Total Billed Time: 30 Billed Treatment Time 1BRITTANY DYST LOY, ELIZAB[facility] ST May 17, 2022 10:49
--- NOTE | 2022-05-17 11:57 | Progress Note ---
BUFFY WILCOX 05/17/22 1157: Progress Note No concerns reported Alert and oriented, however hard of hearing Pain in Left hip is 4/10 at rest, 6-7/10 at worst Minimal progress with therapy Eating independently Bowel movement this morning ANNAMARIA HUYNH DO 05/18/22 0519: Supervisory-Addendum Brief Verification & Attestation Participated in pt care: history, MDM, physical Personally performed: exam, history, MDM, supervision of care Care discussed with: Medical Student Procedures: n/a Results interpretation: Verified all documentation Verification and Attestation of Medical Student E/M Service A medical student performed and documented this service in my presence. I reviewed and verified all information documented by the medical student and made modifications to such information, when appropriate. I personally performed the physical exam and medical decision making. Annamaria Huynh, May 18, 2022,05:19 BUFFY WILCOX May 17, 2022 11:57 ANNAMARIA HUYNH DO May 18, 2022 05:19
--- NOTE | 2022-05-17 11:57 | Physical Therapy Daily Note ---
PT Daily Note-Current Subjective Patient in bed pre tx, agrees to PT, has no pain at rest. Will be co-treating with OT due to poor patient mobility, strength, endurance, severe debility, coordinate UE and LE during activity, safety and reduce risk of falls. Pain Section J - Health Conditions 1. Rarely or not at all 2. Occasionally 3. Frequently 4. Almost constantly 8. Unable to answer Pain Effect on Sleep: 8 Pain Interference with Therapy: 8 Pain Interference w/Day-to-Day: 8 Appearance Patient in WC post tx, will continue for a bit with OT. Mental Status Patient Orientation: Person, Place, Situation Transfers SCALE: Activities may be completed with or without assistive devices. 7-Haujhhyzrb-erydglk completes the activity by him/herself with no assistance from a helper. 5-Set-up or Clean-up Assistance-helper sets up or cleans up; patient completes activity. [place] assists only prior to or following the activity. 4-Supervision or Touching Assistance-helper provides verbal cues and/or touching/steadying and/or contact guard assistance as patient completes activity. Assistance may be provided throughout the activity or intermittently. 3-Partial/Moderate Assistance-helper does LESS THAN HALF the effort. [place] lifts, holds or supports trunk or limbs, but provides less than half the effort. 2-Substantial/Maximal Assistance-helper does MORE THAN HALF the effort. [place] lifts or holds trunk or limbs and provides more than half the effort. 3-Wpsblkihf-jtnbvu does ALL the effort. Patient does none of the effort to complete the activity. Or, the assistance of 2 or more helpers is required for the patient to complete the activity. If activity was not attempted, code reason: 7-Patient Refused. 9-Not Applicable-not attempted and the patient did not perform the activity before the current illness, exacerbation or injury. 10-Not Attempted due to Environmental Limitations-(lack of equipment, weather restraints, etc.). 88-Not Attempted due to Medical Conditions or Safety Concerns. Roll Left & Right (QC): 4 Lying to Sitting/Side of Bed(Q: 4 Sit to Stand (QC): 4 (CGA) Chair/Xef-tz-Bdimv Xfer(QC): 4 (CGA) Toilet Transfer (QC): 4 (CGA) Weight Bearing Right Lower Extremity: Right Full Weight Bearing Left Lower Extremity: Left Weight Bearing/Tolerated Gait Training Distance: 15', 100' Walk 10 feet (QC): 4 Walk 50 ft with 2 Turns(QC): 4 Gait Assistive Device: FWW WC follow, patient initially ambulates to the restroom and to the toilet, he has already had a BM, assist with brief and pants, patient sits and has another BM, assist with brief and pants again. Patient then ambulates out of the room and down the hallway. Patient ambulates very slow, poor foot clearance, steps only a few inches each, but has improved weight bearing on the left leg. Exercises Seated Therapy Exercises: Ankle pumps, Long arc quads Seated Reps: 20 Standing in parallel bars performing UE strengthening and working on bearing weight on left leg and balance. Treatments PT performed bed mobility and transfers, ambulation, toilet transfer, standing activity, LE ROM, OT performed standing activity, UE strengthening, toileting, dressing, UE positioning and safety during activity. Assessment Current Status: Fair Progress improved mobility today but extremely slow PT Short Term Goals Short Term Goals Time Frame: May 22, 2022 Roll Left & Right: 4 Sit to lyin Lying to sitting on side of be: 4 Sit to stand: 4 Chair/edu-qx-mjpdo transfer: 4 Toilet transfer: 4 Car transfer: 4 Walk 10 feet: 3 Walk 50 feet with two turns: 3 Walk 150 feet: 3 PT Residential Goals Human Resources Compensation Analyst Goals PT Residential Goals Time Frame: Jun 05, 2022 Roll Left & Right (QC): 5 Sit to Lying (QC): 5 Lying-Sitting on Side/Bed(QC): 5 Sit to Stand (QC): 5 Chair/Tug-wr-Gpagz Xfer(QC): 5 Toilet Transfer (QC): 5 Car Transfer (QC): 5 Does the Patient Walk: Yes Walk 10 feet (QC): 4 Walk 50ft with 2 Turns (QC): 4 Walk 150 ft (QC): 4 Walking 10ft on Uneven Surface: 4 1 Step (curb) (QC): 3 4 Steps (QC): 3 12 Steps (QC): 3 Picking up an Object (QC): 4 Does the Pt use WC or Scooter?: Yes Wheel 50 feet with 2 turns (QC: 6 Type: Manual Wheel 150 feet: 6 Type: Manual PT Plan Problem List Problem List: Activity Tolerance, Functional Strength, Safety, Balance, Gait, Transfer, Bed Mobility, ROM Treatment/Plan Treatment Plan: Continue Plan of Care Treatment Plan: Bed Mobility, Education, Functional Activity Cain, Functional Strength, Group Therapy, Gait, Safety, Therapeutic Exercise, Transfers Treatment Duration: Jun 12, 2022 Frequency: At least 5 of 7 days/Wk (IRF) Estimated Hrs Per Day: 1.5 hours per day Patient and/or Family Agrees t: Yes Safety Risks/Education Patient Education: Gait Training, Transfer Techniques, Correct Positioning, Safety Issues Teaching Recipient: Patient Teaching Methods: Demonstration, Discussion Response to Teaching: Reinforcement Needed Time Time In: 1100 Time Out: 1200 DATE: May 17, 2022 Total Billed Treatment Time: 60 Total Billed Treatment 1 visit EX 15' FA 45' JAE ADORNO PT May 17, 2022 11:57
[2022-05-17] MEDS: ENOXAPARIN 40 MG/0.4 ML (LOVENOX) SYR SC SCH (12:10)
--- NOTE | 2022-05-17 12:16 | Occupational Ther Daily Note ---
OT Current Status-Daily Note Subjective Pt alert, lying in bed. Pt agrees to therapy. No c/o pain. Pt is moving better this am. OT/PT cotreat ([id number]), skills of 2 clinicians required due to poor patient mobility, strength, endurance, severe debility, coordinate UE and LE during activity, safety and reduce risk of falls. PT focusing on mobil ity, transfers/ambulation and B LE strengthening while OT focusing on ADLs, functional mobility and B UE strengthening. Mental Status/Objective Patient Orientation: Person, Place, Time, Situation ADL-Treatment Independent with bed mobility. CGA to ambulate to bathroom using FWW. Min A for toilet transfer. Pt incontinent of bowel. Pt attempted to cleanse but unable to, assist given then pt hiked pants over hips. Assist to don/doff briefs. Therapy Code Descriptions/Definitions Functional [place] Measure: 0=Not Assessed/NA 4=Minimal Assistance 1=Total Assistance 5=Supervision or Setup 2=Maximal Assistance 6=Modified [place] 3=Moderate Assistance 7=Complete IndependenceSCALE: Activities may be completed with or without assistive devices. 2-Axfchywmes-pudqtue completes the activity by him/herself with no assistance from a helper. 5-Set-up or Clean-up Assistance-helper sets up or cleans up; patient completes activity. [place] assists only prior to or following the activity. 4-Supervision or Touching Assistance-helper provides verbal cues and/or touching/steadying and/or contact guard assistance as patient completes activity. Assistance may be provided throughout the activity or intermittently. 3-Partial/Moderate Assistance-helper does LESS THAN HALF the effort. [place] lifts, holds or supports trunk or limbs, but provides less than half the effort. 2-Substantial/Maximal Assistance-helper does MORE THAN HALF the effort. [place] lifts or holds trunk or limbs and provides more than half the effort. 9-Rxthwpwih-shxusx does ALL the effort. Patient does none of the effort to complete the activity. Or, the assistance of 2 or more helpers is required for the patient to complete the activity. If activity was not attempted, code reason: 7-Patient Refused. 9-Not Applicable-not attempted and the patient did not perform the activity before the current illness, exacerbation or injury. 10-Not Attempted due to Environmental Limitations-(lack of equipment, weather restraints, etc.). 88-Not Attempted due to Medical Conditions or Safety Concerns. Lower Body Dressing (QC): 2 (Mod A. Pt able to thread R foot in pants, assist with L foot then hiked over hips. Assist with briefs) On/Off Footwear: 1 Toileting Hygiene (QC): 2 Toilet Transfer (QC): 4 Other Treatment See PT notes for ambulation progress. REYNOSO assisted with w/c for safety. Pt able to stand at parallel bars to complete hand wt exercises for bicep(5#)/tricep(3#) 1 set 15 reps. Shldr add with theraband 1 set 15 reps. Pt then propelled w/c from gym to room by self. After session, pt sitting in recliner with call light/phone in reach. All needs met in room. OT Short Term Goals Short Term Goals Time Frame: May 28, 2022 Shower/bathe self: 3 Lower body dressin Putting on/taking off footwear: 3 OT Senior Living Goals Senior Living Goals Time Frame: Jun 04, 2022 Acute change in mental status: 0 Inattention: 0 Disorganized thinkin Altered level of consciousness: 0 Eating (QC): 6 Oral Hygiene (QC): 6 Toileting Hygiene (QC): 6 Shower/Bathe Self (QC): 4 Upper Body Dressing (QC): 6 Lower Body Dressing (QC): 4 On/Off Footwear (QC): 4 Additional Goals: 1-Demonstrate ADL Tasks, 2-Verbalize Understanding, 3- ImproveStrength/Cain 1=Demonstrate adherence to instructed precautions during ADL tasks. 2=Patient will verbalize/demonstrate understanding of assistive devices/modifications for ADL. 3=Patient will improve strength/tolerance for activity to enable patient to perform ADL's. OT Education/Plan Problem List/Assessment Assessment: Decreased Activ Tolerance, Impaired Self-Care Skills Discharge Recommendations Plan/Recommendations: Continue POC Treatment Plan/Plan of Care Patient would benefit from OT for education, treatment and training to promote independence in ADL's, mobility, safety and/or upper extremity function for ADL's. Plan of Care: ADL Retraining, Functional Mobility, Group Exercise/Act as Ind, UE Funct Exercise/Act Treatment Duration: Jun 04, 2022 Frequency: At least 5 of 7 days/Wk (IRF) Estimated Hrs Per Day: 1.5 hours per day Agreement: Yes Rehab Potential: Guarded Time Start Time: 11:00 Stop Time: 12:15 DATE: May 17, 2022 Total Time Billed (hr/min): 75 Billed Treatment Time 1 visit-FA 1 (15 min) EX 2 (30 min) ADL 2 (30 min) co-treat with PT [id number] individual [id number] JOSELINE GROVE May 17, 2022 12:15
[2022-05-17 20:15] VITALS: BP 131/71
[2022-05-18] MEDS: LEVOTHYROXINE 50 MCG (LEVOTHROID) TAB PO SCH (06:29)
--- NOTE | 2022-05-18 06:30 | PM&R Progress Note ---
Subjective HPI/CC On Admission Date Seen by Provider: May 18, 2022 Time Seen by Provider: 08:30 Subjective/Events-last exam 05/18/2022: Participating more with therapy Told me he is participating but the therapy team said he isn't so I tried to financial aid counselor him on that and encouraged more effort No pain reported otherwise 05/17/2022: Not wanting to work with therapy May need to go to [facility] if this persists SW spoke to Josh and he is requesting I speak to him about NHP No other issues 05/16/2022: Patient sleeping soundly No concerns from nurse Slow recovery Doing well 05/15/2022: No major changes Slow recovery Pain controlled Very sedentary at home 05/14/2022: Improved status Pain controlled Slow moving No nausea BM+ 05/13/2022: Much improved status since IVF given Slow recovery but improved overall Pain controlled 05/12/2022: Less lethargic today Overmedication from pain meds upstairs likely the cause Will decrease any pain meds and sedatives in the meantime Confusion less 05/11/2022: Seems to be oversedated so will hold some meds No pain reported Labs stable Voiding well with incontinence No falls Review of Systems General: Fatigue, Malaise Objective Exam Vital Signs Vital Signs Date Time Temp Pulse Resp B/P (MAP) Pulse Ox O2 Delivery O2 Flow Rate FiO2 05/18/22 18:50 95 Room Air 05/18/22 07:44 35.6 56 18 149/75 (99) 05/14/22 21:30 0.00 Capillary Refill : General Appearance: No Apparent Distress, WD/WN, Chronically ill, Thin HEENT: PERRL/EOMI, Normal ENT Inspection, Pharynx Normal Neck: Full Range of Motion, Normal Inspection, Non Tender, Supple, Carotid Bruit Respiratory: Chest Non Tender, Lungs Clear, Normal Breath Sounds, No Accessory Muscle Use, No Respiratory Distress Cardiovascular: Regular Rate, Rhythm, No Edema, No Gallop, No JVD, No Murmur, Normal Peripheral Pulses Gastrointestinal: Normal Bowel Sounds, No Organomegaly, No Pulsatile Mass, Non Tender, Soft Back: Normal Inspection, No CVA Tenderness, No Vertebral Tenderness Extremity: Normal Capillary Refill, Normal Inspection, Normal Range of Motion (except left leg), Non Tender, No Calf Tenderness, No Pedal Edema Neurologic/Psychiatric: Alert, Oriented x3, No Motor/Sensory Deficits, Normal Mood/Affect, Motor Weakness (left leg and generalized) Skin: Normal Color, Warm/Dry Lymphatic: No Adenopathy Results/Procedures Lab Patient resulted labs reviewed. FIM Transfers Therapy Code Descriptions/Definitions Functional [place] Measure: 0=Not Assessed/NA 4=Minimal Assistance 1=Total Assistance 5=Supervision or Setup 2=Maximal Assistance 6=Modified [place] 3=Moderate Assistance 7=Complete IndependenceSCALE: Activities may be completed with or without assistive devices. 6-Xqjngmmvmw-xyvsstr completes the activity by him/herself with no assistance from a helper. 5-Set-up or Clean-up Assistance-helper sets up or cleans up; patient completes activity. [place] assists only prior to or following the activity. 4-Supervision or Touching Assistance-helper provides verbal cues and/or touching/steadying and/or contact guard assistance as patient completes activity. Assistance may be provided throughout the activity or intermittently. 3-Partial/Moderate Assistance-helper does LESS THAN HALF the effort. [place] lifts, holds or supports trunk or limbs, but provides less than half the effort. 2-Substantial/Maximal Assistance-helper does MORE THAN HALF the effort. [place] lifts or holds trunk or limbs and provides more than half the effort. 3-Fenphilic-wrcpsp does ALL the effort. Patient does none of the effort to complete the activity. Or, the assistance of 2 or more helpers is required for the patient to complete the activity. If activity was not attempted, code reason: 7-Patient Refused. 9-Not Applicable-not attempted and the patient did not perform the activity before the current illness, exacerbation or injury. 10-Not Attempted due to Environmental Limitations-(lack of equipment, weather restraints, etc.). 88-Not Attempted due to Medical Conditions or Safety Concerns. Roll Left to Right (QC): 4 Sit to Lying (QC): 1 Sit to Stand (QC): 4 (CGA) Chair/Nne-hl-Pflij Xfer(QC): 4 (CGA) Car Transfer (QC): 2 Gait Training Does the Patient Walk?: No and Walking Goal IS indicated Distance: 15', 100' Walk 10 feet (QC): 4 Walk 50 ft with 2 Turns(QC): 4 Walk 150 ft (QC): 88 Walking 10ft/uneven surface-QC: 88 Gait Assistive Device: FWW Wheelchair Training Does the Pt Use a Wheelchair?: Yes Distance: 100 Wheel 50 ft with 2 turns (QC): 1 Wheel 150 ft (QC): 88 Type of Wheelchair: Manual Stair Training #of Steps: 0 1 Step (curb) (QC): 88 4 Steps (QC): 88 12 Steps (QC): 88 Balance Picking up an Object (QC): 88 ADL-Treatment Eating (QC): 5 Oral Hygiene (QC): 1 Shower/Bathe Self (QC): 2 Upper Body Dressing (QC): 5 Lower Body Dressing (QC): 2 (Mod A. Pt able to thread R foot in pants, assist with L foot then hiked over hips. 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 Velasquez gastroenterology Depression Hypothyroidism Cancer status post cryotherapy at Acute kidney injury increased IV fluids on 05/09/2022 and holding losartan Oversedation 05/11/22 resolved with IVF Plan: Dr. Silver consult appreciated Pain control Supportive care Increase IV fluids Increase p.o. fluids Supportive care Lovenox for DVT prophylaxis if okay with Dr. Silver 05/11/2022: Hold meds for oversedation Monitor closely 05/12/2022: Supportive care Minimize sedatives 05/13/2022: Monitor closely DC IVF 05/14/2022: Pain control 05/15/2022: Monitor pain 05/16/2022: Supportive care will continue 05/17/2022: Participation with therapy has declined 05/18/2022: Monitor pain (1) Closed left hip fracture Status: Acute (2) Chronic diarrhea Status: Acute (3) HTN (hypertension) Status: Chronic (4) Liver cancer Status: Chronic ROBBIE HUYNH DO May 18, 2022 06:30
[2022-05-18 07:44] VITALS: BP 149/75
[2022-05-18] MEDS: LOSARTAN 100 MG (COZAAR) TABLET PO SCH (09:13)
[2022-05-18] MEDS: KCL 10 MEQ TAB (MICRO K) PO SCH ×3 (09:13→17:15)
[2022-05-18] MEDS: PANTOPRAZOLE 20 MG TABLET (PROTONIX) PO SCH (09:13)
[2022-05-18] MEDS: SERTRALINE 100 MG (ZOLOFT) TAB PO SCH (09:13)
[2022-05-18] MEDS: amLODIPine 10 MG (NORVASC) TAB PO SCH (09:13)
[2022-05-18] MEDS: COLESTIPOL 1 GM (COLESTID) TAB PO SCH ×2 (09:13→20:24)
[2022-05-18] MEDS: DIPHENOXYLATE/ATROPINE 2.5MG/0.025MG (LOMOTIL) TAB PO SCH (09:13)
[2022-05-18] MEDS: VITAMIN D3 25 MCG (1,000 UNITS) TABLET PO SCH (09:13)
[2022-05-18] MEDS: DOCUSATE SODIUM 100 MG (COLACE) CAP PO SCH ×2 (09:15→20:24)
[2022-05-18] MEDS: SENNOSIDES 8.6 MG (SENOKOT) TAB PO SCH ×2 (09:15→20:24)
[2022-05-18] MEDS: polyethylene glycoL POWDER 17 GM (MIRALAX) PACK PO SCH ×2 (09:15→20:24)
[2022-05-18] MEDS: ENOXAPARIN 40 MG/0.4 ML (LOVENOX) SYR SC SCH (11:51)
--- NOTE | 2022-05-18 11:51 | Physical Therapy Daily Note ---
PT Daily Note-Current Subjective Patient in restroom pre tx, agrees to PT, has unrated left hip pain. Will be co-treating with OT for part of tx due to poor patient mobility, strength, endurance, pain with activity, severe debility, coordinate UE and LE during activity, safety and reduce risk of falls. Pain Section J - Health Conditions 1. Rarely or not at all 2. Occasionally 3. Frequently 4. Almost constantly 8. Unable to answer Pain Effect on Sleep: 8 Pain Interference with Therapy: 8 Pain Interference w/Day-to-Day: 8 Appearance Patient in bed post tx with nurse call, phone, tray, all needs met. Mental Status Patient Orientation: Person, Place, Situation Transfers SCALE: Activities may be completed with or without assistive devices. 3-Ejzxvtzwlj-fdclvxk completes the activity by him/herself with no assistance from a helper. 5-Set-up or Clean-up Assistance-helper sets up or cleans up; patient completes activity. [place] assists only prior to or following the activity. 4-Supervision or Touching Assistance-helper provides verbal cues and/or touchin g/steadying and/or contact guard assistance as patient completes activity. Assistance may be provided throughout the activity or intermittently. 3-Partial/Moderate Assistance-helper does LESS THAN HALF the effort. [place] lifts, holds or supports trunk or limbs, but provides less than half the effort. 2-Substantial/Maximal Assistance-helper does MORE THAN HALF the effort. [place] lifts or holds trunk or limbs and provides more than half the effort. 6-Ejmoardor-noridg does ALL the effort. Patient does none of the effort to complete the activity. Or, the assistance of 2 or more helpers is required for the patient to complete the activity. If activity was not attempted, code reason: 7-Patient Refused. 9-Not Applicable-not attempted and the patient did not perform the activity before the current illness, exacerbation or injury. 10-Not Attempted due to Environmental Limitations-(lack of equipment, weather restraints, etc.). 88-Not Attempted due to Medical Conditions or Safety Concerns. Roll Left & Right (QC): 4 Sit to Lying (QC): 3 Sit to Stand (QC): 4 Chair/Sdt-rd-Iobhk Xfer(QC): 4 Toilet Transfer (QC): 4 Patient does need min assist to stand from lower surfaces. Patient showers, PT assist with positioning and transfers when done and during dressing. After dressing patient has to use the toilet, performs toilet transfer with CGA, needs assist with pants and wiping. Patient has to use the restroom again during ambulation, ambulates back to his restroom, needs assist again with wiping and pants and brief. Weight Bearing Right Lower Extremity: Right Full Weight Bearing Left Lower Extremity: Left Weight Bearing/Tolerated Gait Training Distance: 100'x4 Walk 10 feet (QC): 4 Walk 50 ft with 2 Turns(QC): 4 Gait Persons Needed: 1 Gait Assistive Device: FWW CGA, very slow ambulation, short steps, poor step through, antalgic Treatments PT performed bed mobility and transfers, toilet transfers, positioning and transfers during bathing and dressing, ambulation, toileting, OT performed bathing, dressing, toileting Assessment Current Status: Fair Progress improving ambulation, very frequent BM's make therapy difficult PT Short Term Goals Short Term Goals Time Frame: May 22, 2022 Roll Left & Right: 4 Sit to lyin Lying to sitting on side of be: 4 Sit to stand: 4 Chair/fcz-ko-peixg transfer: 4 Toilet transfer: 4 Car transfer: 4 Walk 10 feet: 3 Walk 50 feet with two turns: 3 Walk 150 feet: 3 PT Care Home Goals Care Home Goals PT Marine Fuel Dock Attendant Goals Time Frame: Jun 05, 2022 Roll Left & Right (QC): 5 Sit to Lying (QC): 5 Lying-Sitting on Side/Bed(QC): 5 Sit to Stand (QC): 5 Chair/Qnj-hy-Mswse Xfer(QC): 5 Toilet Transfer (QC): 5 Car Transfer (QC): 5 Does the Patient Walk: Yes Walk 10 feet (QC): 4 Walk 50ft with 2 Turns (QC): 4 Walk 150 ft (QC): 4 Walking 10ft on Uneven Surface: 4 1 Step (curb) (QC): 3 4 Steps (QC): 3 12 Steps (QC): 3 Picking up an Object (QC): 4 Does the Pt use WC or Scooter?: Yes Wheel 50 feet with 2 turns (QC: 6 Type: Manual Wheel 150 feet: 6 Type: Manual PT Plan Problem List Problem List: Activity Tolerance, Functional Strength, Safety, Balance, Gait, Transfer, Bed Mobility, ROM Treatment/Plan Treatment Plan: Continue Plan of Care Treatment Plan: Bed Mobility, Education, Functional Activity Cain, Functional Strength, Group Therapy, Gait, Safety, Therapeutic Exercise, Transfers Treatment Duration: Jun 12, 2022 Frequency: At least 5 of 7 days/Wk (IRF) Estimated Hrs Per Day: 1.5 hours per day Patient and/or Family Agrees t: Yes Safety Risks/Education Patient Education: Gait Training, Transfer Techniques, Correct Positioning, Safety Issues Teaching Recipient: Patient Teaching Methods: Demonstration, Discussion Response to Teaching: Reinforcement Needed Time Time In: 1030 Time Out: 1145 DATE: May 18, 2022 Total Billed Treatment Time: 75 Total Billed Treatment 1 visit FA 75' co-treated with OT from [id number] JAE ADORNO PT May 18, 2022 11:51
--- NOTE | 2022-05-18 11:53 | Speech Therapy Daily Note ---
Speech Daily Progress Note Subjective Date Seen by Provider: May 18, 2022 Time Seen by Provider: 09:00 The patient was seated upright in his bed, awake and alert, upon entrance to his room by the clinician. The patient greeted the clinician appropriately and was agreeable to participation in the dysphagia and cognitive linguistic treatment session. Objective The patient continues to display improved alertness and cognitive skills, completing orientation tasks independently and with 100% accuracy. The patient participates in informal conversation without the necessity for redirection or recall of the topic being discussed. The patient and clinician discuss and review the patient's home environment, specifically areas which could be viewed as a barrier to safe discharge. The patient independently stated, "The stairs, I have three to four of them, I need to get good at them." The patient stated the stairs inside have a railing on both sides which will be helpful. He also stated he has purchased a railing for "the other steps" but has not placed the railing at this time. The patient stated he does have a walk in shower available and feels confident he will be able to prepare his light meals, "like for breakfast, I usually just have some cereal." The patient denied challenges or concerns with his swallowing function or the presence of s/s of suspected aspiration with his current P.O. intake. Safe swallowing strategies were discussed, reviewed, and practiced throughout the treatment session with high accuracy. Assessment Assessment Current Status: Good Progress Treatment Plan Continue Plan of Care Speech Short Term Goals Short Term Goals Short Term Goals 1. The patient will demonstrate use of AAC (written, white board) with 80% accuracy with mild clinician verbal cueing. 2. The patient will display 80% accuracy with memory exercises with mild clinician verbal and visual cueing. 3. The patient will display safe swallowing precautions with 80% accuracy and mild clinician cueing. Time Frame-STG: One Week. Speech Intermediate Goals Turbine Technician Goals 1. The patient will display improved cognitive linguistic skills for safe discharge to the least restrictive environment. 2. The patient will tolerate the least restrictive diet consistency without s/s of suspected aspiration. Time Frame: Ten Days. Speech-Plan Treatment Plan Speech Therapy Treatment Plan: Continue Plan of Care Treatment Duration: May 17, 2022 Frequency: Modified Program (IRF) (Four to five times per week.) Estimated Hrs Per Day: .5 hour per day Rehab Potential: Guarded Safety Risks/Education Teaching Recipient: Patient Teaching Methods: Discussion Response to Teaching: Verbalize Understanding Education Topics Provided: Safe Swallowing Precautions, Safety in the Home Time Speech Therapy Time In: 09:00 Speech Therapy Time Out: 09:30 DATE: May 18, 2022 Total Billed Time: 30 Billed Treatment Time 1, RACIEL, SAWYER DING May 18, 2022 11:53
--- NOTE | 2022-05-18 12:05 | Occupational Ther Daily Note ---
OT Current Status-Daily Note Subjective Pt alert, sitting up in bed. Pt agrees to therapy. Pt very [place]. No c/o pain. Co-treat with PT [id number], skills of 2 clinicians required to decrease fall risk, increase activity tolerance and increase all mobility. PT focusing on transfers and ambulation while OT focusing on ADLs and functional mobility. Mental Status/Objective Patient Orientation: Person, Place, Time, Situation ADL-Treatment Pt agrees to shower. Independent with bed mobility. Pt requires high surface for sit to stand transfers. CGA for ambulation using FWW. Pt incontinent of bowel and urine 3x's during session. Toileting, CGA to manipulate clothing and pt cleansed self sitting on toilet. Using BSC, LH sponge, grabbars and hand held shower pt able to complete bathing/rinsing and most of drying by self sitting 100% of the time. Set up for upper body dressing. Max A to thread feet into pants then CGA to hike pants over hips. Max A for footwear. After session, pt left in care of PT. All needs met. Therapy Code Descriptions/Definitions Functional [place] Measure: 0=Not Assessed/NA 4=Minimal Assistance 1=Total Assistance 5=Supervision or Setup 2=Maximal Assistance 6=Modified [place] 3=Moderate Assistance 7=Complete IndependenceSCALE: Activities may be completed with or without assistive devices. 7-Krocmdaoop-bvkeuoa completes the activity by him/herself with no assistance from a helper. 5-Set-up or Clean-up Assistance-helper sets up or cleans up; patient completes activity. [place] assists only prior to or following the activity. 4-Supervision or Touching Assistance-helper provides verbal cues and/or touching/steadying and/or contact guard assistance as patient completes activity. Assistance may be provided throughout the activity or intermittently. 3-Partial/Moderate Assistance-helper does LESS THAN HALF the effort. [place] lifts, holds or supports trunk or limbs, but provides less than half the effort. 2-Substantial/Maximal Assistance-helper does MORE THAN HALF the effort. [place] lifts or holds trunk or limbs and provides more than half the effort. 7-Tvcsjcxcw-ylgkks does ALL the effort. Patient does none of the effort to complete the activity. Or, the assistance of 2 or more helpers is required for the patient to complete the activity. If activity was not attempted, code reason: 7-Patient Refused. 9-Not Applicable-not attempted and the patient did not perform the activity before the current illness, exacerbation or injury. 10-Not Attempted due to Environmental Limitations-(lack of equipment, weather restraints, etc.). 88-Not Attempted due to Medical Conditions or Safety Concerns. Shower/Bathe Self (QC): 3 Upper Body Dressing (QC): 5 Lower Body Dressing (QC): 3 On/Off Footwear: 2 Toileting Hygiene (QC): 4 OT Short Term Goals Short Term Goals Time Frame: May 28, 2022 Shower/bathe self: 3 Lower body dressin Putting on/taking off footwear: 3 OT Laminated Plastics Assembler And Gluer Goals Laminated Plastics Assembler And Gluer Goals Time Frame: Jun 04, 2022 Acute change in mental status: 0 Inattention: 0 Disorganized thinkin Altered level of consciousness: 0 Eating (QC): 6 Oral Hygiene (QC): 6 Toileting Hygiene (QC): 6 Shower/Bathe Self (QC): 4 Upper Body Dressing (QC): 6 Lower Body Dressing (QC): 4 On/Off Footwear (QC): 4 Additional Goals: 1-Demonstrate ADL Tasks, 2-Verbalize Understanding, 3- ImproveStrength/Cain 1=Demonstrate adherence to instructed precautions during ADL tasks. 2=Patient will verbalize/demonstrate understanding of assistive d evices/modifications for ADL. 3=Patient will improve strength/tolerance for activity to enable patient to perform ADL's. OT Education/Plan Problem List/Assessment Assessment: Decreased Activ Tolerance, Impaired Self-Care Skills Discharge Recommendations Plan/Recommendations: Continue POC Treatment Plan/Plan of Care Patient would benefit from OT for education, treatment and training to promote independence in ADL's, mobility, safety and/or upper extremity function for ADL's. Plan of Care: ADL Retraining, Functional Mobility, Group Exercise/Act as Ind, UE Funct Exercise/Act Treatment Duration: Jun 04, 2022 Frequency: At least 5 of 7 days/Wk (IRF) Estimated Hrs Per Day: 1.5 hours per day Agreement: Yes Rehab Potential: Guarded Time Start Time: 10:00 Stop Time: 11:00 DATE: May 18, 2022 Total Time Billed (hr/min): 60 Billed Treatment Time 1 visit-ADL 4 (60 min) JOSELINE GROVE May 18, 2022 12:05
--- NOTE | 2022-05-18 14:43 | Occupational Ther Daily Note ---
OT Current Status-Daily Note Subjective Pt alert, lying in bed. Pt agrees to therapy. No c/o pain at this time. Pt [place]. Mental Status/Objective Patient Orientation: Person, Place, Time, Situation ADL-Treatment Therapy Code Descriptions/Definitions Functional [place] Measure: 0=Not Assessed/NA 4=Minimal Assistance 1=Total Assistance 5=Supervision or Setup 2=Maximal Assistance 6=Modified [place] 3=Moderate Assistance 7=Complete IndependenceSCALE: Activities may be completed with or without assistive devices. 0-Ofqeidcgbz-npfmesw completes the activity by him/herself with no assistance from a helper. 5-Set-up or Clean-up Assistance-helper sets up or cleans up; patient completes activity. [place] assists only prior to or following the activity. 4-Supervision or Touching Assistance-helper provides verbal cues and/or touch ing/steadying and/or contact guard assistance as patient completes activity. Assistance may be provided throughout the activity or intermittently. 3-Partial/Moderate Assistance-helper does LESS THAN HALF the effort. [place] lifts, holds or supports trunk or limbs, but provides less than half the effort. 2-Substantial/Maximal Assistance-helper does MORE THAN HALF the effort. [place] lifts or holds trunk or limbs and provides more than half the effort. 9-Iejbtivsa-amskwj does ALL the effort. Patient does none of the effort to complete the activity. Or, the assistance of 2 or more helpers is required for the patient to complete the activity. If activity was not attempted, code reason: 7-Patient Refused. 9-Not Applicable-not attempted and the patient did not perform the activity before the current illness, exacerbation or injury. 10-Not Attempted due to Environmental Limitations-(lack of equipment, weather restraints, etc.). 88-Not Attempted due to Medical Conditions or Safety Concerns. Other Treatment Discussed pt's needs for home. Pt states that he has a 2" step over into shower and has tub bench that he has used before. Pt then discussed having grabbars in tub and 3"toilet riser. Pt discussed about having a electric scooter, will talk to SW about this. Pt stated that he already has a sock aide at home. Pt in agreement to work on these things to become proficient with all AE/AD. After therapy, pt lying in bed with call light/phone in reach. All needs met in room. OT Short Term Goals Short Term Goals Time Frame: May 28, 2022 Shower/bathe self: 3 Lower body dressin Putting on/taking off footwear: 3 OT Event Specialist Food Demonstrator Goals Assisted Goals Time Frame: Jun 04, 2022 Acute change in mental status: 0 Inattention: 0 Disorganized thinkin Altered level of consciousness: 0 Eating (QC): 6 Oral Hygiene (QC): 6 Toileting Hygiene (QC): 6 Shower/Bathe Self (QC): 4 Upper Body Dressing (QC): 6 Lower Body Dressing (QC): 4 On/Off Footwear (QC): 4 Additional Goals: 1-Demonstrate ADL Tasks, 2-Verbalize Understanding, 3- ImproveStrength/Cain 1=Demonstrate adherence to instructed precautions during ADL tasks. 2=Patient will verbalize/demonstrate understanding of assistive devices/modifications for ADL. 3=Patient will improve strength/tolerance for activity to enable patient to perform ADL's. OT Education/Plan Problem List/Assessment Assessment: Decreased Activ Tolerance, Impaired Self-Care Skills Discharge Recommendations Plan/Recommendations: Continue POC Treatment Plan/Plan of Care Patient would benefit from OT for education, treatment and training to promote independence in ADL's, mobility, safety and/or upper extremity function for ADL's. Plan of Care: ADL Retraining, Functional Mobility, Group Exercise/Act as Ind, UE Funct Exercise/Act Treatment Duration: Jun 04, 2022 Frequency: At least 5 of 7 days/Wk (IRF) Estimated Hrs Per Day: 1.5 hours per day Agreement: Yes Rehab Potential: Guarded Time Start Time: 14:00 Stop Time: 14:15 DATE: May 18, 2022 Total Time Billed (hr/min): 15 Billed Treatment Time 1 visit-FA 1 (15 min) JOSELINE GROVE May 18, 2022 14:43
[2022-05-18 20:03] VITALS: BP 124/73
--- NOTE | 2022-05-19 04:59 | PM&R Progress Note ---
Subjective HPI/CC On Admission Date Seen by Provider: May 19, 2022 Time Seen by Provider: 08:30 Subjective/Events-last exam 05/19/2022: Doing much better Ambulated well today and went up stairs Lomotil will be increased to QID to decrease diarrhea No pain reported except hip 05/18/2022: Participating more with therapy Told me he is participating but the therapy team said he isn't so I tried to student loan counselor him on that and encouraged more effort No pain reported otherwise 05/17/2022: Not wanting to work with therapy May need to go to [facility] if this persists SW spoke to Josh and he is requesting I speak to him about NHP No other issues 05/16/2022: Patient sleeping soundly No concerns from nurse Slow recovery Doing well 05/15/2022: No major changes Slow recovery Pain controlled Very sedentary at home 05/14/2022: Improved status Pain controlled Slow moving No nausea BM+ 05/13/2022: Much improved status since IVF given Slow recovery but improved overall Pain controlled 05/12/2022: Less lethargic today Overmedication from pain meds upstairs likely the cause Will decrease any pain meds and sedatives in the meantime Confusion less 05/11/2022: Seems to be oversedated so will hold some meds No pain reported Labs stable Voiding well with incontinence No falls Review of Systems General: Fatigue, Malaise Objective Exam Vital Signs Vital Signs Date Time Temp Pulse Resp B/P (MAP) Pulse Ox O2 Delivery O2 Flow Rate FiO2 05/19/22 21:30 Room Air 05/19/22 19:57 36.3 65 20 129/59 (82) 95 05/14/22 21:30 0.00 Capillary Refill : General Appearance: No Apparent Distress, WD/WN, Chronically ill, Thin HEENT: PERRL/EOMI, Normal ENT Inspection, Pharynx Normal Neck: Full Range of Motion, Normal Inspection, Non Tender, Supple, Carotid Bruit Respiratory: Chest Non Tender, Lungs Clear, Normal Breath Sounds, No Accessory Muscle Use, No Respiratory Distress Cardiovascular: Regular Rate, Rhythm, No Edema, No Gallop, No JVD, No Murmur, Normal Peripheral Pulses Gastrointestinal: Normal Bowel Sounds, No Organomegaly, No Pulsatile Mass, Non Tender, Soft Back: Normal Inspection, No CVA Tenderness, No Vertebral Tenderness Extremity: Normal Capillary Refill, Normal Inspection, Normal Range of Motion (except left leg), Non Tender, No Calf Tenderness, No Pedal Edema Neurologic/Psychiatric: Alert, Oriented x3, No Motor/Sensory Deficits, Normal Mood/Affect, Motor Weakness (left leg and generalized) Skin: Normal Color, Warm/Dry Lymphatic: No Adenopathy Results/Procedures Lab Patient resulted labs reviewed. FIM Transfers Therapy Code Descriptions/Definitions Functional [place] Measure: 0=Not Assessed/NA 4=Minimal Assistance 1=Total Assistance 5=Supervision or Setup 2=Maximal Assistance 6=Modified [place] 3=Moderate Assistance 7=Complete IndependenceSCALE: Activities may be completed with or without assistive devices. 7-Kolfkbvljw-sbhjboc completes the activity by him/herself with no assistance from a helper. 5-Set-up or Clean-up Assistance-helper sets up or cleans up; patient completes activity. [place] assists only prior to or following the activity. 4-Supervision or Touching Assistance-helper provides verbal cues and/or touching/steadying and/or contact guard assistance as patient completes activity. Assistance may be provided throughout the activity or intermittently. 3-Partial/Moderate Assistance-helper does LESS THAN HALF the effort. [place] lifts, holds or supports trunk or limbs, but provides less than half the effort. 2-Substantial/Maximal Assistance-helper does MORE THAN HALF the effort. [place] lifts or holds trunk or limbs and provides more than half the effort. 5-Aqivhxkga-rmgnbp does ALL the effort. Patient does none of the effort to complete the activity. Or, the assistance of 2 or more helpers is required for the patient to complete the activity. If activity was not attempted, code reason: 7-Patient Refused. 9-Not Applicable-not attempted and the patient did not perform the activity before the current illness, exacerbation or injury. 10-Not Attempted due to Environmental Limitations-(lack of equipment, weather restraints, etc.). 88-Not Attempted due to Medical Conditions or Safety Concerns. Roll Left to Right (QC): 4 Sit to Lying (QC): 3 Sit to Stand (QC): 4 Chair/Sfk-mw-Orqnw Xfer(QC): 4 Car Transfer (QC): 2 Gait Training Does the Patient Walk?: No and Walking Goal IS indicated Distance: 100'x4 Walk 10 feet (QC): 4 Walk 50 ft with 2 Turns(QC): 4 Walk 150 ft (QC): 88 Walking 10ft/uneven surface-QC: 88 Gait Persons Needed: 1 Gait Assistive Device: FWW Wheelchair Training Does the Pt Use a Wheelchair?: Yes Distance: 100 Wheel 50 ft with 2 turns (QC): 1 Wheel 150 ft (QC): 88 Type of Wheelchair: Manual Stair Training #of Steps: 0 1 Step (curb) (QC): 88 4 Steps (QC): 88 12 Steps (QC): 88 Balance Picking up an Object (QC): 88 ADL-Treatment Eating (QC): 5 Oral Hygiene (QC): 1 Shower/Bathe Self (QC): 3 Upper Body Dressing (QC): 5 Lower Body Dressing (QC): 3 On/Off Footwear (QC): 2 Toileting Hygiene (QC): 4 Toilet Transfer (QC): 4 Assessment/Plan Assessment and Plan Assess & Plan/Chief Complaint Assessment: Left hip fracture Fall History of humerus fracture Hypertension PTSD 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 Velasquez gastroenterology Depression Hypothyroidism Cancer status post cryotherapy at Acute kidney injury increased IV fluids on 05/09/2022 and holding losartan Oversedation 05/11/22 resolved with IVF Plan: Dr. Silver consult appreciated Pain control Supportive care Increase IV fluids Increase p.o. fluids Supportive care Lovenox for DVT prophylaxis if okay with Dr. Silver 05/11/2022: Hold meds for oversedation Monitor closely 05/12/2022: Supportive care Minimize sedatives 05/13/2022: Monitor closely DC IVF 05/14/2022: Pain control 05/15/2022: Monitor pain 05/16/2022: Supportive care will continue 05/17/2022: Participation with therapy has declined 05/18/2022: Monitor pain 05/19/2022: Dramatic improvement of ambulation today (1) Closed left hip fracture Status: Acute (2) Chronic diarrhea Status: Acute (3) HTN (hypertension) Status: Chronic (4) Liver cancer Status: Chronic ROBBIE HUYNH DO May 19, 2022 04:59
[2022-05-19] MEDS: LEVOTHYROXINE 50 MCG (LEVOTHROID) TAB PO SCH (06:38)
[2022-05-19 07:43] VITALS: BP 144/75
[2022-05-19] MEDS: polyethylene glycoL POWDER 17 GM (MIRALAX) PACK PO SCH (08:09)
[2022-05-19] MEDS: DOCUSATE SODIUM 100 MG (COLACE) CAP PO SCH ×2 (08:09→17:56)
[2022-05-19] MEDS: SENNOSIDES 8.6 MG (SENOKOT) TAB PO SCH (08:10)
[2022-05-19] MEDS: SERTRALINE 100 MG (ZOLOFT) TAB PO SCH (08:32)
[2022-05-19] MEDS: VITAMIN D3 25 MCG (1,000 UNITS) TABLET PO SCH (08:32)
[2022-05-19] MEDS: COLESTIPOL 1 GM (COLESTID) TAB PO SCH ×2 (08:32→20:33)
[2022-05-19] MEDS: KCL 10 MEQ TAB (MICRO K) PO SCH ×3 (08:32→17:56)
[2022-05-19] MEDS: LOSARTAN 100 MG (COZAAR) TABLET PO SCH (08:32)
[2022-05-19] MEDS: DIPHENOXYLATE/ATROPINE 2.5MG/0.025MG (LOMOTIL) TAB PO SCH ×4 (08:32→20:33)
[2022-05-19] MEDS: PANTOPRAZOLE 20 MG TABLET (PROTONIX) PO SCH (08:32)
[2022-05-19] MEDS: amLODIPine 10 MG (NORVASC) TAB PO SCH (08:32)
--- NOTE | 2022-05-19 09:37 | Speech Therapy Daily Note ---
Speech Daily Progress Note Subjective Date Seen by Provider: May 19, 2022 Time Seen by Provider: 09:00 The patient was lying in bed, awake and alert, upon entrance to the patient's room by the clinician. The patient greeted the clinician appropriately and was agreeable to participation in the dysphagia and cognitive treatment session. Objective The patient has displayed excellent progression through the treatment plan, p rogressing to baseline cognitive status and a regular consistency diet with thin liquids. The patient reviewed the safe swallowing strategies and denied challenges or concerns with his oropharyngeal swallowing function. The patient remains 100% oriented to month, day of the week, date, and year (independently). The patient was provided pictures depicting home safety concerns. The patient was asked to identify the issue with the picture and provide a safe solution. The patient completed the task with 100% accuracy. Assessment Assessment Current Status: Good Progress Treatment Plan Continue Plan of Care Speech Short Term Goals Short Term Goals Short Term Goals 1. The patient will demonstrate use of AAC (written, white board) with 80% accuracy with mild clinician verbal cueing. 2. The patient will display 80% accuracy with memory exercises with mild clinician verbal and visual cueing. 3. The patient will display safe swallowing precautions with 80% accuracy and mild clinician cueing. Time Frame-STG: One Week. Speech Skilled Nursing Goals Skilled Nursing Goals 1. The patient will display improved cognitive linguistic skills for safe discharge to the least restrictive environment. 2. The patient will tolerate the least restrictive diet consistency without s/s of suspected aspiration. Time Frame: Ten Days. Speech-Plan Treatment Plan Speech Therapy Treatment Plan: Discontinue ST, Goals Met Treatment Duration: May 17, 2022 Frequency: Modified Program (IRF) (Four to five times per week.) Estimated Hrs Per Day: .5 hour per day Rehab Potential: Guarded Pt/Family Agrees to Plan: Yes Safety Risks/Education Teaching Recipient: Patient Teaching Methods: Discussion Response to Teaching: Verbalize Understanding Education Topics Provided: Updated Plan of Care Time Speech Therapy Time In: 09:00 Speech Therapy Time Out: 09:30 DATE: May 19, 2022 Total Billed Time: 30 Billed Treatment Time 1, RACIEL SOTO ELIZABETH ST May 19, 2022 09:37
--- NOTE | 2022-05-19 09:39 | Therapy Team Discharge Summary ---
Therapy Discharge Summary Discharge Recommendations Date of Discharge Physical Therapy Roll Left to Right (QC): 4 Sit to Lying (QC): 3 Lying to Sitting/Side of Bed(Q: 4 Sit to Stand (QC): 4 Chair/Gby-mr-Zhjes Xfer(QC): 4 Toilet Transfer (QC): 4 Car Transfer (QC): 2 Does the Patient Walk: No and Walking Goal IS indicated Mode of Locomotion: Both Anticipated Mode of Locomotion: Both Walk 10 feet (QC): 4 Walk 50 ft with 2 Turns(QC): 4 Walk 150 ft (QC): 88 Walking 10ft on uneven surface: 88 Distance: 5 feet Gait Assistive Device: FWW Does the Pt Use a Wheelchair: Yes Wheelchair Distance: 100 Wheel 50 ft with 2 turns (QC): 1 Wheel 150 ft (QC): 88 Type of Wheelchair: Manual #of Steps: 0 1 Step (curb) (QC): 88 4 Steps (QC): 88 12 Steps (QC): 88 Balance Sitting Static: Fair Balance Sitting Dynamic: Poor Balance-Standing Static: Poor Picking up an Object (QC): 88 Occupational Therapy Decreased Activ Tolerance, Impaired Self-Care Skills Eating (QC): 5 Oral Hygiene (QC): 1 Shower/Bathe Self (QC): 3 Upper Body Dressing (QC): 5 Lower Body Dressing (QC): 3 On/Off Footwear (QC): 2 Toileting Hygiene (QC): 4 Speech-Language Pathology The patient has displayed excellent progression through the treatment plan, progressing to baseline cognitive status and a regular consistency diet with thin liquids. PT Halfway Goals Tool Crib Supervisor Goals PT Tool Crib Supervisor Goals Time Frame: Jun 05, 2022 Roll Left to Right (QC): 5 Sit to Lying (QC): 5 Lying-Sitting on Side/Bed(QC): 5 Sit to Stand (QC): 5 Chair/Jwl-mr-Yvsoy Xfer(QC): 5 Toilet/Commode Transfer (QC): 5 Car Transfer (QC): 5 Does the Patient Walk: Yes Walk 10 feet (QC): 4 Walk 10ft-Uneven Surface(QC): 4 Walk 50ft with 2 Turns (QC): 4 Walk 150 ft (QC): 4 Does the Pt use WC or Scooter?: Yes Wheel 50 feet with 2 turns (QC: 6 Type: Manual Wheel 150 feet: 6 Type: Manual 1 Step (curb) (QC): 3 4 Steps (QC): 3 12 Steps (QC): 3 Picking up an Object (QC): 4 OT Tool Crib Supervisor Goals Halfway Goals Time Frame: Jun 04, 2022 Acute change in mental status: 0 Inattention: 0 Disorganized thinkin Altered level of consciousness: 0 Eating (QC): 6 Oral Hygiene (QC): 6 Toileting Hygiene (QC): 6 Shower/Bathe Self (QC): 4 Upper Body Dressing (QC): 6 Lower Body Dressing (QC): 4 On/Off Footwear (QC): 4 Additional Goals: 1-Demonstrate ADL Tasks, 2-Verbalize Understanding, 3- ImproveStrength/Cain 1=Demonstrate adherence to instructed precautions during ADL tasks. 2=Patient will verbalize/demonstrate understanding of assistive devices/modifications for ADL. 3=Patient will improve strength/tolerance for activity to enable patient to perform ADL's. Speech Halfway Goals Tool Crib Supervisor Goals 1. The patient will display improved cognitive linguistic skills for safe discharge to the least restrictive environment. MET 2. The patient will tolerate the least restrictive diet consistency without s/s of suspected aspiration. MET The patient has displayed excellent progression through the treatment plan, progressing to baseline cognitive status and a regular consistency diet with thin liquids. Time Frame: Ten Days. SAWYER BENAVIDEZ May 19, 2022 09:39
[2022-05-19] MEDS: ENOXAPARIN 40 MG/0.4 ML (LOVENOX) SYR SC SCH (11:26)
--- NOTE | 2022-05-19 11:48 | Occupational Ther Daily Note ---
OT Current Status-Daily Note Subjective Pt alert, lying in bed. Pt agrees to therapy. No c/o pain. Pt is moving better this am. OT/PT cotreat ([id number]), skills of 2 clinicians required due to poor patient mobility, strength, endurance, severe debility, coordinate UE and LE during activity, safety and reduce risk of falls. PT focusing on mobil ity, transfers/ambulation and B LE strengthening while OT focusing on ADLs, functional mobility and B UE strengthening. Mental Status/Objective Patient Orientation: Person, Place, Time, Situation ADL-Treatment Independent with supine to EOB, assist to scoot up in bed x2. Pt declines shower. After set up, pt able to thread pants over feet with professor of kinesiology then stood with SBA to hike pants over hips. Using professor of kinesiology, pt retrieved shoes and slipped on feet independently. Declined to don socks. Pt requires assist to don/doff brief, does stand and cleanse self after urine incontinence. Therapy Code Descriptions/Definitions Functional [place] Measure: 0=Not Assessed/NA 4=Minimal Assistance 1=Total Assistance 5=Supervision or Setup 2=Maximal Assistance 6=Modified [place] 3=Moderate Assistance 7=Complete IndependenceSCALE: Activities may be completed with or without assistive devices. 0-Usghzxxjtg-irshzvd completes the activity by him/herself with no assistance from a helper. 5-Set-up or Clean-up Assistance-helper sets up or cleans up; patient completes activity. [place] assists only prior to or following the activity. 4-Supervision or Touching Assistance-helper provides verbal cues and/or touching/steadying and/or contact guard assistance as patient completes activity. Assistance may be provided throughout the activity or intermittently. 3-Partial/Moderate Assistance-helper does LESS THAN HALF the effort. [place] lifts, holds or supports trunk or limbs, but provides less than half the effort. 2-Substantial/Maximal Assistance-helper does MORE THAN HALF the effort. [place] lifts or holds trunk or limbs and provides more than half the effort. 9-Ypozwtogn-gxnehy does ALL the effort. Patient does none of the effort to complete the activity. Or, the assistance of 2 or more helpers is required for the patient to complete the activity. If activity was not attempted, code reason: 7-Patient Refused. 9-Not Applicable-not attempted and the patient did not perform the activity bef ore the current illness, exacerbation or injury. 10-Not Attempted due to Environmental Limitations-(lack of equipment, weather r estraints, etc.). 88-Not Attempted due to Medical Conditions or Safety Concerns. Lower Body Dressing (QC): 4 Other Treatment Pt able to ambulate using FWW with close SBA, see PT notes for distance. Pt working on multiple steps, initially with assist x2 then decreased assistance as pt became more proficient. See PT notes for progress. After session, pt lying in bed with call light/phone in reach. All needs met in room. OT Short Term Goals Short Term Goals Time Frame: May 28, 2022 Shower/bathe self: 3 Lower body dressin Putting on/taking off footwear: 3 OT Migrant Leader Goals Alf Goals Time Frame: Jun 04, 2022 Acute change in mental status: 0 Inattention: 0 Disorganized thinkin Altered level of consciousness: 0 Eating (QC): 6 Oral Hygiene (QC): 6 Toileting Hygiene (QC): 6 Shower/Bathe Self (QC): 4 Upper Body Dressing (QC): 6 Lower Body Dressing (QC): 4 On/Off Footwear (QC): 4 Additional Goals: 1-Demonstrate ADL Tasks, 2-Verbalize Understanding, 3- ImproveStrength/Cain 1=Demonstrate adherence to instructed precautions during ADL tasks. 2=Patient will verbalize/demonstrate understanding of assistive devices/modifications for ADL. 3=Patient will improve strength/tolerance for activity to enable patient to perform ADL's. OT Education/Plan Problem List/Assessment Assessment: Impaired Bed Mobility, Impaired Self-Care Skills Discharge Recommendations Plan/Recommendations: Continue POC Treatment Plan/Plan of Care Patient would benefit from OT for education, treatment and training to promote independence in ADL's, mobility, safety and/or upper extremity function for ADL's. Plan of Care: ADL Retraining, Functional Mobility, Group Exercise/Act as Ind, UE Funct Exercise/Act Treatment Duration: Jun 04, 2022 Frequency: At least 5 of 7 days/Wk (IRF) Estimated Hrs Per Day: 1.5 hours per day Agreement: Yes Rehab Potential: Guarded Time Start Time: 10:00 Stop Time: 11:00 DATE: May 19, 2022 Total Time Billed (hr/min): 60 Billed Treatment Time 1 visit-ADL 1 (20 min) FA 3 (40 min) co-treat with PT 60 min JOSELINE GROVE May 19, 2022 11:48
--- NOTE | 2022-05-19 12:17 | Physical Therapy Daily Note ---
PT Daily Note-Current Subjective OT/PT cotreat ([id number]), skills of 2 clinicians required due to poor patient mobility, strength, endurance, severe debility, coordinate UE and LE during activity, safety and reduce risk of falls. PT focusing on mobility, transfers/ambulation and B LE strengthening while OT focusing on ADLs, functional mobility and B UE strengthening. Pain Location: No Pain Reported Section J - Health Conditions 1. Rarely or not at all 2. Occasionally 3. Frequently 4. Almost constantly 8. Unable to answer Pain Effect on Sleep: 8 Pain Interference with Therapy: 8 Pain Interference w/Day-to-Day: 8 Mental Status Patient Orientation: Person, Place, Situation Transfers SCALE: Activities may be completed with or without assistive devices. 3-Vefvpudnka-stzaakz completes the activity by him/herself with no assistance from a helper. 5-Set-up or Clean-up Assistance-helper sets up or cleans up; patient completes activity. [place] assists only prior to or following the activity. 4-Supervision or Touching Assistance-helper provides verbal cues and/or touching/steadying and/or contact guard assistance as patient completes activity. Assistance may be provided throughout the activity or intermittently. 3-Partial/Moderate Assistance-helper does LESS THAN HALF the effort. [place] lifts, holds or supports trunk or limbs, but provides less than half the effort. 2-Substantial/Maximal Assistance-helper does MORE THAN HALF the effort. [place] lifts or holds trunk or limbs and provides more than half the effort. 0-Isvkbrwrb-lwxsos does ALL the effort. Patient does none of the effort to complete the activity. Or, the assistance of 2 or more helpers is required for the patient to complete the activity. If activity was not attempted, code reason: 7-Patient Refused. 9-Not Applicable-not attempted and the patient did not perform the activity before the current illness, exacerbation or injury. 10-Not Attempted due to Environmental Limitations-(lack of equipment, weather restraints, etc.). 88-Not Attempted due to Medical Conditions or Safety Concerns. Sit to Stand (QC): 4 Weight Bearing Right Lower Extremity: Right Full Weight Bearing Left Lower Extremity: Left Weight Bearing/Tolerated Gait Training Does the Patient Walk?: Yes Distance: 150' x2 Walk 10 feet (QC): 4 Walk 50 ft with 2 Turns(QC): 4 Walk 150 ft (QC): 4 Gait Assistive Device: FWW Wheelchair Training Does the Pt Use a Wheelchair?: Yes Type of Wheelchair: Manual Stair Training Stair Training: Handrails/: 2 handrails #of Steps: 20 1 Step (curb) (QC): 4 4 Steps (QC): 4 12 Steps (QC): 4 Stairs: Pattern: Step to Treatments Pt able to don pants and shoes then stands. Pt amb. in hallway taking RB before stairs. Pt completes 5 sets of [address] Unger visits w/pt during tx. Pt takes RB then amb. in hallway and returns to room at end of tx. All needs met, call light in hand. Assessment Current Status: Good Progress Pt is motivated and completes steps well, resting when needed. PT Short Term Goals Short Term Goals Time Frame: May 22, 2022 Roll Left & Right: 4 Sit to lyin Lying to sitting on side of be: 4 Sit to stand: 4 Chair/nun-fn-mpeab transfer: 4 Toilet transfer: 4 Car transfer: 4 Walk 10 feet: 3 Walk 50 feet with two turns: 3 Walk 150 feet: 3 PT Garment Looper Goals Garment Looper Goals PT Garment Looper Goals Time Frame: Jun 05, 2022 Roll Left & Right (QC): 5 Sit to Lying (QC): 5 Lying-Sitting on Side/Bed(QC): 5 Sit to Stand (QC): 5 Chair/Oom-tu-Hqcqm Xfer(QC): 5 Toilet Transfer (QC): 5 Car Transfer (QC): 5 Does the Patient Walk: Yes Walk 10 feet (QC): 4 Walk 50ft with 2 Turns (QC): 4 Walk 150 ft (QC): 4 Walking 10ft on Uneven Surface: 4 1 Step (curb) (QC): 3 4 Steps (QC): 3 12 Steps (QC): 3 Picking up an Object (QC): 4 Does the Pt use WC or Scooter?: Yes Wheel 50 feet with 2 turns (QC: 6 Type: Manual Wheel 150 feet: 6 Type: Manual PT Plan Treatment/Plan Treatment Plan: Continue Plan of Care Treatment Plan: Bed Mobility, Education, Functional Activity Cain, Functional Strength, Group Therapy, Gait, Safety, Therapeutic Exercise, Transfers Treatment Duration: Jun 12, 2022 Frequency: At least 5 of 7 days/Wk (IRF) Estimated Hrs Per Day: 1.5 hours per day Patient and/or Family Agrees t: Yes Safety Risks/Education Patient Education: Steps, Correct Positioning, Safety Issues Teaching Recipient: Patient Teaching Methods: Discussion Response to Teaching: Verbalize Understanding Time Time In: 1001 Time Out: 1101 DATE: May 19, 2022 Total Billed Treatment Time: 60 Total Billed Treatment 1, FA x3 (40m) & GT (20m) MARIBEL RAMOS WATER SERVICE DISPATCHER May 19, 2022 12:17
--- NOTE | 2022-05-19 14:14 | Physical Therapy Daily Note ---
PT Daily Note-Current Subjective Pt sitting up in bed upon arrival. Pt agrees to PT. Pain Location: No Pain Reported Section J - Health Conditions 1. Rarely or not at all 2. Occasionally 3. Frequently 4. Almost constantly 8. Unable to answer Pain Effect on Sleep: 8 Pain Interference with Therapy: 8 Pain Interference w/Day-to-Day: 8 Mental Status Patient Orientation: Person, Place, Situation Transfers SCALE: Activities may be completed with or without assistive devices. 5-Hpucgbizcv-kpigajy completes the activity by him/herself with no assistance from a helper. 5-Set-up or Clean-up Assistance-helper sets up or cleans up; patient completes activity. [place] assists only prior to or following the activity. 4-Supervision or Touching Assistance-helper provides verbal cues and/or touching/steadying and/or contact guard assistance as patient completes activity. Assistance may be provided throughout the activity or intermittently. 3-Partial/Moderate Assistance-helper does LESS THAN HALF the effort. [place] lifts, holds or supports trunk or limbs, but provides less than half the effort. 2-Substantial/Maximal Assistance-helper does MORE THAN HALF the effort. [place] lifts or holds trunk or limbs and provides more than half the effort. 5-Sdskrvijo-ijqugz does ALL the effort. Patient does none of the effort to complete the activity. Or, the assistance of 2 or more helpers is required for the patient to complete the activity. If activity was not attempted, code reason: 7-Patient Refused. 9-Not Applicable-not attempted and the patient did not perform the activity before the current illness, exacerbation or injury. 10-Not Attempted due to Environmental Limitations-(lack of equipment, weather restraints, etc.). 88-Not Attempted due to Medical Conditions or Safety Concerns. Weight Bearing Right Lower Extremity: Right Full Weight Bearing Left Lower Extremity: Left Weight Bearing/Tolerated Exercises Supine Ex: Ankle pumps, Quad Set, Glut sets, Heel Slides, Straight leg raise, Hip abd/add Supine Reps: 15 Treatments Pt completes Supine EX as well as discusses w/pt progress seen marva. today w/stairs. Pt reports feeling better about d/c since completing stairs. Pt repositions to comfort and resting at end of tx. All needs met, call light in hand. Assessment Current Status: Good Progress Pt reports fatigue this afternoon. PT Short Term Goals Short Term Goals Time Frame: May 22, 2022 Roll Left & Right: 4 Sit to lyin Lying to sitting on side of be: 4 Sit to stand: 4 Chair/ubb-uo-pbevd transfer: 4 Toilet transfer: 4 Car transfer: 4 Walk 10 feet: 3 Walk 50 feet with two turns: 3 Walk 150 feet: 3 PT Alf Goals Alf Goals PT Alf Goals Time Frame: Jun 05, 2022 Roll Left & Right (QC): 5 Sit to Lying (QC): 5 Lying-Sitting on Side/Bed(QC): 5 Sit to Stand (QC): 5 Chair/Hnn-yp-Kwzfe Xfer(QC): 5 Toilet Transfer (QC): 5 Car Transfer (QC): 5 Does the Patient Walk: Yes Walk 10 feet (QC): 4 Walk 50ft with 2 Turns (QC): 4 Walk 150 ft (QC): 4 Walking 10ft on Uneven Surface: 4 1 Step (curb) (QC): 3 4 Steps (QC): 3 12 Steps (QC): 3 Picking up an Object (QC): 4 Does the Pt use WC or Scooter?: Yes Wheel 50 feet with 2 turns (QC: 6 Type: Manual Wheel 150 feet: 6 Type: Manual PT Plan Problem List Problem List: Activity Tolerance Treatment/Plan Treatment Plan: Continue Plan of Care Treatment Plan: Bed Mobility, Education, Functional Activity Cain, Functional Strength, Group Therapy, Gait, Safety, Therapeutic Exercise, Transfers Treatment Duration: Jun 12, 2022 Frequency: At least 5 of 7 days/Wk (IRF) Estimated Hrs Per Day: 1.5 hours per day Patient and/or Family Agrees t: Yes Time Time In: 1330 Time Out: 1400 DATE: May 19, 2022 Total Billed Treatment Time: 30 Total Billed Treatment 1, FA x2 (30m) MARIBEL RAMOS MANAGER HOUSE May 19, 2022 14:14
--- NOTE | 2022-05-19 14:27 | Occupational Ther Daily Note ---
OT Current Status-Daily Note Subjective Pt alert, lying in bed. Pt agrees to therapy though does not want to complete any OOB tasks. No c/o pain. ADL-Treatment Therapy Code Descriptions/Definitions Functional [place] Measure: 0=Not Assessed/NA 4=Minimal Assistance 1=Total Assistance 5=Supervision or Setup 2=Maximal Assistance 6=Modified [place] 3=Moderate Assistance 7=Complete IndependenceSCALE: Activities may be completed with or without assistive devices. 5-Mliejuhjhn-bfsijjz completes the activity by him/herself with no assistance from a helper. 5-Set-up or Clean-up Assistance-helper sets up or cleans up; patient completes activity. [place] assists only prior to or following the activity. 4-Supervision or Touching Assistance-helper provides verbal cues and/or touching/steadying and/or contact guard assistance as patient completes activity. Assistance may be provided throughout the activity or intermittently. 3-Partial/Moderate Assistance-helper does LESS THAN HALF the effort. [place] lifts, holds or supports trunk or limbs, but provides less than half the effort. 2-Substantial/Maximal Assistance-helper does MORE THAN HALF the effort. [place] lifts or holds trunk or limbs and provides more than half the effort. 8-Rnuldgstp-ocmgwh does ALL the effort. Patient does none of the effort to complete the activity. Or, the assistance of 2 or more helpers is required for the patient to complete the activity. If activity was not attempted, code reason: 7-Patient Refused. 9-Not Applicable-not attempted and the patient did not perform the activity before the current illness, exacerbation or injury. 10-Not Attempted due to Environmental Limitations-(lack of equipment, weather restraints, etc.). 88-Not Attempted due to Medical Conditions or Safety Concerns. Other Treatment Educated and discussion on home safety. Pt states that he needs to work on his 4WW due to brakes not catching very well. Pt states that he has 2" ledge to step over for shower and has grabbars to assist with safety of stepping. Discussed how pt will gather clothing from closet at home, will simulate here at [facility]. Pt states that he has FWW at home, REYNOSO recommended that he have family bring walker in to work with during sessions. After session, pt lying in bed with call light/phone in reach. All needs met in room. Education OT Patient Education: Energy conservation, Safety issues, Use of adapted equipment Teaching Recipient: Patient Teaching Methods: Demonstration, Discussion Response to Teaching: Verbalize Understanding, Return Demonstration OT Short Term Goals Short Term Goals Time Frame: May 28, 2022 Shower/bathe self: 3 Lower body dressin Putting on/taking off footwear: 3 OT Saw Straightener Goals Saw Straightener Goals Time Frame: Jun 04, 2022 Acute change in mental status: 0 Inattention: 0 Disorganized thinkin Altered level of consciousness: 0 Eating (QC): 6 Oral Hygiene (QC): 6 Toileting Hygiene (QC): 6 Shower/Bathe Self (QC): 4 Upper Body Dressing (QC): 6 Lower Body Dressing (QC): 4 On/Off Footwear (QC): 4 Additional Goals: 1-Demonstrate ADL Tasks, 2-Verbalize Understanding, 3- ImproveStrength/Cain 1=Demonstrate adherence to instructed precautions during ADL tasks. 2=Patient will verbalize/demonstrate understanding of assistive d evices/modifications for ADL. 3=Patient will improve strength/tolerance for activity to enable patient to perform ADL's. OT Education/Plan Problem List/Assessment Assessment: Decreased Activ Tolerance Discharge Recommendations Plan/Recommendations: Continue POC Treatment Plan/Plan of Care Patient would benefit from OT for education, treatment and training to promote independence in ADL's, mobility, safety and/or upper extremity function for ADL's. Plan of Care: ADL Retraining, Functional Mobility, Group Exercise/Act as Ind, UE Funct Exercise/Act Treatment Duration: Jun 04, 2022 Frequency: At least 5 of 7 days/Wk (IRF) Estimated Hrs Per Day: 1.5 hours per day Agreement: Yes Rehab Potential: Guarded Time Start Time: 14:00 Stop Time: 14:15 DATE: May 19, 2022 Total Time Billed (hr/min): 15 Billed Treatment Time 1 visit-FA 1 (15 min) JOSELINE GROVE May 19, 2022 14:27
[2022-05-19 19:57] VITALS: BP 129/59
[2022-05-20] MEDS: LEVOTHYROXINE 50 MCG (LEVOTHROID) TAB PO SCH (06:28)
[2022-05-20] MEDS: DIPHENOXYLATE/ATROPINE 2.5MG/0.025MG (LOMOTIL) TAB PO SCH (06:28)
[2022-05-20 07:09] VITALS: BP 147/73
[2022-05-20] MEDS: COLESTIPOL 1 GM (COLESTID) TAB PO SCH ×2 (07:53→20:28)
[2022-05-20] MEDS: KCL 10 MEQ TAB (MICRO K) PO SCH ×3 (07:53→17:27)
[2022-05-20] MEDS: SERTRALINE 100 MG (ZOLOFT) TAB PO SCH (07:53)
[2022-05-20] MEDS: LOSARTAN 100 MG (COZAAR) TABLET PO SCH (07:53)
[2022-05-20] MEDS: PANTOPRAZOLE 20 MG TABLET (PROTONIX) PO SCH (07:53)
[2022-05-20] MEDS: amLODIPine 10 MG (NORVASC) TAB PO SCH (07:53)
[2022-05-20] MEDS: VITAMIN D3 25 MCG (1,000 UNITS) TABLET PO SCH (07:53)
[2022-05-20] MEDS: DOCUSATE SODIUM 100 MG (COLACE) CAP PO SCH ×2 (07:55→20:39)
--- NOTE | 2022-05-20 10:57 | Physical Therapy Daily Note ---
PT Daily Note-Current Subjective Patient in bed pre tx, agrees to PT, has 3-4/10 pain in left hip. Patient needs lower dressing and shoes. Pain Section J - Health Conditions 1. Rarely or not at all 2. Occasionally 3. Frequently 4. Almost constantly 8. Unable to answer Pain Effect on Sleep: 8 Pain Interference with Therapy: 8 Pain Interference w/Day-to-Day: 8 Appearance Patient in recliner post tx with nurse call, phone, tray, all needs met. Mental Status Patient Orientation: Person, Place, Situation Transfers SCALE: Activities may be completed with or without assistive devices. 0-Bgbrajiyzq-easblje completes the activity by him/herself with no assistance from a helper. 5-Set-up or Clean-up Assistance-helper sets up or cleans up; patient completes activity. [place] assists only prior to or following the activity. 4-Supervision or Touching Assistance-helper provides verbal cues and/or touching/steadying and/or contact guard assistance as patient completes activity. Assistance may be provided throughout the activity or intermittently. 3-Partial/Moderate Assistance-helper does LESS THAN HALF the effort. [place] lifts, holds or supports trunk or limbs, but provides less than half the effort. 2-Substantial/Maximal Assistance-helper does MORE THAN HALF the effort. [place] lifts or holds trunk or limbs and provides more than half the effort. 1-Zhkshtvxt-aguiov does ALL the effort. Patient does none of the effort to complete the activity. Or, the assistance of 2 or more helpers is required for the patient to complete the activity. If activity was not attempted, code reason: 7-Patient Refused. 9-Not Applicable-not attempted and the patient did not perform the activity before the current illness, exacerbation or injury. 10-Not Attempted due to Environmental Limitations-(lack of equipment, weather restraints, etc.). 88-Not Attempted due to Medical Conditions or Safety Concerns. Roll Left & Right (QC): 4 Lying to Sitting/Side of Bed(Q: 4 Sit to Stand (QC): 4 Chair/Nel-gs-Imdsg Xfer(QC): 4 supine to sit SBA, therapist puts on pants and shoes and CGA for sit to stand, patient pulls up his own pants. During therapy patient has to ambulate back to his room to use the restroom, patient has a BM in his brief, total assist to wipe and change brief. Weight Bearing Right Lower Extremity: Right Full Weight Bearing Left Lower Extremity: Left Weight Bearing/Tolerated Gait Training Distance: 120'x4 Walk 10 feet (QC): 4 Walk 50 ft with 2 Turns(QC): 4 Gait Persons Needed: 1 Gait Assistive Device: FWW SBA, slow ambulation, wide GAVI, short steps, poor foot clearance Exercises sit to stands from elevated therapy table 2 sets of 5 NuStep Minutes: 10 NuStep Workload: 5 Treatments toileting, bed mobility and transfers, ambulation, strengthening Assessment Current Status: Fair Progress slowly improving general mobility, still incontinent of bowel PT Short Term Goals Short Term Goals Time Frame: May 22, 2022 Roll Left & Right: 4 Sit to lyin Lying to sitting on side of be: 4 Sit to stand: 4 Chair/kzs-oy-ijfaq transfer: 4 Toilet transfer: 4 Car transfer: 4 Walk 10 feet: 3 Walk 50 feet with two turns: 3 Walk 150 feet: 3 PT Clerical Warehouse Worker Goals Clerical Warehouse Worker Goals PT Clerical Warehouse Worker Goals Time Frame: Jun 05, 2022 Roll Left & Right (QC): 5 Sit to Lying (QC): 5 Lying-Sitting on Side/Bed(QC): 5 Sit to Stand (QC): 5 Chair/Lnv-ct-Sphpc Xfer(QC): 5 Toilet Transfer (QC): 5 Car Transfer (QC): 5 Does the Patient Walk: Yes Walk 10 feet (QC): 4 Walk 50ft with 2 Turns (QC): 4 Walk 150 ft (QC): 4 Walking 10ft on Uneven Surface: 4 1 Step (curb) (QC): 3 4 Steps (QC): 3 12 Steps (QC): 3 Picking up an Object (QC): 4 Does the Pt use WC or Scooter?: Yes Wheel 50 feet with 2 turns (QC: 6 Type: Manual Wheel 150 feet: 6 Type: Manual PT Plan Problem List Problem List: Activity Tolerance, Functional Strength, Safety, Balance, Gait, Transfer, Bed Mobility, ROM Treatment/Plan Treatment Plan: Continue Plan of Care Treatment Plan: Bed Mobility, Education, Functional Activity Cain, Functional Strength, Group Therapy, Gait, Safety, Therapeutic Exercise, Transfers Treatment Duration: Jun 12, 2022 Frequency: At least 5 of 7 days/Wk (IRF) Estimated Hrs Per Day: 1.5 hours per day Patient and/or Family Agrees t: Yes Safety Risks/Education Patient Education: Gait Training, Transfer Techniques, Correct Positioning, Safety Issues Teaching Recipient: Patient Teaching Methods: Demonstration, Discussion Response to Teaching: Reinforcement Needed Time Time In: 1000 Time Out: 1100 DATE: May 20, 2022 Total Billed Treatment Time: 60 Total Billed Treatment 1 visit EX 20' FA 40' JAE ADORNO PT May 20, 2022 10:57
[2022-05-20] MEDS: ENOXAPARIN 40 MG/0.4 ML (LOVENOX) SYR SC SCH (11:59)
--- NOTE | 2022-05-20 11:59 | Occupational Ther Daily Note ---
OT Current Status-Daily Note Subjective Pt alert, sitting in recliner. Pt agrees to therapy after encouragement. No c/o pain. Mental Status/Objective Patient Orientation: Person, Place, Time, Situation ADL-Treatment Pt declines all ADLs at this time. Therapy Code Descriptions/Definitions Functional [place] Measure: 0=Not Assessed/NA 4=Minimal Assistance 1=Total Assistance 5=Supervision or Setup 2=Maximal Assistance 6=Modified [place] 3=Moderate Assistance 7=Complete IndependenceSCALE: Activities may be completed with or without assistive devices. 7-Ilnedyxhra-ytrztmu completes the activity by him/herself with no assistance from a helper. 5-Set-up or Clean-up Assistance-helper sets up or cleans up; patient completes activity. [place] assists only prior to or following the activity. 4-Supervision or Touching Assistance-helper provides verbal cues and/or touching/steadying and/or contact guard assistance as patient completes activity. Assistance may be provided throughout the activity or intermittently. 3-Partial/Moderate Assistance-helper does LESS THAN HALF the effort. [place] lifts, holds or supports trunk or limbs, but provides less than half the effort. 2-Substantial/Maximal Assistance-helper does MORE THAN HALF the effort. [place] lifts or holds trunk or limbs and provides more than half the effort. 8-Zurndgesq-lpukcu does ALL the effort. Patient does none of the effort to complete the activity. Or, the assistance of 2 or more helpers is required for the patient to complete the activity. If activity was not attempted, code reason: 7-Patient Refused. 9-Not Applicable-not attempted and the patient did not perform the activity before the current illness, exacerbation or injury. 10-Not Attempted due to Environmental Limitations-(lack of equipment, weather restraints, etc.). 88-Not Attempted due to Medical Conditions or Safety Concerns. Other Treatment Supine to EOB independent with HOB elevated. Pt ambulated to therapy gym to complete standing activity to improve dynamic standing balance, stamina and B UE strengthening. Pt tolerated well and had no LOB throughout session. Pt then ambulated back to room using FWW with SBA. Independent with EOB to supine. Pt takes increased time to complete all tasks due to slow deliberate movements. After session, pt lying in bed with call light/phone in reach. All needs met in room. OT Short Term Goals Short Term Goals Time Frame: May 28, 2022 Shower/bathe self: 3 Lower body dressin Putting on/taking off footwear: 3 OT Residue Furnace Operator Goals Residential Goals Time Frame: Jun 04, 2022 Acute change in mental status: 0 Inattention: 0 Disorganized thinkin Altered level of consciousness: 0 Eating (QC): 6 Oral Hygiene (QC): 6 Toileting Hygiene (QC): 6 Shower/Bathe Self (QC): 4 Upper Body Dressing (QC): 6 Lower Body Dressing (QC): 4 On/Off Footwear (QC): 4 Additional Goals: 1-Demonstrate ADL Tasks, 2-Verbalize Understanding, 3-ImproveStrength/Cain 1=Demonstrate adherence to instructed precautions during ADL tasks. 2=Patient will verbalize/demonstrate understanding of assistive devices/modifications for ADL. 3=Patient will improve strength/tolerance for activity to enable patient to perform ADL's. OT Education/Plan Problem List/Assessment Assessment: Decreased Activ Tolerance, Decreased UE Strength, Impaired Bed Mobility, Impaired Funct Balance, Impaired Self-Care Skills Discharge Recommendations Plan/Recommendations: Continue POC Treatment Plan/Plan of Care Patient would benefit from OT for education, treatment and training to promote independence in ADL's, mobility, safety and/or upper extremity function for ADL's. Plan of Care: ADL Retraining, Functional Mobility, Group Exercise/Act as Ind, UE Funct Exercise/Act Treatment Duration: Jun 04, 2022 Frequency: At least 5 of 7 days/Wk (IRF) Estimated Hrs Per Day: 1.5 hours per day Agreement: Yes Rehab Potential: Guarded Time Start Time: 11:00 Stop Time: 12:00 DATE: May 20, 2022 Total Time Billed (hr/min): 60 Billed Treatment Time 1 visit-FA 2 (30 min) EX 2 (30 min) JOSELINE GROVE May 20, 2022 11:59
--- NOTE | 2022-05-20 12:08 | PM&R Progress Note ---
Subjective HPI/CC On Admission Date Seen by Provider: May 20, 2022 Time Seen by Provider: 11:45 Subjective/Events-last exam 05/20/2022: Much improved Incontinence improved Lomotil maintained Ambulating well 05/19/2022: Doing much better Ambulated well today and went up stairs Lomotil will be increased to QID to decrease diarrhea No pain reported except hip 05/18/2022: Participating more with therapy Told me he is participating but the therapy team said he isn't so I tried to certified genetic counselor him on that and encouraged more effort No pain reported otherwise 05/17/2022: Not wanting to work with therapy May need to go to [facility] if this persists SW spoke to Josh and he is requesting I speak to him about NHP No other issues 05/16/2022: Patient sleeping soundly No concerns from nurse Slow recovery Doing well 05/15/2022: No major changes Slow recovery Pain controlled Very sedentary at home 05/14/2022: Improved status Pain controlled Slow moving No nausea BM+ 05/13/2022: Much improved status since IVF given Slow recovery but improved overall Pain controlled 05/12/2022: Less lethargic today Overmedication from pain meds upstairs likely the cause Will decrease any pain meds and sedatives in the meantime Confusion less 05/11/2022: Seems to be oversedated so will hold some meds No pain reported Labs stable Voiding well with incontinence No falls Review of Systems General: Fatigue, Malaise Objective Exam Vital Signs Vital Signs Date Time Temp Pulse Resp B/P (MAP) Pulse Ox O2 Delivery O2 Flow Rate FiO2 05/20/22 20:55 Room Air 05/20/22 19:44 36.2 60 20 126/76 (93) 93 Capillary Refill : General Appearance: No Apparent Distress, WD/WN, Chronically ill, Thin HEENT: PERRL/EOMI, Normal ENT Inspection, Pharynx Normal Neck: Full Range of Motion, Normal Inspection, Non Tender, Supple, Carotid Bruit Respiratory: Chest Non Tender, Lungs Clear, Normal Breath Sounds, No Accessory Muscle Use, No Respiratory Distress Cardiovascular: Regular Rate, Rhythm, No Edema, No Gallop, No JVD, No Murmur, Normal Peripheral Pulses Gastrointestinal: Normal Bowel Sounds, No Organomegaly, No Pulsatile Mass, Non Tender, Soft Back: Normal Inspection, No CVA Tenderness, No Vertebral Tenderness Extremity: Normal Capillary Refill, Normal Inspection, Normal Range of Motion (except left leg), Non Tender, No Calf Tenderness, No Pedal Edema Neurologic/Psychiatric: Alert, Oriented x3, No Motor/Sensory Deficits, Normal Mood/Affect, Motor Weakness (left leg and generalized) Skin: Normal Color, Warm/Dry Lymphatic: No Adenopathy Results/Procedures Lab Patient resulted labs reviewed. FIM Transfers Therapy Code Descriptions/Definitions Functional [place] Measure: 0=Not Assessed/NA 4=Minimal Assistance 1=Total Assistance 5=Supervision or Setup 2=Maximal Assistance 6=Modified [place] 3=Moderate Assistance 7=Complete IndependenceSCALE: Activities may be completed with or without assistive devices. 8-Zjksubnhae-xjekldd completes the activity by him/herself with no assistance from a helper. 5-Set-up or Clean-up Assistance-helper sets up or cleans up; patient completes activity. [place] assists only prior to or following the activity. 4-Supervision or Touching Assistance-helper provides verbal cues and/or touching/steadying and/or contact guard assistance as patient completes activity. Assistance may be provided throughout the activity or intermittently. 3-Partial/Moderate Assistance-helper does LESS THAN HALF the effort. [place] lifts, holds or supports trunk or limbs, but provides less than half the effort. 2-Substantial/Maximal Assistance-helper does MORE THAN HALF the effort. [place] lifts or holds trunk or limbs and provides more than half the effort. 6-Ttqfnhbyc-bixpyu does ALL the effort. Patient does none of the effort to complete the activity. Or, the assistance of 2 or more helpers is required for the patient to complete the activity. If activity was not attempted, code reason: 7-Patient Refused. 9-Not Applicable-not attempted and the patient did not perform the activity be fore the current illness, exacerbation or injury. 10-Not Attempted due to Environmental Limitations-(lack of equipment, weather restraints, etc.). 88-Not Attempted due to Medical Conditions or Safety Concerns. Roll Left to Right (QC): 4 Sit to Lying (QC): 3 Sit to Stand (QC): 4 Chair/Omo-cs-Klqdf Xfer(QC): 4 Car Transfer (QC): 2 Gait Training Does the Patient Walk?: Yes Distance: 120'x4 Walk 10 feet (QC): 4 Walk 50 ft with 2 Turns(QC): 4 Walk 150 ft (QC): 4 Walking 10ft/uneven surface-QC: 88 Gait Persons Needed: 1 Gait Assistive Device: FWW Wheelchair Training Does the Pt Use a Wheelchair?: Yes Distance: 100 Wheel 50 ft with 2 turns (QC): 1 Wheel 150 ft (QC): 88 Type of Wheelchair: Manual Stair Training Stair Training: Handrails/: 2 handrails #of Steps: 20 1 Step (curb) (QC): 4 4 Steps (QC): 4 12 Steps (QC): 4 Stairs: Pattern: Step to Balance Picking up an Object (QC): 88 ADL-Treatment Eating (QC): 5 Oral Hygiene (QC): 1 Shower/Bathe Self (QC): 3 Upper Body Dressing (QC): 5 Lower Body Dressing (QC): 4 On/Off Footwear (QC): 2 Toileting Hygiene (QC): 4 Toilet Transfer (QC): 4 Assessment/Plan Assessment and Plan Assess & Plan/Chief Complaint Assessment: Left hip fracture Fall History of humerus fracture Hypertension PTSD 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 Velasquez gastroenterology Depression Hypothyroidism Cancer status post cryotherapy at Acute kidney injury increased IV fluids on 05/09/2022 and holding losartan Oversedation 05/11/22 resolved with IVF Plan: Dr. Silver consult appreciated Pain control Supportive care Increase IV fluids Increase p.o. fluids Supportive care Lovenox for DVT prophylaxis if okay with Dr. Silver 05/11/2022: Hold meds for oversedation Monitor closely 05/12/2022: Supportive care Minimize sedatives 05/13/2022: Monitor closely DC IVF 05/14/2022: Pain control 05/15/2022: Monitor pain 05/16/2022: Supportive care will continue 05/17/2022: Participation with therapy has declined 05/18/2022: Monitor pain 05/19/2022: Dramatic improvement of ambulation today 05/20/2022: Improved (1) Closed left hip fracture Status: Acute (2) Chronic diarrhea Status: Acute (3) HTN (hypertension) Status: Chronic (4) Liver cancer Status: Chronic ROBBIE HUYNH DO May 20, 2022 12:08
--- NOTE | 2022-05-20 13:55 | Physical Therapy Daily Note ---
PT Daily Note-Current Subjective Patient in bed pre tx, agrees to PT, voices no complaints of pain. Pain Section J - Health Conditions 1. Rarely or not at all 2. Occasionally 3. Frequently 4. Almost constantly 8. Unable to answer Pain Effect on Sleep: 8 Pain Interference with Therapy: 8 Pain Interference w/Day-to-Day: 8 Appearance Patient in recliner post tx with nurse call, phone, tray, all needs met. Mental Status Patient Orientation: Person, Place, Situation Transfers SCALE: Activities may be completed with or without assistive devices. 2-Eczcnsvjri-phpqvkk completes the activity by him/herself with no assistance from a helper. 5-Set-up or Clean-up Assistance-helper sets up or cleans up; patient completes activity. [place] assists only prior to or following the activity. 4-Supervision or Touching Assistance-helper provides verbal cues and/or touching/steadying and/or contact guard assistance as patient completes activit y. Assistance may be provided throughout the activity or intermittently. 3-Partial/Moderate Assistance-helper does LESS THAN HALF the effort. [place] lifts, holds or supports trunk or limbs, but provides less than half the effort. 2-Substantial/Maximal Assistance-helper does MORE THAN HALF the effort. [place] lifts or holds trunk or limbs and provides more than half the effort. 9-Fydtjqskm-daluae does ALL the effort. Patient does none of the effort to complete the activity. Or, the assistance of 2 or more helpers is required for the patient to complete the activity. If activity was not attempted, code reason: 7-Patient Refused. 9-Not Applicable-not attempted and the patient did not perform the activity before the current illness, exacerbation or injury. 10-Not Attempted due to Environmental Limitations-(lack of equipment, weather restraints, etc.). 88-Not Attempted due to Medical Conditions or Safety Concerns. Roll Left & Right (QC): 6 Lying to Sitting/Side of Bed(Q: 6 Sit to Stand (QC): 4 Chair/Ubo-ny-Hfnda Xfer(QC): 4 SBA for sit to stand and transfers. During therapy patient had to have a BM, patient needed assist with managing pants but wiped himself. Weight Bearing Right Lower Extremity: Right Full Weight Bearing Left Lower Extremity: Left Weight Bearing/Tolerated Gait Training Distance: 100'x2 Walk 10 feet (QC): 4 Walk 50 ft with 2 Turns(QC): 4 Gait Assistive Device: FWW SBA, slow ambulation, wide GAVI, small steps, poor foot clearance Stair Training Stair Training: Handrails/: 2 handrails #of Steps: 20 1 Step (curb) (QC): 4 4 Steps (QC): 4 12 Steps (QC): 4 Stairs: Pattern: Step to CGA, cues for positioning Treatments toileting, bed mobility and transfers, ambulation, stair training Assessment Current Status: Fair Progress improving general mobility, very slow PT Short Term Goals Short Term Goals Time Frame: May 22, 2022 Roll Left & Right: 4 Sit to lyin Lying to sitting on side of be: 4 Sit to stand: 4 Chair/qtr-nj-lkuay transfer: 4 Toilet transfer: 4 Car transfer: 4 Walk 10 feet: 3 Walk 50 feet with two turns: 3 Walk 150 feet: 3 PT Screen Room Operator Goals Shelter Goals PT Screen Room Operator Goals Time Frame: Jun 05, 2022 Roll Left & Right (QC): 5 Sit to Lying (QC): 5 Lying-Sitting on Side/Bed(QC): 5 Sit to Stand (QC): 5 Chair/Xxi-ko-Hswmm Xfer(QC): 5 Toilet Transfer (QC): 5 Car Transfer (QC): 5 Does the Patient Walk: Yes Walk 10 feet (QC): 4 Walk 50ft with 2 Turns (QC): 4 Walk 150 ft (QC): 4 Walking 10ft on Uneven Surface: 4 1 Step (curb) (QC): 3 4 Steps (QC): 3 12 Steps (QC): 3 Picking up an Object (QC): 4 Does the Pt use WC or Scooter?: Yes Wheel 50 feet with 2 turns (QC: 6 Type: Manual Wheel 150 feet: 6 Type: Manual PT Plan Problem List Problem List: Activity Tolerance, Functional Strength, Safety, Balance, Gait, Transfer, Bed Mobility, ROM Treatment/Plan Treatment Plan: Continue Plan of Care Treatment Plan: Bed Mobility, Education, Functional Activity [place], Functional Strength, Group Therapy, Gait, Safety, Therapeutic Exercise, Transfers Treatment Duration: Jun 12, 2022 Frequency: At least 5 of 7 days/Wk (IRF) Estimated Hrs Per Day: 1.5 hours per day Patient and/or Family Agrees t: Yes Safety Risks/Education Patient Education: Gait Training, Transfer Techniques, Steps, Correct Positioning, Safety Issues Teaching Recipient: Patient Teaching Methods: Demonstration, Discussion Response to Teaching: Reinforcement Needed Time Time In: 1320 Time Out: 1350 DATE: May 20, 2022 Total Billed Treatment Time: 30 Total Billed Treatment 1 visit FA 30' JAE ADORNO PT May 20, 2022 13:55
--- NOTE | 2022-05-20 14:24 | Occupational Ther Daily Note ---
OT Current Status-Daily Note Subjective Pt alert, sitting in recliner. Pt agrees to therapy. No c/o pain. Pt states that he wants to go home. REYNOSO discussed pt's need to be independent with daily functional tasks. Mental Status/Objective Patient Orientation: Person, Place, Time, Situation ADL-Treatment Therapy Code Descriptions/Definitions Functional [place] Measure: 0=Not Assessed/NA 4=Minimal Assistance 1=Total Assistance 5=Supervision or Setup 2=Maximal Assistance 6=Modified [place] 3=Moderate Assistance 7=Complete IndependenceSCALE: Activities may be completed with or without assistive devices. 8-Ybqftwsnnb-zjvydtc completes the activity by him/herself with no assistance from a helper. 5-Set-up or Clean-up Assistance-helper sets up or cleans up; patient completes activity. [place] assists only prior to or following the activity. 4-Supervision or Touching Assistance-helper provides verbal cues and/or touching/steadying and/or contact guard assistance as patient completes activity. Assistance may be provided throughout the activity or intermittently. 3-Partial/Moderate Assistance-helper does LESS THAN HALF the effort. [place] lifts, holds or supports trunk or limbs, but provides less than half the effort. 2-Substantial/Maximal Assistance-helper does MORE THAN HALF the effort. [place] lifts or holds trunk or limbs and provides more than half the effort. 4-Avwfmmjit-yztlbz does ALL the effort. Patient does none of the effort to complete the activity. Or, the assistance of 2 or more helpers is required for the patient to complete the activity. If activity was not attempted, code reason: 7-Patient Refused. 9-Not Applicable-not attempted and the patient did not perform the activity bef ore the current illness, exacerbation or injury. 10-Not Attempted due to Environmental Limitations-(lack of equipment, weather r estraints, etc.). 88-Not Attempted due to Medical Conditions or Safety Concerns. Other Treatment Pt completed B UE exercises using 3# wt. Pt requires hold onto wt with B hands to complete shldr flexion and chest press due to weakness in L shldr. 2 sets 10 reps of chest press and shldr flexion, 2 sets 20 reps of bicep curls. Pt required lengthy recovery breaks. Pt then was able to transfer using FWW from recliner to EOB with supervision and independent with EOB to supine. After the rapy, pt lying in bed with call light/phone in reach. All needs met in room. OT Short Term Goals Short Term Goals Time Frame: May 28, 2022 Shower/bathe self: 3 Lower body dressin Putting on/taking off footwear: 3 OT Dextrine Mixer Goals Custodial Goals Time Frame: Jun 04, 2022 Acute change in mental status: 0 Inattention: 0 Disorganized thinkin Altered level of consciousness: 0 Eating (QC): 6 Oral Hygiene (QC): 6 Toileting Hygiene (QC): 6 Shower/Bathe Self (QC): 4 Upper Body Dressing (QC): 6 Lower Body Dressing (QC): 4 On/Off Footwear (QC): 4 Additional Goals: 1-Demonstrate ADL Tasks, 2-Verbalize Understanding, 3- ImproveStrength/Cain 1=Demonstrate adherence to instructed precautions during ADL tasks. 2=Patient will verbalize/demonstrate understanding of assistive devices/modifications for ADL. 3=Patient will improve strength/tolerance for activity to enable patient to perform ADL's. OT Education/Plan Problem List/Assessment Assessment: Decreased Activ Tolerance, Decreased UE Strength Discharge Recommendations Plan/Recommendations: Continue POC Treatment Plan/Plan of Care Patient would benefit from OT for education, treatment and training to promote independence in ADL's, mobility, safety and/or upper extremity function for ADL's. Plan of Care: ADL Retraining, Functional Mobility, Group Exercise/Act as Ind, UE Funct Exercise/Act Treatment Duration: Jun 04, 2022 Frequency: At least 5 of 7 days/Wk (IRF) Estimated Hrs Per Day: 1.5 hours per day Agreement: Yes Rehab Potential: Guarded Time Start Time: 13:50 Stop Time: 14:20 DATE: May 20, 2022 Total Time Billed (hr/min): 30 Billed Treatment Time 1 visit-FA 1 (15 min) EX 1 (15 min) JOSELINE GROVE May 20, 2022 14:24
[2022-05-20 19:44] VITALS: BP 126/76
--- NOTE | 2022-05-21 06:22 | PM&R Progress Note ---
Subjective HPI/CC On Admission Date Seen by Provider: May 21, 2022 Time Seen by Provider: 12:30 Subjective/Events-last exam 05/21/2022: Much improved Less incontinence both bowel and bladder Less pain 05/20/2022: Much improved Incontinence improved Lomotil maintained Ambulating well 05/19/2022: Doing much better Ambulated well today and went up stairs Lomotil will be increased to QID to decrease diarrhea No pain reported except hip 05/18/2022: Participating more with therapy Told me he is participating but the therapy team said he isn't so I tried to student counselor him on that and encouraged more effort No pain reported otherwise 05/17/2022: Not wanting to work with therapy May need to go to [facility] if this persists AVRIL spoke to Josh and he is requesting I speak to him about NHP No other issues 05/16/2022: Patient sleeping soundly No concerns from nurse Slow recovery Doing well 05/15/2022: No major changes Slow recovery Pain controlled Very sedentary at home 05/14/2022: Improved status Pain controlled Slow moving No nausea BM+ 05/13/2022: Much improved status since IVF given Slow recovery but improved overall Pain controlled 05/12/2022: Less lethargic today Overmedication from pain meds upstairs likely the cause Will decrease any pain meds and sedatives in the meantime Confusion less 05/11/2022: Seems to be oversedated so will hold some meds No pain reported Labs stable Voiding well with incontinence No falls Review of Systems General: Fatigue, Malaise Objective Exam Vital Signs Vital Signs Date Time Temp Pulse Resp B/P (MAP) Pulse Ox O2 Delivery O2 Flow Rate FiO2 05/21/22 08:00 60 05/21/22 07:29 36.2 18 144/72 (96) Room Air 05/20/22 19:44 93 Capillary Refill : General Appearance: No Apparent Distress, WD/WN, Chronically ill, Thin HEENT: PERRL/EOMI, Normal ENT Inspection, Pharynx Normal Neck: Full Range of Motion, Normal Inspection, Non Tender, Supple, Carotid Bruit Respiratory: Chest Non Tender, Lungs Clear, Normal Breath Sounds, No Accessory Muscle Use, No Respiratory Distress Cardiovascular: Regular Rate, Rhythm, No Edema, No Gallop, No JVD, No Murmur, Normal Peripheral Pulses Gastrointestinal: Normal Bowel Sounds, No Organomegaly, No Pulsatile Mass, Non Tender, Soft Back: Normal Inspection, No CVA Tenderness, No Vertebral Tenderness Extremity: Normal Capillary Refill, Normal Inspection, Normal Range of Motion (except left leg), Non Tender, No Calf Tenderness, No Pedal Edema Neurologic/Psychiatric: Alert, Oriented x3, No Motor/Sensory Deficits, Normal Mood/Affect, Motor Weakness (left leg and generalized) Skin: Normal Color, Warm/Dry Lymphatic: No Adenopathy Results/Procedures Lab Patient resulted labs reviewed. FIM Transfers Therapy Code Descriptions/Definitions Functional [place] Measure: 0=Not Assessed/NA 4=Minimal Assistance 1=Total Assistance 5=Supervision or Setup 2=Maximal Assistance 6=Modified [place] 3=Moderate Assistance 7=Complete IndependenceSCALE: Activities may be completed with or without assistive devices. 8-Ftqnpgdpzz-lhuxppd completes the activity by him/herself with no assistance from a helper. 5-Set-up or Clean-up Assistance-helper sets up or cleans up; patient completes activity. [place] assists only prior to or following the activity. 4-Supervision or Touching Assistance-helper provides verbal cues and/or touching/steadying and/or contact guard assistance as patient completes activity. Assistance may be provided throughout the activity or intermittently. 3-Partial/Moderate Assistance-helper does LESS THAN HALF the effort. [place] lifts, holds or supports trunk or limbs, but provides less than half the effort. 2-Substantial/Maximal Assistance-helper does MORE THAN HALF the effort. [place] lifts or holds trunk or limbs and provides more than half the effort. 9-Mlzfbtjup-xcyalq does ALL the effort. Patient does none of the effort to complete the activity. Or, the assistance of 2 or more helpers is required for the patient to complete the activity. If activity was not attempted, code reason: 7-Patient Refused. 9-Not Applicable-not attempted and the patient did not perform the activity before the current illness, exacerbation or injury. 10-Not Attempted due to Environmental Limitations-(lack of equipment, weather restraints, etc.). 88-Not Attempted due to Medical Conditions or Safety Concerns. Roll Left to Right (QC): 6 Sit to Lying (QC): 3 Sit to Stand (QC): 4 Chair/Svr-po-Uqabn Xfer(QC): 4 Car Transfer (QC): 2 Gait Training Does the Patient Walk?: Yes Distance: 100'x2 Walk 10 feet (QC): 4 Walk 50 ft with 2 Turns(QC): 4 Walk 150 ft (QC): 4 Walking 10ft/uneven surface-QC: 88 Gait Persons Needed: 1 Gait Assistive Device: FWW Wheelchair Training Does the Pt Use a Wheelchair?: Yes Distance: 100 Wheel 50 ft with 2 turns (QC): 1 Wheel 150 ft (QC): 88 Type of Wheelchair: Manual Stair Training Stair Training: Handrails/: 2 handrails #of Steps: 20 1 Step (curb) (QC): 4 4 Steps (QC): 4 12 Steps (QC): 4 Stairs: Pattern: Step to Balance Picking up an Object (QC): 88 ADL-Treatment Eating (QC): 5 Oral Hygiene (QC): 1 Shower/Bathe Self (QC): 3 Upper Body Dressing (QC): 5 Lower Body Dressing (QC): 4 On/Off Footwear (QC): 2 Toileting Hygiene (QC): 4 Toilet Transfer (QC): 4 Assessment/Plan Assessment and Plan Assess & Plan/Chief Complaint Assessment: Left hip fracture Fall History of humerus fracture Hypertension PTSD 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 Velasquez gastroenterology Depression Hypothyroidism Cancer status post cryotherapy at Acute kidney injury increased IV fluids on 05/09/2022 and holding losartan Oversedation 05/11/22 resolved with IVF Plan: Dr. Silver consult appreciated Pain control Supportive care Increase IV fluids Increase p.o. fluids Supportive care Lovenox for DVT prophylaxis if okay with Dr. Silver 05/11/2022: Hold meds for oversedation Monitor closely 05/12/2022: Supportive care Minimize sedatives 05/13/2022: Monitor closely DC IVF 05/14/2022: Pain control 05/15/2022: Monitor pain 05/16/2022: Supportive care will continue 05/17/2022: Participation with therapy has declined 05/18/2022: Monitor pain 05/19/2022: Dramatic improvement of ambulation today 05/20/2022: Improved 05/21/2022: Much improved Continue therapy (1) Closed left hip fracture Status: Acute (2) Chronic diarrhea Status: Acute (3) HTN (hypertension) Status: Chronic (4) Liver cancer Status: Chronic ROBBIE HUYNH DO May 21, 2022 06:22
[2022-05-21] MEDS: LEVOTHYROXINE 50 MCG (LEVOTHROID) TAB PO SCH (06:36)
[2022-05-21 07:29] VITALS: BP 144/72
[2022-05-21] MEDS: COLESTIPOL 1 GM (COLESTID) TAB PO SCH ×2 (08:10→21:17)
[2022-05-21] MEDS: VITAMIN D3 25 MCG (1,000 UNITS) TABLET PO SCH (08:10)
[2022-05-21] MEDS: amLODIPine 10 MG (NORVASC) TAB PO SCH (08:10)
[2022-05-21] MEDS: LOSARTAN 100 MG (COZAAR) TABLET PO SCH (08:10)
[2022-05-21] MEDS: SERTRALINE 100 MG (ZOLOFT) TAB PO SCH (08:10)
[2022-05-21] MEDS: PANTOPRAZOLE 20 MG TABLET (PROTONIX) PO SCH (08:10)
[2022-05-21] MEDS: KCL 10 MEQ TAB (MICRO K) PO SCH ×3 (08:11→17:05)
[2022-05-21] MEDS: DOCUSATE SODIUM 100 MG (COLACE) CAP PO SCH ×2 (09:11→21:18)
--- NOTE | 2022-05-21 10:55 | Physical Therapy Daily Note ---
PT Daily Note-Current Subjective Patient in bed pre tx, agrees to PT, voices no complaints of pain. Patient needs assist with getting pants and shoes on. Pain Section J - Health Conditions 1. Rarely or not at all 2. Occasionally 3. Frequently 4. Almost constantly 8. Unable to answer Pain Effect on Sleep: 8 Pain Interference with Therapy: 8 Pain Interference w/Day-to-Day: 8 Appearance Patient in recliner post tx with nurse call, phone, tray, all needs met. Mental Status Patient Orientation: Person, Place, Situation Transfers SCALE: Activities may be completed with or without assistive devices. 1-Bbewznqnzl-szwtemu completes the activity by him/herself with no assistance from a helper. 5-Set-up or Clean-up Assistance-helper sets up or cleans up; patient completes activity. [place] assists only prior to or following the activity. 4-Supervision or Touching Assistance-helper provides verbal cues and/or touching/steadying and/or contact guard assistance as patient completes activity. Assistance may be provided throughout the activity or intermittently. 3-Partial/Moderate Assistance-helper does LESS THAN HALF the effort. [place] lifts, holds or supports trunk or limbs, but provides less than half the effort. 2-Substantial/Maximal Assistance-helper does MORE THAN HALF the effort. [place] lifts or holds trunk or limbs and provides more than half the effort. 8-Syxkpuutt-kmyvke does ALL the effort. Patient does none of the effort to complete the activity. Or, the assistance of 2 or more helpers is required for the patient to complete the activity. If activity was not attempted, code reason: 7-Patient Refused. 9-Not Applicable-not attempted and the patient did not perform the activity before the current illness, exacerbation or injury. 10-Not Attempted due to Environmental Limitations-(lack of equipment, weather restraints, etc.). 88-Not Attempted due to Medical Conditions or Safety Concerns. Roll Left & Right (QC): 6 Lying to Sitting/Side of Bed(Q: 6 Sit to Stand (QC): 4 Chair/Jhe-qt-Llklr Xfer(QC): 4 Toilet Transfer (QC): 4 Patient states he needs to use the restroom before leaning his room. Patient ambulates to the restroom and performs toilet transfer with SBA, when done he is able to wipe himself, needs assist with managing pants. Weight Bearing Right Lower Extremity: Right Full Weight Bearing Left Lower Extremity: Left Weight Bearing/Tolerated Gait Training Distance: 150', 100', 10' Walk 10 feet (QC): 4 Walk 50 ft with 2 Turns(QC): 4 Walk 150 ft (QC): 4 Gait Persons Needed: 1 Gait Assistive Device: FWW slow ambulation, wide GAVI, poor foot clearance, short steps Exercises Standing: Heel/toe raises, Marching, Mini squats Standing Reps: 20 LAQ alternating for 5 min Treatments bed mobility and transfers, ambulation, strengthening, toileting, dressing Assessment Current Status: Fair Progress slowly improving general mobility PT Short Term Goals Short Term Goals Time Frame: May 22, 2022 Roll Left & Right: 4 Sit to lyin Lying to sitting on side of be: 4 Sit to stand: 4 Chair/hgo-ky-jrbih transfer: 4 Toilet transfer: 4 Car transfer: 4 Walk 10 feet: 3 Walk 50 feet with two turns: 3 Walk 150 feet: 3 PT Supervisor Special Services Goals Mcfp Goals PT Supervisor Special Services Goals Time Frame: Jun 05, 2022 Roll Left & Right (QC): 5 Sit to Lying (QC): 5 Lying-Sitting on Side/Bed(QC): 5 Sit to Stand (QC): 5 Chair/Xmk-rt-Akegr Xfer(QC): 5 Toilet Transfer (QC): 5 Car Transfer (QC): 5 Does the Patient Walk: Yes Walk 10 feet (QC): 4 Walk 50ft with 2 Turns (QC): 4 Walk 150 ft (QC): 4 Walking 10ft on Uneven Surface: 4 1 Step (curb) (QC): 3 4 Steps (QC): 3 12 Steps (QC): 3 Picking up an Object (QC): 4 Does the Pt use WC or Scooter?: Yes Wheel 50 feet with 2 turns (QC: 6 Type: Manual Wheel 150 feet: 6 Type: Manual PT Plan Problem List Problem List: Activity Tolerance, Functional Strength, Safety, Balance, Gait, Transfer, Bed Mobility, ROM Treatment/Plan Treatment Plan: Continue Plan of Care Treatment Plan: Bed Mobility, Education, Functional Activity Cain, Functional Strength, Group Therapy, Gait, Safety, Therapeutic Exercise, Transfers Treatment Duration: Jun 12, 2022 Frequency: At least 5 of 7 days/Wk (IRF) Estimated Hrs Per Day: 1.5 hours per day Patient and/or Family Agrees t: Yes Safety Risks/Education Patient Education: Gait Training, Transfer Techniques, Correct Positioning, Safety Issues Teaching Recipient: Patient Teaching Methods: Demonstration, Discussion Response to Teaching: Reinforcement Needed Time Time In: 1000 Time Out: 1100 DATE: May 21, 2022 Total Billed Treatment Time: 60 Total Billed Treatment 1 visit EX 15' FA 45' JAE ADORNO PT May 21, 2022 10:55
[2022-05-21] MEDS: ENOXAPARIN 40 MG/0.4 ML (LOVENOX) SYR SC SCH (11:38)
--- NOTE | 2022-05-21 11:58 | Occupational Ther Daily Note ---
OT Current Status-Daily Note Subjective Pt alert, sitting in recliner. Pt agrees to therapy. No c/o pain. Mental Status/Objective Patient Orientation: Person, Place, Time, Situation ADL-Treatment Pt [place]. Pt agrees to shower. Pt requires increased height of surface for sit <--> stand. Pt ambulates to bathroom using FWW with SBA. Standing while leaning against wall, pt doffs clothing with close SBA. Pt sat 100% of the time to complete showering using elevated shower bench, grabbar, LH sponge and hand held shower. Set up for upper body dressing. Using AE to don/doff lower body clothing, SBA. Set up for footwear using sock aide. After session, pt lying in bed with call light/phone in reach. All needs met in room. Therapy Code Descriptions/Definitions Functional [place] Measure: 0=Not Assessed/NA 4=Minimal Assistance 1=Total Assistance 5=Supervision or Setup 2=Maximal Assistance 6=Modified [place] 3=Moderate Assistance 7=Complete IndependenceSCALE: Activities may be completed with or without assistive devices. 2-Pesjwwibmi-zeognaz completes the activity by him/herself with no assistance from a helper. 5-Set-up or Clean-up Assistance-helper sets up or cleans up; patient completes activity. [place] assists only prior to or following the activity. 4-Supervision or Touching Assistance-helper provides verbal cues and/or touching/steadying and/or contact guard assistance as patient completes activity. Assistance may be provided throughout the activity or intermittently. 3-Partial/Moderate Assistance-helper does LESS THAN HALF the effort. [place] lifts, holds or supports trunk or limbs, but provides less than half the effort. 2-Substantial/Maximal Assistance-helper does MORE THAN HALF the effort. [place] lifts or holds trunk or limbs and provides more than half the effort. 6-Hbzwpynlf-hyqjlb does ALL the effort. Patient does none of the effort to complete the activity. Or, the assistance of 2 or more helpers is required for the patient to complete the activity. If activity was not attempted, code reason: 7-Patient Refused. 9-Not Applicable-not attempted and the patient did not perform the activity before the current illness, exacerbation or injury. 10-Not Attempted due to Environmental Limitations-(lack of equipment, weather restraints, etc.). 88-Not Attempted due to Medical Conditions or Safety Concerns. Oral Hygiene (QC): 7 Shower/Bathe Self (QC): 4 Upper Body Dressing (QC): 5 Lower Body Dressing (QC): 4 On/Off Footwear: 5 OT Short Term Goals Short Term Goals Time Frame: May 28, 2022 Shower/bathe self: 3 Lower body dressin Putting on/taking off footwear: 3 OT Longterm Goals Longterm Goals Time Frame: Jun 04, 2022 Acute change in mental status: 0 Inattention: 0 Disorganized thinkin Altered level of consciousness: 0 Eating (QC): 6 Oral Hygiene (QC): 6 Toileting Hygiene (QC): 6 Shower/Bathe Self (QC): 4 Upper Body Dressing (QC): 6 Lower Body Dressing (QC): 4 On/Off Footwear (QC): 4 Additional Goals: 1-Demonstrate ADL Tasks, 2-Verbalize Understanding, 3- ImproveStrength/Cain 1=Demonstrate adherence to instructed precautions during ADL tasks. 2=Patient will verbalize/demonstrate understanding of assistive devices/modifications for ADL. 3=Patient will improve strength/tolerance for activity to enable patient to perform ADL's. OT Education/Plan Problem List/Assessment Assessment: Decreased Activ Tolerance, Impaired Self-Care Skills Discharge Recommendations Plan/Recommendations: Continue POC Treatment Plan/Plan of Care Patient would benefit from OT for education, treatment and training to promote independence in ADL's, mobility, safety and/or upper extremity function for ADL's. Plan of Care: ADL Retraining, Functional Mobility, Group Exercise/Act as Ind, UE Funct Exercise/Act Treatment Duration: Jun 04, 2022 Frequency: At least 5 of 7 days/Wk (IRF) Estimated Hrs Per Day: 1.5 hours per day Agreement: Yes Rehab Potential: Guarded Time Start Time: 11:00 Stop Time: 12:00 DATE: May 21, 2022 Total Time Billed (hr/min): 60 Billed Treatment Time 1 visit-ADL 4 (60 min) JOSELINE GROVE May 21, 2022 11:58
--- NOTE | 2022-05-21 13:59 | Occupational Ther Daily Note ---
OT Current Status-Daily Note Subjective Pt alert, lying in bed. Agrees to therapy. Pt declines any OOB tasks. No c/o pain. Mental Status/Objective Patient Orientation: Person, Place, Time, Situation ADL-Treatment Therapy Code Descriptions/Definitions Functional [place] Measure: 0=Not Assessed/NA 4=Minimal Assistance 1=Total Assistance 5=Supervision or Setup 2=Maximal Assistance 6=Modified [place] 3=Moderate Assistance 7=Complete IndependenceSCALE: Activities may be completed with or without assistive devices. 7-Cfilpdhgti-isvdhjp completes the activity by him/herself with no assistance from a helper. 5-Set-up or Clean-up Assistance-helper sets up or cleans up; patient completes activity. [place] assists only prior to or following the activity. 4-Supervision or Touching Assistance-helper provides verbal cues and/or to uching/steadying and/or contact guard assistance as patient completes activity. Assistance may be provided throughout the activity or intermittently. 3-Partial/Moderate Assistance-helper does LESS THAN HALF the effort. [place] lifts, holds or supports trunk or limbs, but provides less than half the effort. 2-Substantial/Maximal Assistance-helper does MORE THAN HALF the effort. [place] lifts or holds trunk or limbs and provides more than half the effort. 3-Hlvyuvqni-yfdiak does ALL the effort. Patient does none of the effort to complete the activity. Or, the assistance of 2 or more helpers is required for the patient to complete the activity. If activity was not attempted, code reason: 7-Patient Refused. 9-Not Applicable-not attempted and the patient did not perform the activity before the current illness, exacerbation or injury. 10-Not Attempted due to Environmental Limitations-(lack of equipment, weather restraints, etc.). 88-Not Attempted due to Medical Conditions or Safety Concerns. Other Treatment Pt discussing how he will be completing ADLs and IADLs at home. After am shower, pt was able to consider how things would be completed at home safely. Pt stated that he will need more grabbars in shower since he is considering s tanding in shower. REYNOSO will attempt this with pt at next shower to assess safety. Pt has lift chair at home that he sits on in living room. Pt has 3" toilet riser. After therapy, pt lying in bed with call light/phone in reach. All needs met in room. OT Short Term Goals Short Term Goals Time Frame: May 28, 2022 Shower/bathe self: 3 Lower body dressin Putting on/taking off footwear: 3 OT Cigarette Inspector Goals Longterm Goals Time Frame: Jun 04, 2022 Acute change in mental status: 0 Inattention: 0 Disorganized thinkin Altered level of consciousness: 0 Eating (QC): 6 Oral Hygiene (QC): 6 Toileting Hygiene (QC): 6 Shower/Bathe Self (QC): 4 Upper Body Dressing (QC): 6 Lower Body Dressing (QC): 4 On/Off Footwear (QC): 4 Additional Goals: 1-Demonstrate ADL Tasks, 2-Verbalize Understanding, 3- ImproveStrength/Cain 1=Demonstrate adherence to instructed precautions during ADL tasks. 2=Patient will verbalize/demonstrate understanding of assistive devices/modifications for ADL. 3=Patient will improve strength/tolerance for activity to enable patient to perform ADL's. OT Education/Plan Problem List/Assessment Assessment: Decreased Activ Tolerance, Impaired Self-Care Skills Discharge Recommendations Plan/Recommendations: Continue POC Treatment Plan/Plan of Care Patient would benefit from OT for education, treatment and training to promote independence in ADL's, mobility, safety and/or upper extremity function for ADL's. Plan of Care: ADL Retraining, Functional Mobility, Group Exercise/Act as Ind, UE Funct Exercise/Act Treatment Duration: Jun 04, 2022 Frequency: At least 5 of 7 days/Wk (IRF) Estimated Hrs Per Day: 1.5 hours per day Agreement: Yes Rehab Potential: Guarded Time Start Time: 13:30 Stop Time: 14:00 DATE: May 21, 2022 Total Time Billed (hr/min): 30 Billed Treatment Time 1 visit-FA 2 (30 min) JOSELINE GROVE May 21, 2022 13:59
--- NOTE | 2022-05-21 15:05 | Physical Therapy Daily Note ---
PT Daily Note-Current Subjective Patient in bed pre tx, agrees to PT, has 6/10 pain, nurse notified. Pain Section J - Health Conditions 1. Rarely or not at all 2. Occasionally 3. Frequently 4. Almost constantly 8. Unable to answer Pain Effect on Sleep: 8 Pain Interference with Therapy: 8 Pain Interference w/Day-to-Day: 8 Appearance Patient in bed post tx with nurse call, phone, tray, all needs met. Mental Status Patient Orientation: Person, Place, Situation Transfers SCALE: Activities may be completed with or without assistive devices. 4-Zpifjrkhpg-cqptiav completes the activity by him/herself with no assistance from a helper. 5-Set-up or Clean-up Assistance-helper sets up or cleans up; patient completes activity. [place] assists only prior to or following the activity. 4-Supervision or Touching Assistance-helper provides verbal cues and/or touching/steadying and/or contact guard assistance as patient completes activity. Assistance may be provided throughout the activity or intermittently. 3-Partial/Moderate Assistance-helper does LESS THAN HALF the effort. [place] lifts, holds or supports trunk or limbs, but provides less than half the effort. 2-Substantial/Maximal Assistance-helper does MORE THAN HALF the effort. [place] lifts or holds trunk or limbs and provides more than half the effort. 3-Jdulwtbxu-lljxde does ALL the effort. Patient does none of the effort to complete the activity. Or, the assistance of 2 or more helpers is required for the patient to complete the activity. If activity was not attempted, code reason: 7-Patient Refused. 9-Not Applicable-not attempted and the patient did not perform the activity before the current illness, exacerbation or injury. 10-Not Attempted due to Environmental Limitations-(lack of equipment, weather restraints, etc.). 88-Not Attempted due to Medical Conditions or Safety Concerns. Roll Left & Right (QC): 6 Sit to Lying (QC): 6 Lying to Sitting/Side of Bed(Q: 6 Sit to Stand (QC): 4 Chair/Vom-sp-Ampgo Xfer(QC): 4 Weight Bearing Right Lower Extremity: Right Full Weight Bearing Left Lower Extremity: Left Weight Bearing/Tolerated Gait Training Distance: 120'x2 Walk 10 feet (QC): 4 Walk 50 ft with 2 Turns(QC): 4 Gait Persons Needed: 1 Gait Assistive Device: FWW slow but steady ambulation, still wide GAVI, better step through Exercises NuStep Minutes: 10 NuStep Workload: 5 Treatments bed mobility and transfers, ambulation, strengthening Assessment Current Status: Fair Progress improving ambulation PT Short Term Goals Short Term Goals Time Frame: May 22, 2022 Roll Left & Right: 4 Sit to lyin Lying to sitting on side of be: 4 Sit to stand: 4 Chair/idb-vh-qyqys transfer: 4 Toilet transfer: 4 Car transfer: 4 Walk 10 feet: 3 Walk 50 feet with two turns: 3 Walk 150 feet: 3 PT Senior Scientist Goals Senior Scientist Goals PT Senior Scientist Goals Time Frame: Jun 05, 2022 Roll Left & Right (QC): 5 Sit to Lying (QC): 5 Lying-Sitting on Side/Bed(QC): 5 Sit to Stand (QC): 5 Chair/Hld-cc-Wgffw Xfer(QC): 5 Toilet Transfer (QC): 5 Car Transfer (QC): 5 Does the Patient Walk: Yes Walk 10 feet (QC): 4 Walk 50ft with 2 Turns (QC): 4 Walk 150 ft (QC): 4 Walking 10ft on Uneven Surface: 4 1 Step (curb) (QC): 3 4 Steps (QC): 3 12 Steps (QC): 3 Picking up an Object (QC): 4 Does the Pt use WC or Scooter?: Yes Wheel 50 feet with 2 turns (QC: 6 Type: Manual Wheel 150 feet: 6 Type: Manual PT Plan Problem List Problem List: Activity Tolerance, Functional Strength, Safety, Balance, Gait, Transfer, Bed Mobility, ROM Treatment/Plan Treatment Plan: Continue Plan of Care Treatment Plan: Bed Mobility, Education, Functional Activity [place], Functional Strength, Group Therapy, Gait, Safety, Therapeutic Exercise, Transfers Treatment Duration: Jun 12, 2022 Frequency: At least 5 of 7 days/Wk (IRF) Estimated Hrs Per Day: 1.5 hours per day Patient and/or Family Agrees t: Yes Safety Risks/Education Patient Education: Gait Training, Transfer Techniques, Correct Positioning, Safety Issues Teaching Recipient: Patient Teaching Methods: Demonstration, Discussion Response to Teaching: Reinforcement Needed Time Time In: 1410 Time Out: 1440 DATE: May 21, 2022 Total Billed Treatment Time: 30 Total Billed Treatment 1 visit EX 10' FA 20' JAE ADORNO PT May 21, 2022 15:05
[2022-05-21] MEDS: CALCIUM CARBONATE 500 MG (TUMS) TAB.CHEW PO PRN (17:22)
[2022-05-21 20:00] VITALS: BP 117/61
[2022-05-22] MEDS: LEVOTHYROXINE 50 MCG (LEVOTHROID) TAB PO SCH (06:02)
--- NOTE | 2022-05-22 06:41 | PM&R Progress Note ---
Subjective HPI/CC On Admission Date Seen by Provider: May 22, 2022 Time Seen by Provider: 12:00 Subjective/Events-last exam 05/22/2022: Patient doing well Family here visiting Pain controlled We will monitor closely 05/21/2022: Much improved Less incontinence both bowel and bladder Less pain 05/20/2022: Much improved Incontinence improved Lomotil maintained Ambulating well 05/19/2022: Doing much better Ambulated well today and went up stairs Lomotil will be increased to QID to decrease diarrhea No pain reported except hip 05/18/2022: Participating more with therapy Told me he is participating but the therapy team said he isn't so I tried to developmental training counselor him on that and encouraged more effort No pain reported otherwise 05/17/2022: Not wanting to work with therapy May need to go to [facility] if this persists AVRIL spoke to Josh and he is requesting I speak to him about NHP No other issues 05/16/2022: Patient sleeping soundly No concerns from nurse Slow recovery Doing well 05/15/2022: No major changes Slow recovery Pain controlled Very sedentary at home 05/14/2022: Improved status Pain controlled Slow moving No nausea BM+ 05/13/2022: Much improved status since IVF given Slow recovery but improved overall Pain controlled 05/12/2022: Less lethargic today Overmedication from pain meds upstairs likely the cause Will decrease any pain meds and sedatives in the meantime Confusion less 05/11/2022: Seems to be oversedated so will hold some meds No pain reported Labs stable Voiding well with incontinence No falls Review of Systems General: Fatigue, Malaise Objective Exam Vital Signs Vital Signs Date Time Temp Pulse Resp B/P (MAP) Pulse Ox O2 Delivery O2 Flow Rate FiO2 05/22/22 09:00 93 Room Air 05/22/22 07:30 36.1 65 16 155/77 (103) Capillary Refill : General Appearance: No Apparent Distress, WD/WN, Chronically ill, Thin HEENT: PERRL/EOMI, Normal ENT Inspection, Pharynx Normal Neck: Full Range of Motion, Normal Inspection, Non Tender, Supple, Carotid Bruit Respiratory: Chest Non Tender, Lungs Clear, Normal Breath Sounds, No Accessory Muscle Use, No Respiratory Distress Cardiovascular: Regular Rate, Rhythm, No Edema, No Gallop, No JVD, No Murmur, Normal Peripheral Pulses Gastrointestinal: Normal Bowel Sounds, No Organomegaly, No Pulsatile Mass, Non Tender, Soft Back: Normal Inspection, No CVA Tenderness, No Vertebral Tenderness Extremity: Normal Capillary Refill, Normal Inspection, Normal Range of Motion (except left leg), Non Tender, No Calf Tenderness, No Pedal Edema Neurologic/Psychiatric: Alert, Oriented x3, No Motor/Sensory Deficits, Normal Mood/Affect, Motor Weakness (left leg and generalized) Skin: Normal Color, Warm/Dry Lymphatic: No Adenopathy Results/Procedures Lab Patient resulted labs reviewed. FIM Transfers Therapy Code Descriptions/Definitions Functional [place] Measure: 0=Not Assessed/NA 4=Minimal Assistance 1=Total Assistance 5=Supervision or Setup 2=Maximal Assistance 6=Modified [place] 3=Moderate Assistance 7=Complete IndependenceSCALE: Activities may be completed with or without assistive devices. 2-Gtqarsofwi-eshrmsl completes the activity by him/herself with no assistance from a helper. 5-Set-up or Clean-up Assistance-helper sets up or cleans up; patient completes activity. [place] assists only prior to or following the activity. 4-Supervision or Touching Assistance-helper provides verbal cues and/or touching/steadying and/or contact guard assistance as patient completes activity. Assistance may be provided throughout the activity or intermittently. 3-Partial/Moderate Assistance-helper does LESS THAN HALF the effort. [place] lifts, holds or supports trunk or limbs, but provides less than half the effort. 2-Substantial/Maximal Assistance-helper does MORE THAN HALF the effort. [place] lifts or holds trunk or limbs and provides more than half the effort. 6-Cqwtkfiel-hnkhwy does ALL the effort. Patient does none of the effort to complete the activity. Or, the assistance of 2 or more helpers is required for the patient to complete the activity. If activity was not attempted, code reason: 7-Patient Refused. 9-Not Applicable-not attempted and the patient did not perform the activity before the current illness, exacerbation or injury. 10-Not Attempted due to Environmental Limitations-(lack of equipment, weather restraints, etc.). 88-Not Attempted due to Medical Conditions or Safety Concerns. Roll Left to Right (QC): 6 Sit to Lying (QC): 6 Sit to Stand (QC): 4 Chair/Oat-ir-Obkno Xfer(QC): 4 Car Transfer (QC): 2 Gait Training Does the Patient Walk?: Yes Distance: 120'x2 Walk 10 feet (QC): 4 Walk 50 ft with 2 Turns(QC): 4 Walk 150 ft (QC): 4 Walking 10ft/uneven surface-QC: 88 Gait Persons Needed: 1 Gait Assistive Device: FWW Wheelchair Training Does the Pt Use a Wheelchair?: Yes Distance: 100 Wheel 50 ft with 2 turns (QC): 1 Wheel 150 ft (QC): 88 Type of Wheelchair: Manual Stair Training Stair Training: Handrails/: 2 handrails #of Steps: 20 1 Step (curb) (QC): 4 4 Steps (QC): 4 12 Steps (QC): 4 Stairs: Pattern: Step to Balance Picking up an Object (QC): 88 ADL-Treatment Eating (QC): 5 Oral Hygiene (QC): 7 Shower/Bathe Self (QC): 4 Upper Body Dressing (QC): 5 Lower Body Dressing (QC): 4 On/Off Footwear (QC): 5 Toileting Hygiene (QC): 4 Toilet Transfer (QC): 4 Assessment/Plan Assessment and Plan Assess & Plan/Chief Complaint Assessment: Left hip fracture Fall History of humerus fracture Hypertension PTSD 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 Velasquez gastroenterology Depression Hypothyroidism Cancer status post cryotherapy at Acute kidney injury increased IV fluids on 05/09/2022 and holding losartan Oversedation 05/11/22 resolved with IVF Plan: Dr. Silver consult appreciated Pain control Supportive care Increase IV fluids Increase p.o. fluids Supportive care Lovenox for DVT prophylaxis if okay with Dr. Silver 05/11/2022: Hold meds for oversedation Monitor closely 05/12/2022: Supportive care Minimize sedatives 05/13/2022: Monitor closely DC IVF 05/14/2022: Pain control 05/15/2022: Monitor pain 05/16/2022: Supportive care will continue 05/17/2022: Participation with therapy has declined 05/18/2022: Monitor pain 05/19/2022: Dramatic improvement of ambulation today 05/20/2022: Improved 05/21/2022: Much improved Continue therapy 05/22/2022: Supportive care (1) Closed left hip fracture Status: Acute (2) Chronic diarrhea Status: Acute (3) HTN (hypertension) Status: Chronic (4) Liver cancer Status: Chronic ROBBIE HUYNH DO May 22, 2022 06:41
[2022-05-22 07:30] VITALS: BP 155/77
[2022-05-22] MEDS: VITAMIN D3 25 MCG (1,000 UNITS) TABLET PO SCH (08:48)
[2022-05-22] MEDS: SERTRALINE 100 MG (ZOLOFT) TAB PO SCH (08:48)
[2022-05-22] MEDS: amLODIPine 10 MG (NORVASC) TAB PO SCH (08:49)
[2022-05-22] MEDS: LOSARTAN 100 MG (COZAAR) TABLET PO SCH (08:49)
[2022-05-22] MEDS: COLESTIPOL 1 GM (COLESTID) TAB PO SCH ×2 (08:50→20:19)
[2022-05-22] MEDS: PANTOPRAZOLE 20 MG TABLET (PROTONIX) PO SCH (08:50)
[2022-05-22] MEDS: DOCUSATE SODIUM 100 MG (COLACE) CAP PO SCH ×2 (08:50→20:19)
[2022-05-22] MEDS: KCL 10 MEQ TAB (MICRO K) PO SCH ×3 (08:50→17:23)
[2022-05-22] MEDS: CALCIUM CARBONATE 500 MG (TUMS) TAB.CHEW PO PRN (09:45)
--- NOTE | 2022-05-22 10:16 | Physical Therapy Progress Note ---
Therapy Progress Note Pt. was approached x 2 and was encouraged to participate in PT. Pt refused x2. will cont PT . as cooperates 2-6. ARTUR Kaye LEE A PTA May 22, 2022 10:16
[2022-05-22] MEDS: ENOXAPARIN 40 MG/0.4 ML (LOVENOX) SYR SC SCH (11:34)
[2022-05-22 19:35] VITALS: BP 153/69
[2022-05-23] MEDS: LEVOTHYROXINE 50 MCG (LEVOTHROID) TAB PO SCH (06:29)
[2022-05-23 07:30] VITALS: BP 124/69
--- NOTE | 2022-05-23 07:47 | PM&R Progress Note ---
Subjective HPI/CC On Admission Date Seen by Provider: May 23, 2022 Time Seen by Provider: 12:00 Subjective/Events-last exam 05/23/2022: Patient doing well Bowel incontinence continues Supportive care will continue No other concerns 05/22/2022: Patient doing well Family here visiting Pain controlled We will monitor closely 05/21/2022: Much improved Less incontinence both bowel and bladder Less pain 05/20/2022: Much improved Incontinence improved Lomotil maintained Ambulating well 05/19/2022: Doing much better Ambulated well today and went up stairs Lomotil will be increased to QID to decrease diarrhea No pain reported except hip 05/18/2022: Participating more with therapy Told me he is participating but the therapy team said he isn't so I tried to community health counselor him on that and encouraged more effort No pain reported otherwise 05/17/2022: Not wanting to work with therapy May need to go to [facility] if this persists SW spoke to Josh and he is requesting I speak to him about NHP No other issues 05/16/2022: Patient sleeping soundly No concerns from nurse Slow recovery Doing well 05/15/2022: No major changes Slow recovery Pain controlled Very sedentary at home 05/14/2022: Improved status Pain controlled Slow moving No nausea BM+ 05/13/2022: Much improved status since IVF given Slow recovery but improved overall Pain controlled 05/12/2022: Less lethargic today Overmedication from pain meds upstairs likely the cause Will decrease any pain meds and sedatives in the meantime Confusion less 05/11/2022: Seems to be oversedated so will hold some meds No pain reported Labs stable Voiding well with incontinence No falls Review of Systems General: Fatigue, Malaise Objective Exam Vital Signs Vital Signs Date Time Temp Pulse Resp B/P (MAP) Pulse Ox O2 Delivery O2 Flow Rate FiO2 05/23/22 08:25 93 Room Air 05/23/22 07:30 36.3 62 16 124/69 (87) 05/22/22 19:50 0.00 Capillary Refill : General Appearance: No Apparent Distress, WD/WN, Chronically ill, Thin HEENT: PERRL/EOMI, Normal ENT Inspection, Pharynx Normal Neck: Full Range of Motion, Normal Inspection, Non Tender, Supple, Carotid Bruit Respiratory: Chest Non Tender, Lungs Clear, Normal Breath Sounds, No Accessory Muscle Use, No Respiratory Distress Cardiovascular: Regular Rate, Rhythm, No Edema, No Gallop, No JVD, No Murmur, Normal Peripheral Pulses Gastrointestinal: Normal Bowel Sounds, No Organomegaly, No Pulsatile Mass, Non Tender, Soft Back: Normal Inspection, No CVA Tenderness, No Vertebral Tenderness Extremity: Normal Capillary Refill, Normal Inspection, Normal Range of Motion (except left leg), Non Tender, No Calf Tenderness, No Pedal Edema Neurologic/Psychiatric: Alert, Oriented x3, No Motor/Sensory Deficits, Normal Mood/Affect, Motor Weakness (left leg and generalized) Skin: Normal Color, Warm/Dry Lymphatic: No Adenopathy Results/Procedures Lab Patient resulted labs reviewed. FIM Transfers Therapy Code Descriptions/Definitions Functional [place] Measure: 0=Not Assessed/NA 4=Minimal Assistance 1=Total Assistance 5=Supervision or Setup 2=Maximal Assistance 6=Modified [place] 3=Moderate Assistance 7=Complete IndependenceSCALE: Activities may be completed with or without assistive devices. 6-Shjhciznek-dqlbbzg completes the activity by him/herself with no assistance from a helper. 5-Set-up or Clean-up Assistance-helper sets up or cleans up; patient completes activity. [place] assists only prior to or following the activity. 4-Supervision or Touching Assistance-helper provides verbal cues and/or touching/steadying and/or contact guard assistance as patient completes activity. Assistance may be provided throughout the activity or intermittently. 3-Partial/Moderate Assistance-helper does LESS THAN HALF the effort. [place] lifts, holds or supports trunk or limbs, but provides less than half the effort. 2-Substantial/Maximal Assistance-helper does MORE THAN HALF the effort. [place] lifts or holds trunk or limbs and provides more than half the effort. 1-Aafgghpre-ocphmw does ALL the effort. Patient does none of the effort to complete the activity. Or, the assistance of 2 or more helpers is required for the patient to complete the activity. If activity was not attempted, code reason: 7-Patient Refused. 9-Not Applicable-not attempted and the patient did not perform the activity before the current illness, exacerbation or injury. 10-Not Attempted due to Environmental Limitations-(lack of equipment, weather restraints, etc.). 88-Not Attempted due to Medical Conditions or Safety Concerns. Roll Left to Right (QC): 6 Sit to Lying (QC): 6 Sit to Stand (QC): 4 Chair/Aam-fl-Pungc Xfer(QC): 4 Car Transfer (QC): 2 Gait Training Does the Patient Walk?: Yes Distance: 120'x2 Walk 10 feet (QC): 4 Walk 50 ft with 2 Turns(QC): 4 Walk 150 ft (QC): 4 Walking 10ft/uneven surface-QC: 88 Gait Persons Needed: 1 Gait Assistive Device: FWW Wheelchair Training Does the Pt Use a Wheelchair?: Yes Distance: 100 Wheel 50 ft with 2 turns (QC): 1 Wheel 150 ft (QC): 88 Type of Wheelchair: Manual Stair Training Stair Training: Handrails/: 2 handrails #of Steps: 20 1 Step (curb) (QC): 4 4 Steps (QC): 4 12 Steps (QC): 4 Stairs: Pattern: Step to Balance Picking up an Object (QC): 88 ADL-Treatment Eating (QC): 5 Oral Hygiene (QC): 7 Shower/Bathe Self (QC): 4 Upper Body Dressing (QC): 5 Lower Body Dressing (QC): 4 On/Off Footwear (QC): 5 Toileting Hygiene (QC): 4 Toilet Transfer (QC): 4 Assessment/Plan Assessment and Plan Assess & Plan/Chief Complaint Assessment: Left hip fracture Fall History of humerus fracture Hypertension PTSD 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 Velasquez gastroenterology Depression Hypothyroidism Cancer status post cryotherapy at Acute kidney injury increased IV fluids on 05/09/2022 and holding losartan Oversedation 05/11/22 resolved with IVF Bowel incontinence Urinary incontinence Plan: Dr. Silver consult appreciated Pain control Supportive care Increase IV fluids Increase p.o. fluids Supportive care Lovenox for DVT prophylaxis if okay with Dr. Silver 05/11/2022: Hold meds for oversedation Monitor closely 05/12/2022: Supportive care Minimize sedatives 05/13/2022: Monitor closely DC IVF 05/14/2022: Pain control 05/15/2022: Monitor pain 05/16/2022: Supportive care will continue 05/17/2022: Participation with therapy has declined 05/18/2022: Monitor pain 05/19/2022: Dramatic improvement of ambulation today 05/20/2022: Improved 05/21/2022: Much improved Continue therapy 05/22/2022: Supportive care 05/23/2022: Supportive care (1) Closed left hip fracture Status: Acute (2) Chronic diarrhea Status: Acute (3) HTN (hypertension) Status: Chronic (4) Liver cancer Status: Chronic ROBBIE HUYNH DO May 23, 2022 07:47
[2022-05-23] MEDS: DOCUSATE SODIUM 100 MG (COLACE) CAP PO SCH ×2 (08:16→21:02)
[2022-05-23] MEDS: NEO/POLY/BAC (NEOSPORIN) OINT 15 GM TUBE TOP SCH ×2 (08:42→21:01)
[2022-05-23] MEDS: PANTOPRAZOLE 20 MG TABLET (PROTONIX) PO SCH (08:43)
[2022-05-23] MEDS: KCL 10 MEQ TAB (MICRO K) PO SCH ×3 (08:43→18:21)
[2022-05-23] MEDS: amLODIPine 10 MG (NORVASC) TAB PO SCH (08:43)
[2022-05-23] MEDS: VITAMIN D3 25 MCG (1,000 UNITS) TABLET PO SCH (08:43)
[2022-05-23] MEDS: LOSARTAN 100 MG (COZAAR) TABLET PO SCH (08:44)
[2022-05-23] MEDS: SERTRALINE 100 MG (ZOLOFT) TAB PO SCH (08:44)
[2022-05-23] MEDS: COLESTIPOL 1 GM (COLESTID) TAB PO SCH ×2 (08:48→21:01)
[2022-05-23] MEDS: ENOXAPARIN 40 MG/0.4 ML (LOVENOX) SYR SC SCH (12:12)
[2022-05-23 20:51] VITALS: BP 117/61
--- NOTE | 2022-05-24 05:18 | PM&R Progress Note ---
Subjective HPI/CC On Admission Date Seen by Provider: May 24, 2022 Time Seen by Provider: 08:30 Subjective/Events-last exam 05/24/2022: Doing very well DC planned Incontinence is still a periodic issue No concerns 05/23/2022: Patient doing well Bowel incontinence continues Supportive care will continue No other concerns 05/22/2022: Patient doing well Family here visiting Pain controlled We will monitor closely 05/21/2022: Much improved Less incontinence both bowel and bladder Less pain 05/20/2022: Much improved Incontinence improved Lomotil maintained Ambulating well 05/19/2022: Doing much better Ambulated well today and went up stairs Lomotil will be increased to QID to decrease diarrhea No pain reported except hip 05/18/2022: Participating more with therapy Told me he is participating but the therapy team said he isn't so I tried to counselor supervisor him on that and encouraged more effort No pain reported otherwise 05/17/2022: Not wanting to work with therapy May need to go to [facility] if this persists AVRIL spoke to Josh and he is requesting I speak to him about NHP No other issues 05/16/2022: Patient sleeping soundly No concerns from nurse Slow recovery Doing well 05/15/2022: No major changes Slow recovery Pain controlled Very sedentary at home 05/14/2022: Improved status Pain controlled Slow moving No nausea BM+ 05/13/2022: Much improved status since IVF given Slow recovery but improved overall Pain controlled 05/12/2022: Less lethargic today Overmedication from pain meds upstairs likely the cause Will decrease any pain meds and sedatives in the meantime Confusion less 05/11/2022: Seems to be oversedated so will hold some meds No pain reported Labs stable Voiding well with incontinence No falls Review of Systems General: Fatigue, Malaise Objective Exam Vital Signs Vital Signs Date Time Temp Pulse Resp B/P (MAP) Pulse Ox O2 Delivery O2 Flow Rate FiO2 05/24/22 21:15 97 Room Air 05/24/22 20:41 36.6 60 16 110/65 (80) 05/22/22 19:50 0.00 Capillary Refill : General Appearance: No Apparent Distress, WD/WN, Chronically ill, Thin HEENT: PERRL/EOMI, Normal ENT Inspection, Pharynx Normal Neck: Full Range of Motion, Normal Inspection, Non Tender, Supple, Carotid Bruit Respiratory: Chest Non Tender, Lungs Clear, Normal Breath Sounds, No Accessory Muscle Use, No Respiratory Distress Cardiovascular: Regular Rate, Rhythm, No Edema, No Gallop, No JVD, No Murmur, Normal Peripheral Pulses Gastrointestinal: Normal Bowel Sounds, No Organomegaly, No Pulsatile Mass, Non Tender, Soft Back: Normal Inspection, No CVA Tenderness, No Vertebral Tenderness Extremity: Normal Capillary Refill, Normal Inspection, Normal Range of Motion (except left leg), Non Tender, No Calf Tenderness, No Pedal Edema Neurologic/Psychiatric: Alert, Oriented x3, No Motor/Sensory Deficits, Normal Mood/Affect, Motor Weakness (left leg and generalized) Skin: Normal Color, Warm/Dry Lymphatic: No Adenopathy Results/Procedures Lab Laboratory Tests 05/24/22 05:17 Patient resulted labs reviewed. FIM Transfers Therapy Code Descriptions/Definitions Functional [place] Measure: 0=Not Assessed/NA 4=Minimal Assistance 1=Total Assistance 5=Supervision or Setup 2=Maximal Assistance 6=Modified [place] 3=Moderate Assistance 7=Complete IndependenceSCALE: Activities may be completed with or without assistive devices. 0-Dbbnyuphkq-pdxbhap completes the activity by him/herself with no assistance from a helper. 5-Set-up or Clean-up Assistance-helper sets up or cleans up; patient completes activity. [place] assists only prior to or following the activity. 4-Supervision or Touching Assistance-helper provides verbal cues and/or touching/steadying and/or contact guard assistance as patient completes activity. Assistance may be provided throughout the activity or intermittently. 3-Partial/Moderate Assistance-helper does LESS THAN HALF the effort. [place] lifts, holds or supports trunk or limbs, but provides less than half the effort. 2-Substantial/Maximal Assistance-helper does MORE THAN HALF the effort. [place] lifts or holds trunk or limbs and provides more than half the effort. 4-Kmurglgds-bivqvq does ALL the effort. Patient does none of the effort to complete the activity. Or, the assistance of 2 or more helpers is required for the patient to complete the activity. If activity was not attempted, code reason: 7-Patient Refused. 9-Not Applicable-not attempted and the patient did not perform the activity before the current illness, exacerbation or injury. 10-Not Attempted due to Environmental Limitations-(lack of equipment, weather restraints, etc.). 88-Not Attempted due to Medical Conditions or Safety Concerns. Roll Left to Right (QC): 6 Sit to Lying (QC): 6 Sit to Stand (QC): 4 Chair/Fij-hu-Xwwab Xfer(QC): 4 Car Transfer (QC): 2 Gait Training Does the Patient Walk?: Yes Distance: 120'x2 Walk 10 feet (QC): 4 Walk 50 ft with 2 Turns(QC): 4 Walk 150 ft (QC): 4 Walking 10ft/uneven surface-QC: 88 Gait Persons Needed: 1 Gait Assistive Device: FWW Wheelchair Training Does the Pt Use a Wheelchair?: Yes Distance: 100 Wheel 50 ft with 2 turns (QC): 1 Wheel 150 ft (QC): 88 Type of Wheelchair: Manual Stair Training Stair Training: Handrails/: 2 handrails #of Steps: 20 1 Step (curb) (QC): 4 4 Steps (QC): 4 12 Steps (QC): 4 Stairs: Pattern: Step to Balance Picking up an Object (QC): 88 ADL-Treatment Eating (QC): 5 Oral Hygiene (QC): 7 Shower/Bathe Self (QC): 4 Upper Body Dressing (QC): 5 Lower Body Dressing (QC): 4 On/Off Footwear (QC): 5 Toileting Hygiene (QC): 4 Toilet Transfer (QC): 4 Assessment/Plan Assessment and Plan Assess & Plan/Chief Complaint Assessment: Left hip fracture Fall History of humerus fracture Hypertension PTSD 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 Velasquez gastroenterology Depression Hypothyroidism Cancer status post cryotherapy at Acute kidney injury increased IV fluids on 05/09/2022 and holding losartan Oversedation 05/11/22 resolved with IVF Bowel incontinence Urinary incontinence Plan: Dr. Silver consult appreciated Pain control Supportive care Increase IV fluids Increase p.o. fluids Supportive care Lovenox for DVT prophylaxis if okay with Dr. Silver 05/11/2022: Hold meds for oversedation Monitor closely 05/12/2022: Supportive care Minimize sedatives 05/13/2022: Monitor closely DC IVF 05/14/2022: Pain control 05/15/2022: Monitor pain 05/16/2022: Supportive care will continue 05/17/2022: Participation with therapy has declined 05/18/2022: Monitor pain 05/19/2022: Dramatic improvement of ambulation today 05/20/2022: Improved 05/21/2022: Much improved Continue therapy 05/22/2022: Supportive care 05/23/2022: Supportive care 05/24/2022: Minimize pain meds DC (1) Closed left hip fracture Status: Acute (2) Chronic diarrhea Status: Acute (3) HTN (hypertension) Status: Chronic (4) Liver cancer Status: Chronic ROBBIE HUYNH DO May 24, 2022 05:18
[2022-05-24 05:28] LABS: BASOPHILS % (AUTO) 1 % (0-10); EOSINOPHILS # (AUTO) 0.1 10^3/uL (0.0-0.3); EOSINOPHILS % (AUTO) 2 % (0-10); HEMATOCRIT 33 % (40-54); LYMPHOCYTES # (AUTO) 1.3 10^3/uL (1.0-4.0); LYMPHOCYTES % (AUTO) 27 % (12-44); MEAN CORPUSCULAR HEMOGLOBIN 31 pg (25-34); MEAN CORPUSCULAR HGB CONC 34 g/dL (32-36); MEAN CORPUSCULAR VOLUME 91 fL (80-99); MEAN PLATELET VOLUME 11.1 fL (9.0-12.2); MONOCYTES # (AUTO) 0.6 10^3/uL (0.0-1.0); MONOCYTES % (AUTO) 12 % (0-12); NEUTROPHILS # (AUTO) 2.9 10^3/uL (1.8-7.8); NEUTROPHILS % (AUTO) 58 % (42-75); PLATELET COUNT 195 10^3/uL (130-400)
[2022-05-24 05:59] LABS: ALBUMIN 2.7 GM/DL (3.2-4.5); BILIRUBIN,TOTAL 0.3 MG/DL (0.1-1.0); CALCIUM 8.6 MG/DL (8.5-10.1); CREATININE SERUM 0.93 MG/DL (0.60-1.30); POTASSIUM 3.8 MMOL/L (3.6-5.0); TOTAL PROTEIN 5.4 GM/DL (6.4-8.2)
[2022-05-24] MEDS: LEVOTHYROXINE 50 MCG (LEVOTHROID) TAB PO SCH (06:33)
[2022-05-24 07:21] VITALS: BP 126/59
[2022-05-24] MEDS: KCL 10 MEQ TAB (MICRO K) PO SCH ×3 (08:13→17:24)
[2022-05-24] MEDS: PANTOPRAZOLE 20 MG TABLET (PROTONIX) PO SCH (08:13)
[2022-05-24] MEDS: VITAMIN D3 25 MCG (1,000 UNITS) TABLET PO SCH (08:13)
[2022-05-24] MEDS: SERTRALINE 100 MG (ZOLOFT) TAB PO SCH (08:13)
[2022-05-24] MEDS: LOSARTAN 100 MG (COZAAR) TABLET PO SCH (08:13)
[2022-05-24] MEDS: COLESTIPOL 1 GM (COLESTID) TAB PO SCH ×2 (08:13→21:21)
[2022-05-24] MEDS: DOCUSATE SODIUM 100 MG (COLACE) CAP PO SCH ×2 (08:14→21:21)
[2022-05-24] MEDS: DIPHENOXYLATE/ATROPINE 2.5MG/0.025MG (LOMOTIL) TAB PO PRN ×2 (08:16→11:49)
[2022-05-24] MEDS: amLODIPine 10 MG (NORVASC) TAB PO SCH (08:17)
[2022-05-24] MEDS: NEO/POLY/BAC (NEOSPORIN) OINT 15 GM TUBE TOP SCH ×2 (08:26→21:21)
[2022-05-24] MEDS: ENOXAPARIN 40 MG/0.4 ML (LOVENOX) SYR SC SCH (11:49)
--- NOTE | 2022-05-24 11:50 | Occupational Ther Daily Note ---
OT Current Status-Daily Note Subjective Pt alert, lying in bed. Pt agrees to therapy. No c/o pain. Mental Status/Objective Patient Orientation: Person, Place, Time, Situation ADL-Treatment Pt declines shower, changing clothing or completing oral care. During session, pt requested toileting. Pt incontinent of bowel (sm amt), then completed BM in toilet. Pt able to standing and manipulate clothing then sit to cleanse independently. Toilet transfer independent using grabbars, BSC and FWW. Therapy Code Descriptions/Definitions Functional [place] Measure: 0=Not Assessed/NA 4=Minimal Assistance 1=Total Assistance 5=Supervision or Setup 2=Maximal Assistance 6=Modified [place] 3=Moderate Assistance 7=Complete IndependenceSCALE: Activities may be completed with or without assistive devices. 6-Nsrniymhdf-umhouuv completes the activity by him/herself with no assistance from a helper. 5-Set-up or Clean-up Assistance-helper sets up or cleans up; patient completes activity. [place] assists only prior to or following the activity. 4-Supervision or Touching Assistance-helper provides verbal cues and/or touching/steadying and/or contact guard assistance as patient completes activity. Assistance may be provided throughout the activity or intermittently. 3-Partial/Moderate Assistance-helper does LESS THAN HALF the effort. [place] lifts, holds or supports trunk or limbs, but provides less than half the effort. 2-Substantial/Maximal Assistance-helper does MORE THAN HALF the effort. [place] lifts or holds trunk or limbs and provides more than half the effort. 1-Pbojavmwi-ltccmz does ALL the effort. Patient does none of the effort to complete the activity. Or, the assistance of 2 or more helpers is required for the patient to complete the activity. If activity was not attempted, code reason: 7-Patient Refused. 9-Not Applicable-not attempted and the patient did not perform the activity before the current illness, exacerbation or injury. 10-Not Attempted due to Environmental Limitations-(lack of equipment, weather restraints, etc.). 88-Not Attempted due to Medical Conditions or Safety Concerns. On/Off Footwear: 5 (Using AE, pt able to complete footwear by self after set up.) Toileting Hygiene (QC): 3 (Due to assist managing incontinence) Toilet Transfer (QC): 6 Other Treatment Pt ambulated around ARU using FWW with SBA, no LOB. Pt then completed B UE exercises using 3# wts to increase strength and activity tolerance for daily functional tasks. Skilled instruction for correct technique and modification when necessary. 3 sets 10 reps each with lengthy recovery break between each set. After therapy, pt sitting in recliner with call light/phone in reach. All needs met in room. OT Short Term Goals Short Term Goals Time Frame: May 28, 2022 Shower/bathe self: 3 Lower body dressin Putting on/taking off footwear: 3 OT Social Service Liaison Goals Jail Goals Time Frame: Jun 04, 2022 Acute change in mental status: 0 Inattention: 0 Disorganized thinkin Altered level of consciousness: 0 Eating (QC): 6 Oral Hygiene (QC): 6 Toileting Hygiene (QC): 6 Shower/Bathe Self (QC): 4 Upper Body Dressing (QC): 6 Lower Body Dressing (QC): 4 On/Off Footwear (QC): 4 Additional Goals: 1-Demonstrate ADL Tasks, 2-Verbalize Understanding, 3- ImproveStrength/Cain 1=Demonstrate adherence to instructed precautions during ADL tasks. 2=Patient will verbalize/demonstrate understanding of assistive devices/modifications for ADL. 3=Patient will improve strength/tolerance for activity to enable patient to perform ADL's. OT Education/Plan Problem List/Assessment Assessment: Decreased Activ Tolerance, Decreased UE Strength, Impaired Self- Care Skills, Restricted Funct UE ROM Discharge Recommendations Plan/Recommendations: Continue POC Treatment Plan/Plan of Care Patient would benefit from OT for education, treatment and training to promote independence in ADL's, mobility, safety and/or upper extremity function for ADL's. Plan of Care: ADL Retraining, Functional Mobility, Group Exercise/Act as Ind, UE Funct Exercise/Act Treatment Duration: Jun 04, 2022 Frequency: At least 5 of 7 days/Wk (IRF) Estimated Hrs Per Day: 1.5 hours per day Agreement: Yes Rehab Potential: Guarded Time Start Time: 10:00 Stop Time: 11:00 DATE: May 24, 2022 Total Time Billed (hr/min): 60 Billed Treatment Time 1 visit-ADL 1 (20 min) FA 1 (15 min) EX 2 (25 min) JOSELINE GROVE May 24, 2022 11:49
--- NOTE | 2022-05-24 11:54 | Physical Therapy Daily Note ---
PT Daily Note-Current Subjective Patient in recliner pre tx, agrees to PT, has 4/10 pain in left hip. Pain Section J - Health Conditions 1. Rarely or not at all 2. Occasionally 3. Frequently 4. Almost constantly 8. Unable to answer Pain Effect on Sleep: 8 Pain Interference with Therapy: 8 Pain Interference w/Day-to-Day: 8 Appearance Patient in bed post tx with nurse call, phone, tray, all needs met. Mental Status Patient Orientation: Person, Place, Situation Transfers SCALE: Activities may be completed with or without assistive devices. 9-Cckerftbjq-bygwlef completes the activity by him/herself with no assistance from a helper. 5-Set-up or Clean-up Assistance-helper sets up or cleans up; patient completes activity. [place] assists only prior to or following the activity. 4-Supervision or Touching Assistance-helper provides verbal cues and/or touching/steadying and/or contact guard assistance as patient completes activity. Assistance may be provided throughout the activity or intermittently. 3-Partial/Moderate Assistance-helper does LESS THAN HALF the effort. [place] lifts, holds or supports trunk or limbs, but provides less than half the effort. 2-Substantial/Maximal Assistance-helper does MORE THAN HALF the effort. [place] lifts or holds trunk or limbs and provides more than half the effort. 4-Eyftajlzx-wywihb does ALL the effort. Patient does none of the effort to complete the activity. Or, the assistance of 2 or more helpers is required for the patient to complete the activity. If activity was not attempted, code reason: 7-Patient Refused. 9-Not Applicable-not attempted and the patient did not perform the activity before the current illness, exacerbation or injury. 10-Not Attempted due to Environmental Limitations-(lack of equipment, weather restraints, etc.). 88-Not Attempted due to Medical Conditions or Safety Concerns. Roll Left & Right (QC): 4 Sit to Lying (QC): 4 Lying to Sitting/Side of Bed(Q: 4 Sit to Stand (QC): 4 Chair/Lpf-la-Eulmu Xfer(QC): 4 Toilet Transfer (QC): 4 SBA for sit to stand and transfers. During ambulation patient has to come back to his room and have a BM. Patient has already had a BM in his brief, brief was removed, patient sat on toilet to continue, was able to wipe himself, new brief was donned, and assisted with pants. Weight Bearing Right Lower Extremity: Right Full Weight Bearing Left Lower Extremity: Left Weight Bearing/Tolerated Gait Training Distance: 300', 150'x2 Walk 10 feet (QC): 4 Walk 50 ft with 2 Turns(QC): 4 Walk 150 ft (QC): 4 Gait Persons Needed: 1 Gait Assistive Device: FWW slow but steady ambulation, better step through and heel strike but still wide GAVI Exercises NuStep Minutes: 10 NuStep Workload: 5 Treatments bed mobility and transfers, ambulation, toileting, strengthening Assessment Current Status: Fair Progress improving ambulation PT Short Term Goals Short Term Goals Time Frame: May 22, 2022 Roll Left & Right: 4 Sit to lyin Lying to sitting on side of be: 4 Sit to stand: 4 Chair/ecl-pr-jsxxi transfer: 4 Toilet transfer: 4 Car transfer: 4 Walk 10 feet: 3 Walk 50 feet with two turns: 3 Walk 150 feet: 3 PT Tire Mold Engraver Goals Residential Goals PT Tire Mold Engraver Goals Time Frame: Jun 05, 2022 Roll Left & Right (QC): 5 Sit to Lying (QC): 5 Lying-Sitting on Side/Bed(QC): 5 Sit to Stand (QC): 5 Chair/Rkq-gi-Ryqya Xfer(QC): 5 Toilet Transfer (QC): 5 Car Transfer (QC): 5 Does the Patient Walk: Yes Walk 10 feet (QC): 4 Walk 50ft with 2 Turns (QC): 4 Walk 150 ft (QC): 4 Walking 10ft on Uneven Surface: 4 1 Step (curb) (QC): 3 4 Steps (QC): 3 12 Steps (QC): 3 Picking up an Object (QC): 4 Does the Pt use WC or Scooter?: Yes Wheel 50 feet with 2 turns (QC: 6 Type: Manual Wheel 150 feet: 6 Type: Manual PT Plan Problem List Problem List: Activity Tolerance, Functional Strength, Safety, Balance, Gait, Transfer, Bed Mobility, ROM Treatment/Plan Treatment Plan: Continue Plan of Care Treatment Plan: Bed Mobility, Education, Functional Activity Cain, Functional Strength, Group Therapy, Gait, Safety, Therapeutic Exercise, Transfers Treatment Duration: Jun 12, 2022 Frequency: At least 5 of 7 days/Wk (IRF) Estimated Hrs Per Day: 1.5 hours per day Patient and/or Family Agrees t: Yes Safety Risks/Education Patient Education: Gait Training, Transfer Techniques, Correct Positioning, Safety Issues Teaching Recipient: Patient Teaching Methods: Demonstration, Discussion Response to Teaching: Reinforcement Needed Time Time In: 1100 Time Out: 1200 DATE: May 24, 2022 Total Billed Treatment Time: 60 Total Billed Treatment 1 visit EX 10' FA 50' JAE ADORNO PT May 24, 2022 11:54
--- NOTE | 2022-05-24 13:38 | Occupational Ther Daily Note ---
OT Current Status-Daily Note Subjective Pt sleeping in bed, woke to name spoken loudly. Pt agrees to therapy. Pt grimacing with movement, but declines pain meds. Mental Status/Objective Patient Orientation: Person, Place, Time, Situation ADL-Treatment Independent with toilet transfer using FWW, grabbars and BSC to elevate height of toilet. Independent with toileting using FWW, grabbars and BSC. Using electrical appliance servicer, pt retrieved shoes and placed on B feet by self. Therapy Code Descriptions/Definitions Functional [place] Measure: 0=Not Assessed/NA 4=Minimal Assistance 1=Total Assistance 5=Supervision or Setup 2=Maximal Assistance 6=Modified [place] 3=Moderate Assistance 7=Complete IndependenceSCALE: Activities may be completed with or without assistive devices. 8-Xktyxoeqrx-iowkdzd completes the activity by him/herself with no assistance from a helper. 5-Set-up or Clean-up Assistance-helper sets up or cleans up; patient completes activity. [place] assists only prior to or following the activity. 4-Supervision or Touching Assistance-helper provides verbal cues and/or touching/steadying and/or contact guard assistance as patient completes activity. Assistance may be provided throughout the activity or intermittently. 3-Partial/Moderate Assistance-helper does LESS THAN HALF the effort. [place] lifts, holds or supports trunk or limbs, but provides less than half the effort. 2-Substantial/Maximal Assistance-helper does MORE THAN HALF the effort. [place] lifts or holds trunk or limbs and provides more than half the effort. 1-Bwedbggty-kulsli does ALL the effort. Patient does none of the effort to complete the activity. Or, the assistance of 2 or more helpers is required for the patient to complete the activity. If activity was not attempted, code reason: 7-Patient Refused. 9-Not Applicable-not attempted and the patient did not perform the activity before the current illness, exacerbation or injury. 10-Not Attempted due to Environmental Limitations-(lack of equipment, weather restraints, etc.). 88-Not Attempted due to Medical Conditions or Safety Concerns. On/Off Footwear: 6 Toileting Hygiene (QC): 6 Toilet Transfer (QC): 6 Other Treatment Independent bed mobility with HOB slightly raised. Pt began to ambulate out of room though pt stopped and requested to use toilet. After session, pt sitting in recliner with call light/phone in reach. All needs met in room. OT Short Term Goals Short Term Goals Time Frame: May 28, 2022 Shower/bathe self: 3 Lower body dressin Putting on/taking off footwear: 3 OT Pipe Insulator Helper Goals Pipe Insulator Helper Goals Time Frame: Jun 04, 2022 Acute change in mental status: 0 Inattention: 0 Disorganized thinkin Altered level of consciousness: 0 Eating (QC): 6 Oral Hygiene (QC): 6 Toileting Hygiene (QC): 6 Shower/Bathe Self (QC): 4 Upper Body Dressing (QC): 6 Lower Body Dressing (QC): 4 On/Off Footwear (QC): 4 Additional Goals: 1-Demonstrate ADL Tasks, 2-Verbalize Understanding, 3- ImproveStrength/Cain 1=Demonstrate adherence to instructed precautions during ADL tasks. 2=Patient will verbalize/demonstrate understanding of assistive devices/modifications for ADL. 3=Patient will improve strength/tolerance for activity to enable patient to perform ADL's. OT Education/Plan Problem List/Assessment Assessment: Decreased Activ Tolerance, Impaired Self-Care Skills Discharge Recommendations Plan/Recommendations: Continue POC Treatment Plan/Plan of Care Patient would benefit from OT for education, treatment and training to promote independence in ADL's, mobility, safety and/or upper extremity function for ADL's. Plan of Care: ADL Retraining, Functional Mobility, Group Exercise/Act as Ind, UE Funct Exercise/Act Treatment Duration: Jun 04, 2022 Frequency: At least 5 of 7 days/Wk (IRF) Estimated Hrs Per Day: 1.5 hours per day Agreement: Yes Rehab Potential: Guarded Time Start Time: 13:00 Stop Time: 13:30 DATE: May 24, 2022 Total Time Billed (hr/min): 30 Billed Treatment Time 1 visit-ADL 1 (20 min) FA 1 (10 min) JOSELINE GROVE May 24, 2022 13:38
--- NOTE | 2022-05-24 14:30 | Physical Therapy Daily Note ---
PT Daily Note-Current Subjective Patient in recliner pre tx, agrees to PT, has unrated left hip pain. Pain Section J - Health Conditions 1. Rarely or not at all 2. Occasionally 3. Frequently 4. Almost constantly 8. Unable to answer Pain Effect on Sleep: 8 Pain Interference with Therapy: 8 Pain Interference w/Day-to-Day: 8 Appearance Patient in bed post tx with nurse call, phone, tray, all needs met. Mental Status Patient Orientation: Person, Place, Situation Transfers SCALE: Activities may be completed with or without assistive devices. 4-Aissedbjcl-qntqgcj completes the activity by him/herself with no assistance from a helper. 5-Set-up or Clean-up Assistance-helper sets up or cleans up; patient completes activity. [place] assists only prior to or following the activity. 4-Supervision or Touching Assistance-helper provides verbal cues and/or touching/steadying and/or contact guard assistance as patient completes activity. Assistance may be provided throughout the activity or intermittently. 3-Partial/Moderate Assistance-helper does LESS THAN HALF the effort. [place] lifts, holds or supports trunk or limbs, but provides less than half the effort. 2-Substantial/Maximal Assistance-helper does MORE THAN HALF the effort. [place] lifts or holds trunk or limbs and provides more than half the effort. 5-Kgcgpifgz-awivib does ALL the effort. Patient does none of the effort to complete the activity. Or, the assistance of 2 or more helpers is required for the patient to complete the activity. If activity was not attempted, code reason: 7-Patient Refused. 9-Not Applicable-not attempted and the patient did not perform the activity before the current illness, exacerbation or injury. 10-Not Attempted due to Environmental Limitations-(lack of equipment, weather restraints, etc.). 88-Not Attempted due to Medical Conditions or Safety Concerns. Roll Left & Right (QC): 6 Sit to Lying (QC): 4 Sit to Stand (QC): 4 Chair/Ftj-mf-Itooy Xfer(QC): 4 Weight Bearing Right Lower Extremity: Right Full Weight Bearing Left Lower Extremity: Left Weight Bearing/Tolerated Gait Training Distance: 200', 120' Walk 10 feet (QC): 4 Walk 50 ft with 2 Turns(QC): 4 Walk 150 ft (QC): 4 Gait Persons Needed: 1 Gait Assistive Device: FWW very slow ambulation, wide GAVI, decreased foot clearance, occasional standing rest break Treatments bed mobility and transfers, ambulation Assessment Current Status: Fair Progress improving general mobility, less effort needed for sit to stand from lower surfaces PT Short Term Goals Short Term Goals Time Frame: May 22, 2022 Roll Left & Right: 4 Sit to lyin Lying to sitting on side of be: 4 Sit to stand: 4 Chair/elv-he-hdyry transfer: 4 Toilet transfer: 4 Car transfer: 4 Walk 10 feet: 3 Walk 50 feet with two turns: 3 Walk 150 feet: 3 PT Quilt Sewer Goals Quilt Sewer Goals PT Quilt Sewer Goals Time Frame: Jun 05, 2022 Roll Left & Right (QC): 5 Sit to Lying (QC): 5 Lying-Sitting on Side/Bed(QC): 5 Sit to Stand (QC): 5 Chair/Imz-mn-Nhrap Xfer(QC): 5 Toilet Transfer (QC): 5 Car Transfer (QC): 5 Does the Patient Walk: Yes Walk 10 feet (QC): 4 Walk 50ft with 2 Turns (QC): 4 Walk 150 ft (QC): 4 Walking 10ft on Uneven Surface: 4 1 Step (curb) (QC): 3 4 Steps (QC): 3 12 Steps (QC): 3 Picking up an Object (QC): 4 Does the Pt use WC or Scooter?: Yes Wheel 50 feet with 2 turns (QC: 6 Type: Manual Wheel 150 feet: 6 Type: Manual PT Plan Problem List Problem List: Activity Tolerance, Functional Strength, Safety, Balance, Gait, Transfer, Bed Mobility, ROM Treatment/Plan Treatment Plan: Continue Plan of Care Treatment Plan: Bed Mobility, Education, Functional Activity [place], Functional Strength, Group Therapy, Gait, Safety, Therapeutic Exercise, Transfers Treatment Duration: Jun 12, 2022 Frequency: At least 5 of 7 days/Wk (IRF) Estimated Hrs Per Day: 1.5 hours per day Patient and/or Family Agrees t: Yes Safety Risks/Education Patient Education: Gait Training, Transfer Techniques, Correct Positioning, Safety Issues Teaching Recipient: Patient Teaching Methods: Demonstration, Discussion Response to Teaching: Reinforcement Needed Time Time In: 1400 Time Out: 1430 DATE: May 24, 2022 Total Billed Treatment Time: 30 Total Billed Treatment 1 visit FA 30' JAE ADORNO PT May 24, 2022 14:30
[2022-05-24 20:41] VITALS: BP 110/65
--- NOTE | 2022-05-25 05:51 | PM&R Progress Note ---
Subjective HPI/CC On Admission Date Seen by Provider: May 25, 2022 Time Seen by Provider: 09:00 Subjective/Events-last exam 05/25/2022: Much improved status Increased mobility Less incontinence No pain 05/24/2022: Doing very well DC planned Incontinence is still a periodic issue No concerns 05/23/2022: Patient doing well Bowel incontinence continues Supportive care will continue No other concerns 05/22/2022: Patient doing well Family here visiting Pain controlled We will monitor closely 05/21/2022: Much improved Less incontinence both bowel and bladder Less pain 05/20/2022: Much improved Incontinence improved Lomotil maintained Ambulating well 05/19/2022: Doing much better Ambulated well today and went up stairs Lomotil will be increased to QID to decrease diarrhea No pain reported except hip 05/18/2022: Participating more with therapy Told me he is participating but the therapy team said he isn't so I tried to probation counselor him on that and encouraged more effort No pain reported otherwise 05/17/2022: Not wanting to work with therapy May need to go to [facility] if this persists SW spoke to Josh and he is requesting I speak to him about NHP No other issues 05/16/2022: Patient sleeping soundly No concerns from nurse Slow recovery Doing well 05/15/2022: No major changes Slow recovery Pain controlled Very sedentary at home 05/14/2022: Improved status Pain controlled Slow moving No nausea BM+ 05/13/2022: Much improved status since IVF given Slow recovery but improved overall Pain controlled 05/12/2022: Less lethargic today Overmedication from pain meds upstairs likely the cause Will decrease any pain meds and sedatives in the meantime Confusion less 05/11/2022: Seems to be oversedated so will hold some meds No pain reported Labs stable Voiding well with incontinence No falls Review of Systems General: Fatigue, Malaise Objective Exam Vital Signs Vital Signs Date Time Temp Pulse Resp B/P (MAP) Pulse Ox O2 Delivery O2 Flow Rate FiO2 05/25/22 20:30 36.4 60 18 159/72 (101) 96 Room Air 05/22/22 19:50 0.00 Capillary Refill : General Appearance: No Apparent Distress, WD/WN, Chronically ill, Thin HEENT: PERRL/EOMI, Normal ENT Inspection, Pharynx Normal Neck: Full Range of Motion, Normal Inspection, Non Tender, Supple, Carotid Bruit Respiratory: Chest Non Tender, Lungs Clear, Normal Breath Sounds, No Accessory Muscle Use, No Respiratory Distress Cardiovascular: Regular Rate, Rhythm, No Edema, No Gallop, No JVD, No Murmur, Normal Peripheral Pulses Gastrointestinal: Normal Bowel Sounds, No Organomegaly, No Pulsatile Mass, Non Tender, Soft Back: Normal Inspection, No CVA Tenderness, No Vertebral Tenderness Extremity: Normal Capillary Refill, Normal Inspection, Normal Range of Motion (except left leg), Non Tender, No Calf Tenderness, No Pedal Edema Neurologic/Psychiatric: Alert, Oriented x3, No Motor/Sensory Deficits, Normal Mood/Affect, Motor Weakness (left leg and generalized) Skin: Normal Color, Warm/Dry Lymphatic: No Adenopathy Results/Procedures Lab Patient resulted labs reviewed. FIM Transfers Therapy Code Descriptions/Definitions Functional [place] Measure: 0=Not Assessed/NA 4=Minimal Assistance 1=Total Assistance 5=Supervision or Setup 2=Maximal Assistance 6=Modified [place] 3=Moderate Assistance 7=Complete IndependenceSCALE: Activities may be completed with or without assistive devices. 6-Vfjlwyfqeu-oxiddbd completes the activity by him/herself with no assistance from a helper. 5-Set-up or Clean-up Assistance-helper sets up or cleans up; patient completes activity. [place] assists only prior to or following the activity. 4-Supervision or Touching Assistance-helper provides verbal cues and/or touching/steadying and/or contact guard assistance as patient completes activity. Assistance may be provided throughout the activity or intermittently. 3-Partial/Moderate Assistance-helper does LESS THAN HALF the effort. [place] lifts, holds or supports trunk or limbs, but provides less than half the effort. 2-Substantial/Maximal Assistance-helper does MORE THAN HALF the effort. [place] lifts or holds trunk or limbs and provides more than half the effort. 9-Sbvsqmsnh-wwlydb does ALL the effort. Patient does none of the effort to complete the activity. Or, the assistance of 2 or more helpers is required for the patient to complete the activity. If activity was not attempted, code reason: 7-Patient Refused. 9-Not Applicable-not attempted and the patient did not perform the activity before the current illness, exacerbation or injury. 10-Not Attempted due to Environmental Limitations-(lack of equipment, weather restraints, etc.). 88-Not Attempted due to Medical Conditions or Safety Concerns. Roll Left to Right (QC): 6 Sit to Lying (QC): 4 Sit to Stand (QC): 4 Chair/Wok-nh-Ragsf Xfer(QC): 4 Car Transfer (QC): 2 Gait Training Does the Patient Walk?: Yes Distance: 200', 120' Walk 10 feet (QC): 4 Walk 50 ft with 2 Turns(QC): 4 Walk 150 ft (QC): 4 Walking 10ft/uneven surface-QC: 88 Gait Persons Needed: 1 Gait Assistive Device: FWW Wheelchair Training Does the Pt Use a Wheelchair?: Yes Distance: 100 Wheel 50 ft with 2 turns (QC): 1 Wheel 150 ft (QC): 88 Type of Wheelchair: Manual Stair Training Stair Training: Handrails/: 2 handrails #of Steps: 20 1 Step (curb) (QC): 4 4 Steps (QC): 4 12 Steps (QC): 4 Stairs: Pattern: Step to Balance Picking up an Object (QC): 88 ADL-Treatment Eating (QC): 5 Oral Hygiene (QC): 7 Shower/Bathe Self (QC): 4 Upper Body Dressing (QC): 5 Lower Body Dressing (QC): 4 On/Off Footwear (QC): 6 Toileting Hygiene (QC): 6 Toilet Transfer (QC): 6 Assessment/Plan Assessment and Plan Assess & Plan/Chief Complaint Assessment: Left hip fracture Fall History of humerus fracture Hypertension PTSD 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 Velasquez gastroenterology Depression Hypothyroidism Cancer status post cryotherapy at Acute kidney injury increased IV fluids on 05/09/2022 and holding losartan Oversedation 05/11/22 resolved with IVF Bowel incontinence Urinary incontinence Plan: Dr. Silver consult appreciated Pain control Supportive care Increase IV fluids Increase p.o. fluids Supportive care Lovenox for DVT prophylaxis if okay with Dr. Silver 05/11/2022: Hold meds for oversedation Monitor closely 05/12/2022: Supportive care Minimize sedatives 05/13/2022: Monitor closely DC IVF 05/14/2022: Pain control 05/15/2022: Monitor pain 05/16/2022: Supportive care will continue 05/17/2022: Participation with therapy has declined 05/18/2022: Monitor pain 05/19/2022: Dramatic improvement of ambulation today 05/20/2022: Improved 05/21/2022: Much improved Continue therapy 05/22/2022: Supportive care 05/23/2022: Supportive care 05/24/2022: Minimize pain meds DC 05/25/2022: Monitor closely (1) Closed left hip fracture Status: Acute (2) Chronic diarrhea Status: Acute (3) HTN (hypertension) Status: Chronic (4) Liver cancer Status: Chronic ROBIBE HUYNH DO May 25, 2022 05:51
[2022-05-25] MEDS: LEVOTHYROXINE 50 MCG (LEVOTHROID) TAB PO SCH (06:18)
[2022-05-25] MEDS: VITAMIN D3 25 MCG (1,000 UNITS) TABLET PO SCH (07:34)
[2022-05-25] MEDS: KCL 10 MEQ TAB (MICRO K) PO SCH ×3 (07:34→17:13)
[2022-05-25] MEDS: SERTRALINE 100 MG (ZOLOFT) TAB PO SCH (07:34)
[2022-05-25] MEDS: PANTOPRAZOLE 20 MG TABLET (PROTONIX) PO SCH (07:34)
[2022-05-25] MEDS: amLODIPine 10 MG (NORVASC) TAB PO SCH (07:34)
[2022-05-25] MEDS: NEO/POLY/BAC (NEOSPORIN) OINT 15 GM TUBE TOP SCH ×2 (07:35→21:41)
[2022-05-25] MEDS: LOSARTAN 100 MG (COZAAR) TABLET PO SCH (07:35)
[2022-05-25] MEDS: COLESTIPOL 1 GM (COLESTID) TAB PO SCH ×2 (07:35→21:40)
[2022-05-25 07:46] VITALS: BP 150/80
[2022-05-25] MEDS: DOCUSATE SODIUM 100 MG (COLACE) CAP PO SCH ×2 (08:26→21:41)
--- NOTE | 2022-05-25 09:16 | Occupational Ther Daily Note ---
OT Current Status-Daily Note Subjective Pt sleeping in bed, woke to light turning on and name spoken. Pt takes time to adjust to lighting and to fully wake. Pt agrees to therapy. No c/o pain. Co- treat with PT ([id number]), skills of 2 clinicians required to work on advanced balance functional tasks. PT focusing on dynamic balance and safety while OT focusing on functional mobility and B UE placement during task. Mental Status/Objective Patient Orientation: Person, Place, Time, Situation ADL-Treatment Independent supine to EOB. Slipped on shoes by self. Ambulated to bathroom using FWW then transferred to toilet independently using FWW, grabbars and BSC to elevate toilet height, x2. Doffed clothing sitting on toilet, independently. Standing in shower 90% of the time using grabbars for stability, pt completed independently using grabbars and hand held shower. Pt completed upper/lower body dressing by self and pt demonstrates ability to gather supplies by self using FWW, independently using AE when needed. Pt is able to use AE to don socks though not efficiently. Pt independent to don/doff slip-on shoes. Pt continues to decline to complete oral care, pt has demonstrated ability to complete independently in sitting or standing. After therapy, pt left in care of PT. All needs met. Therapy Code Descriptions/Definitions Functional [place] Measure: 0=Not Assessed/NA 4=Minimal Assistance 1=Total Assistance 5=Supervision or Setup 2=Maximal Assistance 6=Modified [place] 3=Moderate Assistance 7=Complete IndependenceSCALE: Activities may be completed with or without assistive devices. 9-Ohalgmjmpm-oneaptm completes the activity by him/herself with no assistance from a helper. 5-Set-up or Clean-up Assistance-helper sets up or cleans up; patient completes activity. [place] assists only prior to or following the activity. 4-Supervision or Touching Assistance-helper provides verbal cues and/or touching/steadying and/or contact guard assistance as patient completes activity. Assistance may be provided throughout the activity or intermittently. 3-Partial/Moderate Assistance-helper does LESS THAN HALF the effort. [place] lifts, holds or supports trunk or limbs, but provides less than half the effort. 2-Substantial/Maximal Assistance-helper does MORE THAN HALF the effort. [place] lifts or holds trunk or limbs and provides more than half the effort. 2-Jquottfzg-brmill does ALL the effort. Patient does none of the effort to complete the activity. Or, the assistance of 2 or more helpers is required for the patient to complete the activity. If activity was not attempted, code reason: 7-Patient Refused. 9-Not Applicable-not attempted and the patient did not perform the activity before the current illness, exacerbation or injury. 10-Not Attempted due to Environmental Limitations-(lack of equipment, weather restraints, etc.). 88-Not Attempted due to Medical Conditions or Safety Concerns. Eating (QC): 6 Oral Hygiene (QC): 6 Shower/Bathe Self (QC): 6 Upper Body Dressing (QC): 6 Lower Body Dressing (QC): 6 On/Off Footwear: 6 Toileting Hygiene (QC): 6 Toilet Transfer (QC): 6 BIMS CAM BIMS Expression of Ideas and Wants: Without Difficulty Understanding Verbal Content: Understands Brief Interview/Mental Status: Yes IRF ISAURO BIMS: IRF ISAURO BIMS Response (Comments) Value Repitition of Three Words Three 3 Recalls Socks Yes, No Cue Required 2 Recalls Blue Yes, No Cue Required 2 Recalls Bed Yes, After Cueing 1 Year Correct 3 Month Accurate Within 5 Days 2 Day Correct 1 Total 14 Patient Normally Able to Recal: Current Session, Location of own room, Staff Names and faces, That he/she in a [facility] Should Staff Asses. Mental St.: No CAM Mental Status Change/Baseline: 0 Inattention: 0 Altered level of consciousness: 0 OT Short Term Goals Short Term Goals Time Frame: May 28, 2022 Shower/bathe self: 3 Lower body dressin Putting on/taking off footwear: 3 OT Asian Studies Professor Goals [facility] Goals Time Frame: Jun 04, 2022 Acute change in mental status: 0 Inattention: 0 Disorganized thinkin Altered level of consciousness: 0 Eating (QC): 6 (met) Oral Hygiene (QC): 6 (met) Toileting Hygiene (QC): 6 (met) Shower/Bathe Self (QC): 4 (met) Upper Body Dressing (QC): 6 (met) Lower Body Dressing (QC): 4 (met) On/Off Footwear (QC): 4 (met) Additional Goals: 1-Demonstrate ADL Tasks, 2-Verbalize Understanding, 3- ImproveStrength/Cain 1=Demonstrate adherence to instructed precautions during ADL tasks. 2=Patient will verbalize/demonstrate understanding of assistive devices/modifications for ADL. 3=Patient will improve strength/tolerance for activity to enable patient to perform ADL's. OT Education/Plan Problem List/Assessment Assessment: Impaired Self-Care Skills Discharge Recommendations Plan/Recommendations: Continue POC Treatment Plan/Plan of Care Patient would benefit from OT for education, treatment and training to promote independence in ADL's, mobility, safety and/or upper extremity function for ADL's. Plan of Care: ADL Retraining, Functional Mobility, Group Exercise/Act as Ind, UE Funct Exercise/Act Treatment Duration: Jun 04, 2022 Frequency: At least 5 of 7 days/Wk (IRF) Estimated Hrs Per Day: 1.5 hours per day Agreement: Yes Rehab Potential: Guarded Time Start Time: 09:00 Stop Time: 10:30 DATE: May 25, 2022 Total Time Billed (hr/min): 90 Billed Treatment Time 1 visit-ADL 6 (90 min) individual 75 min, co-treat with PT 15 min JOSELINE GROVE May 25, 2022 09:16
[2022-05-25] MEDS: ENOXAPARIN 40 MG/0.4 ML (LOVENOX) SYR SC SCH (11:00)
--- NOTE | 2022-05-25 11:53 | Physical Therapy Daily Note ---
PT Daily Note-Current Subjective Pt in BR working w/OT upon arrival. Co-treat with PT ([id number]), skills of 2 clinicians required to work on advanced balance functional tasks. PT focusing on dynamic balance and safety while OT focusing on functional mobility and B UE placement during task. Pain Numeric Pain Scale: 4 Location: Left Location Body Site: Hip Pain Description: Ache Section J - Health Conditions 1. Rarely or not at all 2. Occasionally 3. Frequently 4. Almost constantly 8. Unable to answer Pain Effect on Sleep: 8 Pain Interference with Therapy: 8 Pain Interference w/Day-to-Day: 8 Mental Status Patient Orientation: Person, Place, Situation Transfers SCALE: Activities may be completed with or without assistive devices. 9-Lrvaztmofd-qpyzigm completes the activity by him/herself with no assistance from a helper. 5-Set-up or Clean-up Assistance-helper sets up or cleans up; patient completes activity. [place] assists only prior to or following the activity. 4-Supervision or Touching Assistance-helper provides verbal cues and/or touching/steadying and/or contact guard assistance as patient completes activity. Assistance may be provided throughout the activity or intermittently. 3-Partial/Moderate Assistance-helper does LESS THAN HALF the effort. [place] lifts, holds or supports trunk or limbs, but provides less than half the effort. 2-Substantial/Maximal Assistance-helper does MORE THAN HALF the effort. [place] lifts or holds trunk or limbs and provides more than half the effort. 3-Xaogrogpr-gmoyag does ALL the effort. Patient does none of the effort to complete the activity. Or, the assistance of 2 or more helpers is required for the patient to complete the activity. If activity was not attempted, code reason: 7-Patient Refused. 9-Not Applicable-not attempted and the patient did not perform the activity before the current illness, exacerbation or injury. 10-Not Attempted due to Environmental Limitations-(lack of equipment, weather restraints, etc.). 88-Not Attempted due to Medical Conditions or Safety Concerns. Sit to Lying (QC): 5 Lying to Sitting/Side of Bed(Q: 5 Sit to Stand (QC): 5 Toilet Transfer (QC): 5 Weight Bearing Right Lower Extremity: Right Full Weight Bearing Left Lower Extremity: Left Weight Bearing/Tolerated Gait Training Does the Patient Walk?: Yes Distance: 200' Walk 10 feet (QC): 5 Walk 50 ft with 2 Turns(QC): 5 Walk 150 ft (QC): 5 Gait Assistive Device: FWW Stair Training Stair Training: Handrails/: 2 handrails #of Steps: 12 1 Step (curb) (QC): 5 4 Steps (QC): 5 12 Steps (QC): 5 Stairs: Pattern: Step to Exercises Seated Therapy Exercises: Ankle pumps, Long arc quads, Hip flexion, Hip abd/add, Glut set Seated Reps: 15 Treatments Pt completed upper/lower body dressing by self and pt demonstrates ability to gather supplies by self using FWW, independently using AE when needed. OT departs but PT continues to work w/pt. Pt resting in recliner as fatigued from tx. Pt completes Seated Ex followed by short RB. MULTIPLE SLIDE OPERATOR and pt discuss what safety concerns 4WW can present and how it must be used properly. Use of HH & OP Therapy after d/c is also discussed. Pt TF to standing and amb in hallway. Pt completes stairs followed by short RB. Pt amb in hallway, returning to room to use BR. Pt returns to bed to rest before lunch. All needs met, call light in hand. Assessment Current Status: Good Progress Pt kaiden. tx. well but needs occasional RB for fatigue. PT Short Term Goals Short Term Goals Time Frame: May 22, 2022 Roll Left & Right: 4 Sit to lyin Lying to sitting on side of be: 4 Sit to stand: 4 Chair/bii-wi-sbbvh transfer: 4 Toilet transfer: 4 Car transfer: 4 Walk 10 feet: 3 Walk 50 feet with two turns: 3 Walk 150 feet: 3 PT [facility] Goals Ship/Rec/Doc Control Goals PT [facility] Goals Time Frame: Jun 05, 2022 Roll Left & Right (QC): 5 Sit to Lying (QC): 5 Lying-Sitting on Side/Bed(QC): 5 Sit to Stand (QC): 5 Chair/Dku-nt-Egtxh Xfer(QC): 5 Toilet Transfer (QC): 5 Car Transfer (QC): 5 Does the Patient Walk: Yes Walk 10 feet (QC): 4 Walk 50ft with 2 Turns (QC): 4 Walk 150 ft (QC): 4 Walking 10ft on Uneven Surface: 4 1 Step (curb) (QC): 3 4 Steps (QC): 3 12 Steps (QC): 3 Picking up an Object (QC): 4 Does the Pt use WC or Scooter?: Yes Wheel 50 feet with 2 turns (QC: 6 Type: Manual Wheel 150 feet: 6 Type: Manual PT Plan Problem List Problem List: Activity Tolerance Treatment/Plan Treatment Plan: Continue Plan of Care Treatment Plan: Bed Mobility, Education, Functional Activity [place], Functional Strength, Group Therapy, Gait, Safety, Therapeutic Exercise, Transfers Treatment Duration: Jun 12, 2022 Frequency: At least 5 of 7 days/Wk (IRF) Estimated Hrs Per Day: 1.5 hours per day Patient and/or Family Agrees t: Yes Safety Risks/Education Patient Education: Steps, Safety Issues Teaching Recipient: Patient Teaching Methods: Discussion Response to Teaching: Verbalize Understanding Time Time In: 1015 Time Out: 1145 DATE: May 25, 2022 Total Billed Treatment Time: 90 Total Billed Treatment Co-treat for 15m ([id number]) 1, FA x4 (60m), GT (15m) & EX (15m) MARIBEL RAMOS MULTIPLE SLIDE OPERATOR May 25, 2022 11:53
[2022-05-25 20:30] VITALS: BP 159/72
[2022-05-26] MEDS: LEVOTHYROXINE 50 MCG (LEVOTHROID) TAB PO SCH (06:26)
--- NOTE | 2022-05-26 06:48 | PM&R Progress Note ---
Subjective HPI/CC On Admission Date Seen by Provider: May 26, 2022 Time Seen by Provider: 09:00 Subjective/Events-last exam 05/26/2022: Improved overall DC tomorrow Diarrhea improved 05/25/2022: Much improved status Increased mobility Less incontinence No pain 05/24/2022: Doing very well DC planned Incontinence is still a periodic issue No concerns 05/23/2022: Patient doing well Bowel incontinence continues Supportive care will continue No other concerns 05/22/2022: Patient doing well Family here visiting Pain controlled We will monitor closely 05/21/2022: Much improved Less incontinence both bowel and bladder Less pain 05/20/2022: Much improved Incontinence improved Lomotil maintained Ambulating well 05/19/2022: Doing much better Ambulated well today and went up stairs Lomotil will be increased to QID to decrease diarrhea No pain reported except hip 05/18/2022: Participating more with therapy Told me he is participating but the therapy team said he isn't so I tried to bereavement counselor him on that and encouraged more effort No pain reported otherwise 05/17/2022: Not wanting to work with therapy May need to go to [facility] if this persists SW spoke to Josh and he is requesting I speak to him about NHP No other issues 05/16/2022: Patient sleeping soundly No concerns from nurse Slow recovery Doing well 05/15/2022: No major changes Slow recovery Pain controlled Very sedentary at home 05/14/2022: Improved status Pain controlled Slow moving No nausea BM+ 05/13/2022: Much improved status since IVF given Slow recovery but improved overall Pain controlled 05/12/2022: Less lethargic today Overmedication from pain meds upstairs likely the cause Will decrease any pain meds and sedatives in the meantime Confusion less 05/11/2022: Seems to be oversedated so will hold some meds No pain reported Labs stable Voiding well with incontinence No falls Review of Systems General: Fatigue, Malaise Objective Exam Vital Signs Vital Signs Date Time Temp Pulse Resp B/P (MAP) Pulse Ox O2 Delivery O2 Flow Rate FiO2 05/26/22 21:45 Room Air 05/26/22 20:06 36.4 51 16 152/68 (96) 96 05/22/22 19:50 0.00 Capillary Refill : General Appearance: No Apparent Distress, WD/WN, Chronically ill, Thin HEENT: PERRL/EOMI, Normal ENT Inspection, Pharynx Normal Neck: Full Range of Motion, Normal Inspection, Non Tender, Supple, Carotid Bruit Respiratory: Chest Non Tender, Lungs Clear, Normal Breath Sounds, No Accessory Muscle Use, No Respiratory Distress Cardiovascular: Regular Rate, Rhythm, No Edema, No Gallop, No JVD, No Murmur, Normal Peripheral Pulses Gastrointestinal: Normal Bowel Sounds, No Organomegaly, No Pulsatile Mass, Non Tender, Soft Back: Normal Inspection, No CVA Tenderness, No Vertebral Tenderness Extremity: Normal Capillary Refill, Normal Inspection, Normal Range of Motion (except left leg), Non Tender, No Calf Tenderness, No Pedal Edema Neurologic/Psychiatric: Alert, Oriented x3, No Motor/Sensory Deficits, Normal M ood/Affect, Motor Weakness (left leg and generalized) Skin: Normal Color, Warm/Dry Lymphatic: No Adenopathy Results/Procedures Lab Patient resulted labs reviewed. FIM Transfers Therapy Code Descriptions/Definitions Functional [place] Measure: 0=Not Assessed/NA 4=Minimal Assistance 1=Total Assistance 5=Supervision or Setup 2=Maximal Assistance 6=Modified [place] 3=Moderate Assistance 7=Complete IndependenceSCALE: Activities may be completed with or without assistive devices. 8-Zrvzicnenp-ojpthhe completes the activity by him/herself with no assistance from a helper. 5-Set-up or Clean-up Assistance-helper sets up or cleans up; patient completes activity. [place] assists only prior to or following the activity. 4-Supervision or Touching Assistance-helper provides verbal cues and/or touching/steadying and/or contact guard assistance as patient completes activity. Assistance may be provided throughout the activity or intermittently. 3-Partial/Moderate Assistance-helper does LESS THAN HALF the effort. [place] lifts, holds or supports trunk or limbs, but provides less than half the effort. 2-Substantial/Maximal Assistance-helper does MORE THAN HALF the effort. [place] lifts or holds trunk or limbs and provides more than half the effort. 5-Lrcmqhrio-rpnxze does ALL the effort. Patient does none of the effort to complete the activity. Or, the assistance of 2 or more helpers is required for the patient to complete the activity. If activity was not attempted, code reason: 7-Patient Refused. 9-Not Applicable-not attempted and the patient did not perform the activity before the current illness, exacerbation or injury. 10-Not Attempted due to Environmental Limitations-(lack of equipment, weather restraints, etc.). 88-Not Attempted due to Medical Conditions or Safety Concerns. Roll Left to Right (QC): 6 Sit to Lying (QC): 5 Sit to Stand (QC): 5 Chair/Vad-vv-Ljqfe Xfer(QC): 4 Car Transfer (QC): 2 Gait Training Does the Patient Walk?: Yes Distance: 200' Walk 10 feet (QC): 5 Walk 50 ft with 2 Turns(QC): 5 Walk 150 ft (QC): 5 Walking 10ft/uneven surface-QC: 88 Gait Persons Needed: 1 Gait Assistive Device: FWW Wheelchair Training Does the Pt Use a Wheelchair?: Yes Distance: 100 Wheel 50 ft with 2 turns (QC): 1 Wheel 150 ft (QC): 88 Type of Wheelchair: Manual Stair Training Stair Training: Handrails/: 2 handrails #of Steps: 12 1 Step (curb) (QC): 5 4 Steps (QC): 5 12 Steps (QC): 5 Stairs: Pattern: Step to Balance Picking up an Object (QC): 88 ADL-Treatment Eating (QC): 6 Oral Hygiene (QC): 6 Shower/Bathe Self (QC): 6 Upper Body Dressing (QC): 6 Lower Body Dressing (QC): 6 On/Off Footwear (QC): 6 Toileting Hygiene (QC): 6 Toilet Transfer (QC): 6 Assessment/Plan Assessment and Plan Assess & Plan/Chief Complaint Assessment: Left hip fracture Fall History of humerus fracture Hypertension PTSD 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 Velasquez gastroenterology Depression Hypothyroidism Cancer status post cryotherapy at Acute kidney injury increased IV fluids on 05/09/2022 and holding losartan Oversedation 05/11/22 resolved with IVF Bowel incontinence Urinary incontinence Plan: Dr. Silver consult appreciated Pain control Supportive care Increase IV fluids Increase p.o. fluids Supportive care Lovenox for DVT prophylaxis if okay with Dr. Silver 05/11/2022: Hold meds for oversedation Monitor closely 05/12/2022: Supportive care Minimize sedatives 05/13/2022: Monitor closely DC IVF 05/14/2022: Pain control 05/15/2022: Monitor pain 05/16/2022: Supportive care will continue 05/17/2022: Participation with therapy has declined 05/18/2022: Monitor pain 05/19/2022: Dramatic improvement of ambulation today 05/20/2022: Improved 05/21/2022: Much improved Continue therapy 05/22/2022: Supportive care 05/23/2022: Supportive care 05/24/2022: Minimize pain meds DC 05/25/2022: Monitor closely 05/26/2022: DC tomorrow (1) Closed left hip fracture Status: Acute (2) Chronic diarrhea Status: Acute (3) HTN (hypertension) Status: Chronic (4) Liver cancer Status: Chronic ROBBIE HUYNH DO May 26, 2022 06:48
[2022-05-26 07:36] VITALS: BP 149/80
[2022-05-26] MEDS: KCL 10 MEQ TAB (MICRO K) PO SCH ×3 (07:55→18:19)
[2022-05-26] MEDS: COLESTIPOL 1 GM (COLESTID) TAB PO SCH ×2 (07:56→21:43)
[2022-05-26] MEDS: VITAMIN D3 25 MCG (1,000 UNITS) TABLET PO SCH (07:56)
[2022-05-26] MEDS: SERTRALINE 100 MG (ZOLOFT) TAB PO SCH (07:56)
[2022-05-26] MEDS: NEO/POLY/BAC (NEOSPORIN) OINT 15 GM TUBE TOP SCH ×2 (07:56→21:44)
[2022-05-26] MEDS: LOSARTAN 100 MG (COZAAR) TABLET PO SCH (07:56)
[2022-05-26] MEDS: PANTOPRAZOLE 20 MG TABLET (PROTONIX) PO SCH (07:56)
[2022-05-26] MEDS: DOCUSATE SODIUM 100 MG (COLACE) CAP PO SCH ×2 (07:57→21:44)
[2022-05-26] MEDS: amLODIPine 10 MG (NORVASC) TAB PO SCH (08:01)
--- NOTE | 2022-05-26 09:42 | Occupational Ther Daily Note ---
OT Current Status-Daily Note Subjective Pt alert, lying in bed. Pt agrees to therapy. No c/o pain. Co-treat with PT ([id number]), skills of 2 clinicians required to work on advanced balance functional tasks. PT focusing on dynamic balance and safety while OT focusing on functional mobility and B UE placement during task. Mental Status/Objective Patient Orientation: Person, Place, Time, Situation ADL-Treatment Pt declines shower, changing clothing or completing grooming/oral care. Independent with bed mobility. Independent donning/doffing shoes. Pt requested to use toilet during exercises. Pt independent with toileting and toilet transfer. Therapy Code Descriptions/Definitions Functional [place] Measure: 0=Not Assessed/NA 4=Minimal Assistance 1=Total Assistance 5=Supervision or Setup 2=Maximal Assistance 6=Modified [place] 3=Moderate Assistance 7=Complete IndependenceSCALE: Activities may be completed with or without assistive devices. 2-Bogmmlzzlg-gkjtfgw completes the activity by him/herself with no assistance from a helper. 5-Set-up or Clean-up Assistance-helper sets up or cleans up; patient completes activity. [place] assists only prior to or following the activity. 4-Supervision or Touching Assistance-helper provides verbal cues and/or touching/steadying and/or contact guard assistance as patient completes activity. Assistance may be provided throughout the activity or intermittently. 3-Partial/Moderate Assistance-helper does LESS THAN HALF the effort. [place] lifts, holds or supports trunk or limbs, but provides less than half the effort. 2-Substantial/Maximal Assistance-helper does MORE THAN HALF the effort. [place] lifts or holds trunk or limbs and provides more than half the effort. 7-Ibbcezhfr-jtssxa does ALL the effort. Patient does none of the effort to complete the activity. Or, the assistance of 2 or more helpers is required for the patient to complete the activity. If activity was not attempted, code reason: 7-Patient Refused. 9-Not Applicable-not attempted and the patient did not perform the activity before the current illness, exacerbation or injury. 10-Not Attempted due to Environmental Limitations-(lack of equipment, weather restraints, etc.). 88-Not Attempted due to Medical Conditions or Safety Concerns. On/Off Footwear: 6 Toileting Hygiene (QC): 6 Toilet Transfer (QC): 6 Other Treatment Pt completed B UE exercise to increase strength and activity tolerance for daily functional tasks. Arm bike completed for 10 min with significant recovery break at 5 min, pt had to use toilet. 25-30 ring resistance completed on arm bike with forward/backward rotation. Pt then working on dynamic balance in standing and ambulation using FWW and reach to pick objects from varying heights. After session, pt left in care of PT. All needs met. OT Short Term Goals Short Term Goals Time Frame: May 28, 2022 Shower/bathe self: 3 Lower body dressin Putting on/taking off footwear: 3 OT Senior Living Goals Senior Living Goals Time Frame: Jun 04, 2022 Acute change in mental status: 0 Inattention: 0 Disorganized thinkin Altered level of consciousness: 0 Eating (QC): 6 (met) Oral Hygiene (QC): 6 (met) Toileting Hygiene (QC): 6 (met) Shower/Bathe Self (QC): 4 (met) Upper Body Dressing (QC): 6 (met) Lower Body Dressing (QC): 4 (met) On/Off Footwear (QC): 4 (met) Additional Goals: 1-Demonstrate ADL Tasks, 2-Verbalize Understanding, 3- ImproveStrength/Cain 1=Demonstrate adherence to instructed precautions during ADL tasks. 2=Patient will verbalize/demonstrate understanding of assistive devices/modifications for ADL. 3=Patient will improve strength/tolerance for activity to enable patient to perform ADL's. OT Education/Plan Problem List/Assessment Assessment: Decreased Activ Tolerance, Impaired Self-Care Skills Discharge Recommendations Plan/Recommendations: Continue POC Treatment Plan/Plan of Care Patient would benefit from OT for education, treatment and training to promote independence in ADL's, mobility, safety and/or upper extremity function for ADL's. Plan of Care: ADL Retraining, Functional Mobility, Group Exercise/Act as Ind, UE Funct Exercise/Act Treatment Duration: Jun 04, 2022 Frequency: At least 5 of 7 days/Wk (IRF) Estimated Hrs Per Day: 1.5 hours per day Agreement: Yes Rehab Potential: Guarded Time Start Time: 09:00 Stop Time: 10:30 DATE: May 26, 2022 Total Time Billed (hr/min): 90 Billed Treatment Time 1 visit-ADL 3 (45 min) EX 2 (30 min) FA 1 (15 min) individual [id number], individual [id number] JOSELINE GROVE May 26, 2022 09:42
--- NOTE | 2022-05-26 11:33 | Physical Therapy Daily Note ---
PT Daily Note-Current Subjective Co-treat with PT ([id number]), skills of 2 clinicians required to work on advanced balance functional tasks. PT focusing on dynamic balance and safety while OT focusing on functional mobility and B UE placement during task. Pain Location: Left Location Body Site: Hip Pain Description: Ache Comment: Reports but doesn't rate Section J - Health Conditions 1. Rarely or not at all 2. Occasionally 3. Frequently 4. Almost constantly 8. Unable to answer Pain Effect on Sleep: 8 Pain Interference with Therapy: 8 Pain Interference w/Day-to-Day: 8 Mental Status Patient Orientation: Person, Place, Time, Situation Transfers SCALE: Activities may be completed with or without assistive devices. 1-Goyalybwwy-thtvymj completes the activity by him/herself with no assistance from a helper. 5-Set-up or Clean-up Assistance-helper sets up or cleans up; patient completes activity. [place] assists only prior to or following the activity. 4-Supervision or Touching Assistance-helper provides verbal cues and/or touching/steadying and/or contact guard assistance as patient completes activity. Assistance may be provided throughout the activity or intermittently. 3-Partial/Moderate Assistance-helper does LESS THAN HALF the effort. [place] lifts, holds or supports trunk or limbs, but provides less than half the effort. 2-Substantial/Maximal Assistance-helper does MORE THAN HALF the effort. [place] lifts or holds trunk or limbs and provides more than half the effort. 4-Yhkycbtsl-skkywb does ALL the effort. Patient does none of the effort to complete the activity. Or, the assistance of 2 or more helpers is required for the patient to complete the activity. If activity was not attempted, code reason: 7-Patient Refused. 9-Not Applicable-not attempted and the patient did not perform the activity before the current illness, exacerbation or injury. 10-Not Attempted due to Environmental Limitations-(lack of equipment, weather restraints, etc.). 88-Not Attempted due to Medical Conditions or Safety Concerns. Roll Left & Right (QC): 6 Sit to Lying (QC): 6 Lying to Sitting/Side of Bed(Q: 6 Sit to Stand (QC): 6 Chair/Fyp-yq-Zirhg Xfer(QC): 6 Toilet Transfer (QC): 6 Car Transfer (QC): 6 Weight Bearing Right Lower Extremity: Right Full Weight Bearing Left Lower Extremity: Left Weight Bearing/Tolerated Gait Training Does the Patient Walk?: Yes Distance: 200' Walk 10 feet (QC): 6 Walk 50 ft with 2 Turns(QC): 6 Walk 150 ft (QC): 6 Walking 10ft/uneven surface-QC: 6 Gait Assistive Device: FWW Wheelchair Training Does the Pt Use a Wheelchair?: No Stair Training Stair Training: Handrails/: 2 handrails #of Steps: 12 1 Step (curb) (QC): 6 4 Steps (QC): 6 12 Steps (QC): 5 Stairs: Pattern: Step to Balance Picking up an Object (QC): 6 Exercises Supine Ex: Ankle pumps, Quad Set, Glut sets, Heel Slides, Scooting, Hip abd/add Supine Reps: 15 NuStep Minutes: 7 NuStep Workload: 4 Treatments Pt completes QC scoring items listed above. Pt uses NuStep and completes Supine Ex in bed at end of tx. Lunch is ordered and pt is resting w/all needs met, call light in hand. Assessment Current Status: Good Progress Pt kaiden. tx. well and is excited to d/c tomorrow. PT Short Term Goals Short Term Goals Time Frame: May 22, 2022 Roll Left & Right: 4 Sit to lyin Lying to sitting on side of be: 4 Sit to stand: 4 Chair/ckm-et-fxpdm transfer: 4 Toilet transfer: 4 Car transfer: 4 Walk 10 feet: 3 Walk 50 feet with two turns: 3 Walk 150 feet: 3 PT Administration Dean Goals Administration Dean Goals PT Prison Goals Time Frame: Jun 05, 2022 Roll Left & Right (QC): 5 Sit to Lying (QC): 5 Lying-Sitting on Side/Bed(QC): 5 Sit to Stand (QC): 5 Chair/Vks-uc-Vjczi Xfer(QC): 5 Toilet Transfer (QC): 5 Car Transfer (QC): 5 Does the Patient Walk: Yes Walk 10 feet (QC): 4 Walk 50ft with 2 Turns (QC): 4 Walk 150 ft (QC): 4 Walking 10ft on Uneven Surface: 4 1 Step (curb) (QC): 3 4 Steps (QC): 3 12 Steps (QC): 3 Picking up an Object (QC): 4 Does the Pt use WC or Scooter?: Yes Wheel 50 feet with 2 turns (QC: 6 Type: Manual Wheel 150 feet: 6 Type: Manual PT Plan Treatment/Plan Treatment Plan: Continue Plan of Care Treatment Plan: Bed Mobility, Education, Functional Activity [place], Functional Strength, Group Therapy, Gait, Safety, Therapeutic Exercise, Transfers Treatment Duration: Jun 12, 2022 Frequency: At least 5 of 7 days/Wk (IRF) Estimated Hrs Per Day: 1.5 hours per day Patient and/or Family Agrees t: Yes Time Time In: 1015 Time Out: 1145 DATE: May 26, 2022 Total Billed Treatment Time: 90 Total Billed Treatment 1, FA x4 (55m), EX (20m) & GT (15m) MARIBEL RAMOS COIL WINDER May 26, 2022 11:33
[2022-05-26] MEDS: ENOXAPARIN 40 MG/0.4 ML (LOVENOX) SYR SC SCH (11:46)
[2022-05-26 20:06] VITALS: BP 152/68
[2022-05-27] MEDS ORDERED: OXC5T PO (05:55)
--- NOTE | 2022-05-27 05:57 | Discharge Summary ---
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 Velasquez gastroenterology Depression Hypothyroidism Cancer status post cryotherapy at Acute kidney injury increased IV fluids on 05/09/2022 and holding losartan Oversedation 05/11/22 resolved with IVF Bowel incontinence Urinary incontinence Plan: Dr. Silver consult appreciated Pain control Supportive care Increase IV fluids Increase p.o. fluids Supportive care Lovenox for DVT prophylaxis if okay with Dr. Silver 05/11/2022: Hold meds for oversedation Monitor closely 05/12/2022: Supportive care Minimize sedatives 05/13/2022: Monitor closely DC IVF 05/14/2022: Pain control 05/15/2022: Monitor pain 05/16/2022: Supportive care will continue 05/17/2022: Participation with therapy has declined 05/18/2022: Monitor pain 05/19/2022: Dramatic improvement of ambulation today 05/20/2022: Improved 05/21/2022: Much improved Continue therapy 05/22/2022: Supportive care 05/23/2022: Supportive care 05/24/2022: Minimize pain meds DC 05/25/2022: Monitor closely 05/26/2022: DC tomorrow (1) Closed left hip fracture Status: Acute (2) Chronic diarrhea Status: Acute (3) HTN (hypertension) Status: Chronic (4) Liver cancer Status: Chronic Discharge Summary Discharge Physical Examination Allergies: Coded Allergies: codeine (Verified Allergy, Unknown, ITCHING, 06/16/20) Vitals & I&Os Vital Signs Date Time Temp Pulse Resp B/P (MAP) Pulse Ox O2 Delivery O2 Flow Rate FiO2 05/27/22 11:45 36.5 53 18 140/67 93 Room Air 05/22/22 19:50 0.00 General Appearance: Alert, Oriented X3, Cooperative Respiratory: Clear to Auscultation Cardiovascular: Regular Rate Psych/Mental Status: Mental Status NL Hospital Course Was the Problem List Reviewed?: Yes Lengthy and uneventful hospital course after he was admitted following a hip fracture. Labs remained stable. Pain was controlled on pain meds. Bowel and bladder incontinence was an issue and varied throughout the stay. Chronic diarrhea from lactose intolerance continued and he refused to give up milk con sumption as ongoing as this issue is. He was able to return to his baseline function and was deemed safe for DC. Labs (last 24 hrs) Laboratory Tests 05/11/22 05:15: White Blood Count 4.3, Red Blood Count 3.57L, Hemoglobin 10.6L, Hematocrit 33L, Mean Corpuscular Volume 93, Mean Corpuscular Hemoglobin 30, Mean Corpuscular Hemoglobin Concent 32, Red Cell Distribution Width 14.1, Platelet Count 86L, Mean Platelet Volume 12.1, Immature Granulocyte % (Auto) 1, Neutrophils (%) (Auto) 68, Lymphocytes (%) (Auto) 19, Monocytes (%) (Auto) 10, Eosinophils (%) (Auto) 2, Basophils (%) (Auto) 0, Neutrophils # (Auto) 3.0, Lymphocytes # (Auto) 0.8L, Monocytes # (Auto) 0.4, Eosinophils # (Auto) 0.1, Basophils # (Auto) 0.0, Immature Granulocyte # (Auto) 0.0, Percent Immature Platelet Fraction 5.1, Sodium Level 139, Potassium Level 3.8, Chloride Level 111H, Carbon Dioxide Level 21, Anion Gap 7, Blood Urea Nitrogen 27H, Creatinine 0.99, Estimat Glomerular Filtration Rate 80, BUN/Creatinine Ratio 27, Glucose Level 109H, Calcium Level 8.7, Corrected Calcium 9.7, Total Bilirubin 0.7, Aspartate Amino Transf (AST/SGOT) 29, Alanine Aminotransferase (ALT/SGPT) 26, Alkaline Phosphatase 115, Total Protein 5.3L, Albumin 2.8L 05/12/22 16:35: White Blood Count 5.0, Red Blood Count 3.70L, Hemoglobin 11.1L, Hematocrit 33L, Mean Corpuscular Volume 90, Mean Corpuscular Hemoglobin 30, Mean Corpuscular Hemoglobin Concent 33, Red Cell Distribution Width 13.7, Platelet Count 106L, Mean Platelet Volume 11.9, Immature Granulocyte % (Auto) 0, Neutrophils (%) (Auto) 71, Lymphocytes (%) (Auto) 16, Monocytes (%) (Auto) 12, Eosinophils (%) (Auto) 1, Basophils (%) (Auto) 0, Neutrophils # (Auto) 3.6, Lymphocytes # (Auto) 0.8L, Monocytes # (Auto) 0.6, Eosinophils # (Auto) 0.1, Basophils # (Auto) 0.0, Immature Granulocyte # (Auto) 0.0, Percent Immature Platelet Fraction 5.6, Sodium Level 138, Potassium Level 3.8, Chloride Level 107, Carbon Dioxide Level 22, Anion Gap 9, Blood Urea Nitrogen 19H, Creatinine 0.94, Estimat Glomerular Filtration Rate 86, BUN/Creatinine Ratio 20, Glucose Level 125H, Calcium Level 8.7, Corrected Calcium 9.6, Total Bilirubin 1.0, Aspartate Amino Transf (AST/SGOT) 23, Alanine Aminotransferase (ALT/SGPT) 29, Alkaline Phosphatase 130, Total Protein 5.4L, Albumin 2.9L 05/12/22 19:30: Urine Color YELLOW, Urine Clarity CLEAR, Urine pH 6.0, Urine Specific [place] 1.025H, Urine Protein NEGATIVE, Urine Glucose (UA) NEGATIVE, Urine Ketones NEGATIVE, Urine Nitrite NEGATIVE, Urine Bilirubin NEGATIVE, Urine Urobilinogen 1.0, Urine Leukocyte Esterase NEGATIVE, Urine RBC (Auto) NEGATIVE, Urine RBC NONE, Urine WBC 0-2, Urine Squamous Epithelial Cells NONE, Urine Crystals NONE, Urine Bacteria TRACE, Urine Casts NONE, Urine Mucus NEGATIVE, Urine Culture Indicated NO 05/17/22 05:10: White Blood Count 4.2L, Red Blood Count 3.69L, Hemoglobin 11.2L, Hematocrit 33L, Mean Corpuscular Volume 89, Mean Corpuscular Hemoglobin 30, Mean Corpuscular Hemoglobin Concent 34, Red Cell Distribution Width 13.6, Platelet Count 133, Mean Platelet Volume 12.3H, Immature Granulocyte % (Auto) 1, Neutrophils (%) (Auto) 52, Lymphocytes (%) (Auto) 32, Monocytes (%) (Auto) 12, Eosinophils (%) (Auto) 2, Basophils (%) (Auto) 0, Neutrophils # (Auto) 2.2, Lymphocytes # (Auto) 1.4, Monocytes # (Auto) 0.5, Eosinophils # (Auto) 0.1, Basophils # (Auto) 0.0, Immature Granulocyte # (Auto) 0.1, Percent Immature Platelet Fraction 6.2, Sodium Level 140, Potassium Level 3.3L, Chloride Level 107, Carbon Dioxide Level 25, Anion Gap 8, Blood Urea Nitrogen 14, Creatinine 0.87, Estimat Glomerular Filtration Rate 91, BUN/Creatinine Ratio 16, Glucose Level 99, Calcium Level 8.4L, Corrected Calcium 9.4, Total Bilirubin 0.5, Aspartate Amino Transf (AST/SGOT) 26, Alanine Aminotransferase (ALT/SGPT) 28, Alkaline Phosphatase 165H , Total Protein 5.2L, Albumin 2.8L 05/24/22 05:17: White Blood Count 5.0, Red Blood Count 3.58L, Hemoglobin 11.0L, Hematocrit 33L, Mean Corpuscular Volume 91, Mean Corpuscular Hemoglobin 31, Mean Corpuscular Hemoglobin Concent 34, Red Cell Distribution Width 13.9, Platelet Count 195, Mean Platelet Volume 11.1, Immature Granulocyte % (Auto) 1, Neutrophils (%) (Auto) 58, Lymphocytes (%) (Auto) 27, Monocytes (%) (Auto) 12, Eosinophils (%) (Auto) 2, Basophils (%) (Auto) 1, Neutrophils # (Auto) 2.9, Lymphocytes # (Auto) 1.3, Monocytes # (Auto) 0.6, Eosinophils # (Auto) 0.1, Basophils # (Auto) 0.0, Immature Granulocyte # (Auto) 0.0, Sodium Level 140, Potassium Level 3.8, Chloride Level 109H, Carbon Dioxide Level 22, Anion Gap 9, Blood Urea Nitrogen 16, Creatinine 0.93, Estimat Glomerular Filtration Rate 87, BUN/Creatinine Ratio 17, Glucose Level 105, Calcium Level 8.6, Corrected Calcium 9.6, Total Bilirubin 0.3, Aspartate Amino Transf (AST/SGOT) 27, Alanine Aminotransferase (ALT/SGPT) 25, Alkaline Phosphatase 185H, Total Protein 5.4L, Albumin 2.7L Pending Labs Laboratory Tests 05/11/22 05:15: White Blood Count 4.3, Red Blood Count 3.57, Hemoglobin 10.6, Hematocrit 33, Mean Corpuscular Volume 93, Mean Corpuscular Hemoglobin 30, Mean Corpuscular Hemoglobin Concent 32, Red Cell Distribution Width 14.1, Platelet Count 86, Mean Platelet Volume 12.1, Immature Granulocyte % (Auto) 1, Neutrophils (%) (Auto) 68, Lymphocytes (%) (Auto) 19, Monocytes (%) (Auto) 10, Eosinophils (%) (Auto) 2, Basophils (%) (Auto) 0, Neutrophils # (Auto) 3.0, Lymphocytes # (Auto) 0.8, Monocytes # (Auto) 0.4, Eosinophils # (Auto) 0.1, Basophils # (Auto) 0.0, Immature Granulocyte # (Auto) 0.0, Percent Immature Platelet Fraction 5.1, Sodium Level 139, Potassium Level 3.8, Chloride Level 111, Carbon Dioxide Level 21, Anion Gap 7, Blood Urea Nitrogen 27, Creatinine 0.99, Estimat Glomerular Filtration Rate 80, BUN/Creatinine Ratio 27, Glucose Level 109, Calcium Level 8.7, Corrected Calcium 9.7, Total Bilirubin 0.7, Aspartate Amino Transf (AST/SGOT) 29, Alanine Aminotransferase (ALT/SGPT) 26, Alkaline Phosphatase 115, Total Protein 5.3, Albumin 2.8 05/12/22 16:35: White Blood Count 5.0, Red Blood Count 3.70, Hemoglobin 11.1, Hematocrit 33, Mean Corpuscular Volume 90, Mean Corpuscular Hemoglobin 30, Mean Corpuscular Hemoglobin Concent 33, Red Cell Distribution Width 13.7, Platelet Count 106, Mean Platelet Volume 11.9, Immature Granulocyte % (Auto) 0, Neutrophils (%) (Auto) 71, Lymphocytes (%) (Auto) 16, Monocytes (%) (Auto) 12, Eosinophils (%) (Auto) 1, Basophils (%) (Auto) 0, Neutrophils # (Auto) 3.6, Lymphocytes # (Auto) 0.8, Monocytes # (Auto) 0.6, Eosinophils # (Auto) 0.1, Basophils # (Auto) 0.0, Immature Granulocyte # (Auto) 0.0, Percent Immature Platelet Fraction 5.6, Sodium Level 138, Potassium Level 3.8, Chloride Level 107, Carbon Dioxide Level 22, Anion Gap 9, Blood Urea Nitrogen 19, Creatinine 0.94, Estimat Glomerular Filtration Rate 86, BUN/Creatinine Ratio 20, Glucose Level 125, Calcium Level 8 .7, Corrected Calcium 9.6, Total Bilirubin 1.0, Aspartate Amino Transf (AST/SGOT) 23, Alanine Aminotransferase (ALT/SGPT) 29, Alkaline Phosphatase 130, Total Protein 5.4, Albumin 2.9 05/12/22 19:30: Urine Color YELLOW, Urine Clarity CLEAR, Urine pH 6.0, Urine Specific [place] 1.025, Urine Protein NEGATIVE, Urine Glucose (UA) NEGATIVE, Urine Ketones NEGATIVE, Urine Nitrite NEGATIVE, Urine Bilirubin NEGATIVE, Urine Urobilinogen 1.0, Urine Leukocyte Esterase NEGATIVE, Urine RBC (Auto) NEGATIVE, Urine RBC NONE, Urine WBC 0-2, Urine Squamous Epithelial Cells NONE, Urine Crystals NONE, Urine Bacteria TRACE, Urine Casts NONE, Urine Mucus NEGATIVE, Urine Culture Indicated NO 05/17/22 05:10: White Blood Count 4.2, Red Blood Count 3.69, Hemoglobin 11.2, Hematocrit 33, Mean Corpuscular Volume 89, Mean Corpuscular Hemoglobin 30, Mean Corpuscular Hemoglobin Concent 34, Red Cell Distribution Width 13.6, Platelet Count 133, Mean Platelet Volume 12.3, Immature Granulocyte % (Auto) 1, Neutrophils (%) (Auto) 52, Lymphocytes (%) (Auto) 32, Monocytes (%) (Auto) 12, Eosinophils (%) (Auto) 2, Basophils (%) (Auto) 0, Neutrophils # (Auto) 2.2, Lymphocytes # (Auto) 1.4, Monocytes # (Auto) 0.5, Eosinophils # (Auto) 0.1, Basophils # (Auto) 0.0, Immature Granulocyte # (Auto) 0.1, Percent Immature Platelet Fraction 6.2, Sodium Level 140, Potassium Level 3.3, Chloride Level 107, Carbon Dioxide Level 25, Anion Gap 8, Blood Urea Nitrogen 14, Creatinine 0.87, Estimat Glomerular Filtration Rate 91, BUN/Creatinine Ratio 16, Glucose Level 99, Calcium Level 8.4, Corrected Calcium 9.4, Total Bilirubin 0.5, Aspartate Amino Transf ( T/SGOT) 26, Alanine Aminotransferase (ALT/SGPT) 28, Alkaline Phosphatase 165, Total Protein 5.2, Albumin 2.8 05/24/22 05:17: White Blood Count 5.0, Red Blood Count 3.58, Hemoglobin 11.0, Hematocrit 33, Mean Corpuscular Volume 91, Mean Corpuscular Hemoglobin 31, Mean Corpuscular Hemoglobin Concent 34, Red Cell Distribution Width 13.9, Platelet Count 195, Mean Platelet Volume 11.1, Immature Granulocyte % (Auto) 1, Neutrophils (%) (Auto) 58, Lymphocytes (%) (Auto) 27, Monocytes (%) (Auto) 12, Eosinophils (%) (Auto) 2, Basophils (%) (Auto) 1, Neutrophils # (Auto) 2.9, Lymphocytes # (Auto) 1.3, Monocytes # (Auto) 0.6, Eosinophils # (Auto) 0.1, Basophils # (Auto) 0.0, Immature Granulocyte # (Auto) 0.0, Sodium Level 140, Potassium Level 3.8, Chl oride Level 109, Carbon Dioxide Level 22, Anion Gap 9, Blood Urea Nitrogen 16, Creatinine 0.93, Estimat Glomerular Filtration Rate 87, BUN/Creatinine Ratio 17, Glucose Level 105, Calcium Level 8.6, Corrected Calcium 9.6, Total Bilirubin 0.3, Aspartate Amino Transf (AST/SGOT) 27, Alanine Aminotransferase (ALT/SGPT) 25, Alkaline Phosphatase 185, Total Protein 5.4, Albumin 2.7 Discharge Home Medications: Active Scripts Active Oxyir Tablet (Oxycodone HCl) 5 Mg Tab 2.5-5 Mg PO Q8HR PRN Reported Quetiapine Fumarate 100 Mg Tablet 50 Mg PO HS TAKES OF A 100MG TAB Levothyroxine Sodium 50 Mcg Tablet 50 Mcg PO DAILY Vitamin D3 (Cholecalciferol (Vitamin D3)) 50 Mcg (2000 Unit) Capsule 50 Mcg PO DAILY Colestipol HCl 1 Gram Tablet 1 Gm PO BID Lomotil 2.5-0.025 mg Tablet (Diphenoxylate HCl/Atropine) 2.5 Mg-0.025 Mg Tablet 1 Each PO DAILY Sertraline HCl 100 Mg Tablet 200 Mg PO DAILY TAKES 2 (100MG) TABS Potassium Chloride 10 Meq Tab.er.prt 10 Meq PO DAILY Losartan Potassium 100 Mg Tablet 100 Mg PO DAILY Amlodipine Besylate 10 Mg Tablet 10 Mg PO DAILY Instructions to patient/family Please see electronic discharge instructions given to patient. Diagnosis/Problems Diagnosis/Problems (1) Closed left hip fracture Status: Acute (2) Chronic diarrhea Status: Acute (3) HTN (hypertension) Status: Chronic (4) Liver cancer Status: Chronic ROBBIE HUYNH DO May 27, 2022 05:57
--- NOTE | 2022-05-27 05:57 | D/C HH Face to Face Order ---
D/C Face to Face Orders Reconcile Patient Problems Problems Reviewed?: Yes Instructions for Patient Alesai Patient Instructions/FollowUp: as scheduled 06/04 Physician to follow Patient: Ute Discharge Diet for Home: No Restrictions Patient Problems: Hip fracture Patient Data-Allergies,Ht & Wt Patient Allergies: Coded Allergies: codeine (Verified Allergy, Unknown, ITCHING, 06/16/20) Home Health Need/Face to Face Date of Face to Face: May 27, 2022 Clinical Findings: Generalized weakness and fatigue, Pain with ambulation I have seen Pt [id number]: Yes Discharged To: Home Diagnosis/Conditions: hip fx Patient is Homebound due to: Jose fall risk due to instabilty, Muscle weakness, Pain w/ambulation Homebound Status Due to the above stated illness, injury or surgical procedure (medical condition or diagnosis) and associated clinical findings, the patient is homebound because of his/her inability to leave home except with aid of a supportive device and/or person AND leaving the home requires a considerable and taxing effort or is medically contraindicated. Pt req the following assistanc: Walker Home Health Nursing Orders Home Health Services Order: Nursing Services, Denitrator-Evaluate & Tana t, Physical Therapy-Evaluate & Treat Certify Stmt I certify that this patient is under my care and that I, a nurse practitioner or a physician; a research program assistant working with me, had a face to face encounter that - meets the physician face to face encounter requirements with this patient as dated. ROBBIE HUYNH DO May 27, 2022 05:57
[2022-05-27] MEDS: LEVOTHYROXINE 50 MCG (LEVOTHROID) TAB PO SCH (06:23)
[2022-05-27 08:00] VITALS: BP 140/67
[2022-05-27] MEDS: LOSARTAN 100 MG (COZAAR) TABLET PO SCH (08:41)
[2022-05-27] MEDS: VITAMIN D3 25 MCG (1,000 UNITS) TABLET PO SCH (08:42)
[2022-05-27] MEDS: amLODIPine 10 MG (NORVASC) TAB PO SCH (08:42)
[2022-05-27] MEDS: KCL 10 MEQ TAB (MICRO K) PO SCH (08:42)
[2022-05-27] MEDS: PANTOPRAZOLE 20 MG TABLET (PROTONIX) PO SCH (08:42)
[2022-05-27] MEDS: SERTRALINE 100 MG (ZOLOFT) TAB PO SCH (08:42)
[2022-05-27] MEDS: COLESTIPOL 1 GM (COLESTID) TAB PO SCH (08:45)
[2022-05-27] MEDS: NEO/POLY/BAC (NEOSPORIN) OINT 15 GM TUBE TOP SCH (08:45)
[2022-05-27] MEDS: DOCUSATE SODIUM 100 MG (COLACE) CAP PO SCH (08:45)
[2022-05-27] MEDS: ENOXAPARIN 40 MG/0.4 ML (LOVENOX) SYR SC SCH (10:27)
--- NOTE | 2022-05-27 11:10 | Therapy Team Discharge Summary ---
Therapy Discharge Summary Discharge Recommendations Date of Discharge Physical Therapy Roll Left to Right (QC): 6 Sit to Lying (QC): 6 Lying to Sitting/Side of Bed(Q: 6 Sit to Stand (QC): 6 Chair/Caf-pf-Aksaw Xfer(QC): 6 Toilet Transfer (QC): 5 Car Transfer (QC): 6 Does the Patient Walk: Yes Mode of Locomotion: Both Anticipated Mode of Locomotion: Both Walk 10 feet (QC): 6 Walk 50 ft with 2 Turns(QC): 6 Walk 150 ft (QC): 6 Walking 10ft on uneven surface: 6 Distance: 5 feet Gait Assistive Device: FWW Does the Pt Use a Wheelchair: No Wheelchair Distance: 100 Wheel 50 ft with 2 turns (QC): 1 Wheel 150 ft (QC): 88 Type of Wheelchair: Manual #of Steps: 12 1 Step (curb) (QC): 6 4 Steps (QC): 6 12 Steps (QC): 5 Balance Sitting Static: Fair Balance Sitting Dynamic: Poor Balance-Standing Static: Poor Picking up an Object (QC): 6 Occupational Therapy Pt admitted to [facility] s/p L femur fx. At [facility], pt was independent with ADLs and functional mobility using a walker. Upon initial evaluation, pt required set up with eating, SBA oral care, min A UE dressing and total assist with showering, LE Dressing, toileting and footwear. OT tx focused on increasing BUE strength and activity tolerance and increasing safety and independence with ADLS and functional moiblity. Pt made good progress towards goals, attaining IND level with ADLS and meeting all LTGs. Pt discharging from facility, d/c from OT. Decreased Activ Tolerance, Impaired Self-Care Skills Eating (QC): 6 Oral Hygiene (QC): 6 Shower/Bathe Self (QC): 6 Upper Body Dressing (QC): 6 Lower Body Dressing (QC): 6 On/Off Footwear (QC): 6 Toileting Hygiene (QC): 6 PT Paper Coating Supervisor Goals Senior Care Goals PT Paper Coating Supervisor Goals Time Frame: Jun 05, 2022 Roll Left to Right (QC): 5 Sit to Lying (QC): 5 Lying-Sitting on Side/Bed(QC): 5 Sit to Stand (QC): 5 Chair/Wwz-jm-Nmjeb Xfer(QC): 5 Toilet/Commode Transfer (QC): 5 Car Transfer (QC): 5 Does the Patient Walk: Yes Walk 10 feet (QC): 4 Walk 10ft-Uneven Surface(QC): 4 Walk 50ft with 2 Turns (QC): 4 Walk 150 ft (QC): 4 Does the Pt use WC or Scooter?: Yes Wheel 50 feet with 2 turns (QC: 6 Type: Manual Wheel 150 feet: 6 Type: Manual 1 Step (curb) (QC): 3 4 Steps (QC): 3 12 Steps (QC): 3 Picking up an Object (QC): 4 OT Senior Care Goals Paper Coating Supervisor Goals Time Frame: Jun 04, 2022 Acute change in mental status: 0 Inattention: 0 Disorganized thinkin Altered level of consciousness: 0 Eating (QC): 6 (met) Oral Hygiene (QC): 6 (met) Toileting Hygiene (QC): 6 (met) Shower/Bathe Self (QC): 4 (met) Upper Body Dressing (QC): 6 (met) Lower Body Dressing (QC): 4 (met) On/Off Footwear (QC): 4 (met) Additional Goals: 1-Demonstrate ADL Tasks, 2-Verbalize Understanding, 3-Imp roveStrength/Cain 1=Demonstrate adherence to instructed precautions during ADL tasks. 2=Patient will verbalize/demonstrate understanding of assistive devices/modifications for ADL. 3=Patient will improve strength/tolerance for activity to enable patient to perform ADL's. Speech Paper Coating Supervisor Goals Paper Coating Supervisor Goals 1. The patient will display improved cognitive linguistic skills for safe discharge to the least restrictive environment. MET 2. The patient will tolerate the least restrictive diet consistency without s/s of suspected aspiration. MET The patient has displayed excellent progression through the treatment plan, progressing to baseline cognitive status and a regular consistency diet with thin liquids. Time Frame: Ten Days. BRISEIDA TREVINO OT May 27, 2022 11:10
[2022-05-27 11:45] VITALS: BP 140/67
--- NOTE | 2022-05-27 13:27 | Therapy Team Discharge Summary ---
Therapy Discharge Summary Discharge Recommendations Date of Discharge Physical Therapy Patient came to rehab post left femur fx repair. Upon evaluation patient performed rolling with max assist, sit to supine min/mod assist, supine to sit max assist, sit <-> stand and transfers max assist, car transfer max assist, ambulated 5' with a rolling walker, and propelled a manual WC 100' with SBA. Patient has been performing bed mobility and transfer training, balance and endurance training, functional strengthening, stair training, gait training, and education. Patient has made good progress and has met all of his detention goals. Now, patient performs rolling and supine <-> sit with independence, sit <-> stand and transfers independent, car transfer independent, ambulates 200' with a rolling walker with independence (including 50' with at least 2 turns of 90 degrees and 10' over an uneven surface), can go up and down 12 steps using 2 handrails with SBA, and can cotton picker an object from the floor using a crystal syrup maker with independence. Patient is being discharged from this facility today and will be discharged from PT at this time. Roll Left to Right (QC): 6 Sit to Lying (QC): 6 Lying to Sitting/Side of Bed(Q: 6 Sit to Stand (QC): 6 Chair/Rcp-py-Yuhsf Xfer(QC): 6 Toilet Transfer (QC): 6 Car Transfer (QC): 6 Does the Patient Walk: Yes Mode of Locomotion: Both Anticipated Mode of Locomotion: Both Walk 10 feet (QC): 6 Walk 50 ft with 2 Turns(QC): 6 Walk 150 ft (QC): 6 Walking 10ft on uneven surface: 6 Distance: 5 feet Gait Assistive Device: FWW Does the Pt Use a Wheelchair: No Wheelchair Distance: 100 Wheel 50 ft with 2 turns (QC): 1 Wheel 150 ft (QC): 88 Type of Wheelchair: Manual #of Steps: 12 1 Step (curb) (QC): 6 4 Steps (QC): 6 12 Steps (QC): 5 Balance Sitting Static: Fair Balance Sitting Dynamic: Poor Balance-Standing Static: Poor Picking up an Object (QC): 6 Occupational Therapy Decreased Activ Tolerance, Impaired Self-Care Skills Eating (QC): 6 Oral Hygiene (QC): 6 Shower/Bathe Self (QC): 6 Upper Body Dressing (QC): 6 Lower Body Dressing (QC): 6 On/Off Footwear (QC): 6 Toileting Hygiene (QC): 6 PT Senior Living Goals Senior Living Goals PT Foundation Coordinator Goals Time Frame: Jun 05, 2022 Roll Left to Right (QC): 5 Sit to Lying (QC): 5 Lying-Sitting on Side/Bed(QC): 5 Sit to Stand (QC): 5 Chair/Uvj-br-Mbgnz Xfer(QC): 5 Toilet/Commode Transfer (QC): 5 Car Transfer (QC): 5 Does the Patient Walk: Yes Walk 10 feet (QC): 4 Walk 10ft-Uneven Surface(QC): 4 Walk 50ft with 2 Turns (QC): 4 Walk 150 ft (QC): 4 Does the Pt use WC or Scooter?: Yes Wheel 50 feet with 2 turns (QC: 6 Type: Manual Wheel 150 feet: 6 Type: Manual 1 Step (curb) (QC): 3 4 Steps (QC): 3 12 Steps (QC): 3 Picking up an Object (QC): 4 OT Foundation Coordinator Goals Senior Living Goals Time Frame: Jun 04, 2022 Acute change in mental status: 0 Inattention: 0 Disorganized thinkin Altered level of consciousness: 0 Eating (QC): 6 (met) Oral Hygiene (QC): 6 (met) Toileting Hygiene (QC): 6 (met) Shower/Bathe Self (QC): 4 (met) Upper Body Dressing (QC): 6 (met) Lower Body Dressing (QC): 4 (met) On/Off Footwear (QC): 4 (met) Additional Goals: 1-Demonstrate ADL Tasks, 2-Verbalize Understanding, 3- ImproveStrength/Cain 1=Demonstrate adherence to instructed precautions during ADL tasks. 2=Patient will verbalize/demonstrate understanding of assistive devices/modifications for ADL. 3=Patient will improve strength/tolerance for activity to enable patient to perform ADL's. Speech Foundation Coordinator Goals Senior Living Goals 1. The patient will display improved cognitive linguistic skills for safe discharge to the least restrictive environment. MET 2. The patient will tolerate the least restrictive diet consistency without s/s of suspected aspiration. MET The patient has displayed excellent progression through the treatment plan, progressing to baseline cognitive status and a regular consistency diet with thin liquids. Time Frame: Ten Days. JAE ADORNO PT May 27, 2022 13:27
== END 2022-05-27 11:45 | disposition home health service (06) | DRG 560 ==
PROVIDERS: ADMIT Internal Medicine; ATTEND Internal Medicine
DX: S72.052D Unspecified fracture of head of left femur, subsequent encounter for closed fracture with routine healing (principal); N17.9 Acute kidney failure, unspecified; G20 Parkinson's disease; R19.7 Diarrhea, unspecified; R32 Unspecified urinary incontinence; E73.9 Lactose intolerance, unspecified; F32.A Depression, unspecified; E78.00 Pure hypercholesterolemia, unspecified; Z66 Do not resuscitate; I10 Essential (primary) hypertension; E03.9 Hypothyroidism, unspecified; F43.10 Post-traumatic stress disorder, unspecified; Z87.891 Personal history of nicotine dependence; Z85.05 Personal history of malignant neoplasm of liver; Z23 Encounter for immunization; Z88.5 Allergy status to narcotic agent; W19.XXXD Unspecified fall, subsequent encounter
CPT/HCPCS: 36415; 74230; 80053; 81000; 85025; 90662; 94760

== ENCOUNTER → 2022-06-09 | Outpatient (CLI) | payer OTHER ==
[~2022-06-09] MED LIST changes: +LEVO50TA6 PO; +OXC5T PO
--- NOTE | 2022-06-09 16:55 | Diagnostic Imaging Report ---
INDICATION: Follow-up orthopedic assessment, left hip arthroplasty. COMPARISON: 05/07/2022. TECHNIQUE: Two radiographs of the left hip dated 06/09/2022. FINDINGS: Interval placement of a left hip arthroplasty is identified without evidence of hardware complication. No acute fracture or dislocation. No destructive osseous process. No suspicious radiopaque foreign body. IMPRESSION: Interval placement of a left hip arthroplasty without hardware complication or acute osseous abnormality. Dictated by: Dictated on workstation # [id number]
== END ==
LOC: ORTHO 10:14
PROVIDERS: ATTEND Orthopaedic Surgery
DX: Z09 Encounter for follow-up examination after completed treatment for conditions other than malignant neoplasm (principal); Z96.642 Presence of left artificial hip joint
CPT/HCPCS: 73502

== ENCOUNTER 2022-06-25 11:43 | Observation (INO) | payer OTHER, MEDICARE ==
[~2022-06-25] VITALS: Ht 183 cm; Wt 67.7 kg
[2022-06-25 13:08] LABS: BASOPHILS % (AUTO) 0 % (0-10); EOSINOPHILS # (AUTO) 0.1 10^3/uL (0.0-0.3); EOSINOPHILS % (AUTO) 1 % (0-10); HEMATOCRIT 40 % (40-54); HEMOGLOBIN 13.4 g/dL (13.3-17.7); LYMPHOCYTES # (AUTO) 1.3 10^3/uL (1.0-4.0); LYMPHOCYTES % (AUTO) 20 % (12-44); MEAN CORPUSCULAR HEMOGLOBIN 30 pg (25-34); MEAN CORPUSCULAR HGB CONC 34 g/dL (32-36); MEAN CORPUSCULAR VOLUME 90 fL (80-99); MONOCYTES # (AUTO) 0.6 10^3/uL (0.0-1.0); MONOCYTES % (AUTO) 9 % (0-12); NEUTROPHILS # (AUTO) 4.6 10^3/uL (1.8-7.8); NEUTROPHILS % (AUTO) 70 % (42-75); PLATELET COUNT 213 10^3/uL (130-400); WHITE BLOOD COUNT 6.6 10^3/uL (4.3-11.0)
[2022-06-25 13:17] LABS: ALBUMIN 3.7 GM/DL (3.2-4.5); POTASSIUM 4.3 MMOL/L (3.6-5.0)
[2022-06-25 13:18] LABS: CALCIUM 9.4 MG/DL (8.5-10.1)
[2022-06-25 13:19] LABS: TOTAL PROTEIN 6.8 GM/DL (6.4-8.2)
[2022-06-25 13:21] LABS: BILIRUBIN,TOTAL 0.6 MG/DL (0.1-1.0)
[2022-06-25 13:23] LABS: CREATININE SERUM 1.2 MG/DL (0.60-1.30)
[2022-06-25 13:26] LABS: MAGNESIUM 1.8 MG/DL (1.6-2.4)
--- NOTE | 2022-06-25 13:44 | ED GI ---
General Chief Complaint: Abdominal/GI Problems Stated Complaint: WEAKNESS | DIARRHEA | ANKLE SWELLING Nursing Triage Note: PT TO TRIAGE PER W/C PT CO OF DIARRHEA FOR APPROX 1 YR. PT STATES TODAY WORST DAY. Source of Information: Patient, Family, Old Records Exam Limitations: No Limitations (GINO SMITH) History of Present Illness Date Seen by Provider: Jun 25, 2022 Time Seen by Provider: 12:43 Initial Comments Mr. Kim is a 71 yo M with PMH of HTN, chronic diahrrea, L hip Fx, Parkinson's Ataxia with falls, Hypo-thyroidism and Liver CA who presents to the ED today with his daughter in law Ashley with concern for increasingly frequent non- painful mucoid diahrrea. He states that this is the worst it has ever been causing him to make constant walker assisted trips to the bathroom and prompting his visit today. He denies N/V/F/C, hematochezia, melena or any sick contacts or changes in his diet or activity which might have contributed to his symptoms. He does endorse an increase in urine output, but denies dysuria, pyuria or hematuria. Also denies changes to his hearing or vision. He states colestipol prescribed by his GI specialist seemed to be helping up until his L hip Fx. His thought and speech are slow, but remain at his baseline per Ashley. He denies any pain except from his left hip which is S/P Fx with ORIF in April. Timing/Duration: 24 Hours Severity/Quality: Moderate Radiation: No Radiation Activities at Onset: None Associated Symptoms: Denies Symptoms (GINO SMITH) Allergies and Home Medications Allergies Coded Allergies: codeine (Verified Allergy, Unknown, ITCHING, 06/25/22) Patient Home Medication List Home Medication List Reviewed: Yes (AMBIKA EL MD) Amlodipine Besylate (Amlodipine Besylate) 10 Mg Tablet, 10 MG PO DAILY, (Reported) Entered as Reported by: HIPOLITO WARREN on 06/20/20 1449 Last Action: Continued Cholecalciferol (Vitamin D3) (Vitamin D3) 50 Mcg (2000 Unit) Capsule, 50 MCG PO DAILY, (Reported) Entered as Reported by: SUMAN SOUZA on 05/08/22 0307 Last Action: Converted Colestipol HCl (Colestipol HCl) 1 Gram Tablet, 1 GM PO BID, (Reported) Entered as Reported by: SUMAN SOUZA on 05/08/22306 Last Action: Held Diphenoxylate HCl/Atropine (Lomotil 2.5-0.025 mg Tablet) 2.5 Mg-0.025 Mg Tablet, 1 EACH PO DAILY, (Reported) Entered as Reported by: SUMAN SOUZA on 05/08/22306 Last Action: Continued Levothyroxine Sodium (Levothyroxine Sodium) 50 Mcg Tablet, 50 MCG PO DAILY, (Reported) Entered as Reported by: HIPOLITO WARREN on 05/10/221419 Last Action: Continued Losartan Potassium (Losartan Potassium) 100 Mg Tablet, 100 MG PO DAILY, (Reported) Entered as Reported by: HIPOLITO WARREN on 06/20/20 144 Last Action: Continued Oxycodone Hcl (Oxyir Tablet) 5 Mg Tab, 2.5-5 MG PO Q8HR PRN for PAIN-SEVERE (8- 10) Prescribed by: ROBBIE HUYNH on 05/27/22 0556 Last Action: Continued Potassium Chloride (Potassium Chloride) 10 Meq Tab.er.prt, 10 MEQ PO DAILY, (Reported) Entered as Reported by: HIPOLITO WARREN on 06/20/20 144 Last Action: Converted Quetiapine Fumarate (Quetiapine Fumarate) 100 Mg Tablet, 50 MG PO HS, (Reported) Entered as Reported by: HIPOLITO WARREN on 05/10/221427 Last Action: Continued Sertraline HCl (Sertraline HCl) 100 Mg Tablet, 200 MG PO DAILY, (Reported) Entered as Reported by: SUMAN SOUZA on 05/08/22306 Last Action: Continued Review of Systems Review of Systems Constitutional: No chills, No fever, No malaise EENTM: No Blurred Vision, No Double Vision Respiratory: Denies Cough, Denies Shortness of Air Cardiovascular: Denies Chest Pain, Denies Irregular Heart Rate, Denies Lightheadedness Gastrointestinal: Denies Abdomen Distended, Denies Abdominal Pain, Denies Blood Streaked Stools, Denies Constipated; Diarrhea; Denies Nausea, Denies Rectal Bleeding, Denies Vomiting Genitourinary: Denies Burning; Frequency; Denies Flank Pain, Denies Hematuria Musculoskeletal: No back pain; joint pain Skin: No change in color, No lesions, No pruritus, No rash Psychiatric/Neurological: Denies Headache, Denies Numbness, Denies Paresthesia, Denies Seizure Endocrine: Denies Excessive Sweating, Denies Flushing (GINO SMITH) Past Wdtwytb-Wwhevb-Tgbnjv Hx Patient Social History Tobacco Use?: No Substance use?: No Alcohol Use?: No Pt feels they are or have been: No (GINO SMITH) Immunizations Up To Date Influenza Vaccine Up-to-Date: Yes; Up-to-Date First/Initial COVID19 Vaccinat: 08-13-20 Second COVID19 Vaccination Marcos: 09-16-20 Third COVID19 Vaccination Date: 07-09-21 (GINO SMITH) Seasonal Allergies Seasonal Allergies: No (GINO SMITH) Past Medical History Surgery/Hospitalization HX: DIFFICULT TO OBTAIN INFORMATION- PATIENT IS EXTREMELY ABSENTEE-SHAWNEE. HTN, PTSD, PARKINSON'S DISEASE (FROM [facility]), LIVER CA S/P CRYOTHERAPY, CHRONIC DIARRHEA, HYPOTHYROIDISM, FALLS, LEFT HIP FX WITH REPAIR, COLONOSCOPY, LEFT SHOULDER DISLOCATION, CEREBELLAR ATAXIA. Surgeries: Yes ([facility] ablation/exploratory 06/11) Orthopedic Respiratory: No Currently Using CPAP: No Currently Using BIPAP: No Cardiac: Yes High Cholesterol, Hypertension Neurological: Yes (CEREBRAL ATAXIA) Parkinson's Disease Genitourinary: No Gastrointestinal: Yes (BOWEL CHANGES) Polyps Musculoskeletal: No Endocrine: No Hypothyroidsim HEENT: No Cancer: Yes Liver Did You Recieve Any Treatments: Yes What Type of Treatment Did You: Radiation Psychosocial: Yes PTSD Integumentary: No Blood Disorders: No Adverse Reaction/Blood Tranf: No (GINO SMITH) Family Medical History Cancer (Prostate CA in Father and Brother) (GINO SMITH) Physical Exam Vital Signs Vital Signs - First Documented 06/25/22 12:00 Temp 36.8 Pulse 86 Resp 16 B/P (MAP) 144/89 (107) Pulse Ox 94 (AMBIKA EL MD) Vital Signs Capillary Refill : Less Than 3 Seconds (GINO SMITH) Height/Weight/BMI Height: '" Weight: lbs. oz. kg; 21.00 BMI Method: General Appearance: no apparent distress, thin HEENT: PERRL/EOMI, pharynx normal Neck: non-tender, full range of motion, supple Respiratory: chest non-tender, lungs clear, normal breath sounds, no respiratory distress, no accessory muscle use Cardiovascular: regular rate, rhythm, no murmur Peripheral Pulses: 2+ Radial Pulses (R), 2+ Radial Pulses (L) Gastrointestinal: normal bowel sounds, non tender, soft, no organomegaly, no pulsatile mass Extremities: normal range of motion, no calf tenderness, pedal edema Neurologic/Psychiatric: snuff box finisher II-XII nml as tested, no motor/sensory deficits, alert, normal mood/affect, oriented x 3 Skin: warm/dry, pallor Lymphatic: no adenopathy (GINO SMITH) Progress/Results/Core Measures Results/Orders Lab Results Laboratory Tests Test 06/25/22 13:03 06/25/22 13:42 Range/Units White Blood Count 6.6 4.3-11.0 10^3/uL Red Blood Count 4.42 4.30-5.52 10^6/uL Hemoglobin 13.4 13.3-17.7 g/dL Hematocrit 40 40-54 % Mean Corpuscular Volume 90 80-99 fL Mean Corpuscular Hemoglobin 30 25-34 pg Mean Corpuscular Hemoglobin Concent 34 32-36 g/dL Red Cell Distribution Width 13.3 10.0-14.5 % Platelet Count 213 130-400 10^3/uL Mean Platelet Volume 11.0 9.0-12.2 fL Immature Granulocyte % (Auto) 0 % Neutrophils (%) (Auto) 70 42-75 % Lymphocytes (%) (Auto) 20 12-44 % Monocytes (%) (Auto) 9 0-12 % Eosinophils (%) (Auto) 1 0-10 % Basophils (%) (Auto) 0 0-10 % Neutrophils # (Auto) 4.6 1.8-7.8 10^3/uL Lymphocytes # (Auto) 1.3 1.0-4.0 10^3/uL Monocytes # (Auto) 0.6 0.0-1.0 10^3/uL Eosinophils # (Auto) 0.1 0.0-0.3 10^3/uL Basophils # (Auto) 0.0 0.0-0.1 10^3/uL Immature Granulocyte # (Auto) 0.0 0.0-0.1 10^3/uL Sodium Level 138 135-145 MMOL/L Potassium Level 4.3 3.6-5.0 MMOL/L Chloride Level 106 98-107 MMOL/L Carbon Dioxide Level 24 21-32 MMOL/L Anion Gap 8 5-14 MMOL/L Blood Urea Nitrogen 12 7-18 MG/DL Creatinine 1.20 0.60-1.30 MG/DL Estimat Glomerular Filtration Rate 64 BUN/Creatinine Ratio 10 Glucose Level 115 H 70-105 MG/DL Calcium Level 9.4 8.5-10.1 MG/DL Corrected Calcium 9.6 8.5-10.1 MG/DL Magnesium Level 1.8 1.6-2.4 MG/DL Total Bilirubin 0.6 0.1-1.0 MG/DL Aspartate Amino Transf (AST/SGOT) 26 5-34 U/L Alanine Aminotransferase (ALT/SGPT) 27 0-55 U/L Alkaline Phosphatase 188 H 40-136 U/L Total Protein 6.8 6.4-8.2 GM/DL Albumin 3.7 3.2-4.5 GM/DL Urine Color YELLOW Urine Clarity CLEAR Urine pH 6.5 5-[address] 1.010 L 1.016-1.022 Urine Protein NEGATIVE NEGATIVE Urine Glucose (UA) NEGATIVE NEGATIVE Urine Ketones NEGATIVE NEGATIVE Urine Nitrite NEGATIVE NEGATIVE Urine Bilirubin NEGATIVE NEGATIVE Urine Urobilinogen 0.2 < = 1.0 MG/DL Urine Leukocyte Esterase 2+ H NEGATIVE Urine RBC (Auto) NEGATIVE NEGATIVE Urine RBC 2-5 H /HPF Urine WBC 5-10 H /HPF Urine Squamous Epithelial Cells RARE /HPF Urine Crystals NONE /LPF Urine Bacteria FEW H /HPF Urine Casts PRESENT /LPF Urine Hyaline Casts 2-5 H /LPF Urine Mucus MODERATE H /LPF Urine Culture Indicated NO Influenza Type A (RT-PCR) Not Detected Not Detecte Influenza Type B (RT-PCR) Not Detected Not Detecte SARS-CoV-2 RNA (RT-PCR) Not Detected Not Detecte (AMBIKA EL MD) My Orders Orders - AMBIKA EL MD Cbc With Automated Diff (06/25/22 12:09) Comprehensive Metabolic Panel (06/25/22 12:09) Magnesium (06/25/22 12:09) Ua Culture If Indicated (06/25/22 12:09) Ed Iv/Invasive Line Start (06/25/22 12:09) Covid 19 Inhouse Test (06/25/22 12:09) Influenza A And B By Pcr (06/25/22 12:09) Lactated Ringers (Lr 1000 Ml Iv Solution (06/25/22 14:00) Ed Admission (Communication) (06/25/22 14:54) Ceftriaxone 1 Gm Pre-Mix (Rocephin 1 Gm (06/25/22 15:02) Code/Resuscitation (06/25/22 15:03) (AMBIKA EL MD) Medications Given in ED (AMBIKA EL MD) Vital Signs/I&O 06/25/22 12:00 Temp 36.8 Pulse 86 Resp 16 B/P (MAP) 144/89 (107) Pulse Ox 94 06/26/22 00:00 Intake Total 1050 ml Balance 1050 ml (AMBIKA EL MD) Blood Pressure Mean: 107 Progress Progress Note : Progress Note Patient was interviewed and examined by me along with MS 4. Patient reports b eing weak and having difficulty managing his exacerbation of diarrhea. I discussed with Dr. Huynh who came to the emergency room to evaluate the patient. She recommended admission for observation. In work-up patient was found to have urinary tract infection on urinalysis. He was treated with Rocephin. Liter of IV fluids was infused. Labs were reviewed including CBC, CMP, magnesium, and screening for influenza and COVID. All were unremarkable. I discussed CODE STATUS with patient and he elects a DNR. (AMBIKA EL MD) Departure Communication (Admissions) Time/Spoke to Admitting Phy: 14:53 Dr. Huynh (AMBIKA EL MD) Impression Primary Impression: Generalized weakness Additional Impressions: Urinary tract infection Qualified Codes: N39.0 - Urinary tract infection, site not specified Chronic diarrhea Disposition: ADMITTED INPATIENT Condition: Stable Admissions Decision to Admit Reason: Admit from ER (General) Decision to Admit/Date: Jun 25, 2022 Time/Decision to Admit Time: 14:53 (AMBIKA EL MD) Departure-Patient Inst. Referrals: ROBBIE HUYNH DO (PCP/Family) Primary Care Physician Medical Student Attestation and Attending Note: I have personally interviewed and examined this patient along with Gino Smith, MS4. I have reviewed student documentation including history, physical, and assessments. I agree with the documentation except where otherwise noted. Exam: General: Alert, oriented, no acute distress, well developed, thin HEENT: Normocephalic and atraumatic Heart: Regular rate and rhythm without murmur Lungs: Clear to auscultation bilaterally with normal effort Abdomen: Soft, nontender, nondistended, normal bowel sounds Neuropsych: Alert, oriented, no focal deficits Skin: Warm and dry without rashes (AMBIKA EL MD) GINO SMITH Jun 25, 2022 13:44 AMBIKA EL MD Jun 25, 2022 14:54
[2022-06-25 13:50] LABS: BILIRUBIN,URINE NEGATIVE (NEGATIVE); CLARITY,URINE CLEAR; COLOR,URINE YELLOW; GLUCOSE, URINE (UA) NEGATIVE (NEGATIVE); KETONES,URINE NEGATIVE (NEGATIVE); LEUKOCYTE ESTERASE ,URINE 2+ (NEGATIVE); NITRITE,URINE NEGATIVE (NEGATIVE); PH,URINE 6.5 (5-9); PROTEIN,URINE NEGATIVE (NEGATIVE)
[2022-06-25 13:55] LABS: BACTERIA,URINE FEW /HPF; SQUAMOUS EPITHELIAL CELL,UR RARE /HPF
[2022-06-25] MEDS ORDERED: LACTATED RINGERS 1,000 ML IV ONE (14:00)
--- NOTE | 2022-06-25 14:56 | History & Physical ---
History of Present Illness HPI/Chief Complaint CC: Diarrhea with UTI and weakness HPI: This is a 71yoWM clinic patient of mine who has a h/o PD, chronic diarrhea due to lactose intolerance but refuses to not drink milk and recent hip fracture s/p ARU stay who presented to the ER with generalized weakness and worsened diarrhea. He was to have an appt to see me in clinic today but instead he went to ER due to severity of symptoms. Subtle UTI noted so Rocephin given. No pain reported. Source: patient, family Date Seen 06/25/22 Time Seen by a Provider: 11:00 Attending Physician Annamaria Unger DO PCP Admitting Physician: Attending Physician: Referring Physician Date of Admission Home Medications & Allergies Home Medications Reviewed patient Home Medication Reconciliation performed by pharmacy medication reconciliations electromyographic technician and/or nursing. Patients Allergies have been reviewed. Allergies Allergies Coded Allergies codeine (Verified Allergy, Unknown, ITCHING, 06/25/22) Past Qrrwudi-Hchjqu-Oifccz Hx Past Med/Social Hx: Reviewed Nursing Past Med/Soc Hx, Reviewed and Corrections made Patient Social History Marrital Status: Employed/Student: retired Alcohol Use: Denies Use Smoking Status: Former Smoker Type Used: Smokeless Tobacco 2nd Hand Smoke Exposure: No Recent Hopitalizations: No Recent Infectious Disease Expo: No Immunizations Up To Date Date of Influenza Vaccine: May 07, 2022 Seasonal Allergies Seasonal Allergies: No Past Medical History Surgeries: Orthopedic Currently Using CPAP: No Currently Using BIPAP: No Cardiac: High Cholesterol, Hypertension Neurological: Parkinson's Disease Gastrointestinal: Polyps liver cancer Endocrine: Hypothyroidsim Cancer: Liver Did You Recieve Any Treatments: Yes What Type of Treatment Did You: Radiation Psychosocial: PTSD History of Blood Disorders: No Adverse Reaction to Blood Ibarra: No Family History Cancer (Prostate CA in Father and Brother) Review of Systems Constitutional: see HPI, dizziness, malaise, weakness EENTM: no symptoms reported Respiratory: no symptoms reported Cardiovascular: no symptoms reported Gastrointestinal: diarrhea Genitourinary: no symptoms reported Musculoskeletal: back pain, joint pain Skin: no symptoms reported Psychiatric/Neurological: No Symptoms Reported All Other Systems Reviewed Negative Unless Noted: Yes Physical Exam Physical Exam Vital Signs Vital Signs - First Documented 06/25/22 06/25/22 12:00 16:47 Temp 36.8 Pulse 86 Resp 16 B/P (MAP) 144/89 (107) Pulse Ox 94 O2 Delivery Room Air Capillary Refill : Less Than 3 Seconds Height, Weight, BMI Height: '" Weight: lbs. oz. kg; 21.00 BMI Method: General Appearance: No Apparent Distress, WD/WN, Chronically ill, Thin, Other (pale) Eyes: Bilateral Eye Normal Inspection, Bilateral Eye PERRL HEENT: PERRL/EOMI, Normal ENT Inspection, Pharynx Normal Neck: Full Range of Motion, Normal Inspection, Non Tender, Supple, Carotid Bruit Respiratory: Chest Non Tender, Lungs Clear, Normal Breath Sounds, No Accessory Muscle Use, No Respiratory Distress Cardiovascular: Regular Rate, Rhythm, No Edema, No Gallop, No JVD, No Murmur, Normal Peripheral Pulses Gastrointestinal: Normal Bowel Sounds, No Organomegaly, No Pulsatile Mass, Non Tender, Soft Back: Normal Inspection, No CVA Tenderness, No Vertebral Tenderness Extremity: Normal Capillary Refill, Normal Inspection, Normal Range of Motion, Non Tender, No Calf Tenderness, No Pedal Edema Neurologic/Psychiatric: Alert, Oriented x3, Abnormal Gait, Depressed Affect, Motor Weakness (generalized) Skin: Normal Color, Warm/Dry Lymphatic: No Adenopathy Results Results/Procedures Labs Laboratory Tests 06/25/22 13:03 06/26/22 05:53 Patient resulted labs reviewed. Assessment/Plan Admission Diagnosis Assessment: Severe weakness Acute on chronic diarrhea Recent hip fracture Acute UTI PD HTN PTSD Depression h/o liver cancer s/o cryotherapy Plan: Monitor closely PT OT Fall risk Rocephin Colestid Admission Status: Observation ANNAMARIA UNGER DO Jun 25, 2022 14:56
[2022-06-25] MEDS ORDERED: cefTRIAXone 1 GM PRE-MIX 50 ML IV STA (15:02)
[2022-06-25] MEDS ORDERED: MELATONIN 3 MG TABLET PO PRN (16:30)
[2022-06-25] MEDS ORDERED: polyethylene glycoL POWDER 17 GM (MIRALAX) PACK PO PRN (16:30)
[2022-06-25] MEDS ORDERED: HYDROmorphone 2 MG/ML VIAL (DILAUDID) IV PRN (16:30)
[2022-06-25] MEDS ORDERED: BISACODYL 10 MG SUPP (DULCOLAX) PR PRN (16:30)
[2022-06-25] MEDS ORDERED: diphenhydrAMINE 50 MG/ML INJ (BENADRYL) IVP PRN (16:30)
[2022-06-25] MEDS ORDERED: ACETAMINOPHEN 325 MG TABLET PO PRN (16:30)
[2022-06-25] MEDS ORDERED: diphenhydrAMINE 25 MG TAB (BENADRYL) PO PRN (16:30)
[2022-06-25] MEDS ORDERED: ANTACID SUSP 30 ML UDC (MYLANTA) PO PRN (16:30)
[2022-06-25] MEDS ORDERED: MILK OF MAGNESIA 400 MG/5 ML 30 ML UDC PO PRN (16:30)
[2022-06-25] MEDS ORDERED: ONDANSETRON 4 MG/2 ML (SDV) Z0FRAN IV PRN (16:30)
[2022-06-25] MEDS ORDERED: LACTULOSE SYRUP 10GM/15ML (ENULOSE) 30ML UDC PO PRN (16:30)
[2022-06-25] MEDS ORDERED: CALCIUM CARBONATE 500 MG (TUMS) TAB.CHEW PO PRN (16:30)
[2022-06-25] MEDS ORDERED: ONDANSETRON 4 MG (ZOFRAN) ORAL DISSOLVE TAB PO PRN (16:30)
[2022-06-25 16:42] VITALS: BP 146/77
[2022-06-25] MEDS ORDERED: RT-ALBUTEROL SULF 2.5 MG/3 ML PRE-MIX VIAL INH PRN (16:45)
[2022-06-25 16:47] VITALS: BP 155/69
[2022-06-25] MEDS: ENOXAPARIN 40 MG/0.4 ML (LOVENOX) SYR SC SCH (17:08)
[2022-06-25] MEDS: NS IV 1000 ML 1,000 ML IV SCH (17:08)
[2022-06-25] MEDS: DOCUSATE SODIUM 100 MG (COLACE) CAP PO SCH (19:33)
[2022-06-25] MEDS: SENNOSIDES 8.6 MG (SENOKOT) TAB PO SCH (19:33)
[2022-06-25] MEDS: COLESTIPOL 1 GM (COLESTID) TAB PO SCH (19:33)
[2022-06-25 19:39] VITALS: BP 146/67
[2022-06-25] MEDS: QUEtiapine 100 MG (SEROquel) TAB IMMEDIATE RELEASE PO SCH (21:47)
[2022-06-25] MEDS ORDERED: DIPHENOXYLATE/ATROPINE 2.5MG/0.025MG (LOMOTIL) TAB PO PRN (22:00)
[2022-06-25 23:19] VITALS: BP 136/70
[2022-06-26 03:35] VITALS: BP 133/63
[2022-06-26] MEDS: NS IV 1000 ML 1,000 ML IV SCH (04:07)
[2022-06-26] MEDS: LEVOTHYROXINE 50 MCG (LEVOTHROID) TAB PO SCH (05:27)
[2022-06-26 06:04] LABS: BASOPHILS % (AUTO) 1 % (0-10); EOSINOPHILS # (AUTO) 0.1 10^3/uL (0.0-0.3); EOSINOPHILS % (AUTO) 3 % (0-10); HEMATOCRIT 32 % (40-54); HEMOGLOBIN 10.9 g/dL (13.3-17.7); LYMPHOCYTES # (AUTO) 1.5 10^3/uL (1.0-4.0); LYMPHOCYTES % (AUTO) 42 % (12-44); MEAN CORPUSCULAR HEMOGLOBIN 31 pg (25-34); MEAN CORPUSCULAR HGB CONC 34 g/dL (32-36); MEAN CORPUSCULAR VOLUME 90 fL (80-99); MEAN PLATELET VOLUME 11.3 fL (9.0-12.2); MONOCYTES # (AUTO) 0.4 10^3/uL (0.0-1.0); MONOCYTES % (AUTO) 11 % (0-12); NEUTROPHILS # (AUTO) 1.6 10^3/uL (1.8-7.8); NEUTROPHILS % (AUTO) 43 % (42-75); PLATELET COUNT 162 10^3/uL (130-400); WHITE BLOOD COUNT 3.6 10^3/uL (4.3-11.0)
[2022-06-26 06:23] LABS: ALBUMIN 2.9 GM/DL (3.2-4.5); POTASSIUM 3.7 MMOL/L (3.6-5.0)
[2022-06-26 06:24] LABS: CALCIUM 8.5 MG/DL (8.5-10.1)
[2022-06-26 06:25] LABS: TOTAL PROTEIN 5.4 GM/DL (6.4-8.2)
[2022-06-26 06:27] LABS: BILIRUBIN,TOTAL 0.3 MG/DL (0.1-1.0)
[2022-06-26 06:29] LABS: CREATININE SERUM 0.95 MG/DL (0.60-1.30)
[2022-06-26 07:49] VITALS: BP 138/68
[2022-06-26] MEDS: VITAMIN D3 25 MCG (1,000 UNITS) TABLET PO SCH (08:22)
[2022-06-26] MEDS: SERTRALINE 100 MG (ZOLOFT) TAB PO SCH (08:23)
[2022-06-26] MEDS: LOSARTAN 100 MG (COZAAR) TABLET PO SCH (08:23)
[2022-06-26] MEDS: KCL 10 MEQ TAB (MICRO K) PO SCH (08:23)
[2022-06-26] MEDS: amLODIPine 10 MG (NORVASC) TAB PO SCH (08:23)
[2022-06-26] MEDS: DOCUSATE SODIUM 100 MG (COLACE) CAP PO SCH ×2 (08:24→19:09)
[2022-06-26] MEDS: SENNOSIDES 8.6 MG (SENOKOT) TAB PO SCH ×2 (08:24→19:09)
[2022-06-26] MEDS: COLESTIPOL 1 GM (COLESTID) TAB PO SCH ×2 (08:24→20:04)
--- NOTE | 2022-06-26 08:44 | Progress Note ---
Subjective Date Seen by a Provider: Jun 26, 2022 Time Seen by a Provider: 11:00 Subjective/Events-last exam Patient about the same Weakness noted Diarrhea still present Stool studies ordered in case c diff present HLIVF PT OT ordered Review of Systems General: Fatigue, Malaise Gastrointestinal: Diarrhea Objective Exam Last Set of Vital Signs Vital Signs Date Time Temp Pulse Resp B/P (MAP) Pulse Ox O2 Delivery O2 Flow Rate FiO2 06/26/22 07:49 36.8 56 18 138/68 (91) 92 Room Air Capillary Refill : Less Than 3 Seconds I&O Intake and Output 06/26/22 00:00 Intake Total 1549 ml Output Total 730 ml Balance 819 ml Intake Oral 499 ml IV Total 1050 ml Output Urine Total 730 ml Daily Weight Change Yes, 2-13 lbs General: Alert, Oriented X3, Cooperative, No Acute Distress Lungs: Clear to Auscultation, Normal Air Movement Heart: Regular Rate, Normal S1, Normal S2, No Murmurs Psych/Mental Status: Mental Status NL, Mood NL Results Lab Laboratory Tests 06/25/22 13:03: White Blood Count 6.6, Red Blood Count 4.42, Hemoglobin 13.4, Hematocrit 40, Mean Corpuscular Volume 90, Mean Corpuscular Hemoglobin 30, Mean Corpuscular Hemoglobin Concent 34, Red Cell Distribution Width 13.3, Platelet Count 213, Mean Platelet Volume 11.0, Immature Granulocyte % (Auto) 0, Neutrophils (%) (Auto) 70, Lymphocytes (%) (Auto) 20, Monocytes (%) (Auto) 9, Eosinophils (%) (Auto) 1, Basophils (%) (Auto) 0, Neutrophils # (Auto) 4.6, Lymphocytes # (Auto) 1.3, Monocytes # (Auto) 0.6, Eosinophils # (Auto) 0.1, Basophils # (Auto) 0.0, Immature Granulocyte # (Auto) 0.0, Sodium Level 138, Potassium Level 4.3, Chloride Level 106, Carbon Dioxide Level 24, Anion Gap 8, Blood Urea Nitrogen 12, Creatinine 1.20, Estimat Glomerular Filtration Rate 64, BUN/Creatinine Ratio 10, Glucose Level 115H, Calcium Level 9.4, Corrected Calcium 9.6, Magnesium Level 1.8, Total Bilirubin 0.6, Aspartate Amino Transf (AST/SGOT) 26, Alanine Aminotransferase (ALT/SGPT) 27, Alkaline Phosphatase 188H, Total Protein 6.8, Albumin 3.7 06/25/22 13:42: Urine Color YELLOW, Urine Clarity CLEAR, Urine pH 6.5, Urine Specific [place] 1.010L, Urine Protein NEGATIVE, Urine Glucose (UA) NEGATIVE, Urine Ketones NEGATIVE, Urine Nitrite NEGATIVE, Urine Bilirubin NEGATIVE, Urine Urobilinogen 0.2, Urine Leukocyte Esterase 2+H, Urine RBC (Auto) NEGATIVE, Urine RBC 2-5H, Urine WBC 5-10H, Urine Squamous Epithelial Cells RARE, Urine Crystals NONE, Uri ne Bacteria FEWH, Urine Casts PRESENT, Urine Hyaline Casts 2-5H, Urine Mucus MODERATEH, Urine Culture Indicated NO, Influenza Type A (RT-PCR) Not Detected, Influenza Type B (RT-PCR) Not Detected, SARS-CoV-2 RNA (RT-PCR) Not Detected 06/26/22 05:53: White Blood Count 3.6L, Red Blood Count 3.56L, Hemoglobin 10.9L, Hematocrit 32L, Mean Corpuscular Volume 90, Mean Corpuscular Hemoglobin 31, Mean Corpuscular Hemoglobin Concent 34, Red Cell Distribution Width 13.2, Platelet Count 162, Mean Platelet Volume 11.3, Immature Granulocyte % (Auto) 0, Neutrophils (%) (Auto) 43, Lymphocytes (%) (Auto) 42, Monocytes (%) (Auto) 11, Eosinophils (%) (Auto) 3, Basophils (%) (Auto) 1, Neutrophils # (Auto) 1.6L, Lymphocytes # (Auto) 1.5, Monocytes # (Auto) 0.4, Eosinophils # (Auto) 0.1, Basophils # (Auto) 0.0, Immature Granulocyte # (Auto) 0.0, Sodium Level 141, Potassium Level 3.7, Chloride Level 111H, Carbon Dioxide Level 22, Anion Gap 8, Blood Urea Nitrogen 12, Creatinine 0.95, Estimat Glomerular Filtration Rate 85, BUN/Creatinine Ratio 13, Glucose Level 92, Calcium Level 8.5, Corrected Calcium 9.4, Total Bilirubin 0.3, Aspartate Amino Transf (AST/SGOT) 22, Alanine Aminotransferase (ALT/SGPT) 21, Alkaline Phosphatase 148H, Total Protein 5.4L, Albumin 2.9L Assessment/Plan Assessment/Plan Assess & Plan/Chief Complaint Assessment: Severe weakness Acute on chronic diarrhea Recent hip fracture Acute UTI PD HTN PTSD Depression h/o liver cancer s/o cryotherapy Plan: Monitor closely PT OT Fall risk Tomasa Solis HLIVF ROBBIE HUYNH DO Jun 26, 2022 08:44
[2022-06-26 11:23] VITALS: BP 134/68
[2022-06-26] MEDS ORDERED: DIPHENOXYLATE/ATROPINE 2.5MG/0.025MG (LOMOTIL) TAB PO NR (12:00)
--- NOTE | 2022-06-26 12:38 | Physical Therapy Evaluation ---
PT Evaluation-General Medical Diagnosis Admission Date Jun 25, 2022 at 16:20 Medical Diagnosis: UTI, weakness Onset Date: Jun 25, 2022 Therapy Diagnosis Therapy Diagnosis: weakness Precautions Precautions/Isolations: Fall Prevention, Standard Precautions Weight Bear Status Right Lower Extremity: Right Full Weight Bearing Left Lower Extremity: Left Weight Bearing/Tolerated Referral Physician: Ute Reason for Referral: Evaluation/Treatment Medical History Pertinent Medical History: HTN, Parkinson's Additional Medical History (L) hip ORIF, former smoker, high cholesterol, liver CA, hypothyroidism, PTSD Current History Pt presented with diarrhea and UTI, weakness Reviewed History: Yes Social History Home: Single Level Current Living Status: Children Entry Into Home: Stairs With Railing PT Steps Into Home: 4 Prior Prior Level of Function SCALE: Activities may be completed with or without assistive devices. 9-Tfecnfjlej-seypeij completes the activity by him/herself with no assistance from a helper. 5-Set-up or Clean-up Assistance-helper sets up or cleans up; patient completes activity. [place] assists only prior to or following the activity. 4-Supervision or Touching Assistance-helper provides verbal cues and/or touching/steadying and/or contact guard assistance as patient completes activity. Assistance may be provided throughout the activity or intermittently. 3-Partial/Moderate Assistance-helper does LESS THAN HALF the effort. [place] lifts, holds or supports trunk or limbs, but provides less than half the effort. 2-Substantial/Maximal Assistance-helper does MORE THAN HALF the effort. [place] lifts or holds trunk or limbs and provides more than half the effort. 7-Dponyqbix-blnacd does ALL the effort. Patient does none of the effort to complete the activity. Or, the assistance of 2 or more helpers is required for the patient to complete the activity. If activity was not attempted, code reason: 7-Patient Refused. 9-Not Applicable-not attempted and the patient did not perform the activity before the current illness, exacerbation or injury. 10-Not Attempted due to Environmental Limitations-(lack of equipment, weather restraints, etc.). 88-Not Attempted due to Medical Conditions or Safety Concerns. Bed Mobility: 6 Transfers (B,C,W/C): 6 Gait: 6 Stairs: 6 Wheelchair Mobility: 9 Indoor Mobility (Ambulation): Independent Stairs: Independent Prior Devices Use: Walker (4WW) PT Evaluation-Current Subjective Pt in bed, agreeable with encouragement. "I'll need to get up later." Finally agreeable to stand EOB for depend change. Pain Numeric Pain Scale: 4 Location: Left Location Body Site: Hip Pain Description: Ache Pt/Family Goals Home Objective Patient Orientation: Person, Place, Time, Situation Attachments: IV ROM/Strength ROM Upper Extremities Grossly WFL for mobility ROM Lower Extremities Grossly WFL for mobility Strength Upper Extremities Grossly WFL for mobility Strength Lower Extremities Grossly WFL for mobility Integumentary/Posture Integumentary See nurses' notes Bladder Incontinence: Yes Posture Kyphotic Sensory Vision: Functional Hearing: Hearing Aid/Aides Transfers Sit to Lying (QC): 5 Lying to Sitting/Side of Bed(Q: 5 Sit to Stand (QC): 5 SBA for supine<->sit<->stand; Pt stood (I) at bedside with SBA for depend and bedding change. Stood at FWW with functional posture and no LOB. Gait Does the Patient Walk?: No and Walking Goal IS indicated Mode of Locomotion: Walk Anticipated Mode of Locomotion: Walk Balance Sitting Static: Normal Sitting Dynamic: Normal Standing Static: Good Standing Dynamic: Fair Treatment Pt's gown wet. Gown changed, however, Pt's current gown did not have snaps. Requested RN to remove IV to remove saturated gown. Agreeable. Assessment/Needs Pt would benefit from short term skilled PT to improve functional strength and functional activity tolerance to allow return home with son. Rehab Potential: Good PT Short Term Goals Short Term Goals Time Frame: Jun 30, 2022 Roll Left & Right: 6 Sit to lyin Lying to sitting on side of be: 6 Sit to stand: 6 PT Assisted Goals It Architecture Consultant Goals PT Assisted Goals Time Frame: Jul 03, 2022 Roll Left & Right (QC): 6 Sit to Lying (QC): 6 Lying-Sitting on Side/Bed(QC): 6 Sit to Stand (QC): 6 Chair/Oiu-nh-Tvlrw Xfer(QC): 6 Toilet Transfer (QC): 6 Car Transfer (QC): 6 Does the Patient Walk: No and Walking Goal IS indicated Walk 10 feet (QC): 6 Walk 50ft with 2 Turns (QC): 6 Walk 150 ft (QC): 6 Walking 10ft on Uneven Surface: 5 1 Step (curb) (QC): 5 4 Steps (QC): 5 12 Steps (QC): 9 Does the Pt use WC or Scooter?: No Type: N/A Type: N/A PT LTGs established to allow safe return home with son PT Plan Problem List Problem List: Activity Tolerance, Functional Strength, Safety, Balance, Gait, Transfer, Bed Mobility Treatment/Plan Treatment Plan: Continue Plan of Care Treatment Plan: Bed Mobility, Education, Functional Activity Cain, Functional Strength, Gait, Safety, Therapeutic Exercise, Transfers Treatment Duration: Jul 03, 2022 Frequency: 6 times per week Estimated Hrs Per Day: .25 hour per day Patient and/or Family Agrees t: Yes Safety Risks/Education Teaching Recipient: Patient Teaching Methods: Discussion Response to Teaching: Verbalize Understanding PT POC Discharge Recommendations Therapy Discharge Recommendati: Home & Family Time Time In: 1002 Time Out: 1028 DATE: Jun 26, 2022 Total Billed Treatment Time: 26 Total Billed Treatment 1, EVLOWC x 16', FA x 10' CAESAR PRICE DPT Jun 26, 2022 12:37
[2022-06-26] MEDS ORDERED: cefTRIAXone 1 GM PRE-MIX 50 ML IV SCH (15:00)
[2022-06-26 15:38] VITALS: BP 146/73
[2022-06-26] MEDS: ENOXAPARIN 40 MG/0.4 ML (LOVENOX) SYR SC SCH (16:32)
[2022-06-26 20:03] VITALS: BP 151/76
[2022-06-26] MEDS: QUEtiapine 100 MG (SEROquel) TAB IMMEDIATE RELEASE PO SCH (20:04)
[2022-06-26 23:29] VITALS: BP 143/70
[2022-06-27 03:19] VITALS: BP 119/74
[2022-06-27 05:21] LABS: BASOPHILS % (AUTO) 1 % (0-10); EOSINOPHILS # (AUTO) 0.1 10^3/uL (0.0-0.3); EOSINOPHILS % (AUTO) 2 % (0-10); HEMATOCRIT 33 % (40-54); HEMOGLOBIN 11.2 g/dL (13.3-17.7); LYMPHOCYTES # (AUTO) 1.5 10^3/uL (1.0-4.0); LYMPHOCYTES % (AUTO) 39 % (12-44); MEAN CORPUSCULAR HEMOGLOBIN 31 pg (25-34); MEAN CORPUSCULAR HGB CONC 34 g/dL (32-36); MEAN CORPUSCULAR VOLUME 91 fL (80-99); MEAN PLATELET VOLUME 11.1 fL (9.0-12.2); MONOCYTES # (AUTO) 0.5 10^3/uL (0.0-1.0); MONOCYTES % (AUTO) 13 % (0-12); NEUTROPHILS # (AUTO) 1.7 10^3/uL (1.8-7.8); NEUTROPHILS % (AUTO) 45 % (42-75); PLATELET COUNT 152 10^3/uL (130-400); WHITE BLOOD COUNT 3.8 10^3/uL (4.3-11.0)
[2022-06-27 05:28] LABS: POTASSIUM 3.6 MMOL/L (3.6-5.0)
[2022-06-27] MEDS: LEVOTHYROXINE 50 MCG (LEVOTHROID) TAB PO SCH (05:28)
[2022-06-27 05:30] LABS: CALCIUM 8.5 MG/DL (8.5-10.1)
[2022-06-27 05:31] LABS: TOTAL PROTEIN 5.5 GM/DL (6.4-8.2)
[2022-06-27 05:33] LABS: BILIRUBIN,TOTAL 0.3 MG/DL (0.1-1.0)
[2022-06-27 05:34] LABS: CREATININE SERUM 0.97 MG/DL (0.60-1.30)
--- NOTE | 2022-06-27 07:34 | Progress Note ---
Subjective Date Seen by a Provider: Jun 27, 2022 Time Seen by a Provider: 11:00 Subjective/Events-last exam Still weak No pain reported Diarrhea still present but nurse aide reports he had 3 formed stools Very debilitated Needs skilled care at DC likely DC abx C diff negative Review of Systems General: Fatigue, Malaise Gastrointestinal: Diarrhea Objective Exam Last Set of Vital Signs Vital Signs Date Time Temp Pulse Resp B/P (MAP) Pulse Ox O2 Delivery O2 Flow Rate FiO2 06/27/22 03:19 36.2 65 16 119/74 (89) 94 Room Air Capillary Refill : Less Than 3 Seconds I&O Intake and Output 06/27/22 00:00 Intake Total 2260 ml Output Total 1625 ml Balance 635 ml Intake Oral 1260 ml IV Total 1000 ml Output Urine Total 1625 ml # Voids 1 # Bowel Movements 2 General: Alert, Oriented X3, Cooperative, No Acute Distress Lungs: Clear to Auscultation, Normal Air Movement Heart: Regular Rate, Normal S1, Normal S2, No Murmurs Psych/Mental Status: Mental Status NL, Mood NL Results Lab Laboratory Tests 06/27/22 05:11: White Blood Count 3.8L, Red Blood Count 3.64L, Hemoglobin 11.2L, Hematocrit 33L, Mean Corpuscular Volume 91, Mean Corpuscular Hemoglobin 31, Mean Corpuscular Hemoglobin Concent 34, Red Cell Distribution Width 13.5, Platelet Count 152, Mean Platelet Volume 11.1, Immature Granulocyte % (Auto) 0, Neutrophils (%) (Auto) 45, Lymphocytes (%) (Auto) 39, Monocytes (%) (Auto) 13H, Eosinophils (%) (Auto) 2, Basophils (%) (Auto) 1, Neutrophils # (Auto) 1.7L, Lymphocytes # (Auto) 1.5, Monocytes # (Auto) 0.5, Eosinophils # (Auto) 0.1, Basophils # (Auto) 0.0, Immature Granulocyte # (Auto) 0.0, Sodium Level 140, Potassium Level 3.6, Chloride Level 111H, Carbon Dioxide Level 20L, Anion Gap 9, Blood Urea Nitrogen 15, Creatinine 0.97, Estimat Glomerular Filtration Rate 82, BUN/Creatinine Ratio 15, Glucose Level 103, Calcium Level 8.5, Corrected Calcium 9.3, Total Bilirubin 0.3, Aspartate Amino Transf (AST/SGOT) 23, Alanine Aminotransferase (ALT/SGPT) 22, Alkaline Phosphatase 160H, Total Protein 5.5L, Albumin 3.0L Assessment/Plan Assessment/Plan Assess & Plan/Chief Complaint Assessment: Severe weakness Acute on chronic diarrhea Recent hip fracture Acute UTI completed Rocephin PD HTN PTSD Depression h/o liver cancer s/o cryotherapy Plan: Monitor closely PT OT Fall risk Rocephin Colestid HLIVF ROBBIE HUYNH DO Jun 27, 2022 07:34
[2022-06-27 08:15] VITALS: BP 145/80
[2022-06-27] MEDS: amLODIPine 10 MG (NORVASC) TAB PO SCH (09:21)
[2022-06-27] MEDS: KCL 10 MEQ TAB (MICRO K) PO SCH (09:21)
[2022-06-27] MEDS: SERTRALINE 100 MG (ZOLOFT) TAB PO SCH (09:21)
[2022-06-27] MEDS: LOSARTAN 100 MG (COZAAR) TABLET PO SCH (09:21)
[2022-06-27] MEDS: VITAMIN D3 25 MCG (1,000 UNITS) TABLET PO SCH (09:21)
[2022-06-27] MEDS: COLESTIPOL 1 GM (COLESTID) TAB PO SCH ×2 (09:22→19:24)
[2022-06-27] MEDS: SENNOSIDES 8.6 MG (SENOKOT) TAB PO SCH ×2 (09:34→19:24)
[2022-06-27] MEDS: DOCUSATE SODIUM 100 MG (COLACE) CAP PO SCH ×2 (09:34→19:24)
[2022-06-27 11:59] VITALS: BP 130/78
[2022-06-27 15:20] VITALS: BP 124/64
[2022-06-27] MEDS: ENOXAPARIN 40 MG/0.4 ML (LOVENOX) SYR SC SCH (17:14)
[2022-06-27 19:02] VITALS: BP 131/73
[2022-06-27] MEDS: QUEtiapine 100 MG (SEROquel) TAB IMMEDIATE RELEASE PO SCH (19:24)
[2022-06-27 23:11] VITALS: BP 135/71
[2022-06-28 03:20] VITALS: BP 137/72
[2022-06-28] MEDS: LEVOTHYROXINE 50 MCG (LEVOTHROID) TAB PO SCH (05:31)
[2022-06-28 05:56] LABS: BASOPHILS % (AUTO) 1 % (0-10); EOSINOPHILS # (AUTO) 0.1 10^3/uL (0.0-0.3); EOSINOPHILS % (AUTO) 3 % (0-10); HEMATOCRIT 33 % (40-54); LYMPHOCYTES # (AUTO) 1.5 10^3/uL (1.0-4.0); LYMPHOCYTES % (AUTO) 37 % (12-44); MEAN CORPUSCULAR HEMOGLOBIN 30 pg (25-34); MEAN CORPUSCULAR HGB CONC 33 g/dL (32-36); MEAN CORPUSCULAR VOLUME 90 fL (80-99); MEAN PLATELET VOLUME 11.2 fL (9.0-12.2); MONOCYTES # (AUTO) 0.4 10^3/uL (0.0-1.0); MONOCYTES % (AUTO) 11 % (0-12); NEUTROPHILS # (AUTO) 2.1 10^3/uL (1.8-7.8); NEUTROPHILS % (AUTO) 49 % (42-75); PLATELET COUNT 153 10^3/uL (130-400); WHITE BLOOD COUNT 4.2 10^3/uL (4.3-11.0)
[2022-06-28 06:13] LABS: POTASSIUM 3.4 MMOL/L (3.6-5.0)
[2022-06-28 06:15] LABS: CALCIUM 8.6 MG/DL (8.5-10.1)
[2022-06-28 06:16] LABS: TOTAL PROTEIN 5.5 GM/DL (6.4-8.2)
[2022-06-28 06:18] LABS: BILIRUBIN,TOTAL 0.3 MG/DL (0.1-1.0)
[2022-06-28 06:19] LABS: CREATININE SERUM 1.08 MG/DL (0.60-1.30)
[2022-06-28 07:51] VITALS: BP 155/89
[2022-06-28] MEDS: COLESTIPOL 1 GM (COLESTID) TAB PO SCH ×2 (08:23→20:25)
[2022-06-28] MEDS: VITAMIN D3 25 MCG (1,000 UNITS) TABLET PO SCH (08:23)
[2022-06-28] MEDS: SERTRALINE 100 MG (ZOLOFT) TAB PO SCH (08:23)
[2022-06-28] MEDS: LOSARTAN 100 MG (COZAAR) TABLET PO SCH (08:23)
[2022-06-28] MEDS: amLODIPine 10 MG (NORVASC) TAB PO SCH (08:23)
[2022-06-28] MEDS: KCL 10 MEQ TAB (MICRO K) PO SCH (08:24)
[2022-06-28] MEDS: DOCUSATE SODIUM 100 MG (COLACE) CAP PO SCH ×2 (08:30→20:25)
[2022-06-28] MEDS: SENNOSIDES 8.6 MG (SENOKOT) TAB PO SCH ×2 (08:30→20:25)
--- NOTE | 2022-06-28 08:33 | Occupational Therapy Eval ---
OT Evaluation-General/PLF Medical Diagnosis Admission Date Jun 25, 2022 at 16:20 Medical Diagnosis: UTI, weakness Onset Date: Jun 25, 2022 Therapy Diagnosis Therapy Diagnosis: weakness, debility, decreased balance Precautions Precautions/Isolations: Fall Prevention, Standard Precautions Weight Bear Status Weight Bearing Restriction: Full Weight Bearing Referral Physician: Ute Brown Reason: Activity Tolerance, Self Care, Evaluation/Treatment Medical History Pertinent Medical History: HTN, Parkinson's Additional Medical History Liver Cancer, UTI, HN, PTSD Current History Patient reports increased weakness, LOB increased falls. Reviewed History: Yes Social History Home: Single Level Current Living Status: Children Entry Into Home: Stairs With Railing Steps Into Home: 4 ADL-Prior Level of Function SCALE: Activities may be completed with or without assistive devices. 1-Qcvfqxovbw-bwkaidd completes the activity by him/herself with no assistance from a helper. 5-Set-up or Clean-up Assistance-helper sets up or cleans up; patient completes activity. [place] assists only prior to or following the activity. 4-Supervision or Touching Assistance-helper provides verbal cues and/or touching/steadying and/or contact guard assistance as patient completes activity. Assistance may be provided throughout the activity or intermittently. 3-Partial/Moderate Assistance-helper does LESS THAN HALF the effort. [place] lifts, holds or supports trunk or limbs, but provides less than half the effort. 2-Substantial/Maximal Assistance-helper does MORE THAN HALF the effort. [place] lifts or holds trunk or limbs and provides more than half the effort. 0-Jildljyow-suxtab does ALL the effort. Patient does none of the effort to complete the activity. Or, the assistance of 2 or more helpers is required for the patient to complete the activity. If activity was not attempted, code reason: 7-Patient Refused. 9-Not Applicable-not attempted and the patient did not perform the activity before the current illness, exacerbation or injury. 10-Not Attempted due to Environmental Limitations-(lack of equipment, weather restraints, etc.). 88-Not Attempted due to Medical Conditions or Safety Concerns. Self Care: Independent Functional Cognition: Independent Drive Self: No OT Current Status Subjective Agreeable to OT. Pain Numeric Pain Scale: 0-No Pain Mental Status/Objective Patient Orientation: Person, Place, Time, Situation Current Upper Extremity ROM BUE ROM WFLs Upper Extremity Strength +3/5 BUE grossly ADL-Treatment Eating (QC): 6 Oral Hygiene (QC): 5 (sitting) Shower/Bathe Self (QC): 7 Upper Body Dressing (QC): 4 (slow moving) Lower Body Dressing (QC): 3 (requires rocking momentum to stand on second attempt from bed.) On/Off Footwear (QC): 3 Toileting Hygiene (QC): 3 (poor jensen care noted) Other Treatments Static and dynamic balance activity d/t patient reports frequent falls at home Education OT Patient Education: Correct positioning, Energy conservation, Exercise program, Modified ADL techniques, Progress toward Goal/Update tx plan, Purpose of tx/functional activities, Reviewed precautions, Rehab process, Safety issues, Transfer techniques, Use of adapted equipment Teaching Recipient: Patient Teaching Methods: Demonstration Response to Teaching: Verbalize Understanding, Reinforcement Needed Fall in April 2022 w/ resulting hip fx and hospital/[facility] rehab stay. DC 05/27/22 home w/ family and HHC OT Pedodontist Goals Pedodontist Goals 1=Demonstrate adherence to instructed precautions during ADL tasks. 2=Patient will verbalize/demonstrate understanding of assistive devices/modifications for ADL. 3=Patient will improve strength/tolerance for activity to enable patient to perform ADL's. OT Education/Plan Problem List/Assessment Assessment: Decreased Activ Tolerance, Decreased Safety Aware, Decreased UE Strength, Impaired Coordination, Impaired Funct Balance, Impaired Self-Care Skills Discharge Recommendations Plan/Recommendations: Continue POC Treatment Plan/Plan of Care Treatment,Training & Education: Yes Patient would benefit from OT for education, treatment and training to promote independence in ADL's, mobility, safety and/or upper extremity function for ADL's. Plan of Care: ADL Retraining, Functional Mobility, Group Exercise/Act as Ind, UE Funct Exercise/Act Treatment Duration: Jul 03, 2022 Frequency: 3 times per week (3-5 times per week) Estimated Hrs Per Day: .25 hour per day Agreement: Yes Rehab Potential: Good Remains up in chair w/ breakfast, all needs met Time Start Time: 08:14 Stop Time: 08:37 DATE: Jun 28, 2022 Total Time Billed (hr/min): 23 Billed Treatment Time ADM, FA 1 23 min LIZBETH WALLACE OT Jun 28, 2022 08:33
--- NOTE | 2022-06-28 09:51 | Physical Therapy Daily Note ---
PT Daily Note-Current Subjective Patient agrees to PT. Pain Numeric Pain Scale: 0-No Pain Location: No Pain Reported Section J - Health Conditions 1. Rarely or not at all 2. Occasionally 3. Frequently 4. Almost constantly 8. Unable to answer Pain Effect on Sleep: 1 Pain Interference with Therapy: 1 Pain Interference w/Day-to-Day: 1 Mental Status Patient Orientation: Normal For Age Transfers SCALE: Activities may be completed with or without assistive devices. 7-Uowhnegkeq-vibwgti completes the activity by him/herself with no assistance from a helper. 5-Set-up or Clean-up Assistance-helper sets up or cleans up; patient completes activity. [place] assists only prior to or following the activity. 4-Supervision or Touching Assistance-helper provides verbal cues and/or touc kendrick/steadying and/or contact guard assistance as patient completes activity. Assistance may be provided throughout the activity or intermittently. 3-Partial/Moderate Assistance-helper does LESS THAN HALF the effort. [place] lifts, holds or supports trunk or limbs, but provides less than half the effort. 2-Substantial/Maximal Assistance-helper does MORE THAN HALF the effort. [place] lifts or holds trunk or limbs and provides more than half the effort. 0-Qtollfvwh-blfzcv does ALL the effort. Patient does none of the effort to complete the activity. Or, the assistance of 2 or more helpers is required for the patient to complete the activity. If activity was not attempted, code reason: 7-Patient Refused. 9-Not Applicable-not attempted and the patient did not perform the activity before the current illness, exacerbation or injury. 10-Not Attempted due to Environmental Limitations-(lack of equipment, weather restraints, etc.). 88-Not Attempted due to Medical Conditions or Safety Concerns. Lying to Sitting/Side of Bed(Q: 4 Sit to Stand (QC): 4 Chair/Qst-pr-Ckoyy Xfer(QC): 4 Weight Bearing Right Lower Extremity: Right Full Weight Bearing Left Lower Extremity: Left Weight Bearing/Tolerated Gait Training Distance: 10' x 2 Walk 10 feet (QC): 4 Gait Assistive Device: FWW functional gait sequence Exercises Seated Therapy Exercises: Ankle pumps, Long arc quads Seated Reps: 15 Assessment Patient up in recliner with breakfast in situ. PT to increase activity as tolerated by patient. Patient ceased treatment due to breakfast. PT Short Term Goals Short Term Goals Time Frame: Jun 30, 2022 Roll Left & Right: 6 Sit to lyin Lying to sitting on side of be: 6 Sit to stand: 6 PT Plastic And Reconstructive Surgeon Goals [facility] Goals PT [facility] Goals Time Frame: Jul 03, 2022 Roll Left & Right (QC): 6 Sit to Lying (QC): 6 Lying-Sitting on Side/Bed(QC): 6 Sit to Stand (QC): 6 Chair/Ylf-oo-Zhbno Xfer(QC): 6 Toilet Transfer (QC): 6 Car Transfer (QC): 6 Does the Patient Walk: No and Walking Goal IS indicated Walk 10 feet (QC): 6 Walk 50ft with 2 Turns (QC): 6 Walk 150 ft (QC): 6 Walking 10ft on Uneven Surface: 5 1 Step (curb) (QC): 5 4 Steps (QC): 5 12 Steps (QC): 9 Does the Pt use WC or Scooter?: No Type: N/A Type: N/A PT Plan Treatment/Plan Treatment Plan: Continue Plan of Care Treatment Plan: Bed Mobility, Education, Functional Activity Cain, Functional Strength, Gait, Safety, Therapeutic Exercise, Transfers Treatment Duration: Jul 03, 2022 Frequency: 6 times per week Estimated Hrs Per Day: .25 hour per day Patient and/or Family Agrees t: Yes Time Time In: 803 Time Out: 815 DATE: Jun 28, 2022 Total Billed Treatment Time: 12 Total Billed Treatment 1 visit FA 12 min DAE GOMEZ PT Jun 28, 2022 09:51
[2022-06-28] MEDS: TAMSULOSIN 0.4 MG (FLOMAX) CAP PO SCH ×2 (10:46→20:25)
[2022-06-28 11:44] VITALS: BP 155/82
[2022-06-28] MEDS ORDERED: QUEtiapine 100 MG (SEROquel) TAB IMMEDIATE RELEASE PO PRN (11:45)
[2022-06-28 12:03] VITALS: BP 155/82
--- NOTE | 2022-06-28 12:28 | Progress Note ---
MAGI BARRIGA 06/28/22 1228: Subjective Date Seen by a Provider: Jun 28, 2022 Time Seen by a Provider: 10:00 Subjective/Events-last exam Mr. Kim says he is feeling the same today. He says he is still having diarrhea, though nursing reports his last 4-5 BMs have been small, soft and formed. He reports that he has still been having multiple falls at home and that he last fell on . He attributes this to his feeling of weakness which has been present for a long time. He also says he has not been having any pain with urination, but says he has to urinate frequently and suddenly when he gets the urge. Nursing charted 7 voids yesterday. When asked about placement he said "I wouldn't send my dog to [facility]." He denies pain, constipation, vision changes, SOB. Review of Systems Pulmonary: No Dyspnea Cardiovascular: No: Chest Pain Gastrointestinal: No: Constipation Genitourinary: No Dysuria; Frequency Objective Exam Last Set of Vital Signs Vital Signs Date Time Temp Pulse Resp B/P (MAP) Pulse Ox O2 Delivery O2 Flow Rate FiO2 06/28/22 12:03 37.0 58 96 06/28/22 11:44 18 155/82 (106) Room Air Capillary Refill : Less Than 3 Seconds I&O Intake and Output 06/28/22 00:00 Intake Total 1784 ml Output Total 930 ml Balance 854 ml Intake Oral 1784 ml Output Urine Total 930 ml # Voids 7 General: Alert, Oriented X3, Cooperative, No Acute Distress HEENT: Atraumatic, PERRLA Neck: Supple, No JVD Lungs: Clear to Auscultation Heart: Regular Rate, Normal S1, Normal S2 Abdomen: Normal Bowel Sounds, Soft, No Tenderness Extremities: No Clubbing, No Cyanosis, No Edema, Normal Pulses Neuro: Normal Gait, Normal Speech, Strength at 5/5 X4 Ext, Reflexes 2+ Results Lab Laboratory Tests 06/28/22 05:40: White Blood Count 4.2L, Red Blood Count 3.65L, Hemoglobin 11.0L, Hematocrit 33L, Mean Corpuscular Volume 90, Mean Corpuscular Hemoglobin 30, Mean Corpuscular Hemoglobin Concent 33, Red Cell Distribution Width 13.3, Platelet Count 153, Mean Platelet Volume 11.2, Immature Granulocyte % (Auto) 0, Neutrophils (%) (Auto) 49, Lymphocytes (%) (Auto) 37, Monocytes (%) (Auto) 11, Eosinophils (%) (Auto) 3, Basophils (%) (Auto) 1, Neutrophils # (Auto) 2.1, Lymphocytes # (Auto) 1.5, Monocytes # (Auto) 0.4, Eosinophils # (Auto) 0.1, Basophils # (Auto) 0.0, Immature Granulocyte # (Auto) 0.0, Sodium Level 140, Potassium Level 3.4L, Chloride Level 110H, Carbon Dioxide Level 20L, Anion Gap 10, Blood Urea Nitrogen 16, Creatinine 1.08, Estimat Glomerular Filtration Rate 72, BUN/Creatinine Ratio 15, Glucose Level 95, Calcium Level 8.6, Corrected Calcium 9.4, Total Bilirubin 0.3, Aspartate Amino Transf (AST/SGOT) 23, Alanine Aminotransferase (ALT/SGPT) 23, Alkaline Phosphatase 162H, Total Protein 5.5L, Albumin 3.0L Microbiology 06/26/22 C. difficile GDH Antigen & Toxins - Final, Complete Assessment/Plan Assessment/Plan Assess & Plan/Chief Complaint Diarrhea -c diff negative -seems to be resolved, having formed BMs -continue current bowel regimen with colestipol Chronic Weakness -electrolytes wnl -likely sarcopenic following recent hospitalization for hip fracture -will need PT/OT eval Urinary frequency -Flomax started -Rocephin given, dced Hypothyroidism -TSH wnl -levothyroxine on HTN -home meds ANNAMARIA HUYNH DO 06/29/22 0511: Objective Exam General: Alert, Oriented X3, Cooperative, No Acute Distress Lungs: Clear to Auscultation, Normal Air Movement Heart: Regular Rate, Normal S1, Normal S2, No Murmurs Psych/Mental Status: Mental Status NL, Mood NL Supervisory-Addendum Brief Verification & Attestation Participated in pt care: history, MDM, physical Personally performed: exam, history, MDM, supervision of care Care discussed with: Medical Student Procedures: n/a Results interpretation: Verified all documentation Verification and Attestation of Medical Student E/M Service A medical student performed and documented this service in my presence. I reviewed and verified all information documented by the medical student and made modifications to such information, when appropriate. I personally performed the physical exam and medical decision making. Annamaria Huynh, Jun 29, 2022,05:11 MAGI BARRIGA Jun 28, 2022 12:28 ANNAMARIA HUYHN DO Jun 29, 2022 05:11
[2022-06-28] MEDS: ENOXAPARIN 40 MG/0.4 ML (LOVENOX) SYR SC SCH (15:41)
[2022-06-28 16:25] VITALS: BP 132/72
[2022-06-28 19:40] VITALS: BP 145/76
[2022-06-29 00:19] VITALS: BP 157/79
[2022-06-29 04:06] VITALS: BP 145/69
[2022-06-29] MEDS: LEVOTHYROXINE 50 MCG (LEVOTHROID) TAB PO SCH (05:22)
[2022-06-29 05:43] LABS: BASOPHILS % (AUTO) 1 % (0-10); EOSINOPHILS # (AUTO) 0.1 10^3/uL (0.0-0.3); EOSINOPHILS % (AUTO) 2 % (0-10); HEMATOCRIT 33 % (40-54); HEMOGLOBIN 11.2 g/dL (13.3-17.7); LYMPHOCYTES # (AUTO) 1.3 10^3/uL (1.0-4.0); LYMPHOCYTES % (AUTO) 36 % (12-44); MEAN CORPUSCULAR HEMOGLOBIN 30 pg (25-34); MEAN CORPUSCULAR HGB CONC 34 g/dL (32-36); MEAN CORPUSCULAR VOLUME 91 fL (80-99); MEAN PLATELET VOLUME 11.2 fL (9.0-12.2); MONOCYTES # (AUTO) 0.3 10^3/uL (0.0-1.0); MONOCYTES % (AUTO) 9 % (0-12); NEUTROPHILS % (AUTO) 52 % (42-75); PLATELET COUNT 147 10^3/uL (130-400); WHITE BLOOD COUNT 3.8 10^3/uL (4.3-11.0)
[2022-06-29 06:03] LABS: POTASSIUM 3.1 MMOL/L (3.6-5.0)
[2022-06-29 06:04] LABS: CALCIUM 8.5 MG/DL (8.5-10.1)
[2022-06-29 06:05] LABS: TOTAL PROTEIN 5.6 GM/DL (6.4-8.2)
[2022-06-29 06:07] LABS: BILIRUBIN,TOTAL 0.2 MG/DL (0.1-1.0)
[2022-06-29 06:09] LABS: CREATININE SERUM 1.08 MG/DL (0.60-1.30)
[2022-06-29 07:41] VITALS: BP 119/62
[2022-06-29] MEDS: SENNOSIDES 8.6 MG (SENOKOT) TAB PO SCH (09:14)
[2022-06-29] MEDS: TAMSULOSIN 0.4 MG (FLOMAX) CAP PO SCH (09:14)
[2022-06-29] MEDS: KCL 10 MEQ TAB (MICRO K) PO SCH (09:14)
[2022-06-29] MEDS: LOSARTAN 100 MG (COZAAR) TABLET PO SCH (09:14)
[2022-06-29] MEDS: VITAMIN D3 25 MCG (1,000 UNITS) TABLET PO SCH (09:14)
[2022-06-29] MEDS: amLODIPine 10 MG (NORVASC) TAB PO SCH (09:14)
[2022-06-29] MEDS: DOCUSATE SODIUM 100 MG (COLACE) CAP PO SCH (09:14)
[2022-06-29] MEDS: SERTRALINE 100 MG (ZOLOFT) TAB PO SCH (09:14)
[2022-06-29] MEDS: COLESTIPOL 1 GM (COLESTID) TAB PO SCH (09:14)
[2022-06-29] MEDS ORDERED: KCL 10 MEQ TAB (MICRO K) PO SCH ×2 (10:15→18:00)
--- NOTE | 2022-06-29 10:25 | Physical Therapy Daily Note ---
PT Daily Note-Current Subjective Patient agrees to PT. Pain Section J - Health Conditions 1. Rarely or not at all 2. Occasionally 3. Frequently 4. Almost constantly 8. Unable to answer Pain Effect on Sleep: 1 Pain Interference with Therapy: 1 Pain Interference w/Day-to-Day: 1 Mental Status Patient Orientation: Normal For Age Transfers SCALE: Activities may be completed with or without assistive devices. 1-Doawgewfiy-ytokdsp completes the activity by him/herself with no assistance from a helper. 5-Set-up or Clean-up Assistance-helper sets up or cleans up; patient completes activity. [place] assists only prior to or following the activity. 4-Supervision or Touching Assistance-helper provides verbal cues and/or touching/steadying and/or contact guard assistance as patient completes activity. Assistance may be provided throughout the activity or intermittently. 3-Partial/Moderate Assistance-helper does LESS THAN HALF the effort. [place] lifts, holds or supports trunk or limbs, but provides less than half the effort. 2-Substantial/Maximal Assistance-helper does MORE THAN HALF the effort. [place] lifts or holds trunk or limbs and provides more than half the effort. 2-Bddsqxmys-gaomfp does ALL the effort. Patient does none of the effort to complete the activity. Or, the assistance of 2 or more helpers is required for the patient to complete the activity. If activity was not attempted, code reason: 7-Patient Refused. 9-Not Applicable-not attempted and the patient did not perform the activity before the current illness, exacerbation or injury. 10-Not Attempted due to Environmental Limitations-(lack of equipment, weather restraints, etc.). 88-Not Attempted due to Medical Conditions or Safety Concerns. Sit to Lying (QC): 6 Lying to Sitting/Side of Bed(Q: 6 Sit to Stand (QC): 4 Weight Bearing Right Lower Extremity: Right Full Weight Bearing Left Lower Extremity: Left Weight Bearing/Tolerated Gait Training Distance: 350' Walk 10 feet (QC): 4 Walk 50 ft with 2 Turns(QC): 4 Walk 150 ft (QC): 4 Gait Assistive Device: FWW WBOS/functional gait sequence Assessment Patient improved on this date with functional mobility. Patient returned to bed with bed alarm activated for patient's safety. Plan dismissal to home this week per report. PT Short Term Goals Short Term Goals Time Frame: Jun 30, 2022 Roll Left & Right: 6 Sit to lyin Lying to sitting on side of be: 6 Sit to stand: 6 PT Group Home Goals Group Home Goals PT Group Home Goals Time Frame: Jul 03, 2022 Roll Left & Right (QC): 6 Sit to Lying (QC): 6 Lying-Sitting on Side/Bed(QC): 6 Sit to Stand (QC): 6 Chair/Hak-yk-Etlxj Xfer(QC): 6 Toilet Transfer (QC): 6 Car Transfer (QC): 6 Does the Patient Walk: No and Walking Goal IS indicated Walk 10 feet (QC): 6 Walk 50ft with 2 Turns (QC): 6 Walk 150 ft (QC): 6 Walking 10ft on Uneven Surface: 5 1 Step (curb) (QC): 5 4 Steps (QC): 5 12 Steps (QC): 9 Does the Pt use WC or Scooter?: No Type: N/A Type: N/A PT Plan Treatment/Plan Treatment Plan: Continue Plan of Care Treatment Plan: Bed Mobility, Education, Functional Activity Cain, Functional Strength, Gait, Safety, Therapeutic Exercise, Transfers Treatment Duration: Jul 03, 2022 Frequency: 6 times per week Estimated Hrs Per Day: .25 hour per day Patient and/or Family Agrees t: Yes Time Time In: 949 Time Out: 1001 DATE: Jun 29, 2022 Total Billed Treatment Time: 12 Total Billed Treatment 1 visit FA 12 min DAE GOMEZ PT Jun 29, 2022 10:25
[2022-06-29] MEDS ORDERED: OXC5T PO (10:49)
[2022-06-29] MEDS ORDERED: POTA-160 PO (10:49)
[2022-06-29] MEDS ORDERED: TMSL.4C PO (10:49)
--- NOTE | 2022-06-29 10:50 | D/C HH Face to Face Order ---
D/C Face to Face Orders Reconcile Patient Problems Problems Reviewed?: Yes Instructions for Patient Alesia Patient Instructions/FollowUp: PCP DR Unger , 07/08/22 1415 Physician to follow Patient: Ute Discharge Diet for Home: No Restrictions Patient Problems: Chronic diarrhea Patient Data-Allergies,Ht & Wt Patient Allergies: Coded Allergies: codeine (Verified Allergy, Unknown, ITCHING, 06/25/22) Home Health Need/Face to Face Date of Face to Face: Jun 29, 2022 Clinical Findings: Generalized weakness and fatigue, Instability, Muscle weakness, Unsteady gait I have seen Pt [id number]: Yes Discharged To: Home Diagnosis/Conditions: Debility Patient is Homebound due to: Jose fall risk due to instabilty, Muscle weakness Homebound Status Due to the above stated illness, injury or surgical procedure (medical condition or diagnosis) and associated clinical findings, the patient is homebound because of his/her inability to leave home except with aid of a supportive device and/or person AND leaving the home requires a considerable and taxing effort or is medically contraindicated. Pt req the following assistanc: [facility] Nursing Orders Home Health Services Order: Nursing Services, Voltage Regulator Assembler-Evaluate & Treat, Physical Therapy-Evaluate & Treat Home Health Infusion Therapy Line Start Date: Jun 25, 2022 Certify Stmt I certify that this patient is under my care and that I, a nurse practitioner or a physician; a assistant offset press operator working with me, had a face to face encounter that - meets the physician face to face encounter requirements with this patient as dated. ROBBIE UNGER DO Jun 29, 2022 10:50
--- NOTE | 2022-06-29 10:51 | Discharge Summary ---
Diagnosis/Chief Complaint Date of Admission Jun 25, 2022 at 16:20 Date of Discharge Discharge Date: Jun 29, 2022 Discharge Diagnosis Assessment/Plan Assess & Plan/Chief Complaint Diarrhea -c diff negative -seems to be resolved, having formed BMs -continue current bowel regimen with colestipol Chronic Weakness -electrolytes wnl -likely sarcopenic following recent hospitalization for hip fracture -will need PT/OT eval Urinary frequency -Flomax started -Rocephin given, dced Hypothyroidism -TSH wnl -levothyroxine on HTN -home meds Discharge Summary Discharge Physical Examination Allergies: Coded Allergies: codeine (Verified Allergy, Unknown, ITCHING, 06/25/22) Vitals & I&Os Vital Signs Date Time Temp Pulse Resp B/P (MAP) Pulse Ox O2 Delivery O2 Flow Rate FiO2 06/29/22 13:50 36.3 64 20 147/75 95 Room Air 0.00 General Appearance: Alert, Oriented X3, Cooperative Respiratory: Clear to Auscultation Cardiovascular: Regular Rate Psych/Mental Status: Mental Status NL Hospital Course Was the Problem List Reviewed?: Yes Hospital Course: Chad Kim is a 71 yo M w/ hx of chronic diarrhea, hypothyroidism, and HTN who presented for diarrhea and weakness. Over the course of his stay, Chad's main concern was his diarrhea, for which he takes colestipol at home. He was tested for cdiff and it was found to be negative. He had one day of formed stools but continued to have diarrhea the following day. He also complained of urinary frequency. He underwent a bladder scan which was read at 80mL post void. He worked with PT during his stay and was able to walk 500 feet without stopping. His potassium was low and he was started on potassium supplementation. Mr. Kim said he does not feel weak anymore and wants to focus on his diarrheal symptoms. He sees GI outpatient and is agreeable to following up there to continue the workup for chronic diarrhea. Labs (last 24 hrs) Laboratory Tests 06/25/22 13:03: White Blood Count 6.6, Red Blood Count 4.42, Hemoglobin 13.4, Hematocrit 40, Mean Corpuscular Volume 90, Mean Corpuscular Hemoglobin 30, Mean Corpuscular Hemoglobin Concent 34, Red Cell Distribution Width 13.3, Platelet Count 213, Mean Platelet Volume 11.0, Immature Granulocyte % (Auto) 0, Neutrophils (%) (Auto) 70, Lymphocytes (%) (Auto) 20, Monocytes (%) (Auto) 9, Eosinophils (%) (Auto) 1, Basophils (%) (Auto) 0, Neutrophils # (Auto) 4.6, Lymphocytes # (Auto) 1.3, Monocytes # (Auto) 0.6, Eosinophils # (Auto) 0.1, Basophils # (Auto) 0.0, Immature Granulocyte # (Auto) 0.0, Sodium Level 138, Potassium Level 4.3, Chloride Level 106, Carbon Dioxide Level 24, Anion Gap 8, Blood Urea Nitrogen 12, Creatinine 1.20, Estimat Glomerular Filtration Rate 64, BUN/Creatinine Ratio 10, Glucose Level 115H, Calcium Level 9.4, Corrected Calcium 9.6, Magnesium Level 1.8, Total Bilirubin 0.6, Aspartate Amino Transf (AST/SGOT) 26, Alanine Aminotransferase (ALT/SGPT) 27, Alkaline Phosphatase 188H, Total Protein 6.8, Albumin 3.7 06/25/22 13:42: Urine Color YELLOW, Urine Clarity CLEAR, Urine pH 6.5, Urine Specific Mc[place]ur 1.010L, Urine Protein NEGATIVE, Urine Glucose (UA) NEGATIVE, Urine Ketones NEGATIVE, Urine Nitrite NEGATIVE, Urine Bilirubin NEGATIVE, Urine Urobilinogen 0.2, Urine Leukocyte Esterase 2+H, Urine RBC (Auto) NEGATIVE, Urine RBC 2-5H, Urine WBC 5-10H, Urine Squamous Epithelial Cells RARE, Urine Crystals NONE, Urin e Bacteria FEWH, Urine Casts PRESENT, Urine Hyaline Casts 2-5H, Urine Mucus MODERATEH, Urine Culture Indicated NO, Influenza Type A (RT-PCR) Not Detected, Influenza Type B (RT-PCR) Not Detected, SARS-CoV-2 RNA (RT-PCR) Not Detected 06/26/22 05:53: White Blood Count 3.6L, Red Blood Count 3.56L, Hemoglobin 10.9L, Hematocrit 32L, Mean Corpuscular Volume 90, Mean Corpuscular Hemoglobin 31, Mean Corpuscular Hemoglobin Concent 34, Red Cell Distribution Width 13.2, Platelet Count 162, Mean Platelet Volume 11.3, Immature Granulocyte % (Auto) 0, Neutrophils (%) (Auto) 43, Lymphocytes (%) (Auto) 42, Monocytes (%) (Auto) 11, Eosinophils (%) (Auto) 3, Basophils (%) (Auto) 1, Neutrophils # (Auto) 1.6L, Lymphocytes # (Auto) 1.5, Monocytes # (Auto) 0.4, Eosinophils # (Auto) 0.1, Basophils # (Auto) 0.0, Immature Granulocyte # (Auto) 0.0, Sodium Level 141, Potassium Level 3.7, Chloride Level 111H, Carbon Dioxide Level 22, Anion Gap 8, Blood Urea Nitrogen 12, Creatinine 0.95, Estimat Glomerular Filtration Rate 85, BUN/Creatinine Ratio 13, Glucose Level 92, Calcium Level 8.5, Corrected Calcium 9.4, Total Bilirubin 0.3, Aspartate Amino Transf (AST/SGOT) 22, Alanine Aminotransferase (ALT/SGPT) 21, Alkaline Phosphatase 148H, Total Protein 5.4L, Albumin 2.9L 06/27/22 05:11: White Blood Count 3.8L, Red Blood Count 3.64L, Hemoglobin 11.2L, Hematocrit 33L, Mean Corpuscular Volume 91, Mean Corpuscular Hemoglobin 31, Mean Corpuscular Hemoglobin Concent 34, Red Cell Distribution Width 13.5, Platelet Count 152, Mean Platelet Volume 11.1, Immature Granulocyte % (Auto) 0, Neutrophils (%) (Auto) 45, Lymphocytes (%) (Auto) 39, Monocytes (%) (Auto) 13H, Eosinophils (%) (Auto) 2, Basophils (%) (Auto) 1, Neutrophils # (Auto) 1.7L, Lymphocytes # (Auto) 1.5, Monocytes # (Auto) 0.5, Eosinophils # (Auto) 0.1, Basophils # (Auto) 0.0, Immature Granulocyte # (Auto) 0.0, Sodium Level 140, Potassium Level 3.6, Chloride Level 111H, Carbon Dioxide Level 20L, Anion Gap 9, Blood Urea Nitrogen 15, Creatinine 0.97, Estimat Glomerular Filtration Rate 82, BUN/Creatinine Ratio 15, Glucose Level 103, Calcium Level 8.5, Corrected Calcium 9.3, Total Bilirubin 0.3, Aspartate Amino Transf (AST/SGOT) 23, Alanine Aminotransferase (ALT/SGPT) 22, Alkaline Phosphatase 160H, Total Protein 5.5L, Albumin 3.0L 06/28/22 05:40: White Blood Count 4.2L, Red Blood Count 3.65L, Hemoglobin 11.0L, Hematocrit 33L, Mean Corpuscular Volume 90, Mean Corpuscular Hemoglobin 30, Mean Corpuscular Hemoglobin Concent 33, Red Cell Distribution Width 13.3, Platelet Count 153, Mean Platelet Volume 11.2, Immature Granulocyte % (Auto) 0, Neutrophils (%) (Auto) 49, Lymphocytes (%) (Auto) 37, Monocytes (%) (Auto) 11, Eosinophils (%) (Auto) 3, Basophils (%) (Auto) 1, Neutrophils # (Auto) 2.1, Lymphocytes # (Auto) 1.5, Monocytes # (Auto) 0.4, Eosinophils # (Auto) 0.1, Basophils # (Auto) 0.0, Immature Granulocyte # (Auto) 0.0, Sodium Level 140, Potassium Level 3.4L, Chloride Level 110H, Carbon Dioxide Level 20L, Anion Gap 10, Blood Urea Nitrogen 16, Creatinine 1.08, Estimat Glomerular Filtration Rate 72, BUN/Creatinine Ratio 15, Glucose Level 95, Calcium Level 8.6, Corrected Calcium 9.4, Total Bilirubin 0.3, Aspartate Amino Transf (AST/SGOT) 23, Alanine Aminotransferase (ALT/SGPT) 23, Alkaline Phosphatase 162H, Total Protein 5.5L, Albumin 3.0L 06/29/22 05:10: White Blood Count 3.8L, Red Blood Count 3.68L, Hemoglobin 11.2L, Hematocrit 33L, Mean Corpuscular Volume 91, Mean Corpuscular Hemoglobin 30, Mean Corpuscular Hemoglobin Concent 34, Red Cell Distribution Width 13.2, Platelet Count 147, Mean Platelet Volume 11.2, Immature Granulocyte % (Auto) 0, Neutrophils (%) (Auto) 52, Lymphocytes (%) (Auto) 36, Monocytes (%) (Auto) 9, Eosinophils (%) (Auto) 2, Basophils (%) (Auto) 1, Neutrophils # (Auto) 2.0, Lymphocytes # (Auto) 1.3, Monocytes # (Auto) 0.3, Eosinophils # (Auto) 0.1, Basophils # (Auto) 0.0, Immature Granulocyte # (Auto) 0.0, Sodium Level 139, Potassium Level 3.1L, Chloride Level 109H, Carbon Dioxide Level 22, Anion Gap 8, Blood Urea Nitrogen 13, Creatinine 1.08, Estimat Glomerular Filtration Rate 72, BUN/Creatinine Ratio 12, Glucose Level 175H, Calcium Level 8.5, Corrected Calcium 9.3, Total Bilirubin 0.2, Aspartate Amino Transf (AST/SGOT) 28, Alanine Aminotransferase (ALT/SGPT) 25, Alkaline Phosphatase 165H, Total Protein 5.6L, Albumin 3.0L Microbiology 06/26/22 C. difficile [facility] Antigen & Toxins - Final, Complete Pending Labs Microbiology Date/Time Source Procedure Growth Status 06/26/22 21:00 Stool C. difficile GDH Antigen & Toxins - Final Complete Laboratory Tests 06/25/22 13:03: White Blood Count 6.6, Red Blood Count 4.42, Hemoglobin 13.4, Hematocrit 40, Mean Corpuscular Volume 90, Mean Corpuscular Hemoglobin 30, Mean Corpuscular Hemoglobin Concent 34, Red Cell Distribution Width 13.3, Platelet Count 213, Mean Platelet Volume 11.0, Immature Granulocyte % (Auto) 0, Neutrophils (%) (Auto) 70, Lymphocytes (%) (Auto) 20, Monocytes (%) (Auto) 9, Eosinophils (%) (Auto) 1, Basophils (%) (Auto) 0, Neutrophils # (Auto) 4.6, Lymphocytes # (Auto) 1.3, Monocytes # (Auto) 0.6, Eosinophils # (Auto) 0.1, Basophils # (Auto) 0.0, Immature Granulocyte # (Auto) 0.0, Sodium Level 138, Potassium Level 4.3, Chloride Level 106, Carbon Dioxide Level 24, Anion Gap 8, Blood Urea Nitrogen 12, Creatinine 1.20, Estimat Glomerular Filtration Rate 64, BUN/Creatinine Ratio 10, Glucose Level 115, Calcium Level 9.4, Corrected Calcium 9.6, Magnesium Level 1.8, Total Bilirubin 0.6, Aspartate Amino Transf (AST/SGOT) 26, Alanine Aminotransferase (ALT/SGPT) 27, Alkaline Phosphatase 188, Total Protein 6.8, Albumin 3.7 06/25/22 13:42: Urine Color YELLOW, Urine Clarity CLEAR, Urine pH 6.5, Urine Specific [place] 1.010, Urine Protein NEGATIVE, Urine Glucose (UA) NEGATIVE, Urine Ketones NEGATIVE, Urine Nitrite NEGATIVE, Urine Bilirubin NEGATIVE, Urine Urobilinogen 0.2, Urine Leukocyte Esterase 2+, Urine RBC (Auto) NEGATIVE, Urine RBC 2-5, Urine WBC 5-10, Urine Squamous Epithelial Cells RARE, Urine Crystals NONE, Urine Bacteria FEW, Urine Casts PRESENT, Urine Hyaline Casts 2-5, Urine Mucus MODERATE, Urine Culture Indicated NO, Influenza Type A (RT-PCR) Not Detected, Influenza Type B (RT-PCR) Not Detected, SARS-CoV-2 RNA (RT-PCR) Not Detected 06/26/22 05:53: White Blood Count 3.6, Red Blood Count 3.56, Hemoglobin 10.9, Hematocrit 32, Mean Corpuscular Volume 90, Mean Corpuscular Hemoglobin 31, Mean Corpuscular Hemoglobin Concent 34, Red Cell Distribution Width 13.2, Platelet Count 162, Mean Platelet Volume 11.3, Immature Granulocyte % (Auto) 0, Neutrophils (%) (Auto) 43, Lymphocytes (%) (Auto) 42, Monocytes (%) (Auto) 11, Eosinophils (%) (Auto) 3, Basophils (%) (Auto) 1, Neutrophils # (Auto) 1.6, Lymphocytes # (Auto) 1.5, Monocytes # (Auto) 0.4, Eosinophils # (Auto) 0.1, Basophils # (Auto) 0.0, Immature Granulocyte # (Auto) 0.0, Sodium Level 141, Potassium Level 3.7, Chloride Level 111, Carbon Dioxide Level 22, Anion Gap 8, Blood Urea Nitrogen 12, Creatinine 0.95, Estimat Glomerular Filtration Rate 85, BUN/Creatinine Ratio 13, Glucose Level 92, Calcium Level 8.5, Corrected Calcium 9.4, Total Bilirubin 0.3, Aspartate Amino Transf (AST/SGOT) 22, Alanine Aminotransferase (ALT/SGPT) 21, Alkaline Phosphatase 148, Total Protein 5.4, Albumin 2.9 06/27/22 05:11: White Blood Count 3.8, Red Blood Count 3.64, Hemoglobin 11.2, Hematocrit 33, Mean Corpuscular Volume 91, Mean Corpuscular Hemoglobin 31, Mean Corpuscular Hemoglobin Concent 34, Red Cell Distribution Width 13.5, Platelet Count 152, Mean Platelet Volume 11.1, Immature Granulocyte % (Auto) 0, Neutrophils (%) (Auto) 45, Lymphocytes (%) (Auto) 39, Monocytes (%) (Auto) 13, Eosinophils (%) (Auto) 2, Basophils (%) (Auto) 1, Neutrophils # (Auto) 1.7, Lymphocytes # (Auto) 1.5, Monocytes # (Auto) 0.5, Eosinophils # (Auto) 0.1, Basophils # (Auto) 0.0, Immature Granulocyte # (Auto) 0.0, Sodium Level 140, Potassium Level 3.6, Chloride Level 111, Carbon Dioxide Level 20, Anion Gap 9, Blood Urea Nitrogen 15, Creatinine 0.97, Estimat Glomerular Filtration Rate 82, BUN/Creatinine Ratio 15, Glucose Level 103, Calcium Level 8.5, Corrected Calcium 9.3, Total Bilirubin 0.3, Aspartate Amino Transf (AST/SGOT) 23, Alanine Aminotransferase (ALT/SGPT) 22, Alkaline Phosphatase 160, Total Protein 5.5, Albumin 3.0 06/28/22 05:40: White Blood Count 4.2, Red Blood Count 3.65, Hemoglobin 11.0, Hematocrit 33, Mean Corpuscular Volume 90, Mean Corpuscular Hemoglobin 30, Mean Corpuscular Hemoglobin Concent 33, Red Cell Distribution Width 13.3, Platelet Count 153, Mean Platelet Volume 11.2, Immature Granulocyte % (Auto) 0, Neutrophils (%) (Auto) 49, Lymphocytes (%) (Auto) 37, Monocytes (%) (Auto) 11, Eosinophils (%) (Auto) 3, Basophils (%) (Auto) 1, Neutrophils # (Auto) 2.1, Lymphocytes # (Auto) 1.5, Monocytes # (Auto) 0.4, Eosinophils # (Auto) 0.1, Basophils # (Auto) 0.0, Immature Granulocyte # (Auto) 0.0, Sodium Level 140, Potassium Level 3.4, Chloride Level 110, Carbon Dioxide Level 20, Anion Gap 10, Blood Urea Nitrogen 16, Creatinine 1.08, Estimat Glomerular Filtration Rate 72, BUN/Creatinine Ratio 15, Glucose Level 95, Calcium Level 8.6, Corrected Calcium 9.4, Total Bilirubin 0.3, Aspartate Amino Transf (AST/SGOT) 23, Alanine Aminotransferase (ALT/SGPT) 23, Alkaline Phosphatase 162, Total Protein 5.5, Albumin 3.0 06/29/22 05:10: White Blood Count 3.8, Red Blood Count 3.68, Hemoglobin 11.2, Hematocrit 33, Mean Corpuscular Volume 91, Mean Corpuscular Hemoglobin 30, Mean Corpuscular Hemoglobin Concent 34, Red Cell Distribution Width 13.2, Platelet Count 147, Mean Platelet Volume 11.2, Immature Granulocyte % (Auto) 0, Neutrophils (%) (Auto) 52, Lymphocytes (%) (Auto) 36, Monocytes (%) (Auto) 9, Eosinophils (%) (Auto) 2, Basophils (%) (Auto) 1, Neutrophils # (Auto) 2.0, Lymphocytes # (Auto) 1.3, Monocytes # (Auto) 0.3, Eosinophils # (Auto) 0.1, Basophils # (Auto) 0.0, Immature Granulocyte # (Auto) 0.0, Sodium Level 139, Potassium Level 3.1, Chloride Level 109, Carbon Dioxide Level 22, Anion Gap 8, Blood Urea Nitrogen 13, Creatinine 1.08, Estimat Glomerular Filtration Rate 72, BUN/Creatinine Ratio 12, Glucose Level 175, Calcium Level 8.5, Corrected Calcium 9.3, Total Bilirubin 0.2, Aspartate Amino Transf (AST/SGOT) 28, Alanine Aminotransferase (ALT/SGPT) 25, Alkaline Phosphatase 165, Total Protein 5.6, Albumin 3.0 Discharge Home Medications: Active Scripts Active Klor-Con 10 (Potassium Chloride) 10 Meq Tablet.er 20 Meq PO BID WITH MEALS Oxyir Tablet (Oxycodone HCl) 5 Mg Tab 2.5-5 Mg PO Q8H PRN Flomax (Tamsulosin HCl) 0.4 Mg Cap 0.4 Mg PO BID Reported Quetiapine Fumarate 100 Mg Tablet 50 Mg PO HS PRN TAKES OF A 100MG TAB Levothyroxine Sodium 50 Mcg Tablet 50 Mcg PO DAILY Vitamin D3 (Cholecalciferol (Vitamin D3)) 50 Mcg (2000 Unit) Capsule 50 Mcg PO DAILY Colestipol HCl 1 Gram Tablet 1 Gm PO BID LAST FILLED 04-09-2022 #60/30 DAY SUPPLY Lomotil 2.5-0.025 mg Tablet (Diphenoxylate HCl/Atropine) 2.5 Mg-0.025 Mg Tablet 1 Each PO DAILY Sertraline HCl 100 Mg Tablet 200 Mg PO DAILY TAKES 2 (100MG) TABS Losartan Potassium 100 Mg Tablet 100 Mg PO DAILY Amlodipine Besylate 10 Mg Tablet 10 Mg PO DAILY Instructions to patient/family Please see electronic discharge instructions given to patient. ROBBIE HUYNH DO Jun 29, 2022 10:51
--- NOTE | 2022-06-29 11:47 | Progress Note ---
MAGI BARRIGA 06/29/22 1147: Progress Note Hospital Course: Chad Kim is a 71 yo M w/ hx of chronic diarrhea, hypothyroidism, and HTN who presented for diarrhea and weakness. Over the course of his stay, Chad's main concern was his diarrhea, for which he takes colestipol at home. He was tested for cdiff and it was found to be negative. He had one day of formed stools but continued to have diarrhea the following day. He also complained of urinary frequency. He underwent a bladder scan which was read at 80mL post void. He worked with PT during his stay and was able to walk 500 feet without stopping. His potassium was low and he was started on potassium supplementation. Mr. Kim said he does not feel weak anymore and wants to focus on his diarrheal symptoms. He sees GI outpatient and is agreeable to following up there to continue the workup for chronic diarrhea. ANNAMARIA HUYNH DO 06/30/22 0418: Supervisory-Addendum Brief Verification & Attestation Participated in pt care: history, MDM, physical Personally performed: exam, history, MDM, supervision of care Care discussed with: Medical Student Procedures: n/a Results interpretation: Verified all documentation Verification and Attestation of Medical Student E/M Service A medical student performed and documented this service in my presence. I reviewed and verified all information documented by the medical student and made modifications to such information, when appropriate. I personally performed the physical exam and medical decision making. Annamaria Huynh Jun 30, 2022,04:18 MAGI BARRIGA Jun 29, 2022 11:47 ANNAMARIA HUYNH DO Jun 30, 2022 04:18
[2022-06-29 12:42] VITALS: BP 147/75
[2022-06-29 13:50] VITALS: BP 147/75
== END 2022-06-29 13:50 | disposition home or self-care (01) ==
LOC: EDUNIT# 11:43 → ER 11:46 → 4TH 16:20
PROVIDERS: ADMIT Internal Medicine; ATTEND Internal Medicine
DX: K52.9 Noninfective gastroenteritis and colitis, unspecified (principal); N39.0 Urinary tract infection, site not specified; R53.1 Weakness; R35.0 Frequency of micturition; E03.9 Hypothyroidism, unspecified; I10 Essential (primary) hypertension; S72.009A Fracture of unspecified part of neck of unspecified femur, initial encounter for closed fracture; F43.10 Post-traumatic stress disorder, unspecified; F32.A Depression, unspecified; Z79.899 Other long term (current) drug therapy; Z79.890 Hormone replacement therapy; Z87.891 Personal history of nicotine dependence; Z85.05 Personal history of malignant neoplasm of liver
CPT/HCPCS: 36415; 80053; 81000; 83735; 85025; 87324; 87449; 87636; 96361; 96366; 96372; G0378

== ENCOUNTER → 2022-07-20 | Outpatient (CLI) | payer OTHER, MEDICARE ==
[~2022-07-20] MED LIST changes: +POTA-160 PO; +TMSL.4C PO
== END ==
LOC: ORTHO 14:38
PROVIDERS: ATTEND Orthopaedic Surgery
DX: Z47.89 Encounter for other orthopedic aftercare (principal); I10 Essential (primary) hypertension

== ENCOUNTER → 2022-07-27 | Outpatient (CLI) | payer OTHER ==
[~2022-07-27] MED LIST changes: +IOHEXOL 350 MG/ML 100 ML (OMNIPAQUE 350) VIAL IV ONE; +NS 100 ML (IVPB) BAG IV ONE
[2022-07-27 11:47] LABS: BASOPHILS % (AUTO) 1 % (0-10); EOSINOPHILS # (AUTO) 0.1 10^3/uL (0.0-0.3); EOSINOPHILS % (AUTO) 2 % (0-10); HEMATOCRIT 41 % (40-54); HEMOGLOBIN 13.8 g/dL (13.3-17.7); LYMPHOCYTES # (AUTO) 1.5 10^3/uL (1.0-4.0); LYMPHOCYTES % (AUTO) 29 % (12-44); MEAN CORPUSCULAR HEMOGLOBIN 31 pg (25-34); MEAN CORPUSCULAR HGB CONC 34 g/dL (32-36); MEAN CORPUSCULAR VOLUME 89 fL (80-99); MEAN PLATELET VOLUME 11.7 fL (9.0-12.2); MONOCYTES # (AUTO) 0.6 10^3/uL (0.0-1.0); MONOCYTES % (AUTO) 11 % (0-12); NEUTROPHILS % (AUTO) 58 % (42-75); PLATELET COUNT 152 10^3/uL (130-400); WHITE BLOOD COUNT 5.2 10^3/uL (4.3-11.0)
[2022-07-27 12:10] LABS: ALBUMIN 3.9 GM/DL (3.2-4.5); BILIRUBIN,TOTAL 0.5 MG/DL (0.1-1.0); CALCIUM 9.6 MG/DL (8.5-10.1); CREATININE SERUM 1.3 MG/DL (0.60-1.30); POTASSIUM 3.8 MMOL/L (3.6-5.0); TOTAL PROTEIN 6.7 GM/DL (6.4-8.2)
--- NOTE | 2022-07-27 18:22 | Diagnostic Imaging Report ---
PROCEDURE: CT chest, abdomen, and pelvis with contrast. TECHNIQUE: Multiple contiguous axial images were obtained through the chest, abdomen, and pelvis after the administration of intravenous contrast. Auto Exposure Controls were utilized during the CT exam to meet ALARA standards for radiation dose reduction. INDICATION: Liver cell carcinoma COMPARISONS: 04/22/2022 and 12/29/2020 FINDINGS: No significant adenopathy within the chest. Scattered vascular calcifications within the thoracic aorta and its branch vessels, including within the coronary arteries. No aneurysmal dilatation of the thoracic aorta. The heart is within normal limits in size. No significant pericardial effusion. No pleural effusion. The trachea is patent. No pneumothorax. Minimal bilateral scarring and/or atelectasis. The lungs are otherwise clear. Age-indeterminate fracturing of the distal left clavicle is partially visualized. Scattered osseous degenerative changes without acute osseous abnormality within the chest. Posttreatment changes with stellate hyperdensities within the right hepatic lobe are again identified. 4.5 x 3.0 cm focal hypodensity within the right hepatic lobe is again identified, appearing similar to the prior examination. There is suggestion of ill-defined peripherally enhancing 3.0 x 2.7 cm minimally hypodense mass within the anterior aspect of the left hepatic lobe. This is best seen on series 3, image 116 and series 602 image 35. This appears to be a change from prior imaging. No additional new focal hepatic mass. A 0.9 cm hypodensity within the spleen is again identified, similar to prior imaging. No new focal splenic mass lesion. The adrenal glands are unremarkable. Extensive calcifications are again noted throughout the pancreas with associated pancreatic parenchymal atrophy and chronic dilatation of the common bile duct. This is similar to the prior examination. A 1 cm calculus within the left renal pelvis. Tiny hypodensities associated with the left kidney are present, though too small to completely characterize. These were present on prior imaging. Scattered vascular calcifications without aneurysmal dilatation of the abdominal aorta. Significant mural thickening and trabeculation of the urinary bladder. Mild colonic diverticulosis without CT evidence of diverticulitis. The appendix is unremarkable. No bowel obstruction or pneumatosis. No significant adenopathy or free air. Trace free fluid within the lower pelvis. Left total hip arthroplasty. Scattered osseous degenerative changes without acute osseous abnormality. IMPRESSION: Ill-defined peripherally enhancing lesion within the anterior aspect of the left hepatic lobe is concerning for new mass/malignancy at this location. This could be confirmed with an MRI or CT of the abdomen with and without contrast using hepatic mass protocol for further evaluation. Stable postprocedural changes within the right hepatic lobe with unchanged focal hypodensity within the right hepatic lobe. Partially visualized, age-indeterminate fracturing of the distal left clavicle. Significant mural thickening and trabeculation of the urinary bladder. This appears slightly worsened since the prior examination. This could relate to chronic urinary bladder outlet obstruction, though cystitis would be an additional consideration. Findings consistent with sequelae of chronic pancreatitis. Stable nonobstructing left renal calculus. Additional findings as above. Dictated by: Dictated on workstation # [id number]
== END ==
LOC: RAD 11:23
PROVIDERS: ATTEND Internal Medicine Hematology & Oncology
DX: C22.0 Liver cell carcinoma (principal); N20.0 Calculus of kidney; N32.89 Other specified disorders of bladder; Z98.890 Other specified postprocedural states
CPT/HCPCS: 36415; 71260; 74177; 80053; 85025

== ENCOUNTER → 2022-09-06 | Outpatient (CLI) | payer OTHER ==
[~2022-09-06] MED LIST changes: +GADOTERATE 0.5 MMOL/ML (CLARISCAN) 15 ML VIAL IV ONE; -IOHEXOL 350 MG/ML 100 ML (OMNIPAQUE 350) VIAL IV ONE; -NS 100 ML (IVPB) BAG IV ONE
--- NOTE | 2022-09-06 16:17 | Diagnostic Imaging Report ---
EXAMINATION: MRI of the abdomen with and without contrast. TECHNIQUE: Multiplanar, multisequence MR images of the abdomen were obtained with and without intravenous contrast. HISTORY: Hepatocellular carcinoma COMPARISON: 07/27/2022 FINDINGS: Liver: Liver is cirrhotic. There is atrophy of the right liver with a treated lesion similar to prior CT in the right liver measuring 3.2 x 2.8 cm. There is hypertrophy of the left liver. There is a 2.8 x 2.6 T2 intermediate lesion in segment 4a with rim arterial phase hyperenhancement and no washout. Portal vein is patent. Hepatic veins are patent. Ducts: No biliary ductal dilation. Gallbladder: Normal. Pancreas: There is atrophy of the pancreas with ductal dilation. On the prior CT there are pancreatic calcifications. Spleen: Normal. Adrenals: Normal. Kidneys: No suspicious lesions. No hydronephrosis. There are cysts in the left kidney. Bowel: Normal. Other: No lymphadenopathy. Visualized portions of the thorax are normal. No suspicious osseus lesions. IMPRESSION: 1. The lesion in segment 4a is categorized as LI-RADS 3, intermediate probability of hepatocellular carcinoma. Dictated by: Dictated on workstation # [id number]
== END ==
LOC: RAD 13:01
PROVIDERS: ATTEND Internal Medicine Hematology & Oncology
DX: R16.0 Hepatomegaly, not elsewhere classified (principal)
CPT/HCPCS: 74183

== ENCOUNTER 2022-09-14 11:13 | Outpatient (RCR) | payer OTHER ==
[2022-08-24 13:48] LABS: BASOPHILS % (AUTO) 1 % (0-10); EOSINOPHILS # (AUTO) 0.1 10^3/uL (0.0-0.3); EOSINOPHILS % (AUTO) 1 % (0-10); HEMATOCRIT 39 % (40-54); HEMOGLOBIN 13.3 g/dL (13.3-17.7); LYMPHOCYTES # (AUTO) 1.1 10^3/uL (1.0-4.0); LYMPHOCYTES % (AUTO) 28 % (12-44); MEAN CORPUSCULAR HEMOGLOBIN 30 pg (25-34); MEAN CORPUSCULAR HGB CONC 35 g/dL (32-36); MEAN CORPUSCULAR VOLUME 88 fL (80-99); MONOCYTES # (AUTO) 0.4 10^3/uL (0.0-1.0); MONOCYTES % (AUTO) 9 % (0-12); NEUTROPHILS # (AUTO) 2.5 10^3/uL (1.8-7.8); NEUTROPHILS % (AUTO) 62 % (42-75); PLATELET COUNT 134 10^3/uL (130-400)
[2022-08-24 14:12] LABS: ALBUMIN 3.9 GM/DL (3.2-4.5); BILIRUBIN,TOTAL 0.4 MG/DL (0.1-1.0); CALCIUM 9.1 MG/DL (8.5-10.1); CREATININE SERUM 1.17 MG/DL (0.60-1.30); POTASSIUM 4.1 MMOL/L (3.6-5.0); TOTAL PROTEIN 6.7 GM/DL (6.4-8.2)
[~2022-09-14 11:13] MED LIST changes: -GADOTERATE 0.5 MMOL/ML (CLARISCAN) 15 ML VIAL IV ONE
== END 2022-09-15 | disposition home or self-care (01) ==
LOC: ONC 11:13
PROVIDERS: ATTEND Internal Medicine Hematology & Oncology
DX: C22.0 Liver cell carcinoma (principal); I10 Essential (primary) hypertension
CPT/HCPCS: 36415; 80053; 85025

== ENCOUNTER → 2022-12-08 | Outpatient (CLI) | payer MEDICARE, BC ==
[~2022-12-08] MED LIST changes: -LOSA100T57 PO; +LOSA100T58 PO
== END ==
LOC: WOUNDCARE 13:17
PROVIDERS: ATTEND Family Medicine
DX: L89.321 Pressure ulcer of left buttock, stage 1 (principal); L24.A2 Irritant contact dermatitis due to fecal, urinary or dual incontinence; R63.4 Abnormal weight loss; M62.81 Muscle weakness (generalized)
CPT/HCPCS: 99213

== ENCOUNTER 2023-03-03 15:10 | Outpatient (RCR) | payer MEDICARE, BC ==
[~2023-03-03 15:10] MED LIST changes: +ACHD5005 PO
== END 2023-03-17 | disposition home or self-care (01) ==
PROVIDERS: ATTEND Internal Medicine
DX: R26.81 Unsteadiness on feet (principal); R53.1 Weakness; I10 Essential (primary) hypertension; Z96.642 Presence of left artificial hip joint

== ENCOUNTER → 2023-03-18 | Outpatient (CLI) | payer MEDICARE, BC ==
[2023-03-18 15:15] LABS: BASOPHILS % (AUTO) 1 % (0-10); EOSINOPHILS # (AUTO) 0.1 10^3/uL (0.0-0.3); EOSINOPHILS % (AUTO) 3 % (0-10); HEMATOCRIT 40 % (40-54); HEMOGLOBIN 13.3 g/dL (13.3-17.7); LYMPHOCYTES # (AUTO) 1.1 10^3/uL (1.0-4.0); LYMPHOCYTES % (AUTO) 23 % (12-44); MEAN CORPUSCULAR HEMOGLOBIN 31 pg (25-34); MEAN CORPUSCULAR HGB CONC 33 g/dL (32-36); MEAN CORPUSCULAR VOLUME 92 fL (80-99); MONOCYTES # (AUTO) 0.3 10^3/uL (0.0-1.0); MONOCYTES % (AUTO) 7 % (0-12); NEUTROPHILS # (AUTO) 3.2 10^3/uL (1.8-7.8); NEUTROPHILS % (AUTO) 67 % (42-75); PLATELET COUNT 174 10^3/uL (130-400); WHITE BLOOD COUNT 4.8 10^3/uL (4.3-11.0)
[2023-03-18 15:21] LABS: ALBUMIN 3.9 GM/DL (3.2-4.5)
[2023-03-18 15:22] LABS: CALCIUM 9.2 MG/DL (8.5-10.1)
[2023-03-18 15:23] LABS: TOTAL PROTEIN 7.2 GM/DL (6.4-8.2)
[2023-03-18 15:25] LABS: BILIRUBIN,TOTAL 0.4 MG/DL (0.1-1.0)
[2023-03-18 15:27] LABS: CREATININE SERUM 1.7 MG/DL (0.60-1.30)
[2023-03-18 15:35] LABS: PROTHROMBIN TIME PATIENT 13.3 SEC (12.2-14.7)
== END ==
LOC: LAB 14:50
PROVIDERS: ATTEND Internal Medicine
DX: C22.0 Liver cell carcinoma (principal)
CPT/HCPCS: 36415; 80053; 82105; 85025; 85610

== ENCOUNTER → 2023-03-23 | Outpatient (CLI) | payer OTHER ==
[~2023-03-23] MED LIST changes: +IOHEXOL 350 MG/ML 100 ML (OMNIPAQUE 350) VIAL IV ONE; +NS 100 ML (IVPB) BAG IV ONE
--- NOTE | 2023-03-23 16:28 | Diagnostic Imaging Report ---
INDICATION: Hepatocellular carcinoma, followup. TECHNIQUE: Multiple contiguous axial images were obtained through the chest, abdomen, and pelvis after the administration of intravenous contrast. Auto Exposure Controls were utilized during the CT exam to meet ALARA standards for radiation dose reduction. Comparison made with 07/27/2022. CT chest findings: There are no enlarged mediastinal or hilar nodes. There are no enlarged axillary nodes. There is no pleural or pericardial fluid. Lung windows demonstrate some linear scarring or atelectasis on both sides with no overt consolidation or discrete pulmonary parenchymal mass. CT abdomen and pelvis findings: Hyperdensities are seen in the right lobe of the liver in vascular distribution, presumed secondary to previous embolization treatment for seizure. Mass in the right lobe of the liver anteriorly and superiorly is noted, it previously measured 3.0 x 4.5 cm and now measures essentially the same. On the previous study, there was a question of a vague mass in the left lobe of the liver. This was proven on MRI of 09/06/2022. On today's study, there is a vague area of hypodensity in this area but this area is not well seen. Followup MRI may be helpful for further evaluation. Remainder of the liver showed no abnormal findings. Portal vein is patent. The spleen, adrenals, and pancreas appear unchanged. There are changes of chronic pancreatitis with atrophy of the pancreas and diffuse calcifications throughout the pancreatic body. There is dilatation of the pancreatic duct. There is hydronephrosis of the left kidney which is new compared to the previous study. There is a stone at the left UPJ measuring about 9 mm. There is no retroperitoneal mass or adenopathy. There is no ascites or abnormal fluid collection. There is diffuse bladder wall thickening with bladder diverticuli. There is a left hip prosthesis. IMPRESSION: CT chest shows no evidence of metastatic disease in the chest or acute abnormality. There is some mild linear scarring or atelectasis in the lung bases CT abdomen and pelvis demonstrates stable appearance and size of the lesion in the right lobe of the liver which has undergone previous embolization treatment. The vague lesion in the left lobe of the liver seen on the prior study and confirmed by MRI is not well seen on today's study but there is some vague hypodensity in the same location. MRI followup is suggested to better evaluate this area. There is new hydronephrosis of the left kidney with 9 mm stone at the left UPJ. The bladder wall is diffusely thickened with multiple bladder diverticuli. Dictated by: Dictated on workstation # [id number]
== END ==
LOC: RAD 13:20
PROVIDERS: ATTEND Internal Medicine Hematology & Oncology
DX: C22.0 Liver cell carcinoma (principal); N13.2 Hydronephrosis with renal and ureteral calculous obstruction; N32.3 Diverticulum of bladder
CPT/HCPCS: 71260; 74177